=== PATIENT | female | born 1960 | race Caucasian/White ===

== ENCOUNTER 2023-04-13 08:35 | Inpatient (IN) | payer MEDICAID, SELFPAY ==
[2023-04-13] VITALS (19 sets, daily range): BP systolic 112–148; BP diastolic 44–80; PULSE 61–104; RESP 11–19; TEMP 36.6–37.2; O2SAT 96–100; BMI 22.4
--- NOTE | 2023-04-13 | ECHO_ITS ---
Patient Info Name: Patrica Navarrete Age: 63 years : 1960 Gender: Female Ht: 61 in Wt: 128 lbs BSA: 1.59 m2 HR: 105 bpm BP: 130 / 61 mmHg Heart Rhythm: Sinus Rhythm Technical Quality: Fair Exam Date: 04/13/2023 3:52 PM Exam Location: Echo Lab Exam Room: ICU6 Patient Status: Inpatient Admit Date: 04/13/2023 Staff Ordering Physician: Acosta Massey MD Credit Department Manager: Farhana Navarrete RDCS Attending Provider: Reymundo Funes MD Exam Type: CA echo doppler color flow Study Info Indications - ketoacidosis edema hx/o afib covid + Complete two-dimensional, color flow and Doppler transthoracic echocardiogram is performed. Summary 1. Complete two-dimensional, color flow and Doppler transthoracic echocardiogram is performed. 2. Normal left ventricular size and hyperdynamic systolic function visually estimated ejection fraction 80%. 3. Apparent state of increased inotropic stimulation. 4. Grade 1 diastolic noncompliance. 5. No valvular dysfunction. Left Ventricle Left ventricular chamber dimension is normal. Left ventricular systolic function is hyperdynamic, estimated at >70%. The left ventricular diastolic function is grade I diastolic dysfunction. Right Ventricle Right ventricular chamber dimension is normal. Left Atria Left atrial chamber dimension is normal. Right Atria Right atrial chamber dimension is normal. Aortic Valve The aortic valve is normal. Pulmonic Valve The pulmonic valve is not well visualized. Mitral Valve The mitral valve has normal leaflets. Tricuspid Valve The tricuspid valve leaflets are normal. Pericardium/Pleural The pericardium appears normal. Aorta The aortic root size at the sinus of Valsalva is normal. Left Ventricular Outflow Tract Name Value Normal LVOT 2D LVOT Diameter 2.0 cm LVOT Doppler LVOT Peak Gradient 6 mmHg LVOT Mean Gradient 4 mmHg LVOT VTI 24 cm LVOT VTI/AV VTI Ratio 1.0 LVOT Stroke Volume 75 ml LVOT CO 18.0 l/min LVOT CI 11.3 l/min/m2 Pulmonic Valve Name Value Normal PV Doppler PV Peak Gradient 5 mmHg Mitral Valve Name Value Normal MV Doppler MV Decel Wagoner 231 cm/s2 MV PHT 62 ms MV Area (PHT) 3.5 cm2 4.0-5.0 MV Diastolic Function MV E Peak Velocity 50 cm/s MV A Peak Velocity 78 cm/s M
--- NOTE | ~2023-04-13 | XR_ITS ---
EXAMINATION: XR chest 1V portable INDICATION: Weakness TECHNIQUE: Portable AP chest at 0952 hours COMPARISON: None available FINDINGS: The lungs are free of acute opacities. No pleural effusion or pneumothorax. The cardiomedia stinal silhouette is normal. IMPRESSION: 1. No acute cardiopulmonary abnormality. Reviewed, dictated and finalized at location B. [employer]
--- NOTE | 2023-04-13 08:49 | ECG_ITS ---
Measurements Intervals [place] Rate: 64 P: 71 MS: 125 QRS: 59 QRSD: 88 T: 51 QT: 434 QTc: 450 Interpretive Statements SINUS RHYTHM NORMAL ELECTROCARDIOGRAM NO PREVIOUS ECG AVAILABLE FOR COMPARISON Electronically Signed On 04-13-2023 18:19:46 [employer]IXER by Kenny French M.D.
[2023-04-13 09:30] LABS: Glucose Point of Care > 500 mg/dl (65-105)
--- NOTE | 2023-04-13 09:35 | ED.GENADULT ---
HPI - General Adult General Chief complaint: Weakness Stated complaint: weakness History of Present Illness HPI narrative: 63-year-old female with history of type 2 diabetes presented to the emergency department for evaluation of not feeling well since yesterday. Patient reports increased body aches and fatigue and generalized weakness that started yesterday and worsened through to today. Patient denies any falls or injuries. Patient states he does live at home with her son and [id number] and they help take care of her. Patient presented the emergency department by EMS for evaluation of these symptoms. At time of evaluation patient is alert and oriented. Related Data Home Medications Medication Instructions Recorded Confirmed alprazolam 1 mg tablet 1 mg PO QID PRN Anxiety 04/13/23 04/13/23 apixaban 5 mg tablet (Eliquis) 5 mg PO BID 04/13/23 04/13/23 atorvastatin 20 mg tablet 20 mg PO DAILY 04/13/23 04/13/23 estradiol 1 mg tablet 1 mg PO BID 04/13/23 04/13/23 insulin lispro 100 unit/mL 7 unit subcut TIDWM 04/13/23 04/13/23 subcutaneous pen levothyroxine 75 mcg tablet 75 mcg PO DAILY 04/13/23 04/13/23 losartan 50 mg tablet 50 mg PO DAILY 04/13/23 04/13/23 metoprolol tartrate 50 mg tablet 50 mg PO BID 04/13/23 04/13/23 olmesartan 20 mg tablet 20 mg PO DAILY 04/13/23 04/13/23 quetiapine 25 mg tablet 12.5 mg PO HS 04/13/23 04/13/23 trazodone 50 mg tablet 50 mg PO HS 04/13/23 04/13/23 venlafaxine 75 mg capsule,extended 75 mg PO DAILY 04/13/23 04/13/23 release 24 hr Allergies Allergy/AdvReac Type Severity Reaction Status Date / Time cariprazine [From Vraylar] AdvReac Unknown Verified 04/13/23 09:57 metoclopramide [From Reglan] AdvReac Anxiety Verified 04/13/23 09:51 Review of Systems Review of Systems: All systems reviewed & are unremarkable except as noted in HPI and below PMFSH Past Medical History Medical History (Updated 04/13/23 @ 12:07 by Acosta Massey MD) Anxiety Atrial fibrillation CVA (cerebral vascular accident) Diabetes Hypothyroidism Family History Family History (Updated 04/13/23 @ 14:14 by Ian Plasencia RN) Father Acute myocardial infarction Social History Social History (Updated 04/13/23 @ 11:59 by Acosta Massey MD) Social History: Patient denies smoking alcohol use or drug use Smoking status: Never smoker Alcohol intake: never Substance use: never Substance use type: does not use Do You Feel Safe in your Home?: Yes Lack of Transportation: No Lack of Food: Never True Current Housing: I Have Housing Concerned About Future Housing: No Difficulty Paying Gas/Electric Bills: No Difficulty Paying for Meds: No Currently Unemployed: No Education: High School Diploma/GED Difficulty w/ Childcare or Family Care: No Spiritual care concerns: No Exam Narrative: APPEARANCE: Unkempt and ill-appearing HEAD: normocephalic, atraumatic. EYES: PERRLA/EOMI, conjunctivae clear. NOSE: Normal no drainage EARS:TMS clear with good light reflex. THROAT: Pharynx clear, no exudate. NECK: Supple. No adenopathy, no masses. RESPIRATORY: Airway patent, respirations nonlabored. Clear to auscultation bilaterally, no rales, rhonchi, wheezing. CARDIOVASCULAR: Regular rate and rhythm without murmurs rubs or gallops. ABDOMINAL: Soft, nontender, nondistended, normal bowel sounds MUSCULOSKELETAL: Moves all extremities. Strength/ROM intact, No edema, No calf tenderness. NEURO: Alert. Cranial nerves II through XII intact. Grossly intact SKIN: Warm, dry. Normal Color Course Course Emergency Course: Patient was admitted for COVID and DKA Vital Signs Vital signs: Vital Signs Temperature 97.9 F 04/13/23 08:36 Pulse Rate 61 04/13/23 08:36 Respiratory Rate 16 04/13/23 08:36 Blood Pressure 118/55 L 04/13/23 08:36 Pulse Oximetry 100 04/13/23 08:36 Temperature 98 F 04/13/23 16:00 Pulse Rate 85 04/13/23 18:00 Respiratory Rate 18 04/13/23 18:
[2023-04-13 09:47] LABS: Basophils Percent Auto 0.2 % (0.2-1.2); Hemoglobin 13.5 g/dL (12.0-15.0); Immature Granulocyte Absolute 0.05 K/mm3 (0.00-0.031); Immature Granulocyte Percent A 0.8 % (0-0.5); Lymphocytes Absolute Auto 0.74 K/mm3 (0.9-3.2); Lymphocytes Percent Auto 12.3 % (18.3-44.2); Mean Corpuscular HGB Conc 31.4 g/dl (32-36); Mean Corpuscular Hemoglobin 29.9 pg (26-34); Mean Corpuscular Volume 95.1 fl (80-100); Mean Platelet Volume 10.2 fl (7.4-10.4); Monocytes Percent Auto 17.3 % (2.6-8.5); Neutrophils Absolute Auto 4.2 K/mm3 (1.3-6.7); Neutrophils Percent Auto 69.4 % (45.5-73.1); Platelet Count Result 265 k/mm3 (150-375); Red Blood Count 4.52 M/mm3 (4.2-5.4); Red Cell Distribution Width 12.1 % (11.5-14.5)
[2023-04-13 09:51] LABS: Appearance Urine Clear (Clear); Bacteria Urine None Seen /hpf; Bilirubin Urine Negative (Negative); Blood Urine Trace (Negative); Color Urine Yellow (Yellow); Glucose Urine UA 3+ mg/dL (Negative); Ketones Urine 4+ mg/dL (Negative); Leukocyte Esterase Ur Negative LEU/UL (Negative); Nitrate Urine Negative (Negative); Non Pathogenic Casts 0-2; Protein Urine Trace mg/dL (Negative); RBC Urine 0-2 /hpf (0-2); Specific Grav Ur 1.025 (1.001-1.035); Squamous Epithelial Cell Urine None seen /hpf (Few); Urobilinogen Urine 0.2 mg/dL (<2.0); WBC Urine 0-5 /hpf
[2023-04-13 09:53] LABS: Add Urine Microscopic? YES
[2023-04-13 10:01] LABS: Alanine Aminotransferase 18 U/L (6-35); Albumin Level 4.1 g/dL (3.5-5.1); Alkaline Phosphatase 72 U/L (38-126); Anion Gap 22 mmol/L (8-16); Aspartate Amino Transferase 25 U/L (14-36); Bilirubin,Total 0.5 mg/dL (0.2-1.3); Blood Urea Nitrogen 17 mg/dL (7-17); Calcium 9.4 mg/dL (8.4-10.2); Carbon Dioxide 12 mmol/L (22-30); Chloride 96 mmol/L (98-107); Estimated CRCL calculation 35 ml/min; Estimated Glomerular Filt Rate 50; Glucose 479 mg/dL (65-110); Potassium 6.2 mmol/L (3.4-5.0); Sodium 130 mmol/L (137-145)
[2023-04-13 10:26] LABS: Influenza A QL RT-PCR Negative (Negative); Influenza B QL RT-PCR Negative (Negative); RSV RNA, RT-PCR Negative (Negative); SARS-CoV-2 RNA PCR Positive (Negative)
[2023-04-13] MEDS: ALBUTEROL SULFATE NEB 2.5 MG/3 ML INH 10 MG INHALATION (10:36)
[2023-04-13 10:41] LABS: Base Excess ABG -13.8 mEq/l (+/-2.0); Carboxyhemoglobin 1.2 % THb (0-2.0); Fractional Inspired Oxygen 21 %; HCO3 ABG 11.8 mEq/l (22.0-26.0); Methemoglobin ABG 0.2 %THb (0-1.5); Oxygen Content ABG 18.3 %vol (16.0-22.0); Oxygen Saturation ABG 95.6 % (95.0-100.0); Oxyhemoglobin 93.5 % THb (90.0-100.0); PCO2 ABG 27.6 mmHg (35.0-45.0); PO2 ABG 88.7 mmHg (80.0-100.0); PO2 FiO2 Ratio Arterial Blood 4.22 %; Reduced Hemoglobin 5.1 %THb (0-5.0); Total Hemoglobin 13.9 g/dL (12.0-18.0)
[2023-04-13 10:43] LABS: Device ROOM AIR; Modified Allen's Test Pass; Site Drawn RIGHT RADIAL; pH ABG 7.249 (7.350-7.450)
[2023-04-13 10:50] LABS: Beta-Hydroxybutyrate/Acetoacetate 8.03 mmol/L (0.02-0.27)
[2023-04-13] MEDS: SODIUM CHLORIDE 0.9% IV 1,000 ML 999 ML IV CONT ×2 (11:32→11:33)
[2023-04-13] MEDS: FUROSEMIDE INJ 40 MG/4 ML VIAL 20 MG IV PUSH (11:33)
[2023-04-13] MEDS: INSULIN HUMAN REGULAR (*BKC) 100 UNITS/ML 6 UNITS IV PUSH (11:34)
[2023-04-13] MEDS: SODIUM ZIRCONIUM CYCLOSILICATE 10 GM POWD.PACK PO ×2 (11:34→15:21)
[2023-04-13] MEDS: SODIUM BICARBONATE 8.4% 50 MEQ/50 ML SYRINGE IV PUSH (11:34)
--- NOTE | 2023-04-13 11:57 | WPDCNINT ---
Assessment and Plan Assessment and plan (1) DKA (diabetic ketoacidosis): Code(s): E11.10 - Type 2 diabetes mellitus with ketoacidosis without coma Status: Acute Assessment and Plan: 2 L iVF bolus followed by infusion Patient is going to be started on insulin infusion and Q1H glucose monitoring Serial labs will be done Replace electrolytes as needed Will transition to SC insulin once AG is closed (2) COVID: Code(s): U07.1 - COVID-19 Status: Acute Assessment and Plan: Patient tested positive for COVID-19 On room air and chest x-ray clear Isolation Not sure if patient has received COVID-19 vaccine Since patient is at high risk of progression due to her comorbidities I will start patient on remdesivir as per treatment recommendations (3) Acute hyperkalemia: Code(s): E87.5 - Hyperkalemia Status: Acute Assessment and Plan: Secondary to DKA metabolic acidosis and NEHEMIAS Patient is getting insulin bolus IV fluid bolus and bicarb in the ER Recheck BMP in 4 hours (4) Acute kidney injury: Code(s): N17.9 - Acute kidney failure, unspecified Status: Acute Assessment and Plan: Creatinine mildly elevated. Baseline unknown This could be secondary to dehydration from DKA Will treat with IV fluids monitor urine output electrolytes and creatinine If it does not improve with IV fluids will consider further workup Check CK level (5) Metabolic acidosis: Code(s): E87.20 - Acidosis, unspecified Status: Acute Assessment and Plan: Secondary to DKA and NEHEMIAS Patient received 1 amp of bicarb in the ER Treatment with IV fluids Monitor (6) CVA (cerebral vascular accident): Code(s): I63.9 - Cerebral infarction, unspecified Status: Acute Assessment and Plan: Will obtain records as no details known at this time (7) Atrial fibrillation: Code(s): I48.91 - Unspecified atrial fibrillation Status: Acute Assessment and Plan: Patient apparently has history of AFib although it was not confirmed Obtain records Currently in sinus rhythm with controlled ventricular rate (8) Hypothyroidism: Code(s): E03.9 - Hypothyroidism, unspecified Status: Acute Assessment and Plan: Check TSH Resume levothyroxine once confirmed Plan DVT prophylaxis -Lovenox Stress ulcer prophylaxis - Nutrition -npo Code Status - Full Code Total Critical Care Time - 35 minutes Due to a high probability of clinically significant, life threatening deterioration, the patient required my highest level of preparedness to intervene emergently and I personally spent this critical care time directly and personally managing the patient. This critical care time included obtaining a history; examining the patient; pulse oximetry; ordering and review of studies; arranging urgent treatment with development of a management plan; evaluation of patient's response to treatment; frequent reassessment; and discussions with other providers. It was exclusive of separately billable procedures and treating other patients and teaching time. Please see Assessment and Plan section and the rest of the note for further information on patient assessment and treatment [employer] Fleet [employer] Consult Note Consult date: 04/13/23 Reason for consult: DKA HPI: Patrica Navarrete is a 63 year old female with past history of diabetes presented with chief complaint of weakness. Patient is a poor historian and appears that has a history of hypothyroidism CVA anxiety and atrial fibrillation although details unknown at this time. No family is available and nurse tried to call patient's son-in-law and daughter but was unable to speak to anyone. Patient herself does not know details about her medical problems or medications and is able to provide limited history. She states that she has been feeling sick for last few days and feeling very weak and tired and unable to get out of bed. She denies any tanja
[2023-04-13] MEDS: INSULIN HUMAN REGULAR (*BKC) 100 UNITS in SODIUM CHLORIDE 0.9% IV 99 ML 5.5 UNITS IV CONT (12:49)
[2023-04-13 12:56] LABS: Hemoglobin A1C 11.4 % (<5.7)
[2023-04-13 13:03] LABS: Thyroid Stimulating Hormone Reflex 0.253 uIU/mL (0.465-4.68)
[2023-04-13 13:21] LABS: Glucose Point of Care 430 mg/dl (65-105)
[2023-04-13 13:28] LABS: Creatine Kinase 66 U/L (30-135); Magnesium 1.8 mg/dL (1.6-2.3); Phosphorus 5.8 mg/dL (2.5-4.5)
[2023-04-13] MEDS: SODIUM CHLORIDE 0.9% IV 1,000 ML 150 ML IV CONT (14:01)
[2023-04-13 14:05] LABS: Glucose Point of Care 420 mg/dl (65-105)
[2023-04-13] MEDS: REMDESIVIR 200 MG/NS 250 ML 200 MG/250 ML BAG 250 MG IVPB (14:09)
--- NOTE | 2023-04-13 14:21 | ADMGEN ---
This patient, Patrica Navarrete, was admitted to Virtual [facility] ICU-1. Patient/family oriented to hospital policies and general routines including ID bracelet, bed and alarms, visiting hours, pain management, procedures, bathroom and other care routines, personal items, smoking policy, room service/diet, and visiting hours. Information on how to activate the Rapid Response Team has been discussed. Patient/Family are encouraged to report perceived risks to care and to ask questions if they do not understand what they are told or what they should do.
[2023-04-13 14:44] LABS: Free T4 Free Thyroxine Reflex 1.81 ng/dL (0.78-2.19)
--- NOTE | 2023-04-13 15:00 | PC.NURSE ---
Updated patient's son-in-law, Chester Townsend, on plan of care and patient condition.
--- NOTE | 2023-04-13 15:25 | PM.IMHP ---
H&P: HPI History of Present Illness Date/Time: 04/13/23 Chief Complaint: Weakness. Narrative: This is a 63-year-old female with history of type 1 diabetes mellitus, hypothyroidism, stroke, atrial fibrillation, hypertension, and anxiety who presented to the emergency department via EMS from home for evaluation of weakness. The patient provides the following history however some of the following is supplemented via a review of her electronic medical records as she is not a great historian. She has not been feeling well for a couple of days with generalized malaise, fatigue, body aches, dry cough, and subjective fever. She reports that she has been so weak that she could not even get herself out of bed and she had to crawl to the bathroom. Family members found her on the bathroom floor (she denied a fall) and called 911. Preliminary workup in the ED is consistent with diabetic ketoacidosis and she has been admitted to the ICU in this setting for further treatment. She states compliance with her insulin and states that she checks her glucose frequently but I am not certain that is the case. She also tested positive for COVID and reports that she has never been vaccinated for the same. At the time my evaluation she is still not feeling well. She reports ongoing nausea and she has had several episodes of non bloody and non bilious emesis. She denies documented fever, headache, chest pain, pleuritic pain, hematemesis, diarrhea, and dysuria. Review of Systems Review of Systems: Twelve systems were reviewed and are negative except for as per HPI. [facility] Past Medical History Medical History (Updated 04/14/23 @ 00:26 by Marisa Noriega PA-C) Anxiety Cerebrovascular accident Hypothyroidism Paroxysmal atrial fibrillation Type 1 diabetes mellitus Family History Family History Father Acute myocardial infarction Social History Social History (Updated 04/14/23 @ 00:27 by Marisa Noriega PA-C) Social History: Surrogate medical decision maker: Chester Townsend, son-in-law. Code status: Full code. Smoking status: Never smoker Alcohol intake: never Substance use: never Substance use type: does not use Do You Feel Safe in your Home?: Yes Lack of Transportation: No Lack of Food: Never True Current Housing: I Have Housing Concerned About Future Housing: No Difficulty Paying Gas/Electric Bills: No Difficulty Paying for Meds: No Currently Unemployed: No Education: High School Diploma/GED Difficulty w/ Childcare or Family Care: No Spiritual care concerns: No Meds Home Medications and Allergies Home Medications Medication Instructions Recorded Confirmed Type alprazolam 1 mg tablet 1 mg PO QID PRN Anxiety 04/13/23 04/13/23 History apixaban 5 mg tablet (Eliquis) 5 mg PO BID 04/13/23 04/13/23 History atorvastatin 20 mg tablet 20 mg PO DAILY 04/13/23 04/13/23 History estradiol 1 mg tablet 1 mg PO BID 04/13/23 04/13/23 History insulin lispro 100 unit/mL 7 unit subcut TIDWM 04/13/23 04/13/23 History subcutaneous pen levothyroxine 75 mcg tablet 75 mcg PO DAILY 04/13/23 04/13/23 History losartan 50 mg tablet 50 mg PO DAILY 04/13/23 04/13/23 History metoprolol tartrate 50 mg tablet 50 mg PO BID 04/13/23 04/13/23 History olmesartan 20 mg tablet 20 mg PO DAILY 04/13/23 04/13/23 History quetiapine 25 mg tablet 12.5 mg PO HS 04/13/23 04/13/23 History trazodone 50 mg tablet 50 mg PO HS 04/13/23 04/13/23 History venlafaxine 75 mg capsule,extended 75 mg PO DAILY 04/13/23 04/13/23 History release 24 hr Allergies Allergy/AdvReac Type Severity Reaction Status Date / Time cariprazine [From Kamryn] AdvReac Unknown Verified 04/13/23 09:57 metoclopramide [From Reglan] AdvReac Anxiety Verified 04/13/23 09:51 Vital Signs Vital Signs - 24 hr 04/13/23 08:36 04/13/23 10:38 04/13/23 09:01 Temperature 97.9 F Pulse Rate 61 68 65 Respiratory Rate
[2023-04-13 15:26] LABS: Total Triiodothyronine (T3) 0.53 NG/ML (0.97-1.69)
--- NOTE | 2023-04-13 15:50 | PCCDE ---
04/13/23 15:50 contacted pt by phone. Currently tired, and someone in room running test. Retry tomorrow.
[2023-04-13 15:52] LABS: Anion Gap 25 mmol/L (8-16); Blood Urea Nitrogen 15 mg/dL (7-17); Calcium 8.5 mg/dL (8.4-10.2); Carbon Dioxide 12 mmol/L (22-30); Chloride 101 mmol/L (98-107); Estimated CRCL calculation 38 ml/min; Estimated Glomerular Filt Rate 56; Glucose 316 mg/dL (65-110); Potassium 3.7 mmol/L (3.4-5.0); Sodium 138 mmol/L (137-145)
[2023-04-13 16:01] LABS: NT Pro B Type Natriuretic Pept 874 pg/mL (19.9-100)
[2023-04-13 16:22] LABS: Glucose Point of Care 358 mg/dl (65-105)
[2023-04-13 16:22] LABS: Glucose Point of Care 322 mg/dl (65-105)
[2023-04-13 16:51] LABS: MRSA (PCR) NOT DETECTED (NOT DETECTE)
[2023-04-13] MEDS: KCL 20 MEQ/D5/0.45% SOD CHL 1,000 ML 150 ML IV CONT (17:06)
[2023-04-13] MEDS: VENLAFAXINE HCL XR 75 MG CAP.ER.24H PO (17:06)
[2023-04-13 17:11] LABS: Glucose Point of Care 287 mg/dl (65-105)
[2023-04-13 17:59] LABS: Glucose Point of Care 268 mg/dl (65-105)
[2023-04-13 20:10] LABS: Anion Gap 9 mmol/L (8-16); Blood Urea Nitrogen 14 mg/dL (7-17); Calcium 8.4 mg/dL (8.4-10.2); Carbon Dioxide 25 mmol/L (22-30); Chloride 102 mmol/L (98-107); Estimated CRCL calculation 53 ml/min; Estimated Glomerular Filt Rate > 60; Glucose 187 mg/dL (65-110); Potassium 3.5 mmol/L (3.4-5.0); Sodium 136 mmol/L (137-145)
[2023-04-13] MEDS: APIXABAN 5 MG TABLET PO (20:17)
[2023-04-13] MEDS: INSULIN GLARGINE (*BKC) 100 UNITS/ML 22 UNITS SUB-Q (21:02)
[2023-04-13 21:13] LABS: Glucose Point of Care 189 mg/dl (65-105)
[2023-04-13 21:13] LABS: Glucose Point of Care 223 mg/dl (65-105)
[2023-04-13] MEDS: KCL 20MEQ/0.9% SOD CHL 1,000 ML 75 ML IV CONT (22:07)
[2023-04-14] VITALS (11 sets, daily range): BP systolic 113–169; BP diastolic 44–75; PULSE 69–99; RESP 10–20; TEMP 36.5–37.5; O2SAT 93–100; BMI 22.4
[2023-04-14 00:06] LABS: Glucose Point of Care 183 mg/dl (65-105)
[2023-04-14 04:00] LABS: Basophils Percent Auto 0.3 % (0.2-1.2); Hematocrit 41.1 % (37.0-47.0); Hemoglobin 12.7 g/dL (12.0-15.0); Immature Granulocyte Absolute 0.03 K/mm3 (0.00-0.031); Immature Granulocyte Percent A 0.4 % (0-0.5); Lymphocytes Absolute Auto 1.99 K/mm3 (0.9-3.2); Lymphocytes Percent Auto 25.9 % (18.3-44.2); Mean Corpuscular HGB Conc 30.9 g/dl (32-36); Mean Corpuscular Hemoglobin 30.1 pg (26-34); Mean Corpuscular Volume 97.4 fl (80-100); Mean Platelet Volume 9.4 fl (7.4-10.4); Monocytes Absolute Auto 1.2 K/mm3 (0.1-0.6); Monocytes Percent Auto 15.2 % (2.6-8.5); Neutrophils Absolute Auto 4.5 K/mm3 (1.3-6.7); Neutrophils Percent Auto 58.2 % (45.5-73.1); Platelet Count Result 250 k/mm3 (150-375); Red Blood Count 4.22 M/mm3 (4.2-5.4); Red Cell Distribution Width 12.3 % (11.5-14.5); White Blood Count 7.7 K/mm3 (4.5-10.0)
[2023-04-14 04:21] LABS: Alanine Aminotransferase 29 U/L (6-35); Alkaline Phosphatase 51 U/L (38-126); Anion Gap 8 mmol/L (8-16); Aspartate Amino Transferase 58 U/L (14-36); Bilirubin,Total 0.3 mg/dL (0.2-1.3); Blood Urea Nitrogen 15 mg/dL (7-17); Calcium 8.1 mg/dL (8.4-10.2); Carbon Dioxide 19 mmol/L (22-30); Chloride 106 mmol/L (98-107); Estimated CRCL calculation 53 ml/min; Estimated Glomerular Filt Rate > 60; Glucose 100 mg/dL (65-110); Magnesium 1.6 mg/dL (1.6-2.3); Phosphorus 2.8 mg/dL (2.5-4.5); Potassium 3.4 mmol/L (3.4-5.0); Sodium 133 mmol/L (137-145)
[2023-04-14] MEDS: LEVOTHYROXINE SODIUM 75 MCG TABLET PO (05:33)
--- NOTE | 2023-04-14 08:12 | WPDINTPN ---
Progress Note: A&P Assessment and Plan (1) DKA (diabetic ketoacidosis): Code(s): E11.10 - Type 2 diabetes mellitus with ketoacidosis without coma Status: Acute Assessment and Plan: Patient was given 2 L iVF bolus followed by infusion Patient was started on on insulin infusion and Q1H glucose monitoring Serial labs were done Her anion gap has now closed patient will transition to Lantus and sliding scale insulin. Will add pre meal insulin depending on her blood sugars Diabetic diet With DC IV fluids (2) COVID: Code(s): U07.1 - COVID-19 Status: Acute Assessment and Plan: Patient tested positive for COVID-19 On room air and chest x-ray clear Isolation Not sure if patient has received COVID-19 vaccine Since patient is at high risk of progression due to her comorbidities I have started patient on remdesivir as per treatment recommendations (3) Acute hyperkalemia: Code(s): E87.5 - Hyperkalemia Status: Acute Assessment and Plan: Secondary to DKA metabolic acidosis and NEHEMIAS Resolved with IV fluids insulin bicarb. Patient also received Lokelma in the ED (4) Acute kidney injury: Code(s): N17.9 - Acute kidney failure, unspecified Status: Acute Assessment and Plan: Creatinine mildly elevated. Baseline unknown This this is likely secondary to dehydration from DKA Creatinine now has normalized with IV fluids CK was normal monitor urine output electrolytes and creatinine (5) Metabolic acidosis: Code(s): E87.20 - Acidosis, unspecified Status: Acute Assessment and Plan: Secondary to DKA and NEHEMIAS Improved Monitor (6) CVA (cerebral vascular accident): Code(s): I63.9 - Cerebral infarction, unspecified Status: Acute Assessment and Plan: Will obtain records as no details known at this time (7) Atrial fibrillation: Code(s): I48.91 - Unspecified atrial fibrillation Status: Acute Assessment and Plan: Patient apparently has history of AFib although it was not confirmed Obtain records Currently in sinus rhythm with controlled ventricular rate Continue Eliquis, statin Resume metoprolol (8) Hypothyroidism: Code(s): E03.9 - Hypothyroidism, unspecified Status: Acute Assessment and Plan: Continue levothyroxine Plan DVT prophylaxis -Lovenox Stress ulcer prophylaxis - Nutrition -diabetic diet Code Status - Full Code Transfer out of ICU today Subjective Date/time seen: 04/14/23 Overnight events reviewed. Afebrile Blood pressure now slightly elevated Good urine output Her anion gap closed overnight and patient was transitioned to subcutaneous insulin Denies any complaints this morning. Patient denies fever, chest pain, shortness of breath, cough, nausea vomiting, abdominal pain,, diarrhea, headache or constipation. All other systems were reviewed and were negative Other vitals acceptable Review of Systems Review of Systems: All systems reviewed & are unremarkable except as noted in HPI and below (HPI) Exam Narrative: General: Pt is alert awake and in NAD Lungs/Chest: Trachea central Clear BS B/L, No crackles or wheezing. Cardiac: RRR. Normal S1 S2. No murmurs Circulation: Pedal pulses are intact and symmetrical. Abdomen: Normal bowel sounds.. Soft. NT. ND. Extremities: No clubbing, cyanosis Warm. Dry flaky skin on both feet. Small amount of pedal edema bilateral : Hu in place Neurologic: Follows commands. Moves all 4 extremities PERRL AO x3 Skin: No Rash Objective Data Vital Signs Vital Signs: Vital Signs - 24 hr 04/13/23 08:36 04/13/23 10:38 04/13/23 09:01 Temperature 36.6 C Pulse Rate 61 68 65 Respiratory Rate 16 17 16 Blood Pressure 118/55 L 130/56 L Pulse Oximetry 100 100 Oxygen Delivery 04/13/23 09:17 04/13/23 09:31 04/13/23 09:46 Temperature Pulse Rate 63 69 Respiratory Rate 16 14 Blood Pressure 120/80 115/60 117/67 P
[2023-04-14] MEDS: VENLAFAXINE HCL XR 75 MG CAP.ER.24H PO (08:15)
[2023-04-14] MEDS: POTASSIUM CHLORIDE 20 MEQ PACKET (FOR LIQUID) 40 MEQ PO (08:15)
[2023-04-14] MEDS: ATORVASTATIN 20 MG TABLET PO (08:15)
[2023-04-14] MEDS: METOPROLOL TARTRATE 25 MG TABLET PO ×2 (08:15→21:53)
[2023-04-14] MEDS: APIXABAN 5 MG TABLET PO ×2 (08:15→21:53)
[2023-04-14] MEDS: MAGNESIUM SULF 2 GM/WATER 50ML 2 GM/50 ML BAG IVPB (08:16)
[2023-04-14 09:30] LABS: Glucose Point of Care 77 mg/dl (65-105)
[2023-04-14 09:30] LABS: Glucose Point of Care 53 mg/dl (65-105)
[2023-04-14 09:30] LABS: Glucose Point of Care 58 mg/dl (65-105)
[2023-04-14] MEDS: REMDESIVIR 100 MG/NS 250 ML 100 MG/250 ML BAG 250 MG IVPB (10:01)
[2023-04-14] MEDS: KCL 20MEQ/0.9% SOD CHL 1,000 ML 75 ML IV CONT (10:02)
[2023-04-14 10:23] LABS: Glucose Point of Care 151 mg/dl (65-105)
[2023-04-14 12:28] LABS: Glucose Point of Care 141 mg/dl (65-105)
[2023-04-14 16:41] LABS: Glucose Point of Care 136 mg/dl (65-105)
--- NOTE | 2023-04-14 17:38 | PC.NURSE ---
This patient, Patrica Navarrete, was transferred to [[address] [place] [address] ] on 04/14/23 at 1740. Personal belongings sent with patient. Report given to [ Emperatriz]. Appropriate documentation sent with patient.
--- NOTE | 2023-04-14 20:00 | PC.NURSE ---
Pt states that she is going to throw herself on the ground in order to injure herself so that she can bettye the hospital to pay for her medical bills. Pt states this is a serious comment and that she has intent to do this. SHERIN Davis and ABHIJIT Tilley both present when comments were made. Pt bed alarm set to zone 2 and bed rails up at this time. Pt educated on appropriate behavior and hospital safety precautions.
[2023-04-14 20:45] LABS: Glucose Point of Care 106 mg/dl (65-105)
--- NOTE | 2023-04-14 21:45 | PC.NURSE ---
Snack given with evening lantus dose.
[2023-04-14] MEDS: QUEtiapine FUMARATE 12.5 MG TABLET PO (21:53)
[2023-04-14] MEDS: ALPRAZolam (*CRX) 0.5 MG TABLET 1 MG PO (21:56)
[2023-04-14] MEDS: INSULIN GLARGINE (*BKC) 100 UNITS/ML 18 UNITS SUB-Q (21:58)
[2023-04-15] VITALS (11 sets, daily range): BP systolic 148–163; BP diastolic 56–69; PULSE 62–83; RESP 16–18; TEMP 36.4–36.8; O2SAT 95–100
[2023-04-15] MEDS: LEVOTHYROXINE SODIUM 75 MCG TABLET PO (05:58)
[2023-04-15 06:16] LABS: Basophils Percent Auto 0.2 % (0.2-1.2); Eosinophils Percent Auto 0.2 % (0-4.4); Hematocrit 38.7 % (37.0-47.0); Hemoglobin 12.8 g/dL (12.0-15.0); Immature Granulocyte Absolute 0.02 K/mm3 (0.00-0.031); Immature Granulocyte Percent A 0.4 % (0-0.5); Lymphocytes Absolute Auto 2.12 K/mm3 (0.9-3.2); Lymphocytes Percent Auto 42.4 % (18.3-44.2); Mean Corpuscular HGB Conc 33.1 g/dl (32-36); Mean Corpuscular Hemoglobin 30.5 pg (26-34); Mean Corpuscular Volume 92.4 fl (80-100); Mean Platelet Volume 9.8 fl (7.4-10.4); Monocytes Absolute Auto 0.5 K/mm3 (0.1-0.6); Monocytes Percent Auto 10.6 % (2.6-8.5); Neutrophils Absolute Auto 2.3 K/mm3 (1.3-6.7); Neutrophils Percent Auto 46.2 % (45.5-73.1); Platelet Count Result 237 k/mm3 (150-375); Red Blood Count 4.19 M/mm3 (4.2-5.4); Red Cell Distribution Width 12.9 % (11.5-14.5)
[2023-04-15 06:26] LABS: Alanine Aminotransferase 43 U/L (6-35); Albumin Level 2.8 g/dL (3.5-5.1); Alkaline Phosphatase 54 U/L (38-126); Anion Gap 5 mmol/L (8-16); Aspartate Amino Transferase 83 U/L (14-36); Bilirubin,Total 0.2 mg/dL (0.2-1.3); Blood Urea Nitrogen 9 mg/dL (7-17); Calcium 8.3 mg/dL (8.4-10.2); Carbon Dioxide 26 mmol/L (22-30); Chloride 105 mmol/L (98-107); Estimated CRCL calculation 62 ml/min; Estimated Glomerular Filt Rate > 60; Glucose 45 mg/dL (65-110); Magnesium 1.9 mg/dL (1.6-2.3); Phosphorus 2.4 mg/dL (2.5-4.5); Sodium 136 mmol/L (137-145)
[2023-04-15] MEDS: GLUCOSE ORAL GEL 15 GM OF GLUCSE IN 37.5 GM TUBE PO (06:33)
[2023-04-15 06:49] LABS: INR 1.5; Prothrombin Time 18.8 Seconds (11.1-14.7)
[2023-04-15] MEDS: DEXTROSE 50% 25 GM/50 ML SYRINGE IV PUSH (06:54)
[2023-04-15 07:07] LABS: Potassium 3.2 mmol/L (3.4-5.0)
[2023-04-15 07:26] LABS: Glucose Point of Care 56 mg/dl (65-105)
[2023-04-15 07:26] LABS: Glucose Point of Care 64 mg/dl (65-105)
[2023-04-15 07:26] LABS: Glucose Point of Care 194 mg/dl (65-105)
[2023-04-15 08:34] LABS: Glucose Point of Care 207 mg/dl (65-105)
[2023-04-15] MEDS: INSULIN ASPART (*BKC) 100 UNITS/ML SUB-Q ×2 (08:59→18:03)
[2023-04-15] MEDS: APIXABAN 5 MG TABLET PO ×2 (09:02→20:37)
[2023-04-15] MEDS: METOPROLOL TARTRATE 25 MG TABLET PO ×2 (09:02→20:38)
[2023-04-15] MEDS: ATORVASTATIN 20 MG TABLET PO (09:03)
[2023-04-15] MEDS: ALPRAZolam (*CRX) 0.5 MG TABLET 1 MG PO (09:03)
[2023-04-15] MEDS: VENLAFAXINE HCL XR 75 MG CAP.ER.24H PO (09:03)
--- NOTE | 2023-04-15 09:40 | PM.IMPN ---
Progress Note: A&P Assessment and Plan (1) DKA (diabetic ketoacidosis): Code(s): E11.10 - Type 2 diabetes mellitus with ketoacidosis without coma Status: Acute Assessment and Plan: Patient was given 2 L IVF bolus followed by infusion Patient was started on on insulin infusion and Q1H glucose monitoring Serial labs were done Her anion gap has now closed, patient will transition to Lantus and sliding scale insulin. Will add pre meal insulin depending on her blood sugars Diabetic diet DC IV fluids BG reviewed 04/15, trending up, monitor closely, was previously hypoglycemic (2) COVID: Code(s): U07.1 - COVID-19 Status: Acute Assessment and Plan: Patient tested positive for COVID-19 On room air and chest x-ray clear Isolation Not sure if patient has received COVID-19 vaccine Since patient is at high risk of progression due to her comorbidities, started patient on remdesivir 04/14 as per treatment recommendations (3) Acute hyperkalemia: Code(s): E87.5 - Hyperkalemia Status: Acute Assessment and Plan: Secondary to DKA metabolic acidosis and NEHEMIAS Resolved with IV fluids insulin bicarb. Patient also received Lokelma in the ED (4) Acute kidney injury: Code(s): N17.9 - Acute kidney failure, unspecified Status: Acute Assessment and Plan: Creatinine mildly elevated. Baseline unknown This this is likely secondary to dehydration from DKA Creatinine now has normalized with IV fluids CK was normal monitor urine output electrolytes and creatinine (5) Metabolic acidosis: Code(s): E87.20 - Acidosis, unspecified Status: Acute Assessment and Plan: Secondary to DKA and NEHEMIAS Improved Monitor (6) CVA (cerebral vascular accident): Code(s): I63.9 - Cerebral infarction, unspecified Status: Acute Assessment and Plan: Will obtain records as no details known at this time (7) Atrial fibrillation: Code(s): I48.91 - Unspecified atrial fibrillation Status: Acute Assessment and Plan: Patient apparently has history of AFib although it was not confirmed Obtain records Currently in sinus rhythm with controlled ventricular rate Continue Eliquis, statin Resume metoprolol (8) Hypothyroidism: Code(s): E03.9 - Hypothyroidism, unspecified Status: Acute Assessment and Plan: Continue levothyroxine Plan DVT prophylaxis -Lovenox Stress ulcer prophylaxis - Nutrition -diabetic diet Code Status - Full Code Transfer out of ICU 04/14 consider d/c tomorrow after 3 days of remdesevir Subjective Date/time seen: 04/15/23 09:40 Interval history: No overnight events noted. No chest pain or shortness of breath. No nausea, vomiting or diarrhea. No fevers or chills. Review of Systems Review of Systems: 12 point review of systems was assessed and was negative except as noted in the HPI Exam Narrative: General: Pt is alert awake and in NAD Lungs/Chest: Trachea central Clear BS B/L, No crackles or wheezing. Cardiac: RRR. Normal S1 S2. No murmurs Circulation: Pedal pulses are intact and symmetrical. Abdomen: Normal bowel sounds.. Soft. NT. ND. Extremities: No clubbing, cyanosis Warm. Dry flaky skin on both feet. Small amount of pedal edema bilateral : Hu in place Neurologic: Follows commands. Moves all 4 extremities PERRL AO x3 Skin: No Rash Objective Data Vital Signs Vital Signs: Vital Signs - 24 hr 04/14/23 12:00 04/14/23 16:00 04/14/23 16:00 Temperature 98.1 F Pulse Rate 69 76 72 Respiratory Rate 20 Blood Pressure 151/73 H Pulse Oximetry 98 Oxygen Delivery 04/14/23 20:44 04/14/23 21:53 04/14/23 20:00 Temperature 97.7 F Pulse Rate 88 88 77 Respiratory Rate 18 Blood Pressure 169/75 H Pulse Oximetry 99 Oxygen Delivery 04/14/23 21:45 04/15/23 00:00 04/15/23 05:17 Temperature 97.6 F Pulse Rate 65 7
[2023-04-15] MEDS: REMDESIVIR 100 MG/NS 250 ML 100 MG/250 ML BAG 250 MG IVPB (10:20)
[2023-04-15] MEDS: POTASSIUM CHLORIDE INJ 40 MEQ in SODIUM CHLORIDE 0.9% IV 500 ML 130 MEQ IVPB (11:44)
[2023-04-15 12:26] LABS: Glucose Point of Care 175 mg/dl (65-105)
[2023-04-15 16:55] LABS: Glucose Point of Care 226 mg/dl (65-105)
[2023-04-15 20:32] LABS: Glucose Point of Care 137 mg/dl (65-105)
[2023-04-15] MEDS: QUEtiapine FUMARATE 12.5 MG TABLET PO (20:38)
[2023-04-15] MEDS: INSULIN GLARGINE (*BKC) 100 UNITS/ML 15 UNITS SUB-Q (20:38)
[2023-04-15] MEDS: traZODone HCL 50 MG TABLET PO (20:47)
[2023-04-16] VITALS (12 sets, daily range): BP systolic 135–161; BP diastolic 66–85; PULSE 62–86; RESP 17–18; TEMP 36.3–36.7; O2SAT 95–99
[2023-04-16 04:39] LABS: Glucose Point of Care 45 mg/dl (65-105)
[2023-04-16] MEDS: DEXTROSE 50% 25 GM/50 ML SYRINGE IV PUSH (04:45)
[2023-04-16 05:04] LABS: Glucose Point of Care 148 mg/dl (65-105)
[2023-04-16] MEDS: LEVOTHYROXINE SODIUM 75 MCG TABLET PO (05:41)
[2023-04-16 06:09] LABS: Glucose Point of Care 127 mg/dl (65-105)
[2023-04-16 06:10] LABS: Basophils Percent Auto 0.6 % (0.2-1.2); Eosinophils Percent Auto 0.6 % (0-4.4); Hematocrit 38.1 % (37.0-47.0); Hemoglobin 12.7 g/dL (12.0-15.0); Immature Granulocyte Absolute 0.01 K/mm3 (0.00-0.031); Immature Granulocyte Percent A 0.3 % (0-0.5); Lymphocytes Absolute Auto 1.56 K/mm3 (0.9-3.2); Lymphocytes Percent Auto 47.6 % (18.3-44.2); Mean Corpuscular HGB Conc 33.3 g/dl (32-36); Mean Corpuscular Hemoglobin 30.8 pg (26-34); Mean Corpuscular Volume 92.3 fl (80-100); Mean Platelet Volume 9.7 fl (7.4-10.4); Monocytes Absolute Auto 0.4 K/mm3 (0.1-0.6); Monocytes Percent Auto 13.4 % (2.6-8.5); Neutrophils Absolute Auto 1.2 K/mm3 (1.3-6.7); Neutrophils Percent Auto 37.5 % (45.5-73.1); Platelet Count Result 204 k/mm3 (150-375); Red Blood Count 4.13 M/mm3 (4.2-5.4); Red Cell Distribution Width 12.8 % (11.5-14.5); White Blood Count 3.3 K/mm3 (4.5-10.0)
[2023-04-16 06:44] LABS: Alanine Aminotransferase 52 U/L (6-35); Albumin Level 2.8 g/dL (3.5-5.1); Alkaline Phosphatase 56 U/L (38-126); Anion Gap 1 mmol/L (8-16); Aspartate Amino Transferase 81 U/L (14-36); Bilirubin,Total 0.3 mg/dL (0.2-1.3); Blood Urea Nitrogen 9 mg/dL (7-17); Calcium 8.3 mg/dL (8.4-10.2); Carbon Dioxide 33 mmol/L (22-30); Chloride 98 mmol/L (98-107); Estimated CRCL calculation 72 ml/min; Estimated Glomerular Filt Rate > 60; Glucose 137 mg/dL (65-110); Magnesium 1.6 mg/dL (1.6-2.3); Phosphorus 2.4 mg/dL (2.5-4.5); Potassium 3.5 mmol/L (3.4-5.0); Sodium 132 mmol/L (137-145)
[2023-04-16 08:41] LABS: Glucose Point of Care 124 mg/dl (65-105)
[2023-04-16] MEDS: VENLAFAXINE HCL XR 75 MG CAP.ER.24H PO (09:10)
[2023-04-16] MEDS: METOPROLOL TARTRATE 25 MG TABLET PO ×2 (09:10→21:25)
[2023-04-16] MEDS: APIXABAN 5 MG TABLET PO ×2 (09:10→21:25)
[2023-04-16] MEDS: ATORVASTATIN 20 MG TABLET PO (09:10)
[2023-04-16] MEDS: ALPRAZolam (*CRX) 0.5 MG TABLET 1 MG PO ×2 (09:15→21:30)
--- NOTE | 2023-04-16 10:14 | PCCDE ---
04/16/23? 10:00 am Reviewed labs; po intake ? Patient with inconsistent po intake including supplement, has required correction dosing, frequent early am hypoglycemia with basal dose adjustments. Recommend wt based dosing with pp bolus after confirmation of po intake with meals. Start w/~ ? wt based dosing bolus to assess response. Encourage RN to reach out to provider when pt intakes 100% po intake for potential adjustment in dosing. Wt based dosing: (54kg) 11 U long actin.5 U basal TIDw Meals. Discussed with Kajal Cardenas APRN. Recommend: Lantus: 11 U Sub-Q HS Novolog 2 U post prandial (when consumes food/supplement) Thank you, MAURICE
[2023-04-16 12:20] LABS: Glucose Point of Care 263 mg/dl (65-105)
[2023-04-16] MEDS: INSULIN ASPART (*BKC) 100 UNITS/ML SUB-Q ×2 (13:28→17:55)
[2023-04-16] MEDS: ACETAMINOPHEN 325 MG TABLET 650 MG PO (13:28)
--- NOTE | 2023-04-16 16:30 | PM.IMPN ---
Progress Note: A&P Assessment and Plan (1) DKA (diabetic ketoacidosis): Code(s): E11.10 - Type 2 diabetes mellitus with ketoacidosis without coma Status: Resolved Assessment and Plan: hypoglycemic episode overnight 11 units lantus HS mealtime adjusted to be weight based and per meal eaten, insulin to be given after meal instructions given to nurses via written communication in orders (2) COVID: Code(s): U07.1 - COVID-19 Status: Acute Assessment and Plan: Patient tested positive for COVID-19 remdesivir completed today (3) Acute hyperkalemia: Code(s): E87.5 - Hyperkalemia Status: Resolved (4) Acute kidney injury: Code(s): N17.9 - Acute kidney failure, unspecified Status: Acute Assessment and Plan: Creatinine now has normalized with IV fluids CK was normal monitor urine output electrolytes and creatinine (5) Metabolic acidosis: Code(s): E87.20 - Acidosis, unspecified Status: Resolved Assessment and Plan: Secondary to DKA and NEHEMIAS (6) CVA (cerebral vascular accident): Code(s): I63.9 - Cerebral infarction, unspecified Status: Acute Assessment and Plan: Will obtain records as no details known at this time (7) Atrial fibrillation: Code(s): I48.91 - Unspecified atrial fibrillation Status: Acute Assessment and Plan: Patient apparently has history of AFib although it was not confirmed Currently in sinus rhythm with controlled ventricular rate Continue Eliquis, statin Resume metoprolol (8) Hypothyroidism: Code(s): E03.9 - Hypothyroidism, unspecified Status: Chronic Assessment and Plan: Continue levothyroxine Subjective Date/time seen: 04/16/23 16:30 Interval history: Patient states she is feeling okay this am, denies chest pain or shortness of breath. BS dropped into 40's overnight. Discussed with DE, and will make adjustments to insulin regimen and plan to d/c tomorrow if BS remain stable. Review of Systems Review of Systems: All systems reviewed & are unremarkable except as noted in HPI and below (HPI) Exam Narrative: General: well-appearing female, lying in bed. no distress. Lungs/Chest: Lungs sounds clear to auscultation. Cardiac: RRR. Circulation: pulses intact, No edema. Abdomen: Normal bowel sounds. Soft, non tender, non-distended. Extremities: Warm. Dry flaky skin on both feet. Neurologic: A&O x3. no focal deficits. Psych: pleasant and appropriate. Objective Data Vital Signs Vital Signs: Vital Signs - 24 hr 04/15/23 20:33 04/15/23 20:38 04/15/23 20:40 Temperature 98.2 F Pulse Rate 72 77 77 Respiratory Rate 17 17 Blood Pressure 153/69 H Pulse Oximetry 100 100 Oxygen Delivery Room Air 04/15/23 20:04 04/16/23 00:01 04/16/23 04:04 Temperature Pulse Rate 76 62 67 Respiratory Rate Blood Pressure Pulse Oximetry Oxygen Delivery 04/16/23 05:18 04/16/23 09:10 04/16/23 09:10 Temperature 98.0 F Pulse Rate 76 79 Respiratory Rate 17 Blood Pressure 144/73 H Pulse Oximetry 97 Oxygen Delivery Room Air 04/16/23 08:00 04/16/23 12:00 04/16/23 15:20 Temperature 97.6 F Pulse Rate 68 66 78 Respiratory Rate 18 Blood Pressure 135/66 Pulse Oximetry 99 Oxygen Delivery 04/16/23 16:00 Temperature Pulse Rate 75 Respiratory Rate Blood Pressure Pulse Oximetry Oxygen Delivery Intake/Output Intake/Output: Intake & Output 04/13/23 04/14/23 04/15/23 04/16/23 23:59 23:59 23:59 23:59 Intake Total 2820 2970 1402 800 Output Total 900 1050 Balance 1920 1920 1402 800 Meds/Results Medications: Active Medications Generic Name Dose Route Start Last Admin Trade Name Freq PRN Reason Stop Dose Admin Acetaminophen 650 mg 04/16/23 11:31 04/16/23 13:28 Acetaminophen 325 Mg Tablet PO 650 mg Q6H PRN Administration
[2023-04-16 17:10] LABS: Glucose Point of Care 363 mg/dl (65-105)
--- NOTE | 2023-04-16 19:24 | PC.NURSE ---
I reviewed the License Pending RN's documentation and agree with the findings.
[2023-04-16] MEDS: QUEtiapine FUMARATE 12.5 MG TABLET PO (21:24)
[2023-04-16] MEDS: traZODone HCL 50 MG TABLET PO (21:24)
[2023-04-16] MEDS: INSULIN GLARGINE (*BKC) 100 UNITS/ML 11 UNITS SUB-Q (21:26)
[2023-04-16 21:32] LABS: Glucose Point of Care 298 mg/dl (65-105)
[2023-04-17] VITALS (7 sets, daily range): BP systolic 124–153; BP diastolic 54–59; PULSE 62–71; RESP 16–18; TEMP 35.9–36.8; O2SAT 95–98
[2023-04-17 05:18] LABS: Basophils Percent Auto 0.5 % (0.2-1.2); Eosinophils Percent Auto 0.5 % (0-4.4); Hematocrit 40.1 % (37.0-47.0); Hemoglobin 13.1 g/dL (12.0-15.0); Immature Granulocyte Absolute 0.01 K/mm3 (0.00-0.031); Immature Granulocyte Percent A 0.3 % (0-0.5); Lymphocytes Absolute Auto 2.32 K/mm3 (0.9-3.2); Lymphocytes Percent Auto 60.7 % (18.3-44.2); Mean Corpuscular HGB Conc 32.7 g/dl (32-36); Mean Corpuscular Hemoglobin 30.2 pg (26-34); Mean Corpuscular Volume 92.4 fl (80-100); Mean Platelet Volume 9.8 fl (7.4-10.4); Monocytes Absolute Auto 0.4 K/mm3 (0.1-0.6); Monocytes Percent Auto 9.4 % (2.6-8.5); Neutrophils Absolute Auto 1.1 K/mm3 (1.3-6.7); Neutrophils Percent Auto 28.6 % (45.5-73.1); Platelet Count Result 191 k/mm3 (150-375); Red Blood Count 4.34 M/mm3 (4.2-5.4); Red Cell Distribution Width 12.5 % (11.5-14.5); White Blood Count 3.8 K/mm3 (4.5-10.0)
[2023-04-17 05:26] LABS: INR 1.6; Prothrombin Time 19.9 Seconds (11.1-14.7)
[2023-04-17 05:28] LABS: Alanine Aminotransferase 48 U/L (6-35); Albumin Level 2.9 g/dL (3.5-5.1); Alkaline Phosphatase 57 U/L (38-126); Anion Gap 0 mmol/L (8-16); Aspartate Amino Transferase 50 U/L (14-36); Bilirubin,Total 0.5 mg/dL (0.2-1.3); Blood Urea Nitrogen 11 mg/dL (7-17); Calcium 8.5 mg/dL (8.4-10.2); Carbon Dioxide 34 mmol/L (22-30); Chloride 96 mmol/L (98-107); Estimated CRCL calculation 62 ml/min; Estimated Glomerular Filt Rate > 60; Glucose 182 mg/dL (65-110); Magnesium 1.7 mg/dL (1.6-2.3); Phosphorus 3.6 mg/dL (2.5-4.5); Potassium 3.5 mmol/L (3.4-5.0); Sodium 130 mmol/L (137-145)
[2023-04-17 06:20] LABS: Glucose Point of Care 160 mg/dl (65-105)
[2023-04-17] MEDS: LEVOTHYROXINE SODIUM 75 MCG TABLET PO (06:20)
[2023-04-17 08:35] LABS: Glucose Point of Care 149 mg/dl (65-105)
[2023-04-17] MEDS: INSULIN ASPART (*BKC) 100 UNITS/ML SUB-Q ×2 (10:25→13:17)
[2023-04-17] MEDS: APIXABAN 5 MG TABLET PO (10:26)
[2023-04-17] MEDS: VENLAFAXINE HCL XR 75 MG CAP.ER.24H PO (10:26)
[2023-04-17] MEDS: ATORVASTATIN 20 MG TABLET PO (10:26)
[2023-04-17] MEDS: METOPROLOL TARTRATE 25 MG TABLET PO (10:26)
[2023-04-17] MEDS: ALPRAZolam (*CRX) 0.5 MG TABLET 1 MG PO (10:28)
[2023-04-17 11:57] LABS: Glucose Point of Care 181 mg/dl (65-105)
--- NOTE | 2023-04-17 13:14 | PM.DS ---
DS: Admitting Diagnosis Discharge Date 04/17/23 Admitting Diagnosis DKA DS: Discharge Diagnosis Discharge Diagnosis (1) DKA (diabetic ketoacidosis): Code(s): E11.10 - Type 2 diabetes mellitus with ketoacidosis without coma Status: Resolved Assessment and Plan: blood sugars stable overnight on adjusted insulin doses 11 units lantus HS mealtime adjusted to be weight based and per meal eaten, insulin to be given after meal referred to DE follow up outpatient (2) COVID: Code(s): U07.1 - COVID-19 Status: Acute Assessment and Plan: Patient tested positive for COVID-19 s/p remdesivir satting >95% on RA, VS stable (3) Acute hyperkalemia: Code(s): E87.5 - Hyperkalemia Status: Resolved (4) Acute kidney injury: Code(s): N17.9 - Acute kidney failure, unspecified Status: Acute Assessment and Plan: Creatinine now has normalized with IV fluids CK was normal (5) Metabolic acidosis: Code(s): E87.20 - Acidosis, unspecified Status: Resolved Assessment and Plan: Secondary to DKA and NEHEMIAS (6) CVA (cerebral vascular accident): Code(s): I63.9 - Cerebral infarction, unspecified Status: Acute Assessment and Plan: Will obtain records as no details known at this time (7) Atrial fibrillation: Code(s): I48.91 - Unspecified atrial fibrillation Status: Acute Assessment and Plan: Patient apparently has history of AFib although it was not confirmed Currently in sinus rhythm with controlled ventricular rate Continue Eliquis, statin continue metoprolol (8) Hypothyroidism: Code(s): E03.9 - Hypothyroidism, unspecified Status: Chronic Assessment and Plan: Continue levothyroxine DS: Summary Hospital Course Hospital Course: Patient is a 63-year-old female with history of reported type 1 diabetes mellitus, hypothyroidism, stroke, atrial fibrillation, hypertension, and anxiety admitted for evaluation of weakness. Family members found her on the bathroom floor (she denied a fall) and called 911. Preliminary workup in the ED consistent with DKA and she was admitted to the ICU for treatment. She tested positive for COVID on admission. She received 3 days of remdesivir. Patient was given IVF and was started on on insulin infusion and Q1H glucose monitoring. Her anion gap closed and patient was transitioned out of ICU to Lantus and sliding scale insulin. DE saw her and switched to weight based insulin regimen for d/c and referral made for outpatient follow up. Patient BS has been stable overnight on changes and she is stable for d/c home today. Status at Discharge Functional status at discharge: independent ambulation Overall status at discharge: patient is back to baseline Time Spent with Patient Time attestation: Total time spent providing and/or coordinating discharge services: Exam Narrative: General: well-appearing female, lying in bed. no distress. Lungs/Chest: Lungs sounds clear to auscultation. Cardiac: RRR. Circulation: pulses intact, No edema. Abdomen: Normal bowel sounds. Soft, non tender, non-distended. Extremities: Warm. Dry flaky skin on both feet. Neurologic: A&O x3. no focal deficits. Psych: pleasant and appropriate. DS: Data Data Completed and Pending Labs on day of discharge: Labs from last 24 hours 04/17/23 04/17/23 04/17/23 11:52 08:30 06:17 WBC RBC Hgb Hct MCV MCH MCHC RDW Plt Count MPV Immature Gran % (Auto) Neut % (Auto) Lymph % (Auto) [place] % (Auto) Eos % (Auto) Baso % (Auto) Lymph # (Auto) [place] # (Auto) Eos # (Auto) Baso # (Auto) Abs Immat Gran (auto) Absolute Neuts (auto) Absolute Nucleated RBC Nucleated RBC % PT INR Sodium Potassium Chloride Carbon Dioxide Anion Gap BUN Creatinine Estim Creat
== END 2023-04-17 15:40 | disposition home or self-care (01) | DRG 420 ==
LOC: ANHED 11:48 → ANHICU 13:02 → ANH2MED 04-15 11:04 → ANHICU 04-20 11:52
PROVIDERS: Internal Medicine; Admitting Provider General Practice; Emergency Provider Emergency Medicine; Visit Provider Nurse Practitioner
DX: E10.10 Type 1 diabetes mellitus with ketoacidosis without coma (principal); U07.1 COVID-19; E87.5 Hyperkalemia; N17.9 Acute kidney failure, unspecified; E03.9 Hypothyroidism, unspecified; F41.9 Anxiety disorder, unspecified; I10 Essential (primary) hypertension; I48.0 Paroxysmal atrial fibrillation; E86.0 Dehydration; Z86.73 Personal history of transient ischemic attack (TIA), and cerebral infarction without residual deficits
CPT/HCPCS: 36415; 36600; 71045; 80048; 80053; 81001; 82010; 82248; 82375; 82550; 82805; 82948; 83036; 83050; 83735; 83880; 84100; 84439; 84443; 84480; 85025; 85610; 87637; 87641; 93005; 93306; 94640; 96361; 96366; 96367; 96375; 96376; 97161; 97165; 99285; A9270; G0378; J0248; J1815; J1940; J3475; J3480; J7030; J7040

== ENCOUNTER 2023-04-17 19:58 | Emergency (ER) | payer MEDICAID, SELFPAY ==
--- NOTE | ~2023-04-17 | XR_ITS ---
EXAMINATION: XR chest 2V DATE: 04/17/2023 20:28 INDICATION: COVID positive, weakness TECHNIQUE: Frontal and lateral views of the chest are obtained COMPARISON: 04/13/2023 FINDINGS: The lungs are free of acute opacities. No pleural effusion or pneumothorax. The cardiomedia stinal silhouette is normal. The visualized bones and soft tissues are unremarkable. IMPRESSION: 1. No acute cardiopulmonary abnormality. Reviewed, dictated and finalized at location F. UE FINISHER
--- NOTE | 2023-04-17 20:07 | ECG_ITS ---
Measurements Intervals [place] Rate: 83 P: 31 LA: 101 QRS: 61 QRSD: 82 T: 31 QT: 377 QTc: 444 Interpretive Statements SINUS RHYTHM WITH SHORT LA INTERVAL NONSPECIFIC T-WAVE ABNORMALITY- INFERIOR LEADS BASELINE ARTIFACT- I, III, AVR, AVL BORDERLINE ECG COMPARED TO ECG 04/13/2023 09:27:28 T-WAVE ABNORMALITY NOW PRESENT Electronically Signed On 04-18-2023 8:58:27 [employer] by aFhad Ordonez D.O.
[2023-04-17 20:39] VITALS: BP 131/75; PULSE 87; RESP 18; TEMP 37.1; O2SAT 98
[2023-04-17 21:00] LABS: Basophils Percent Auto 0.4 % (0.2-1.2); Eosinophils Percent Auto 0.4 % (0-4.4); Hematocrit 45.4 % (37.0-47.0); Hemoglobin 14.7 g/dL (12.0-15.0); Immature Granulocyte Absolute 0.01 K/mm3 (0.00-0.031); Immature Granulocyte Percent A 0.2 % (0-0.5); Lymphocytes Absolute Auto 2.04 K/mm3 (0.9-3.2); Lymphocytes Percent Auto 38.6 % (18.3-44.2); Mean Corpuscular HGB Conc 32.4 g/dl (32-36); Mean Corpuscular Hemoglobin 30.1 pg (26-34); Mean Corpuscular Volume 92.8 fl (80-100); Monocytes Absolute Auto 0.4 K/mm3 (0.1-0.6); Monocytes Percent Auto 7.8 % (2.6-8.5); Neutrophils Absolute Auto 2.8 K/mm3 (1.3-6.7); Neutrophils Percent Auto 52.6 % (45.5-73.1); Platelet Count Result 202 k/mm3 (150-375); Red Blood Count 4.89 M/mm3 (4.2-5.4); Red Cell Distribution Width 12.4 % (11.5-14.5); White Blood Count 5.3 K/mm3 (4.5-10.0)
[2023-04-17 21:10] LABS: Alanine Aminotransferase 48 U/L (6-35); Albumin Level 3.5 g/dL (3.5-5.1); Alkaline Phosphatase 77 U/L (38-126); Anion Gap 8 mmol/L (8-16); Aspartate Amino Transferase 47 U/L (14-36); Bilirubin,Total 0.7 mg/dL (0.2-1.3); Blood Urea Nitrogen 16 mg/dL (7-17); Calcium 8.9 mg/dL (8.4-10.2); Carbon Dioxide 27 mmol/L (22-30); Chloride 93 mmol/L (98-107); Estimated Glomerular Filt Rate > 60; Glucose 314 mg/dL (65-110); Potassium 4.1 mmol/L (3.4-5.0); Sodium 128 mmol/L (137-145)
[2023-04-17] MEDS: SODIUM CHLORIDE 0.9% IV 1,000 ML 999 ML IV CONT (23:41)
[2023-04-18 00:23] LABS: Appearance Urine Clear (Clear); Bacteria Urine 2+ /hpf; Bilirubin Urine Negative (Negative); Blood Urine Negative (Negative); Color Urine Yellow (Yellow); Glucose Urine UA 3+ mg/dL (Negative); Ketones Urine 2+ mg/dL (Negative); Leukocyte Esterase Ur Negative LEU/UL (Negative); Need Manual Microscopic Reviewed; Nitrate Urine Negative (Negative); Non Pathogenic Casts 0-2; Protein Urine Trace mg/dL (Negative); RBC Urine 0-2 /hpf (0-2); Specific Grav Ur 1.029 (1.001-1.035); Squamous Epithelial Cell Urine Occasional /hpf (Few); WBC Urine 21-50 /hpf
[2023-04-18 00:24] LABS: Add Urine Microscopic? YES
[2023-04-18] MEDS: ACETAMINOPHEN 325 MG TABLET 650 MG PO (00:52)
[2023-04-18] MEDS: SODIUM CHLORIDE 0.9% IV 1,000 ML 999 ML IV CONT (00:52)
[2023-04-18 00:55] VITALS: BP 150/82; PULSE 86; RESP 15; O2SAT 100
--- NOTE | 2023-04-18 00:57 | ED.GENADULT ---
HPI - General Adult General Chief complaint: Weakness Stated complaint: dc'd here today. weakness/covid +/low appetite Time Seen by Provider: 04/17/23 22:50 Source: patient Mode of arrival: ambulatory Limitations: no limitations History of Present Illness HPI narrative: This is a 63-year-old female who presents to the ED with chief complaint of generalized weakness and fatigue for the past week. Reports she was discharged he moved from the hospital today after being admitted for COVID and DKA. Reports today she just had a lot of trouble doing normal activities and felt very down. States she has not ate or drink very well today and has not taken her insulin as normal. Endorses occasional cough but nothing worse since onset of COVID. Denies fevers, chills, nausea, vomiting, chest pain, shortness of breath, back pain, abdominal pain, urinary symptoms. Related Data Home Medications Medication Instructions Recorded Confirmed alprazolam 1 mg tablet 1 mg PO QID PRN Anxiety 04/13/23 04/13/23 apixaban 5 mg tablet (Eliquis) 5 mg PO BID 04/13/23 04/13/23 atorvastatin 20 mg tablet 20 mg PO DAILY 04/13/23 04/13/23 estradiol 1 mg tablet 1 mg PO BID 04/13/23 04/13/23 levothyroxine 75 mcg tablet 75 mcg PO DAILY 04/13/23 04/13/23 losartan 50 mg tablet 50 mg PO DAILY 04/13/23 04/13/23 metoprolol tartrate 50 mg tablet 50 mg PO BID 04/13/23 04/13/23 olmesartan 20 mg tablet 20 mg PO DAILY 04/13/23 04/13/23 quetiapine 25 mg tablet 12.5 mg PO HS 04/13/23 04/13/23 trazodone 50 mg tablet 50 mg PO HS 04/13/23 04/13/23 venlafaxine 75 mg capsule,extended 75 mg PO DAILY 04/13/23 04/13/23 release 24 hr Allergies Allergy/AdvReac Type Severity Reaction Status Date / Time cariprazine [From Vraylar] AdvReac Unknown Verified 04/13/23 09:57 metoclopramide [From Reglan] AdvReac Anxiety Verified 04/13/23 09:51 Review of Systems Review of Systems: All systems as dictated in HPI [facility] Past Medical History Medical History (Updated 04/18/23 @ 03:01 by Ryder Mazariegos PA-C) Anxiety Cerebrovascular accident Hypothyroidism Paroxysmal atrial fibrillation Type 1 diabetes mellitus Family History Family History Father Acute myocardial infarction Social History Social History (Updated 04/14/23 @ 00:27 by Marisa Noriega PA-C) Social History: Surrogate medical decision maker: Chester Townsend, son-in-law. Code status: Full code. Smoking status: Never smoker Alcohol intake: never Substance use: never Substance use type: does not use Do You Feel Safe in your Home?: Yes Lack of Transportation: No Lack of Food: Never True Current Housing: I Have Housing Concerned About Future Housing: No Difficulty Paying Gas/Electric Bills: No Difficulty Paying for Meds: No Currently Unemployed: No Education: High School Diploma/GED Difficulty w/ Childcare or Family Care: No Spiritual care concerns: No Exam Narrative: GENERAL: Well-appearing, well-nourished, and in no acute distress. HEAD: Normocephalic, atraumatic. EYES: PERRLA and EOMI. ENT: Nares clear, no rhinorrhea or epistaxis. Mucous membranes moist. Oropharynx without tonsillar hypertrophy exudate or other lesions. NECK: Supple. No adenopathy or masses. CHEST: No respiratory distress. Clear to auscultation. No wheezes rales or rhonchi HEART: Regular rate and rhythm. No murmur heard. Normal peripheral pulses. ABDOMEN: Soft, nontender, nondistended, normal active bowel sounds. MSK: Normal range of motion. No edema. SKIN: Warm, dry, no rash. NEURO: Alert and oriented x3. No focal deficits. PSYCH: Normal mood and affect. Course Vital Signs Vital signs: Vital Signs Temperature 98.7 F 04/17/23 20:39 Pulse Rate 87 04/17/23 20:39 Respiratory Rate 18 04/17/23 20:39 Blood Pressure 131/75 04/17/23 20:39 Pulse Oximetry 98 04/17/23 20:39 Temperature 98.7 F 04/17/23 20:39 Puls
--- NOTE | 2023-04-18 02:25 | PC.NURSE ---
Walking pulse-ox performed on patient who maintained saturations at 98% and ambulated without assistance.
[2023-04-18] MEDS: INSULIN GLARGINE (*BKC) 100 UNITS/ML 8 UNITS SUB-Q (03:11)
[2023-04-18 03:12] LABS: Glucose Point of Care 261 mg/dl (65-105)
[2023-04-18 03:31] VITALS: BP 148/74; PULSE 79; RESP 16; O2SAT 97
== END 2023-04-18 03:32 | disposition home or self-care (01) ==
PROVIDERS: Emergency Medicine; Emergency Provider Physician Assistant
DX: U07.1 COVID-19 (principal); E03.9 Hypothyroidism, unspecified; E10.9 Type 1 diabetes mellitus without complications; I48.0 Paroxysmal atrial fibrillation; Z86.73 Personal history of transient ischemic attack (TIA), and cerebral infarction without residual deficits; Z79.01 Long term (current) use of anticoagulants; Z79.899 Other long term (current) drug therapy
CPT/HCPCS: 36415; 71046; 80053; 81001; 82948; 85025; 87077; 87086; 87088; 87181; 93005; 96361; 96365; 99284; A9270; J0696; J1815; J7030

== ENCOUNTER 2023-05-04 17:24 | Inpatient (IN) | payer MEDICAID, SELFPAY ==
--- NOTE | ~2023-05-04 | CT_ITS ---
EXAMINATION: CT brain wo con DATE: 05/04/2023 18:49 INDICATION: intermittent slurred speech . TECHNIQUE: Computed tomography (CT) of the head was performed without intravenous contrast. The mA wa s adjusted according to patient size. Iterative reconstruction technique was employed. The dose-lengt h product was 605.33 mGy-cm. COMPARISON: None. FINDINGS: No acute intracranial hemorrhage or extra-axial fluid collection. No hydrocephalus, mass, or herniation. No acute ischemic infarct. Unremarkable dural venous sinus attenuation. No acute osseous abnormality. The aerated spaces are clear. Mild atrophy and chronic white matter change. Atherosclerotic intracranial calcification. Focal encep halomalacia, likely old lacunar infarct in the periventricular white matter adjacent to the right fro ntal lobe. IMPRESSION: No acute intracranial process. Reviewed, dictated and finalized at location K.
--- NOTE | ~2023-05-04 | CT_ITS ---
EXAMINATION: CT brain wo con DATE: 05/07/2023 09:36 INDICATION: Unresponsive episode TECHNIQUE: Computed tomography (CT) of the head was performed without intravenous contrast. Sagittal and coronal reconstructions were performed. The mA was adjusted according to patient size. Iterative reconstruction technique was employed. The dose-length product was 605.33 mGy-cm. COMPARISON: head CT dated 05/04/23 FINDINGS: No interval change in a few small old infarcts including at the right cerebellar hemisphere, at the p eriventricular white matter in the bilateral frontal and left parietal lobes, the left thalamus and b ilaterally in the jatin. No acute intracranial hemorrhage, acute infarction or abnormal extra axial fl uid collection. There is additional mild scattered white matter hypoattenuation consistent with chron ic small vessel ischemic disease. Ventricles are normal and symmetric. No mass/mass effect. The orbit s, paranasal sinuses and mastoid air cells are normal. IMPRESSION: 1. No change in a few scattered small old infarcts in the bilateral cerebral hemispheres, left thalam us, bilateral jatin and right cerebellar hemisphere. No acute intracranial process. Reviewed, dictated and finalized at location A. IMPRESSION: 1. No change in a few scattered small old infarcts in the bilateral cerebral he mispheres, left thalamus, bilateral jatin and right cerebellar hemisphere. No ac jolie intracranial process.
--- NOTE | ~2023-05-04 | XR_ITS ---
EXAMINATION: XR chest 1V portable Exam Date/Time: 05/04/2023 18:05 CDT HISTORY: elevated sugar, generalized weakness Comparison: 04/17/2023. RESULT: Lines, tubes, and devices: None. Lungs and pleura: Clear. Cardiomediastinal silhouette: Stable. Other: No acute osseous or upper abdominal finding. IMPRESSION: No acute cardiopulmonary process. Reviewed, dictated and finalized at location [facility].
--- NOTE | ~2023-05-04 | MR_ITS ---
EXAMINATION: MR brain/brain stem wo con DATE: 05/08/2023 15:35 INDICATION: Altered mental status TECHNIQUE: Magnetic resonance imaging (MRI) of the brain and brainstem was performed without intraven ous contrast. Sequences included sagittal and axial T1-weighted SE, axial diffusion-weighted FS SE, a xial 3D SWAN, axial T2-weighted FLAIR, and axial T2-weighted FSE. Postcontrast axial and coronal T1-w eighted SE was obtained. Apparent diffusion coefficient (ADC) maps were created. COMPARISON: CT dated 05/07/2023 FINDINGS: Small old lacunar infarcts in the right frontal lobe periventricular white matter, at the right side of the jatin and in the right cerebellar hemisphere. There are no areas of restricted diffusion to sug gest acute infarction. No intracranial hemorrhage or abnormal intracranial mass lesion. There are sca ttered areas of nonspecific increased T2-weighted signal intensity in the cerebral and pontine white matter, predominantly involving the deep and periventricular white matter. Small focus of susceptibil ity artifact in the right parieto-occipital periventricular white matter consistent with sequela of c hronic microhemorrhage. There are no intraparenchymal signal abnormalities seen on the other pulse se quences. The ventricles are symmetric and normal in size. There are no abnormal extra-axial fluid col lections. Flow voids are seen in the cerebral arteries on the T2-weighted sequences consistent with t heir expected patency. Visualized orbits and soft tissues are unremarkable. IMPRESSION: 1. Small old lacunar infarcts in the periventricular right frontal lobe, right jatin and right cerebel lar hemisphere. No acute intracranial process. 2. Nonspecific periventricular and pontine white matter T2 hyperintensity consistent with sequela of chronic small vessel ischemic disease. 3. Single tiny focus of susceptibility artifact in the periventricular right parietal occipital regio n consistent with sequela of chronic microhemorrhage. Reviewed, dictated and finalized at location A. IMPRESSION: 1. Small old lacunar infarcts in the periventricular right frontal lobe, right jatin and right cerebellar hemisphere. No acute intracranial process. 2. Nonspecific periventricular and pontine white matter T2 hyperintensity consi stent with sequela of chronic small vessel ischemic disease. 3. Single tiny focus of susceptibility artifact in the periventricular right pa rietal occipital region consistent with sequela of chronic microhemorrhage.
[2023-05-04 17:14] VITALS: BP 116/84; PULSE 69; RESP 22; TEMP 36.4; O2SAT 99
[2023-05-04 17:40] LABS: Glucose Point of Care > 500 mg/dl (65-105)
--- NOTE | 2023-05-04 17:48 | ED.GENADULT ---
HPI - General Adult General Chief complaint: Recheck/Abnormal Lab/Rx <Ryder Mazariegos PA-C - Last Filed: 05/04/23 22:39> Stated complaint: hyperglycemic <Ryder Mazariegos PA-C - Last Filed: 05/04/23 22:39> Time Seen by Provider: 05/04/23 17:46 <Ryder Mazariegos PA-C - Last Filed: 05/04/23 22:39> Source: patient <Ryder Mazariegos PA-C - Last Filed: 05/04/23 22:39> Mode of arrival: ambulatory <Ryder Mazariegos PA-C - Last Filed: 05/04/23 22:39> Limitations: no limitations <Ryder Mazariegos PA-C - Last Filed: 05/04/23 22:39> History of Present Illness HPI narrative: This is a 63-year-old female with history of insulin-dependent diabetes, AFib, CVA who arrives to the ED via EMS after being called by her son-in-law. Her son-in-law was concerned as patient had a very brief episode of slurred speech earlier this morning and has had uncontrolled blood sugars. He is unable to take care for at home and feels that she is not taking very good care of herself with her diabetes. Patient reports that she has just been feeling very generally weak. Reports she does remember the episode slurred speech this morning and feels that it lasted for no more than a few seconds. She states that she has not been able to comply very well with her diabetic medications because she has been ?busy around the house. Denies any other symptoms other than generalized weakness and fatigue. Denies focal numbness or weakness. Denies fevers, chills, nausea, vomiting, abdominal pain, urinary symptoms, cough. Per chart review patient was last seen here by myself in early April for uncontrolled blood sugars. She does have history of DKA in the past. <Ryder Mazariegos PA-C - Last Filed: 05/04/23 22:39> Related Data Home medications: Home Medications Medication Instructions Recorded Confirmed alprazolam 1 mg tablet 1 mg PO BID Anxiety 04/13/23 05/04/23 apixaban 5 mg tablet (Eliquis) 5 mg PO BID 04/13/23 05/04/23 atorvastatin 20 mg tablet 20 mg PO DAILY 04/13/23 05/04/23 estradiol 1 mg tablet 1 mg PO BID 04/13/23 05/04/23 levothyroxine 75 mcg tablet 75 mcg PO DAILY 04/13/23 05/04/23 losartan 50 mg tablet 50 mg PO DAILY 04/13/23 05/04/23 metoprolol tartrate 50 mg tablet 50 mg PO BID 04/13/23 05/04/23 olmesartan 20 mg tablet 20 mg PO DAILY 04/13/23 05/04/23 quetiapine 25 mg tablet 12.5 mg PO HS 04/13/23 05/04/23 trazodone 50 mg tablet 50 mg PO HS 04/13/23 05/04/23 venlafaxine 75 mg capsule,extended 75 mg PO DAILY 04/13/23 05/04/23 release 24 hr <Ryder Mazariegos PA-C - Last Filed: 05/04/23 22:39> Allergies/adverse reactions: Allergies Allergy/AdvReac Type Severity Reaction Status Date / Time cariprazine [From Vraylar] AdvReac Unknown Verified 05/04/23 17:42 metoclopramide [From Reglan] AdvReac Anxiety Verified 05/04/23 17:42 <Ryder Mazariegos PA-C - Last Filed: 05/04/23 22:39> Review of Systems Review of Systems: All systems as dictated in HPI <Ryder Mazariegos PA-C - Last Filed: 05/04/23 22:39> [facility] Past Medical History Medical History: Medical History Anxiety Cerebrovascular accident Hypothyroidism Paroxysmal atrial fibrillation Type 1 diabetes mellitus <Ryder Mazariegos PA-C - Last Filed: 05/04/23 22:39> Surgical History Surgical History: Surgical History History of tubal ligation <Ryder Mazariegos PA-C - Last Filed: 05/04/23 22:39> Family History Family History: Family History Father Acute myocardial infarction <Ryder Mazariegos PA-C - Last Filed: 05/04/23 22:39> Social History Social History: Social History Social History: She used to smoke about half pack of cigarettes per day but quit smoking when her daughter was recently hospitalized in February 2022. She denies significant alcohol u
[2023-05-04 17:58] VITALS: RESP 16; O2SAT 97
--- NOTE | 2023-05-04 17:58 | ECG_ITS ---
Measurements Intervals [place] Rate: 68 P: 144 CT: 117 QRS: 104 QRSD: 88 T: 64 QT: 419 QTc: 447 Interpretive Statements SINUS RHYTHM WITH SHORT CT INTERVAL LIMB LEAD REVERSAL POSSIBLE LEFT ATRIAL ENLARGEMENT BORDERLINE ECG COMPARED TO ECG 04/17/2023 20:54:46 NO SIGNIFICANT CHANGES Electronically Signed On 05-04-2023 19:31:06 CDT by Fahad Ordonez D.O.
--- NOTE | 2023-05-04 18:28 | PC.NURSE ---
Pt ambulated to bathroom with standby assist with steady gait
[2023-05-04 18:33] LABS: Basophils Percent Auto 0.5 % (0.2-1.2); Eosinophils Percent Auto 0.2 % (0-4.4); Hematocrit 32.8 % (37.0-47.0); Hemoglobin 10.6 g/dL (12.0-15.0); Immature Granulocyte Absolute 0.02 K/mm3 (0.00-0.031); Immature Granulocyte Percent A 0.3 % (0-0.5); Lymphocytes Absolute Auto 1.33 K/mm3 (0.9-3.2); Lymphocytes Percent Auto 22.7 % (18.3-44.2); Mean Corpuscular HGB Conc 32.3 g/dl (32-36); Mean Corpuscular Hemoglobin 30.7 pg (26-34); Mean Corpuscular Volume 95.1 fl (80-100); Mean Platelet Volume 10.3 fl (7.4-10.4); Monocytes Absolute Auto 0.7 K/mm3 (0.1-0.6); Monocytes Percent Auto 11.3 % (2.6-8.5); Neutrophils Absolute Auto 3.8 K/mm3 (1.3-6.7); Platelet Count Result 292 k/mm3 (150-375); Red Blood Count 3.45 M/mm3 (4.2-5.4); Red Cell Distribution Width 12.6 % (11.5-14.5); White Blood Count 5.9 K/mm3 (4.5-10.0)
[2023-05-04 18:42] LABS: Appearance Urine Clear (Clear); Bilirubin Urine Negative (Negative); Blood Urine Negative (Negative); Color Urine Yellow (Yellow); Glucose Urine UA 3+ mg/dL (Negative); Ketones Urine 1+ mg/dL (Negative); Leukocyte Esterase Ur Negative LEU/UL (Negative); Nitrate Urine Negative (Negative); Protein Urine Negative (Negative); Specific Grav Ur 1.021 (1.001-1.035); Urobilinogen Urine 0.2 mg/dL (<2.0)
[2023-05-04 18:45] VITALS: BP 103/88; PULSE 68; RESP 16; TEMP 36.6; O2SAT 97
[2023-05-04 18:49] LABS: Add Urine Microscopic? NO
[2023-05-04 18:56] LABS: Magnesium 1.3 mg/dL (1.6-2.3); Phosphorus 3.7 mg/dL (2.5-4.5)
[2023-05-04 18:57] LABS: Alanine Aminotransferase 17 U/L (6-35); Albumin Level 2.9 g/dL (3.5-5.1); Alkaline Phosphatase 53 U/L (38-126); Anion Gap 2 mmol/L (8-16); Aspartate Amino Transferase 31 U/L (14-36); Beta-Hydroxybutyrate/Acetoacetate 2.24 mmol/L (0.02-0.27); Bilirubin,Total 0.4 mg/dL (0.2-1.3); Blood Urea Nitrogen 11 mg/dL (7-17); Calcium 7.8 mg/dL (8.4-10.2); Carbon Dioxide 27 mmol/L (22-30); Chloride 100 mmol/L (98-107); Estimated CRCL calculation 62 ml/min; Estimated Glomerular Filt Rate > 60; Glucose 463 mg/dL (65-110); Sodium 129 mmol/L (137-145)
[2023-05-04 19:08] LABS: Potassium 4.9 mmol/L (3.4-5.0)
[2023-05-04] MEDS: MAGNESIUM SULF 1 GM/D5W 100 ML 1 GM/100 ML BAG IVPB (19:35)
[2023-05-04] MEDS: INSULIN HUMAN REGULAR (*BKC) 100 UNITS/ML 9 UNITS IV PUSH (19:37)
[2023-05-04] MEDS: SODIUM CHLORIDE 0.9% IV 1,000 ML 999 ML IV CONT ×2 (19:38→21:15)
[2023-05-04 19:42] VITALS: BP 146/64; PULSE 84; RESP 15; O2SAT 100
[2023-05-04 20:37] LABS: Hemoglobin A1C 12.2 % (<5.7)
[2023-05-04 21:03] LABS: Glucose Point of Care 273 mg/dl (65-105)
[2023-05-04] MEDS: INSULIN GLARGINE (*BKC) 100 UNITS/ML 11 UNITS SUB-Q (21:15)
[2023-05-04] MEDS: MAGNESIUM SULF 2 GM/WATER 50ML 2 GM/50 ML BAG IVPB (21:15)
[2023-05-04] MEDS: POTASSIUM CHLORIDE 20 MEQ ER TABLET PO (22:28)
[2023-05-04 22:33] LABS: Glucose Point of Care 142 mg/dl (65-105)
[2023-05-04 23:22] VITALS: BMI 24.0
[2023-05-04 23:23] VITALS: BP 144/57; PULSE 82; RESP 18; TEMP 36.5; O2SAT 97
--- NOTE | 2023-05-04 23:33 | PM.IMHP ---
H&P: HPI History of Present Illness Date/Time: 05/04/23 21:50 Chief Complaint: ?Acting strange? Narrative: 63-year-old female with a past medical history of insulin-dependent diabetes mellitus, hypothyroidism, CVA, atrial fibrillation, essential hypertension, noncompliance medication therapy and anxiety who presented to the ER from home via EMS after her son-in-law noticed that the patient was acting strange. The patient reports that her daughter is currently in the hospital for pneumonia and multiple comorbidities. So her and her son-in-law are at home. She states that she was checked her glucoses in the morning and they were supposedly 95. She had planned to work all day cleaning the house doing laundry in changing the sheets. She thought that these activities would keep her busy and keep her sugar down so she did not bother to take her insulin. She states she does not have time to keep up with her diabetes due to staying busy. Her son-in-law was worried because she was having brief episodes of slurred speech earlier in the morning. He felt as if he was unable to care for at home and bring her sugars down. He does not feel that she is taking care of herself or her diabetes. Patient evidently reported feeling weak to the ER staff but time my evaluation she does told me that this is what happens when she lets her sugars go. She does admit that she may have had some slurred speech for a few seconds. She felt that it was due to her being tired. She does have issues with intermittent bladder incontinence but this is unchanged from baseline. She has chronic urinary frequency. She denies having any current wounds. She has not been any fevers or chills. She denies any shortness breath or cough. Patient is disheveled in appearance. Review of Systems Review of Systems: 12 systems were reviewed with pertinent positives and negatives per HPI. Except as documented in the HPI, all other systems were reviewed and are negative. The patient is not a good historian. Review of systems is not reliable. [facility] Past Medical History Medical History (Updated 05/05/23 @ 05:34 by Vanita Barnett DO) Anxiety Cerebrovascular accident Hypothyroidism Paroxysmal atrial fibrillation Type 1 diabetes mellitus Surgical History Surgical History (Updated 05/05/23 @ 05:34 by Vanita Barnett DO) History of tubal ligation Family History Family History Father Acute myocardial infarction Social History Social History (Updated 05/05/23 @ 05:21 by Vanita Barnett DO) Social History: She used to smoke about half pack of cigarettes per day but quit smoking when her daughter was recently hospitalized in February 2022. She denies significant alcohol use history. Surrogate medical decision maker: Chester Townsend, son-in-law. Code status: Full code. (she would not want to be intubated long-term or have a feeding tube) Smoking status: Former smoker Alcohol intake: never Substance use: never Substance use type: does not use Do You Feel Safe in your Home?: No Lack of Transportation: No Lack of Food: Never True Current Housing: I Have Housing Concerned About Future Housing: No Difficulty Paying Gas/Electric Bills: No Difficulty Paying for Meds: No Currently Unemployed: No Education: High School Diploma/GED Difficulty w/ Childcare or Family Care: No Additional living arrangements comments: She lives with her daughter and son-in-law. Spiritual care concerns: No Meds Home Medications and Allergies Home Medications Medication Instructions Recorded Confirmed Type alprazolam 1 mg tablet 1 mg PO BID Anxiety 04/13/23 05/04/23 History apixaban 5 mg tablet (Eliquis) 5 mg PO BID 04/13/23 05/04/23 History atorvastatin 20 mg tablet 20 mg PO DAILY 04/13/23 05/04/23 History estradiol 1 mg tablet 1 mg PO BID 04/13/23 05/04/23 History levothyroxine 75 mcg tabl
--- NOTE | 2023-05-04 23:41 | ADMGEN ---
This patient, Patrica Navarrete, was admitted to [facility] Surg Room 324-01. Patient/family oriented to hospital policies and general routines including ID bracelet, bed and alarms, visiting hours, pain management, procedures, bathroom and other care routines, personal items, smoking policy, room service/diet, and visiting hours. Information on how to activate the Rapid Response Team has been discussed. Patient/Family are encouraged to report perceived risks to care and to ask questions if they do not understand what they are told or what they should do.
[2023-05-04] MEDS: SODIUM CHLORIDE 0.9% IV 1,000 ML 125 ML IV CONT (23:57)
[2023-05-05 00:17] LABS: Glucose Point of Care 100 mg/dl (65-105)
[2023-05-05] MEDS: LEVOTHYROXINE SODIUM 75 MCG TABLET PO (05:49)
[2023-05-05] MEDS: ALPRAZolam (*CRX) 0.5 MG TABLET PO (05:49)
[2023-05-05 06:00] VITALS: BP 155/65; PULSE 75; RESP 18; TEMP 36.4; O2SAT 99
[2023-05-05 06:41] LABS: Hematocrit 30.3 % (37.0-47.0); Mean Corpuscular Hemoglobin 31.3 pg (26-34); Mean Platelet Volume 9.7 fl (7.4-10.4); Platelet Count Result 274 k/mm3 (150-375); Red Blood Count 3.19 M/mm3 (4.2-5.4); Red Cell Distribution Width 12.8 % (11.5-14.5); White Blood Count 4.6 K/mm3 (4.5-10.0)
[2023-05-05 06:54] LABS: Anion Gap -1 mmol/L (8-16); Blood Urea Nitrogen 5 mg/dL (7-17); Calcium 7.6 mg/dL (8.4-10.2); Carbon Dioxide 31 mmol/L (22-30); Chloride 102 mmol/L (98-107); Estimated CRCL calculation 72 ml/min; Estimated Glomerular Filt Rate > 60; Glucose 203 mg/dL (65-110); Magnesium 1.8 mg/dL (1.6-2.3); Potassium 3.8 mmol/L (3.4-5.0); Sodium 132 mmol/L (137-145)
[2023-05-05 06:58] LABS: Immature Reticulocyte Fraction 15.6 % (3.0-15.9); Reticulocyte Hemoglobin Conten 37.2 pg (28.2-36.6); Reticulocyte Percent 1.79 % (0.7-4.3); Reticulocytes Absolute 0.06 10^6/uL (0.02-0.10)
[2023-05-05 07:12] LABS: Iron 51 ug/dL (37-170)
[2023-05-05 07:22] LABS: Percent Iron Saturation 26 % (20-50)
[2023-05-05 07:53] LABS: Glucose Point of Care 183 mg/dl (65-105)
[2023-05-05 08:11] LABS: Folic Acid 5.3 ng/mL (2.76->20)
[2023-05-05] MEDS: SODIUM CHLORIDE 0.9% IV 1,000 ML 125 ML IV CONT (08:54)
[2023-05-05 11:22] VITALS: PULSE 101
[2023-05-05] MEDS: METOPROLOL TARTRATE 50 MG TAB PO ×2 (11:22→20:23)
[2023-05-05] MEDS: ATORVASTATIN 20 MG TABLET PO (11:22)
[2023-05-05] MEDS: APIXABAN 5 MG TABLET PO ×2 (11:22→20:23)
[2023-05-05] MEDS: VENLAFAXINE HCL XR 75 MG CAP.ER.24H PO (11:22)
[2023-05-05] MEDS: LOSARTAN POTASSIUM 50 MG TABLET PO (11:22)
[2023-05-05 11:29] LABS: Glucose Point of Care 171 mg/dl (65-105)
[2023-05-05 14:00] VITALS: BP 151/56; PULSE 73; RESP 16; TEMP 36.3; O2SAT 99
--- NOTE | 2023-05-05 15:09 | P.PNIM_ITS ---
Progress Note: A&P Assessment and Plan (1) Uncontrolled diabetes mellitus: Qualifiers: Diabetes mellitus type: type 1 Glycemic state: with hyperglycemia Qualified Code(s): E10.65 - Type 1 diabetes mellitus with hyperglycemia Status: Acute Assessment and Plan: Patient has severe hyperglycemia. * She did have some ketones in her urine as well as a mildly elevated beta hydroxybutyrate and hyponatremia. * Patient given fluids in the ED due to elevated sugars. * After IV fluids patient's glucose had come down from 463 down to the mid 200s. * Her hemoglobin A1c was confirmed to be over 12.2% which was worse than her value from last month 11%. * agricultural extension educator will be consulted. * Will resume patient's home Lantus. Add sliding scale insulin a.c. HS in mealtime bolus insulin of 3 units with meals. * Hypoglycemic protocol initiated. * Plan for placement into [facility] (2) Acute anemia: Code(s): D64.9 - Anemia, unspecified Status: Acute Assessment and Plan: The patient has acute anemia compared to prior. * She has had a 4 g drop in her hemoglobin since earlier in the month. * Her stool occult blood was negative in the ER on rectal exam. * She is on chronic Eliquis but no signs of acute bleeding. * iron 51, TIBC 195,% saturation 26 and ferritin 122 with a B12 of 821 in Hu of 5.3 * TSH performed during recent hospitalization which demonstrated mildly low TSH but normal free T4. * Monitor AM labs. (3) Hypomagnesemia: Code(s): E83.42 - Hypomagnesemia Status: Acute Assessment and Plan: Magnesium 1.3 in the ED and received 3 g of mag. Repeat mag of 1.8 Subjective Date/time seen: 05/05/23 15:09 Interval history: patient doing well today. The plan is to place patient into custodial. Care coordination consulted. agricultural extension educator consulted for severely controlled diabetes. Once placement is arranged patient can be discharged to custodial. Exam Narrative: GENERAL: Comfortable, no acute distress HENMT: moist mucous membranes EYES: EOM intact b/l NECK: no lymphadenopathy RESPIRATORY: clear to auscultation, no increased respiratory effort CARDIO: Regular rate and rhythm GI: soft, nontender, bowel sounds present SKIN/EXTREMITIES: no rashes, no edema, no redness or tenderness NEURO: PROM intact, answers questions appropriately, A&O x4 Objective Data Vital Signs Vital Signs: Vital Signs - 24 hr 05/04/23 17:14 05/04/23 17:58 05/04/23 18:45 Temperature 97.6 F 97.8 F Pulse Rate 69 68 Respiratory Rate 22 H 16 16 Blood Pressure 116/84 103/88 Pulse Oximetry 99 97 97 Oxygen Delivery Room Air 05/04/23 19:42 05/04/23 23:23 05/05/23 06:00 Temperature 97.7 F 97.5 F L Pulse Rate 84 82 75 Respiratory Rate 15 18 18 Blood Pressure 146/64 H 144/57 H 155/65 H Pulse Oximetry 100 97 99 Oxygen Delivery 05/05/23 08:00 05/05/23 11:22 05/05/23 14:00 Temperature 97.3 F L Pulse Rate 101 H 73 Respiratory Rate 16 Blood Pressure 151/56 H Pulse Oximetry 99 Oxygen Delivery Room Air Intake/Output Intake/Output: Intake & Output 05/02/23 05/03/23 05/04/23 05/05/23 23:59 23:59 23:59 23:59
--- NOTE | 2023-05-05 15:09 | PM.IMPN ---
Progress Note: A&P Assessment and Plan (1) Uncontrolled diabetes mellitus: Qualifiers: Diabetes mellitus type: type 1 Glycemic state: with hyperglycemia Qualified Code(s): E10.65 - Type 1 diabetes mellitus with hyperglycemia Status: Acute Assessment and Plan: Patient has severe hyperglycemia. She did have some ketones in her urine as well as a mildly elevated beta hydroxybutyrate and hyponatremia. Patient given fluids in the ED due to elevated sugars. After IV fluids patient's glucose had come down from 463 down to the mid 200s. Her hemoglobin A1c was confirmed to be over 12.2% which was worse than her value from last month 11%. family educator will be consulted. Will resume patient's home Lantus. Add sliding scale insulin a.c. HS in mealtime bolus insulin of 3 units with meals. Hypoglycemic protocol initiated. Plan for placement into [facility] (2) Acute anemia: Code(s): D64.9 - Anemia, unspecified Status: Acute Assessment and Plan: The patient has acute anemia compared to prior. She has had a 4 g drop in her hemoglobin since earlier in the month. Her stool occult blood was negative in the ER on rectal exam. She is on chronic Eliquis but no signs of acute bleeding. iron 51, TIBC 195,% saturation 26 and ferritin 122 with a B12 of 821 in Hu of 5.3 TSH performed during recent hospitalization which demonstrated mildly low TSH but normal free T4. Monitor AM labs. (3) Hypomagnesemia: Code(s): E83.42 - Hypomagnesemia Status: Acute Assessment and Plan: Magnesium 1.3 in the ED and received 3 g of mag. Repeat mag of 1.8 Subjective Date/time seen: 05/05/23 15:09 Interval history: patient doing well today. The plan is to place patient into long-term. Care coordination consulted. family educator consulted for severely controlled diabetes. Once placement is arranged patient can be discharged to long-term. Exam Narrative: GENERAL: Comfortable, no acute distress HENMT: moist mucous membranes EYES: EOM intact b/l NECK: no lymphadenopathy RESPIRATORY: clear to auscultation, no increased respiratory effort CARDIO: Regular rate and rhythm GI: soft, nontender, bowel sounds present SKIN/EXTREMITIES: no rashes, no edema, no redness or tenderness NEURO: PROM intact, answers questions appropriately, A&O x4 Objective Data Vital Signs Vital Signs: Vital Signs - 24 hr 05/04/23 17:14 05/04/23 17:58 05/04/23 18:45 Temperature 97.6 F 97.8 F Pulse Rate 69 68 Respiratory Rate 22 H 16 16 Blood Pressure 116/84 103/88 Pulse Oximetry 99 97 97 Oxygen Delivery Room Air 05/04/23 19:42 05/04/23 23:23 05/05/23 06:00 Temperature 97.7 F 97.5 F L Pulse Rate 84 82 75 Respiratory Rate 15 18 18 Blood Pressure 146/64 H 144/57 H 155/65 H Pulse Oximetry 100 97 99 Oxygen Delivery 05/05/23 08:00 05/05/23 11:22 05/05/23 14:00 Temperature 97.3 F L Pulse Rate 101 H 73 Respiratory Rate 16 Blood Pressure 151/56 H Pulse Oximetry 99 Oxygen Delivery Room Air Intake/Output Intake/Output: Intake & Output 05/02/23 05/03/23 05/04/23 05/05/23 23:59 23:59 23:59 23:59 Intake Total 2150 1785 Balance 2150 1785 Meds/Results Medications: Active Medications Generic Name Dose Route Start Last Admin Trade Name Freq PRN Reason Stop Dose Admin Alprazolam 0.5 mg 05/05/23 05:14 05/05/23 05:49 Alprazolam (*Crx) 0.5 Mg Tablet PO 0.5 mg TID PRN Administration Anxiety Apixaban 5 mg 05/05/23 09:00 05/05/23 11:22 Apixaban 5 Mg Tablet PO 5 mg Q12HR BRADEN Administration Atorvastatin Calcium 20 mg 05/05/23 09:00 05/05/23 11:22 Atorvastatin 20 Mg Tablet PO 20 mg DAILY BRADEN Administration Dextrose 12.5 gm 05/04/23 19:17 Dextrose 50% 25 Gm/50 Ml Syringe IV PUSH PRN PRN Hypoglycemia Protocol Glucagon 1 mg 05/04/23 19:17 Glucagon For Inj 1 Mg Vial IM
[2023-05-05 16:27] LABS: Glucose Point of Care 215 mg/dl (65-105)
[2023-05-05] MEDS: INSULIN ASPART (*BKC) 100 UNITS/ML SUB-Q (16:58)
[2023-05-05] MEDS: QUEtiapine FUMARATE 12.5 MG TABLET PO (20:24)
[2023-05-05] MEDS: traZODone HCL 50 MG TABLET PO (20:24)
[2023-05-05] MEDS: INSULIN GLARGINE (*BKC) 100 UNITS/ML 11 UNITS SUB-Q (21:21)
[2023-05-05 22:00] VITALS: BP 169/80; PULSE 80; RESP 21; TEMP 36.5; O2SAT 100
[2023-05-06] MEDS: SODIUM CHLORIDE 0.9% IV 1,000 ML 125 ML IV CONT ×2 (05:30→18:13)
[2023-05-06] MEDS: LEVOTHYROXINE SODIUM 75 MCG TABLET PO (05:31)
[2023-05-06 06:00] VITALS: BP 172/78; PULSE 71; RESP 20; TEMP 36.6; O2SAT 99
[2023-05-06 06:45] LABS: Glucose Point of Care 224 mg/dl (65-105)
[2023-05-06 07:03] LABS: Hematocrit 37.9 % (37.0-47.0); Hemoglobin 12.1 g/dL (12.0-15.0); Mean Corpuscular HGB Conc 31.9 g/dl (32-36); Mean Corpuscular Hemoglobin 30.1 pg (26-34); Mean Corpuscular Volume 94.3 fl (80-100); Mean Platelet Volume 9.6 fl (7.4-10.4); Platelet Count Result 344 k/mm3 (150-375); Red Blood Count 4.02 M/mm3 (4.2-5.4); Red Cell Distribution Width 12.6 % (11.5-14.5); White Blood Count 4.2 K/mm3 (4.5-10.0)
[2023-05-06 07:19] LABS: Anion Gap 3 mmol/L (8-16); Calcium 8.8 mg/dL (8.4-10.2); Carbon Dioxide 32 mmol/L (22-30); Chloride 99 mmol/L (98-107); Estimated CRCL calculation 72 ml/min; Estimated Glomerular Filt Rate > 60; Glucose 121 mg/dL (65-110); Potassium 3.3 mmol/L (3.4-5.0); Sodium 134 mmol/L (137-145)
[2023-05-06 07:52] LABS: Glucose Point of Care 128 mg/dl (65-105)
[2023-05-06 08:06] LABS: Blood Urea Nitrogen < 2 mg/dL (7-17)
[2023-05-06 08:20] VITALS: BMI 24.0
[2023-05-06 08:21] LABS: Cholesterol 127 mg/dL (0-200); HDL Direct 58 mg/dL; Magnesium 1.5 mg/dL (1.6-2.3); Triglycerides 101 mg/dL (<150)
[2023-05-06 08:32] LABS: LDL Cholesterol Direct 56 mg/dL
[2023-05-06] MEDS: VENLAFAXINE HCL XR 75 MG CAP.ER.24H PO (09:43)
[2023-05-06] MEDS: POTASSIUM CHLORIDE 20 MEQ ER TABLET 40 MEQ PO (09:44)
[2023-05-06] MEDS: METOPROLOL TARTRATE 50 MG TAB PO ×2 (09:44→21:44)
[2023-05-06] MEDS: APIXABAN 5 MG TABLET PO ×2 (09:44→21:44)
[2023-05-06] MEDS: ATORVASTATIN 20 MG TABLET PO (09:44)
[2023-05-06] MEDS: LOSARTAN POTASSIUM 100 MG TABLET PO (09:44)
[2023-05-06 11:15] LABS: Glucose Point of Care 223 mg/dl (65-105)
[2023-05-06] MEDS: INSULIN ASPART (*BKC) 100 UNITS/ML SUB-Q (12:50)
[2023-05-06] MEDS: MAGNESIUM SULF 2 GM/WATER 50ML 2 GM/50 ML BAG IVPB (12:50)
[2023-05-06 13:39] VITALS: BP 124/87; PULSE 79; RESP 20; TEMP 36.4; O2SAT 100
--- NOTE | 2023-05-06 14:51 | P.PNIM_ITS ---
Progress Note: A&P Assessment and Plan (1) Uncontrolled diabetes mellitus: Qualifiers: Diabetes mellitus type: type 1 Glycemic state: with hyperglycemia Qualified Code(s): E10.65 - Type 1 diabetes mellitus with hyperglycemia Status: Acute Assessment and Plan: * secondary to non-compliance * Patient has severe hyperglycemia POA. * Improved with fluids * Accu-Cheks a.c. HS * sliding scale insulin * resume patient's home long-acting * Hemoglobin A1c * lipid panel * resumed statin * Diabetic diet * consult to dietitian * Watch for hypoglycemia/hypoglycemic protocol ordered (2) Hypomagnesemia: Code(s): E83.42 - Hypomagnesemia Status: Acute Assessment and Plan: * Magnesium 1.3 in the ED and received 3 g of mag. * Repeat mag of 1.8 * 1.5 05/05 * 2g IVP * mag daily (3) Hypothyroidism: Code(s): E03.9 - Hypothyroidism, unspecified Status: Chronic Assessment and Plan: * resume levothyroxine * TSH pending * patient has been non-compliant with medication (4) AMS (altered mental status): Code(s): R41.82 - Altered mental status, unspecified Status: Acute Assessment and Plan: * Previous HX CVA/metabolic encephalopathy from hyperglycemia/early dementia * CT showed old infarcts * Neuro check q.4 hour for the 1st 24 hours. * MRI of the brain without contrast pendiing * PT/OT eval and treat. * Check for LDL and hemoglobin A1c. * Resumed statins 40 mg q.day, aspirin 81 mg g q.day/Plavix (5) Failure to thrive: Status: Acute Assessment and Plan: * Patient has had recent social stressors including the of her daughter, divorce and her other daughter in ICU post cardiac arrest * Poor oral intake at home * report she has not bathed in 10 weeks * non-compliant with medication * PT/OT ordered * Patient will need placement Plan Code status: Full code per patient DVT prophylaxis: eliquis Stress ulcer prophylaxis: Protonix 40 daily PT/OT notes: PT/OT pending Disposition: Patient admitted due to failure to thrive, AMS, hyperglycemia, and generalized weakness. PT/OT pending and patient will need rehab at discharge CC consulted for further assistance will need to talk with son-in-law at this time for assistance. Time Spent With Patient Time with patient: 25 - 35 minutes Subjective Date/time seen: 05/06/23 14:51 Interval history: Medical Record 63-year-old female with a past medical history of insulin-dependent diabetes mellitus, hypothyroidism, CVA, atrial fibrillation, essential hypertension, noncompliance medication therapy and anxiety who presented to the ER from home via EMS after her son-in-law noticed that the patient was acting strange.? The patient reports that her daughter is currently in the hospital for pneumonia and multiple comorbidities.? So her and her son-in-law are at home.? She states that she was checked her glucoses in the morning and they were supposedly 95.? 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 She thought that these activities would keep her busy and keep her sugar down so she did not bother to take her insulin.? She states she does not have time to keep up with her diabetes due to staying busy.? Her son-in-law was worried because she was having brief episodes of slurred speech earlier in the morning.? He felt as if he was unable to care for at home and bring her sugars down.? He does not feel that she is taking care
--- NOTE | 2023-05-06 14:51 | PM.IMPN ---
Progress Note: A&P Assessment and Plan (1) Uncontrolled diabetes mellitus: Qualifiers: Diabetes mellitus type: type 1 Glycemic state: with hyperglycemia Qualified Code(s): E10.65 - Type 1 diabetes mellitus with hyperglycemia Status: Acute Assessment and Plan: secondary to non-compliance Patient has severe hyperglycemia POA. Improved with fluids Accu-Cheks a.c. HS sliding scale insulin resume patient's home long-acting Hemoglobin A1c lipid panel resumed statin Diabetic diet consult to dietitian Watch for hypoglycemia/hypoglycemic protocol ordered (2) Hypomagnesemia: Code(s): E83.42 - Hypomagnesemia Status: Acute Assessment and Plan: Magnesium 1.3 in the ED and received 3 g of mag. Repeat mag of 1.8 1.5 05/05 2g IVP mag daily (3) Hypothyroidism: Code(s): E03.9 - Hypothyroidism, unspecified Status: Chronic Assessment and Plan: resume levothyroxine TSH pending patient has been non-compliant with medication (4) AMS (altered mental status): Code(s): R41.82 - Altered mental status, unspecified Status: Acute Assessment and Plan: Previous HX CVA/metabolic encephalopathy from hyperglycemia/early dementia CT showed old infarcts Neuro check q.4 hour for the 1st 24 hours. MRI of the brain without contrast pendiing PT/OT eval and treat. Check for LDL and hemoglobin A1c. Resumed statins 40 mg q.day, aspirin 81 mg g q.day/Plavix (5) Failure to thrive: Status: Acute Assessment and Plan: Patient has had recent social stressors including the of her daughter, divorce and her other daughter in ICU post cardiac arrest Poor oral intake at home report she has not bathed in 10 weeks non-compliant with medication PT/OT ordered Patient will need placement Plan Code status: Full code per patient DVT prophylaxis: eliquis Stress ulcer prophylaxis: Protonix 40 daily PT/OT notes: PT/OT pending Disposition: Patient admitted due to failure to thrive, AMS, hyperglycemia, and generalized weakness. PT/OT pending and patient will need rehab at discharge CC consulted for further assistance will need to talk with son-in-law at this time for assistance. Time Spent With Patient Time with patient: 25 - 35 minutes Subjective Date/time seen: 05/06/23 14:51 Interval history: Medical Record 63-year-old female with a past medical history of insulin-dependent diabetes mellitus, hypothyroidism, CVA, atrial fibrillation, essential hypertension, noncompliance medication therapy and anxiety who presented to the ER from home via EMS after her son-in-law noticed that the patient was acting strange.? The patient reports that her daughter is currently in the hospital for pneumonia and multiple comorbidities.? So her and her son-in-law are at home.? She states that she was checked her glucoses in the morning and they were supposedly 95.? 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 She thought that these activities would keep her busy and keep her sugar down so she did not bother to take her insulin.? She states she does not have time to keep up with her diabetes due to staying busy.? Her son-in-law was worried because she was having brief episodes of slurred speech earlier in the morning.? He felt as if he was unable to care for at home and bring her sugars down.? He does not feel that she is taking care of herself or her diabetes.? Patient evidently reported feeling weak to the ER staff but time my evaluation she does told me that this is what happens when she lets her sugars go.? She does admit that she may have had some slurred speech for a few seconds.? She felt that it was due to her being tired.? She does have issues with intermittent bladder incontinence but this is unchanged from baseline.? She has chronic urinary frequency.? She denies having
[2023-05-06 16:41] LABS: Glucose Point of Care 161 mg/dl (65-105)
[2023-05-06 20:00] VITALS: PULSE 79; RESP 20; O2SAT 100
[2023-05-06 21:44] VITALS: PULSE 79
[2023-05-06] MEDS: QUEtiapine FUMARATE 12.5 MG TABLET PO (21:44)
[2023-05-06 22:00] VITALS: BP 157/77; PULSE 82; RESP 20; TEMP 36.3; O2SAT 98
[2023-05-06] MEDS: traZODone HCL 50 MG TABLET PO (22:18)
[2023-05-06] MEDS: INSULIN GLARGINE (*BKC) 100 UNITS/ML 11 UNITS SUB-Q (22:21)
[2023-05-07] VITALS (12 sets, daily range): BP systolic 136–177; BP diastolic 68–96; PULSE 72–90; RESP 16–23; TEMP 36.1–38.1; O2SAT 95–100
[2023-05-07 00:33] LABS: Glucose Point of Care 319 mg/dl (65-105)
[2023-05-07] MEDS: LEVOTHYROXINE SODIUM 75 MCG TABLET PO (06:01)
[2023-05-07 06:38] LABS: Hematocrit 38.8 % (37.0-47.0); Hemoglobin 12.5 g/dL (12.0-15.0); Mean Corpuscular HGB Conc 32.2 g/dl (32-36); Mean Corpuscular Hemoglobin 30.2 pg (26-34); Mean Corpuscular Volume 93.7 fl (80-100); Mean Platelet Volume 9.5 fl (7.4-10.4); Platelet Count Result 355 k/mm3 (150-375); Red Blood Count 4.14 M/mm3 (4.2-5.4); Red Cell Distribution Width 12.8 % (11.5-14.5); White Blood Count 6.2 K/mm3 (4.5-10.0)
[2023-05-07 06:50] LABS: Alanine Aminotransferase 14 U/L (6-35); Albumin Level 3.4 g/dL (3.5-5.1); Alkaline Phosphatase 65 U/L (38-126); Anion Gap 2 mmol/L (8-16); Aspartate Amino Transferase 23 U/L (14-36); Bilirubin,Total 0.5 mg/dL (0.2-1.3); Blood Urea Nitrogen 3 mg/dL (7-17); Calcium 9.1 mg/dL (8.4-10.2); Carbon Dioxide 29 mmol/L (22-30); Chloride 98 mmol/L (98-107); Estimated CRCL calculation 62 ml/min; Estimated Glomerular Filt Rate > 60; Glucose 208 mg/dL (65-110); Magnesium 1.8 mg/dL (1.6-2.3); Potassium 4.1 mmol/L (3.4-5.0); Sodium 129 mmol/L (137-145)
[2023-05-07 07:54] LABS: Glucose Point of Care 176 mg/dl (65-105)
--- NOTE | 2023-05-07 08:27 | P.PNIM_ITS ---
Progress Note: A&P Assessment and Plan (1) Uncontrolled diabetes mellitus: Qualifiers: Diabetes mellitus type: type 1 Glycemic state: with hyperglycemia Qualified Code(s): E10.65 - Type 1 diabetes mellitus with hyperglycemia Status: Acute Assessment and Plan: * secondary to non-compliance * Patient has severe hyperglycemia POA. * Improved with fluids * Accu-Cheks a.c. HS * sliding scale insulin * resume patient's home long-acting * Hemoglobin A1c * lipid panel * resumed statin * Diabetic diet * consult to dietitian * Watch for hypoglycemia/hypoglycemic protocol ordered (2) Hypomagnesemia: Code(s): E83.42 - Hypomagnesemia Status: Acute Assessment and Plan: * Magnesium 1.3 in the ED and received 3 g of mag. * Repeat mag of 1.8 * 1.5 05/05 * 2g IVP * mag daily (3) Hypothyroidism: Code(s): E03.9 - Hypothyroidism, unspecified Status: Chronic Assessment and Plan: * resume levothyroxine * TSH pending * patient has been non-compliant with medication (4) AMS (altered mental status): Code(s): R41.82 - Altered mental status, unspecified Status: Acute Assessment and Plan: * Previous HX CVA/metabolic encephalopathy from hyperglycemia/early dementia * CT showed old infarcts * Neuro check q.4 hour for the 1st 24 hours. * MRI of the brain without contrast pendiing * PT/OT eval and treat. * Check for LDL and hemoglobin A1c. * Resumed statins 40 mg q.day, aspirin 81 mg g q.day/Plavix (5) Failure to thrive: Status: Acute Assessment and Plan: * Patient has had recent social stressors including the of her daughter, divorce and her other daughter in ICU post cardiac arrest * Poor oral intake at home * report she has not bathed in 10 weeks * non-compliant with medication * PT/OT ordered * Patient will need placement (6) Seizures: Code(s): R56.9 - Unspecified convulsions Status: Acute Assessment and Plan: * New onset x2 unresponsive * Keppra 1000mg BID * Ativan PRN * Neurology consulted * unknown current cause * MRI ordered * EEG pending * Consulted ICU for at least 24 hour monitoring to ensure patient can protect her airway. (7) Essential hypertension: Code(s): I10 - Essential (primary) hypertension Status: Acute Assessment and Plan: * Hypertensive * was on losartan * can add Hydralazine PRN systolic >160 * BP per unit protocol Plan Code status: Full code per patient DVT prophylaxis: eliquis Stress ulcer prophylaxis: Protonix 40 daily PT/OT notes: PT/OT pending Disposition: Patient admitted due to failure to thrive, AMS, hyperglycemia, and generalized weakness. and transferred to ICU due to new onset seizures PT/OT pending and patient will need rehab at discharge CC consulted for further assistance will need to talk with son-in-law at this time for assistance. Time Spent With Patient Time with patient: 25 - 35 minutes Subjective Date/time seen: 05/07/23 08:27 Interval history: Medical Record 63-year-old female with a past medical history of insulin-dependent diabetes mellitus, hypothyroidism, CVA, atrial fibrillation, essential hypertension, noncompliance medication therapy and anxiety who presented to the ER from home via EMS after her son-in-law noticed that the patient was acting strange.? The patien
--- NOTE | 2023-05-07 08:27 | PM.IMPN ---
Progress Note: A&P Assessment and Plan (1) Uncontrolled diabetes mellitus: Qualifiers: Diabetes mellitus type: type 1 Glycemic state: with hyperglycemia Qualified Code(s): E10.65 - Type 1 diabetes mellitus with hyperglycemia Status: Acute Assessment and Plan: secondary to non-compliance Patient has severe hyperglycemia POA. Improved with fluids Accu-Cheks a.c. HS sliding scale insulin resume patient's home long-acting Hemoglobin A1c lipid panel resumed statin Diabetic diet consult to dietitian Watch for hypoglycemia/hypoglycemic protocol ordered (2) Hypomagnesemia: Code(s): E83.42 - Hypomagnesemia Status: Acute Assessment and Plan: Magnesium 1.3 in the ED and received 3 g of mag. Repeat mag of 1.8 1.5 05/05 2g IVP mag daily (3) Hypothyroidism: Code(s): E03.9 - Hypothyroidism, unspecified Status: Chronic Assessment and Plan: resume levothyroxine TSH pending patient has been non-compliant with medication (4) AMS (altered mental status): Code(s): R41.82 - Altered mental status, unspecified Status: Acute Assessment and Plan: Previous HX CVA/metabolic encephalopathy from hyperglycemia/early dementia CT showed old infarcts Neuro check q.4 hour for the 1st 24 hours. MRI of the brain without contrast pendiing PT/OT eval and treat. Check for LDL and hemoglobin A1c. Resumed statins 40 mg q.day, aspirin 81 mg g q.day/Plavix (5) Failure to thrive: Status: Acute Assessment and Plan: Patient has had recent social stressors including the of her daughter, divorce and her other daughter in ICU post cardiac arrest Poor oral intake at home report she has not bathed in 10 weeks non-compliant with medication PT/OT ordered Patient will need placement (6) Seizures: Code(s): R56.9 - Unspecified convulsions Status: Acute Assessment and Plan: New onset x2 unresponsive Keppra 1000mg BID Ativan PRN Neurology consulted unknown current cause MRI ordered EEG pending Consulted ICU for at least 24 hour monitoring to ensure patient can protect her airway. (7) Essential hypertension: Code(s): I10 - Essential (primary) hypertension Status: Acute Assessment and Plan: Hypertensive was on losartan can add Hydralazine PRN systolic >160 BP per unit protocol Plan Code status: Full code per patient DVT prophylaxis: eliquis Stress ulcer prophylaxis: Protonix 40 daily PT/OT notes: PT/OT pending Disposition: Patient admitted due to failure to thrive, AMS, hyperglycemia, and generalized weakness. and transferred to ICU due to new onset seizures PT/OT pending and patient will need rehab at discharge CC consulted for further assistance will need to talk with son-in-law at this time for assistance. Time Spent With Patient Time with patient: 25 - 35 minutes Subjective Date/time seen: 05/07/23 08:27 Interval history: Medical Record 63-year-old female with a past medical history of insulin-dependent diabetes mellitus, hypothyroidism, CVA, atrial fibrillation, essential hypertension, noncompliance medication therapy and anxiety who presented to the ER from home via EMS after her son-in-law noticed that the patient was acting strange.? The patient reports that her daughter is currently in the hospital for pneumonia and multiple comorbidities.? So her and her son-in-law are at home.? She states that she was checked her glucoses in the morning and they were supposedly 95.? 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 She thought that these activities would keep her busy and keep her sugar down so she did not bother to take her insulin.? She states she does not have time to keep up with her diabetes due to staying busy.? Her son-in-law was worried because she was rebollar
[2023-05-07] MEDS: APIXABAN 5 MG TABLET PO (09:14)
[2023-05-07] MEDS: VENLAFAXINE HCL XR 75 MG CAP.ER.24H PO (09:14)
[2023-05-07] MEDS: METOPROLOL TARTRATE 50 MG TAB PO (09:14)
[2023-05-07] MEDS: LOSARTAN POTASSIUM 100 MG TABLET PO (09:15)
[2023-05-07] MEDS: ATORVASTATIN 20 MG TABLET PO (09:15)
[2023-05-07] MEDS: SODIUM CHLORIDE 0.9% IV 1,000 ML 125 ML IV CONT (09:17)
[2023-05-07 09:33] LABS: Glucose Point of Care 242 mg/dl (65-105)
--- NOTE | 2023-05-07 09:40 | PC.NURSE ---
Patient arrived via stretcher with Director of ICU/IMU and ICU/IMU process development associate at bedside. Patient placed on telemetry, continuous O2 monitoring, head to toe assessment completed, peripheral IV initiated. ICU MD at bedside. Seizure noted, IV Ativan and IVPB Keppra initiated.
[2023-05-07] MEDS: levETIRAcetam 1000MG/NACL100ML 1,000 MG/100 ML BAG 400 MG IVPB ×2 (09:45→20:25)
[2023-05-07] MEDS: LORazepam INJ (*CRX) 2 MG/ML VIAL (09:45)
[2023-05-07] MEDS: SODIUM CHLORIDE 0.9% IV 1,000 ML 100 ML IV CONT (10:04)
--- NOTE | 2023-05-07 10:04 | PC.NURSE ---
Patient transported by wheelchair to [facility] at 0915. Rapid Response called at 0918. Patient noted to have a seizure during transport per patient transport. Upon arrival patient found supine on a stretcher unresponsive. Rapid response team at bedside. Orders to transport patient. Patient belongings brought to ICU-2. Report to ABHIJIT Sosa.
--- NOTE | 2023-05-07 11:07 | WPDCNINT ---
Assessment and Plan Assessment and plan (1) Seizures: Code(s): R56.9 - Unspecified convulsions Status: Acute Assessment and Plan: New onset seizures likely related to possible old infarcts, acute infarcts -05/07/2023: CT scan of the brain: No change in a few scattered small old infarcts in the bilateral cerebral hemispheres, left thalamus, bilateral jatin and right cerebellar hemisphere. No acute intracranial process. -patient was given Ativan 2 mg IV x1, continue Ativan p.r.n. for seizure activity -loaded patient with Keppra 1000 mg IV x1 -continue Keppra 1000 mg IV q.12 hours -appreciate Neurology evaluation, agree with the above -EEG in the morning (2) Encephalopathy: Code(s): G93.40 - Encephalopathy, unspecified Status: Acute Assessment and Plan: Encephalopathy likely postictal, according the records the son-in-law stated that she has been declining mentally and may have early dementia. -will check urine culture and blood cultures -will treat underlying cause at this time which is the seizures, elevated blood sugars (3) Uncontrolled diabetes mellitus: Qualifiers: Diabetes mellitus type: type 1 Glycemic state: with hyperglycemia Qualified Code(s): E10.65 - Type 1 diabetes mellitus with hyperglycemia Status: Acute Assessment and Plan: Continue sliding scale insulin, Accu-Cheks -continue Lantus Hemoglobin A1c this admission was 12.2 (4) Paroxysmal atrial fibrillation: Code(s): I48.0 - Paroxysmal atrial fibrillation Status: Acute Assessment and Plan: Patient with history of proximal AFib on Eliquis at home -currently in sinus rhythm -will continue Eliquis (5) Hypothyroidism: Code(s): E03.9 - Hypothyroidism, unspecified Status: Chronic Assessment and Plan: Continue levothyroxine -TSH levels within normal limits this admission (6) Essential hypertension: Code(s): I10 - Essential (primary) hypertension Status: Acute Assessment and Plan: Continue metoprolol, losartan, -blood pressure is within normal limits (7) Failure to thrive: Status: Acute Assessment and Plan: According the records patient with decreased p.o. intake and possible for you to thrive and disheveled appearance on admission -she may require placement at a alf according the hospitalist's note Plan DVT prophylaxis: On Eliquis Stress ulcer prophylaxis: Not indicated Nutrition: NPO for now he is more awake Code Status: Full code Critical Care Time Spent: 49 minutes Due to a high probability of clinically significant, life threatening deterioration, the patient required my highest level of preparedness to intervene emergently and I personally spent this critical care time directly and personally managing the patient. This critical care time included obtaining a history; examining the patient; pulse oximetry; ordering and review of studies; arranging urgent treatment with development of a management plan; evaluation of patient's response to treatment; frequent reassessment; and discussions with other providers. It was exclusive of separately billable procedures and treating other patients and teaching time. Please see Assessment and Plan section and the rest of the note for further information on patient assessment and treatment This dictation may have been done utilizing a voice recognition system. Attempts have been made to correct errors. However, there may be uncorrected grammatical, spelling, and recognitions errors present. Qa Developer Consult Note Consult date: 05/07/23 Reason for consult: Seizures, altered mental status, hyperglycemia, failure to thrive HPI: Patrica Navarrete is a 63 year old female significant past medical history of anxiety, cerebrovascular accident, hypothyroidism, paroxysmal atrial fibrillation on Eliquis at home, type 1 diabetes on insulin, presented the ED via EMS on 05/04/2023 after Victorino jaramillo
[2023-05-07] MEDS: INSULIN ASPART (*BKC) 100 UNITS/ML SUB-Q (11:27)
--- NOTE | 2023-05-07 11:29 | WPDNEURCNPN ---
Assessment and Plan Assessment and plan (1) Seizures: Code(s): R56.9 - Unspecified convulsions Status: Acute Plan status post generalized seizure transfer from the regular floor to the ICU bed 2 with a history as mentioned above patient has been loaded with the Keppra will re-examine later again Consult date: 05/07/23 HPI: Patrica Navarrete is a 63 year old female admitted to the hospital through the emergency room with ongoing diagnosis of 1. Insulin-dependent diabetes mellitus 2. Atrial fibrillation 3. Cerebrovascular accident and 4. Brief episode of slurred speech earlier in the morning with uncontrolled blood sugar and history of somewhat noncompliance with the anti diabetic treatment, patient has been receiving multiple medications which include alprazolam 1mg 4 times a day p.r.n. apixaban 5mg twice a day, atorvastatin 20mg daily, levothyroxine 75mcg daily, losartan 50mg daily, metoprolol 50mg twice a day, Seroquel 12.5mg at night trazodone 50mg at night in addition to venlafaxine 75mg daily, she has ongoing history of as mentioned before anxiety, hypothyroidism, paroxysmal atrial fibrillation, and type 1 diabetes mellitus. She has never smoked her alcohol intake or initial exam in the emergency room was not significant vital signs were normal, CBC was normal with hemoglobin 10.6 that is low routine lab normal EKG in sinus rhythm with no atrial fibrillation, CT scan with small old infarcts in the bilateral cerebral hemisphere, left thalamus, bilateral jatin and right cerebellar hemisphere. Patient transferred to ICU room 2 on emergency from the floor because of the seizure. [facility] Past Medical History Medical History Anxiety Cerebrovascular accident Hypothyroidism Paroxysmal atrial fibrillation Type 1 diabetes mellitus Surgical History Surgical History History of tubal ligation Family History Family History Father Acute myocardial infarction Social History Social History Social History: She used to smoke about half pack of cigarettes per day but quit smoking when her daughter was recently hospitalized in February 2022. She denies significant alcohol use history. Surrogate medical decision maker: Chester Townsend, son-in-law. Code status: Full code. (she would not want to be intubated long-term or have a feeding tube) Smoking status: Former smoker Alcohol intake: never Substance use: never Substance use type: does not use Do You Feel Safe in your Home?: No Lack of Transportation: No Lack of Food: Never True Current Housing: I Have Housing Concerned About Future Housing: No Difficulty Paying Gas/Electric Bills: No Difficulty Paying for Meds: No Currently Unemployed: No Education: High School Diploma/GED Difficulty w/ Childcare or Family Care: No Additional living arrangements comments: She lives with her daughter and son-in-law. Spiritual care concerns: No Meds Home Medications and Allergies Home Medications Medication Instructions Recorded Confirmed Type alprazolam 1 mg tablet 1 mg PO BID Anxiety 04/13/23 05/04/23 History apixaban 5 mg tablet (Eliquis) 5 mg PO BID 04/13/23 05/04/23 History atorvastatin 20 mg tablet 20 mg PO DAILY 04/13/23 05/04/23 History estradiol 1 mg tablet 1 mg PO BID 04/13/23 05/04/23 History levothyroxine 75 mcg tablet 75 mcg PO DAILY 04/13/23 05/04/23 History losartan 50 mg tablet 50 mg PO DAILY 04/13/23 05/04/23 History metoprolol tartrate 50 mg tablet 50 mg PO BID 04/13/23 05/04/23 History olmesartan 20 mg tablet 20 mg PO DAILY 04/13/23 05/04/23 History quetiapine 25 mg tablet 12.5 mg PO HS 04/13/23 05/04/23 History trazodone 50 mg tablet 50 mg PO HS 04/13/23 05/04/23 History venlafaxine 75 mg capsule,extended 75 mg PO DAILY 04/13/23 05/04/23 History
[2023-05-07 11:51] LABS: Glucose Point of Care 349 mg/dl (65-105)
--- NOTE | 2023-05-07 12:02 | PC.NURSE ---
Attempted to contact patient's next of kin via telephone without success.
[2023-05-07] MEDS: hydrALAZINE HCL 20 MG/ML VIAL 10 MG IV PUSH (13:10)
[2023-05-07 18:07] LABS: Glucose Point of Care 80 mg/dl (65-105)
--- NOTE | 2023-05-07 18:10 | PC.NURSE ---
Dr. Jordan updated on 1800 blood sugar. 0.5 amp D50 IVP ordered
[2023-05-07] MEDS: DEXTROSE 50% 25 GM/50 ML SYRINGE IV PUSH (18:13)
[2023-05-07 19:48] LABS: Glucose Point of Care 196 mg/dl (65-105)
[2023-05-07] MEDS: SODIUM CHLORIDE 0.9% IV 1,000 ML 75 ML IV CONT (23:50)
[2023-05-07 23:59] LABS: Glucose Point of Care 164 mg/dl (65-105)
[2023-05-08] VITALS (12 sets, daily range): BP systolic 130–177; BP diastolic 66–85; PULSE 64–98; RESP 13–23; TEMP 36.9–37.4; O2SAT 95–100
[2023-05-08 04:38] LABS: Basophils Percent Auto 0.4 % (0.2-1.2); Eosinophils Absolute Auto 0.1 K/mm3 (0-0.3); Eosinophils Percent Auto 1.9 % (0-4.4); Hematocrit 40.8 % (37.0-47.0); Hemoglobin 12.8 g/dL (12.0-15.0); Immature Granulocyte Absolute 0.05 K/mm3 (0.00-0.031); Immature Granulocyte Percent A 0.7 % (0-0.5); Mean Corpuscular HGB Conc 31.4 g/dl (32-36); Mean Corpuscular Hemoglobin 30.1 pg (26-34); Mean Platelet Volume 9.3 fl (7.4-10.4); Monocytes Absolute Auto 0.8 K/mm3 (0.1-0.6); Monocytes Percent Auto 11.2 % (2.6-8.5); Neutrophils Absolute Auto 4.1 K/mm3 (1.3-6.7); Neutrophils Percent Auto 56.8 % (45.5-73.1); Platelet Count Result 325 k/mm3 (150-375); Red Blood Count 4.25 M/mm3 (4.2-5.4); Red Cell Distribution Width 12.7 % (11.5-14.5); White Blood Count 7.2 K/mm3 (4.5-10.0)
[2023-05-08 04:47] LABS: Ammonia < 9 umol/L (9-30); Lactic Acid Reflex 0.9 mmol/L (0.7-2.0)
[2023-05-08 04:51] LABS: Alanine Aminotransferase 13 U/L (6-35); Albumin Level 3.4 g/dL (3.5-5.1); Alkaline Phosphatase 64 U/L (38-126); Anion Gap 5 mmol/L (8-16); Aspartate Amino Transferase 21 U/L (14-36); Bilirubin,Total 0.8 mg/dL (0.2-1.3); Blood Urea Nitrogen 3 mg/dL (7-17); Calcium 8.6 mg/dL (8.4-10.2); Carbon Dioxide 25 mmol/L (22-30); Chloride 98 mmol/L (98-107); Estimated CRCL calculation 72 ml/min; Estimated Glomerular Filt Rate > 60; Glucose 166 mg/dL (65-110); Magnesium 1.4 mg/dL (1.6-2.3); Phosphorus 3.3 mg/dL (2.5-4.5); Potassium 3.5 mmol/L (3.4-5.0); Sodium 128 mmol/L (137-145)
[2023-05-08] MEDS: MAGNESIUM SULF 2 GM/WATER 50ML 2 GM/50 ML BAG IVPB (07:36)
--- NOTE | 2023-05-08 08:25 | WPDINTPN ---
Progress Note: A&P Assessment and Plan (1) Seizures: Code(s): R56.9 - Unspecified convulsions Status: Acute Assessment and Plan: New onset seizures likely related to possible old infarcts, acute infarcts -05/07/2023: CT scan of the brain: No change in a few scattered small old infarcts in the bilateral cerebral hemispheres, left thalamus, bilateral jatin and right cerebellar hemisphere. No acute intracranial process. -05/06: patient was given Ativan 2 mg IV x1, continue Ativan p.r.n. for seizure activity -05/06: loaded patient with Keppra 1000 mg IV x1 -continue Keppra 1000 mg IV q.12 hours -appreciate Neurology evaluation, agree with the above -EEG being set up this morning -no seizure activity overnight (2) Encephalopathy: Code(s): G93.40 - Encephalopathy, unspecified Status: Acute Assessment and Plan: Encephalopathy likely postictal, according the records the son-in-law stated that she has been declining mentally and may have early dementia. -05/06: urine culture and blood cultures have been obtained and pending -will treat underlying cause at this time which is the seizures, elevated blood sugars -MRI has been ordered and pending (3) Uncontrolled diabetes mellitus: Qualifiers: Diabetes mellitus type: type 1 Glycemic state: with hyperglycemia Qualified Code(s): E10.65 - Type 1 diabetes mellitus with hyperglycemia Status: Acute Assessment and Plan: Continue sliding scale insulin, Accu-Cheks -continue Lantus Hemoglobin A1c this admission was 12.2 (4) Paroxysmal atrial fibrillation: Code(s): I48.0 - Paroxysmal atrial fibrillation Status: Acute Assessment and Plan: Patient with history of proximal AFib on Eliquis at home -currently in sinus rhythm -will continue Eliquis (5) Hypothyroidism: Code(s): E03.9 - Hypothyroidism, unspecified Status: Chronic Assessment and Plan: Continue levothyroxine -TSH levels within normal limits this admission (6) Essential hypertension: Code(s): I10 - Essential (primary) hypertension Status: Acute Assessment and Plan: Continue metoprolol, losartan, -p.r.n. hydralazine (7) Failure to thrive: Status: Acute Assessment and Plan: According the records patient with decreased p.o. intake and possible for you to thrive and disheveled appearance on admission -she may require placement at a group home according the hospitalist's note -will have dietitian evaluate the patient -patient may require dietary supplement Plan DVT prophylaxis: On Eliquis Stress ulcer prophylaxis: Not indicated Nutrition: Clear liquids Code Status: Full code Critical Care Time Spent: 32 minutes Due to a high probability of clinically significant, life threatening deterioration, the patient required my highest level of preparedness to intervene emergently and I personally spent this critical care time directly and personally managing the patient. This critical care time included obtaining a history; examining the patient; pulse oximetry; ordering and review of studies; arranging urgent treatment with development of a management plan; evaluation of patient's response to treatment; frequent reassessment; and discussions with other providers. It was exclusive of separately billable procedures and treating other patients and teaching time. Please see Assessment and Plan section and the rest of the note for further information on patient assessment and treatment This dictation may have been done utilizing a voice recognition system. Attempts have been made to correct errors. However, there may be uncorrected grammatical, spelling, and recognitions errors present. Subjective Date/time seen: 05/08/23 08:25 Interval history: Reason for consult: Seizures, altered mental status, hyperglycemia, failure to thrive ?63 year old female significant past medical history of anxiety, cerebrovascular ac
[2023-05-08] MEDS: ATORVASTATIN 20 MG TABLET PO (08:45)
[2023-05-08] MEDS: APIXABAN 5 MG TABLET PO ×2 (08:45→20:58)
[2023-05-08] MEDS: METOPROLOL TARTRATE 50 MG TAB PO ×2 (08:45→20:58)
[2023-05-08] MEDS: levETIRAcetam 1000MG/NACL100ML 1,000 MG/100 ML BAG 400 MG IVPB ×2 (08:46→20:57)
[2023-05-08] MEDS: LOSARTAN POTASSIUM 100 MG TABLET PO (08:46)
[2023-05-08] MEDS: VENLAFAXINE HCL XR 75 MG CAP.ER.24H PO (08:46)
[2023-05-08 11:18] LABS: Glucose Point of Care 205 mg/dl (65-105)
[2023-05-08] MEDS: INSULIN ASPART (*BKC) 100 UNITS/ML SUB-Q ×2 (11:50→17:25)
[2023-05-08] MEDS: SODIUM CHLORIDE 0.9% IV 1,000 ML 75 ML IV CONT (11:52)
--- NOTE | 2023-05-08 12:36 | WPDNEUROLOGY ---
Neurology EEG Report General Information Date of Study: 05/08/23 TEST eeg DIAGNOSIS New onset seizures CONDITION OF RECORDING awake drowsy and sleep EEG NUMBER [id number] CLINICAL HISTORY patient was admitted to hospital couple of days ago for slurred speech and uncontrolled sugar along with generalized weakness but day before the EEG she had witnessed generalized seizures x2. EEG DESCRIPTION Basic resting occipital frequency consists of low to medium voltage 8 to 10 hertz per 2nd alpha admixed with low-voltage 15 to 18 hertz Beta. Sinclair collette posterior gradient noted. Low-voltage beta activity seen diffusely admixed with waxing and waning alpha rhythm. Bilateral symmetrical sleep activity seen during sleep. Hyperventilation not done. Photic stimulation not done. Non paroxysmal. Nonfocal. Nonlateralizing. IMPRESSION Only minimally abnormal record due to the absence of the normal background rhythm with poor anterior to posterior gradient but there is no evidence of any trickle seizures throughout the tracing. Clinical correlation recommended.
--- NOTE | 2023-05-08 14:53 | PCOTNOTE ---
Attempted to see pt. for OT reevaluation. Per nursing, wait for MRI results, prior to determination of medical treatment and acute change in medical status
--- NOTE | 2023-05-08 15:55 | PCPTNOTE ---
Attempted to see pt. for PT reevaluation. Per nursing, wait for MRI results, prior to determination of medical treatment and acute change in medical status
[2023-05-08 16:51] LABS: Sodium Urine Random 137 meq/L
--- NOTE | 2023-05-08 17:00 | PC.NURSE ---
Received from ICU/2 via bed.
--- NOTE | 2023-05-08 17:05 | PC.NURSE ---
This patient, Patrica Navarrete, was transferred to [facility] on 05/08/23 at 1655. Personal belongings sent with patient. Report given to Norah LACEY. Appropriate documentation sent with patient.
[2023-05-08 17:18] LABS: Glucose Point of Care 217 mg/dl (65-105)
[2023-05-08] MEDS: traZODone HCL 50 MG TABLET PO (20:58)
[2023-05-08] MEDS: INSULIN GLARGINE (*BKC) 100 UNITS/ML 11 UNITS SUB-Q (20:58)
[2023-05-08] MEDS: QUEtiapine FUMARATE 12.5 MG TABLET PO (20:58)
[2023-05-09] VITALS (14 sets, daily range): BP systolic 138–175; BP diastolic 56–95; PULSE 59–82; RESP 16; TEMP 36–37; O2SAT 96–99
[2023-05-09 00:20] LABS: Glucose Point of Care 90 mg/dl (65-105)
[2023-05-09] MEDS: SODIUM CHLORIDE 0.9% IV 1,000 ML 75 ML IV CONT ×2 (01:49→23:01)
[2023-05-09] MEDS: LEVOTHYROXINE SODIUM 75 MCG TABLET PO (05:39)
[2023-05-09 05:42] LABS: Hematocrit 42.2 % (37.0-47.0); Hemoglobin 13.2 g/dL (12.0-15.0); Mean Corpuscular HGB Conc 31.3 g/dl (32-36); Mean Corpuscular Hemoglobin 30.6 pg (26-34); Mean Corpuscular Volume 97.7 fl (80-100); Mean Platelet Volume 9.3 fl (7.4-10.4); Platelet Count Result 302 k/mm3 (150-375); Red Blood Count 4.32 M/mm3 (4.2-5.4); Red Cell Distribution Width 12.9 % (11.5-14.5); White Blood Count 8.4 K/mm3 (4.5-10.0)
[2023-05-09 05:57] LABS: Alanine Aminotransferase 12 U/L (6-35); Albumin Level 3.4 g/dL (3.5-5.1); Alkaline Phosphatase 61 U/L (38-126); Anion Gap 6 mmol/L (8-16); Aspartate Amino Transferase 21 U/L (14-36); Bilirubin,Total 0.7 mg/dL (0.2-1.3); Blood Urea Nitrogen 3 mg/dL (7-17); Calcium 8.6 mg/dL (8.4-10.2); Carbon Dioxide 25 mmol/L (22-30); Chloride 103 mmol/L (98-107); Estimated CRCL calculation 72 ml/min; Estimated Glomerular Filt Rate > 60; Glucose 100 mg/dL (65-110); Potassium 3.3 mmol/L (3.4-5.0); Sodium 134 mmol/L (137-145)
[2023-05-09 06:15] LABS: Glucose Point of Care 107 mg/dl (65-105)
--- NOTE | 2023-05-09 08:14 | P.PNIM_ITS ---
Progress Note: A&P Assessment and Plan (1) Uncontrolled diabetes mellitus: Qualifiers: Diabetes mellitus type: type 1 Glycemic state: with hyperglycemia Qualified Code(s): E10.65 - Type 1 diabetes mellitus with hyperglycemia Status: Acute Assessment and Plan: * secondary to non-compliance * Patient has severe hyperglycemia POA. * Improved with fluids * Accu-Cheks a.c. HS * sliding scale insulin * resume patient's home long-acting * Hemoglobin A1c * lipid panel * resumed statin * Diabetic diet * consult to dietitian * Watch for hypoglycemia/hypoglycemic protocol ordered (2) Hypomagnesemia: Code(s): E83.42 - Hypomagnesemia Status: Acute Assessment and Plan: * Magnesium 1.3 in the ED and received 3 g of mag. * Repeat mag of 1.8 * 1.5 05/05 * 2g IVP * mag daily (3) Hypothyroidism: Code(s): E03.9 - Hypothyroidism, unspecified Status: Chronic Assessment and Plan: * resume levothyroxine * TSH levels WNL * patient has been non-compliant with medication (4) AMS (altered mental status): Code(s): R41.82 - Altered mental status, unspecified Status: Acute Assessment and Plan: * Previous HX CVA/metabolic encephalopathy from hyperglycemia/early dementia * CT showed old infarcts * Neuro check q.4 hour for the 1st 24 hours. * MRI of the brain without contrast pendiing * PT/OT eval and treat. * Check for LDL and hemoglobin A1c. * Resumed statins 40 mg q.day, aspirin 81 mg g q.day/Plavix (5) Failure to thrive: Status: Acute Assessment and Plan: * Patient has had recent social stressors including the of her daughter, divorce and her other daughter in ICU post cardiac arrest * Poor oral intake at home * report she has not bathed in 10 weeks * non-compliant with medication * PT/OT ordered * Patient will need placement (6) Seizures: Code(s): R56.9 - Unspecified convulsions Status: Acute Assessment and Plan: * New onset x2 unresponsive * Keppra 1000mg BID * Ativan PRN * Neurology consulted * unknown current cause * MRI ordered * EEG pending * Consulted ICU for at least 24 hour monitoring to ensure patient can protect her airway. 05/08: * No further seizure activity * EEG * MRI old infarcts * continue on keppra (7) Essential hypertension: Code(s): I10 - Essential (primary) hypertension Status: Acute Assessment and Plan: * Hypertensive * was on losartan * can add Hydralazine PRN systolic >160 * BP per unit protocol Plan Code status: Full code per patient DVT prophylaxis: eliquis Stress ulcer prophylaxis: Protonix 40 daily PT/OT notes: PT/OT pending Disposition: Patient continues admission for new onset seizures, AMS and failure to thrive. Family is currently making decision on placement options CC assisting. Time Spent With Patient Time with patient: 15 - 25 minutes Subjective Date/time seen: 05/09/23 08:14 Interval history: Medical Record 63-year-old female with a past medical history of insulin-dependent diabetes roseann litus, hypothyroidism, CVA, atrial fibrillation, essential hypertension, noncompliance medication therapy and anxiety who presented to the ER from home via EMS after her son-in-law noticed that the patient was acting strange.? The patient r
--- NOTE | 2023-05-09 08:14 | PM.IMPN ---
Progress Note: A&P Assessment and Plan (1) Uncontrolled diabetes mellitus: Qualifiers: Diabetes mellitus type: type 1 Glycemic state: with hyperglycemia Qualified Code(s): E10.65 - Type 1 diabetes mellitus with hyperglycemia Status: Acute Assessment and Plan: secondary to non-compliance Patient has severe hyperglycemia POA. Improved with fluids Accu-Cheks a.c. HS sliding scale insulin resume patient's home long-acting Hemoglobin A1c lipid panel resumed statin Diabetic diet consult to dietitian Watch for hypoglycemia/hypoglycemic protocol ordered (2) Hypomagnesemia: Code(s): E83.42 - Hypomagnesemia Status: Acute Assessment and Plan: Magnesium 1.3 in the ED and received 3 g of mag. Repeat mag of 1.8 1.5 05/05 2g IVP mag daily (3) Hypothyroidism: Code(s): E03.9 - Hypothyroidism, unspecified Status: Chronic Assessment and Plan: resume levothyroxine TSH levels WNL patient has been non-compliant with medication (4) AMS (altered mental status): Code(s): R41.82 - Altered mental status, unspecified Status: Acute Assessment and Plan: Previous HX CVA/metabolic encephalopathy from hyperglycemia/early dementia CT showed old infarcts Neuro check q.4 hour for the 1st 24 hours. MRI of the brain without contrast pendiing PT/OT eval and treat. Check for LDL and hemoglobin A1c. Resumed statins 40 mg q.day, aspirin 81 mg g q.day/Plavix (5) Failure to thrive: Status: Acute Assessment and Plan: Patient has had recent social stressors including the of her daughter, divorce and her other daughter in ICU post cardiac arrest Poor oral intake at home report she has not bathed in 10 weeks non-compliant with medication PT/OT ordered Patient will need placement (6) Seizures: Code(s): R56.9 - Unspecified convulsions Status: Acute Assessment and Plan: New onset x2 unresponsive Keppra 1000mg BID Ativan PRN Neurology consulted unknown current cause MRI ordered EEG pending Consulted ICU for at least 24 hour monitoring to ensure patient can protect her airway. 05/08: No further seizure activity EEG MRI old infarcts continue on keppra (7) Essential hypertension: Code(s): I10 - Essential (primary) hypertension Status: Acute Assessment and Plan: Hypertensive was on losartan can add Hydralazine PRN systolic >160 BP per unit protocol Plan Code status: Full code per patient DVT prophylaxis: eliquis Stress ulcer prophylaxis: Protonix 40 daily PT/OT notes: PT/OT pending Disposition: Patient continues admission for new onset seizures, AMS and failure to thrive. Family is currently making decision on placement options CC assisting. Time Spent With Patient Time with patient: 15 - 25 minutes Subjective Date/time seen: 05/09/23 08:14 Interval history: Medical Record 63-year-old female with a past medical history of insulin-dependent diabetes mellitus, hypothyroidism, CVA, atrial fibrillation, essential hypertension, noncompliance medication therapy and anxiety who presented to the ER from home via EMS after her son-in-law noticed that the patient was acting strange.? The patient reports that her daughter is currently in the hospital for pneumonia and multiple comorbidities.? So her and her son-in-law are at home.? She states that she was checked her glucoses in the morning and they were supposedly 95.? 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 She thought that these activities would keep her busy and keep her sugar down so she did not bother to take her insulin.? She states she does not have time to keep up with her diabetes due to staying busy.? Her son-in-law was worried because she was having brief episodes of slurred speech earlier
[2023-05-09 08:59] LABS: Magnesium 1.7 mg/dL (1.6-2.3)
[2023-05-09] MEDS: POTASSIUM CHLORIDE INJ 40 MEQ in SODIUM CHLORIDE 0.9% IV 500 ML 130 MEQ IVPB (09:30)
[2023-05-09] MEDS: METOPROLOL TARTRATE 50 MG TAB PO ×2 (09:31→21:36)
[2023-05-09] MEDS: ATORVASTATIN 20 MG TABLET PO (09:31)
[2023-05-09] MEDS: VENLAFAXINE HCL XR 75 MG CAP.ER.24H PO (09:31)
[2023-05-09] MEDS: APIXABAN 5 MG TABLET PO ×2 (09:31→21:36)
[2023-05-09] MEDS: LOSARTAN POTASSIUM 100 MG TABLET PO (09:31)
[2023-05-09] MEDS: levETIRAcetam 1000MG/NACL100ML 1,000 MG/100 ML BAG 400 MG IVPB ×2 (09:39→21:38)
[2023-05-09 12:29] LABS: Glucose Point of Care 176 mg/dl (65-105)
[2023-05-09 18:10] LABS: Glucose Point of Care 420 mg/dl (65-105)
[2023-05-09] MEDS: INSULIN ASPART (*BKC) 100 UNITS/ML SUB-Q ×2 (18:41→21:51)
[2023-05-09] MEDS: QUEtiapine FUMARATE 12.5 MG TABLET PO (21:36)
[2023-05-09] MEDS: traZODone HCL 50 MG TABLET PO (21:37)
[2023-05-09] MEDS: INSULIN GLARGINE (*BKC) 100 UNITS/ML 11 UNITS SUB-Q (21:53)
[2023-05-09 22:24] LABS: Glucose Point of Care 228 mg/dl (65-105)
[2023-05-10] VITALS (8 sets, daily range): BP systolic 134–162; BP diastolic 60–83; PULSE 68–105; RESP 16–18; TEMP 36.3–36.8; O2SAT 96–99
[2023-05-10 00:40] LABS: Glucose Point of Care 144 mg/dl (65-105)
[2023-05-10 06:03] LABS: Hemoglobin 11.2 g/dL (12.0-15.0); Mean Corpuscular HGB Conc 31.1 g/dl (32-36); Mean Corpuscular Hemoglobin 30.6 pg (26-34); Mean Corpuscular Volume 98.4 fl (80-100); Mean Platelet Volume 9.4 fl (7.4-10.4); Platelet Count Result 283 k/mm3 (150-375); Red Blood Count 3.66 M/mm3 (4.2-5.4); Red Cell Distribution Width 13.1 % (11.5-14.5); White Blood Count 8.9 K/mm3 (4.5-10.0)
[2023-05-10 06:27] LABS: Alanine Aminotransferase 10 U/L (6-35); Albumin Level 2.9 g/dL (3.5-5.1); Alkaline Phosphatase 55 U/L (38-126); Anion Gap 4 mmol/L (8-16); Aspartate Amino Transferase 16 U/L (14-36); Bilirubin,Total 0.6 mg/dL (0.2-1.3); Blood Urea Nitrogen 3 mg/dL (7-17); Calcium 8.2 mg/dL (8.4-10.2); Carbon Dioxide 25 mmol/L (22-30); Chloride 105 mmol/L (98-107); Estimated CRCL calculation 72 ml/min; Estimated Glomerular Filt Rate > 60; Glucose 57 mg/dL (65-110); Potassium 2.9 mmol/L (3.4-5.0); Sodium 134 mmol/L (137-145)
[2023-05-10] MEDS: LEVOTHYROXINE SODIUM 75 MCG TABLET PO (06:28)
[2023-05-10 06:38] LABS: Glucose Point of Care 56 mg/dl (65-105)
[2023-05-10] MEDS: GLUCOSE ORAL GEL 15 GM OF GLUCSE IN 37.5 GM TUBE PO (06:55)
[2023-05-10 07:14] LABS: Glucose Point of Care 98 mg/dl (65-105)
--- NOTE | 2023-05-10 07:16 | P.PNIM_ITS ---
Progress Note: A&P Assessment and Plan (1) Uncontrolled diabetes mellitus: Qualifiers: Diabetes mellitus type: type 1 Glycemic state: with hyperglycemia Qualified Code(s): E10.65 - Type 1 diabetes mellitus with hyperglycemia Status: Acute Assessment and Plan: * secondary to non-compliance * Patient has severe hyperglycemia POA. * Improved with fluids * Accu-Cheks a.c. HS * sliding scale insulin * resume patient's home long-acting * Hemoglobin A1c * lipid panel * resumed statin * Diabetic diet * consult to dietitian * Watch for hypoglycemia/hypoglycemic protocol ordered 05/09: * BS 420 1700/56 in the am * switched Insulin from HS to daily (2) Hypomagnesemia: Code(s): E83.42 - Hypomagnesemia Status: Acute Assessment and Plan: * Magnesium 1.3 in the ED and received 3 g of mag. * Repeat mag of 1.8 * 1.5 05/05 * 2g IVP * mag daily (3) Hypothyroidism: Code(s): E03.9 - Hypothyroidism, unspecified Status: Chronic Assessment and Plan: * resume levothyroxine * TSH levels WNL * patient has been non-compliant with medication (4) AMS (altered mental status): Code(s): R41.82 - Altered mental status, unspecified Status: Acute Assessment and Plan: * Previous HX CVA/metabolic encephalopathy from hyperglycemia/early dementia * CT showed old infarcts * Neuro check q.4 hour for the 1st 24 hours. * MRI of the brain without contrast pendiing * PT/OT eval and treat. * Check for LDL and hemoglobin A1c. * Resumed statins 40 mg q.day, aspirin 81 mg g q.day/Plavix (5) Failure to thrive: Status: Acute Assessment and Plan: * Patient has had recent social stressors including the of her daughter, divorce and her other daughter in ICU post cardiac arrest * Poor oral intake at home * report she has not bathed in 10 weeks * non-compliant with medication * PT/OT ordered * Patient will need placement (6) Seizures: Code(s): R56.9 - Unspecified convulsions Status: Acute Assessment and Plan: * New onset x2 unresponsive * Keppra 1000mg BID * Ativan PRN * Neurology consulted * unknown current cause * MRI ordered * EEG pending * Consulted ICU for at least 24 hour monitoring to ensure patient can protect her airway. 05/08: * No further seizure activity * EEG * MRI old infarcts * continue on keppra switch to PO (7) Essential hypertension: Code(s): I10 - Essential (primary) hypertension Status: Acute Assessment and Plan: * Hypertensive * was on losartan * can add Hydralazine PRN systolic >160 * BP per unit protocol (8) Hypokalemia: Code(s): E87.6 - Hypokalemia Status: Acute Assessment and Plan: * 2.9 * replenished * monitor daily * cardiac monitoring 05/09: * 2.6 * replenished Plan Code status: Full code per patient DVT prophylaxis: eliquis Stress ulcer prophylaxis: Protonix 40 daily PT/OT notes: PT/OT pending Disposition: Patient continues admission for new onset seizures, AMS and failure to thrive. Family is currently making decision on placement options CC assisting. Time Spent With Patient Time with patient: 15 - 25 minutes Subjective Date/time seen: 05/10/23 07:16 Interval history:
--- NOTE | 2023-05-10 07:16 | PM.IMPN ---
Progress Note: A&P Assessment and Plan (1) Uncontrolled diabetes mellitus: Qualifiers: Diabetes mellitus type: type 1 Glycemic state: with hyperglycemia Qualified Code(s): E10.65 - Type 1 diabetes mellitus with hyperglycemia Status: Acute Assessment and Plan: secondary to non-compliance Patient has severe hyperglycemia POA. Improved with fluids Accu-Cheks a.c. HS sliding scale insulin resume patient's home long-acting Hemoglobin A1c lipid panel resumed statin Diabetic diet consult to dietitian Watch for hypoglycemia/hypoglycemic protocol ordered 05/09: BS 420 1700/56 in the am switched Insulin from HS to daily (2) Hypomagnesemia: Code(s): E83.42 - Hypomagnesemia Status: Acute Assessment and Plan: Magnesium 1.3 in the ED and received 3 g of mag. Repeat mag of 1.8 1.5 05/05 2g IVP mag daily (3) Hypothyroidism: Code(s): E03.9 - Hypothyroidism, unspecified Status: Chronic Assessment and Plan: resume levothyroxine TSH levels WNL patient has been non-compliant with medication (4) AMS (altered mental status): Code(s): R41.82 - Altered mental status, unspecified Status: Acute Assessment and Plan: Previous HX CVA/metabolic encephalopathy from hyperglycemia/early dementia CT showed old infarcts Neuro check q.4 hour for the 1st 24 hours. MRI of the brain without contrast pendiing PT/OT eval and treat. Check for LDL and hemoglobin A1c. Resumed statins 40 mg q.day, aspirin 81 mg g q.day/Plavix (5) Failure to thrive: Status: Acute Assessment and Plan: Patient has had recent social stressors including the of her daughter, divorce and her other daughter in ICU post cardiac arrest Poor oral intake at home report she has not bathed in 10 weeks non-compliant with medication PT/OT ordered Patient will need placement (6) Seizures: Code(s): R56.9 - Unspecified convulsions Status: Acute Assessment and Plan: New onset x2 unresponsive Keppra 1000mg BID Ativan PRN Neurology consulted unknown current cause MRI ordered EEG pending Consulted ICU for at least 24 hour monitoring to ensure patient can protect her airway. 05/08: No further seizure activity EEG MRI old infarcts continue on keppra switch to PO (7) Essential hypertension: Code(s): I10 - Essential (primary) hypertension Status: Acute Assessment and Plan: Hypertensive was on losartan can add Hydralazine PRN systolic >160 BP per unit protocol (8) Hypokalemia: Code(s): E87.6 - Hypokalemia Status: Acute Assessment and Plan: 2.9 replenished monitor daily cardiac monitoring 05/09: 2.6 replenished Plan Code status: Full code per patient DVT prophylaxis: eliquis Stress ulcer prophylaxis: Protonix 40 daily PT/OT notes: PT/OT pending Disposition: Patient continues admission for new onset seizures, AMS and failure to thrive. Family is currently making decision on placement options CC assisting. Time Spent With Patient Time with patient: 15 - 25 minutes Subjective Date/time seen: 05/10/23 07:16 Interval history: Medical Record 63-year-old female with a past medical history of insulin-dependent diabetes mellitus, hypothyroidism, CVA, atrial fibrillation, essential hypertension, noncompliance medication therapy and anxiety who presented to the ER from home via EMS after her son-in-law noticed that the patient was acting strange.? The patient reports that her daughter is currently in the hospital for pneumonia and multiple comorbidities.? So her and her son-in-law are at home.? She states that she was checked her glucoses in the morning and they were supposedly 95.? 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 She thought that
[2023-05-10] MEDS: levETIRAcetam 1000MG/NACL100ML 1,000 MG/100 ML BAG 400 MG IVPB (08:55)
[2023-05-10] MEDS: POTASSIUM CHLORIDE INJ 40 MEQ in SODIUM CHLORIDE 0.9% IV 500 ML 130 MEQ IVPB (08:55)
[2023-05-10] MEDS: amLODIPine BESYLATE 2.5 MG TABLET PO (08:57)
[2023-05-10] MEDS: LOSARTAN POTASSIUM 100 MG TABLET PO (08:57)
[2023-05-10] MEDS: POTASSIUM CHLORIDE 20 MEQ PACKET (FOR LIQUID) 40 MEQ PO (08:57)
[2023-05-10] MEDS: METOPROLOL TARTRATE 50 MG TAB PO ×2 (08:57→20:18)
[2023-05-10] MEDS: VENLAFAXINE HCL XR 75 MG CAP.ER.24H PO (08:57)
[2023-05-10] MEDS: ATORVASTATIN 20 MG TABLET PO (08:57)
[2023-05-10] MEDS: APIXABAN 5 MG TABLET PO ×2 (08:57→20:18)
[2023-05-10 09:16] LABS: Magnesium 1.4 mg/dL (1.6-2.3)
[2023-05-10 12:22] LABS: Glucose Point of Care 277 mg/dl (65-105)
[2023-05-10] MEDS: MAGNESIUM SULF 2 GM/WATER 50ML 2 GM/50 ML BAG IVPB (12:25)
[2023-05-10] MEDS: INSULIN ASPART (*BKC) 100 UNITS/ML SUB-Q ×3 (12:26→20:20)
[2023-05-10] MEDS: INSULIN GLARGINE (*BKC) 100 UNITS/ML 11 UNITS SUB-Q (12:26)
[2023-05-10] MEDS: SODIUM CHLORIDE 0.9% IV 1,000 ML 75 ML IV CONT (16:37)
[2023-05-10 17:27] LABS: Glucose Point of Care 307 mg/dl (65-105)
[2023-05-10 19:59] LABS: Glucose Point of Care 221 mg/dl (65-105)
[2023-05-10] MEDS: levETIRAcetam 500 MG TABLET PO (20:18)
[2023-05-10] MEDS: traZODone HCL 50 MG TABLET PO (20:18)
[2023-05-10] MEDS: QUEtiapine FUMARATE 12.5 MG TABLET PO (20:18)
[2023-05-11] VITALS (10 sets, daily range): BP systolic 134–183; BP diastolic 59–88; PULSE 65–104; RESP 17–18; TEMP 36.5–36.9; O2SAT 97–100
[2023-05-11 06:03] LABS: Hemoglobin 14.6 g/dL (12.0-15.0); Mean Corpuscular HGB Conc 30.4 g/dl (32-36); Mean Corpuscular Hemoglobin 30.7 pg (26-34); Mean Corpuscular Volume 101.1 fl (80-100); Mean Platelet Volume 9.4 fl (7.4-10.4); Platelet Count Result 265 k/mm3 (150-375); Red Blood Count 4.75 M/mm3 (4.2-5.4); Red Cell Distribution Width 13.2 % (11.5-14.5); White Blood Count 7.7 K/mm3 (4.5-10.0)
[2023-05-11] MEDS: LEVOTHYROXINE SODIUM 75 MCG TABLET PO (06:09)
[2023-05-11] MEDS: SODIUM CHLORIDE 0.9% IV 1,000 ML 75 ML IV CONT ×2 (06:13→20:41)
--- NOTE | 2023-05-11 07:59 | P.PNIM_ITS ---
Progress Note: A&P Assessment and Plan (1) Uncontrolled diabetes mellitus: Qualifiers: Diabetes mellitus type: type 1 Glycemic state: with hyperglycemia Qualified Code(s): E10.65 - Type 1 diabetes mellitus with hyperglycemia Status: Acute Assessment and Plan: * secondary to non-compliance * Patient has severe hyperglycemia POA. * Improved with fluids * Accu-Cheks a.c. HS * sliding scale insulin * resume patient's home long-acting * Hemoglobin A1c * lipid panel * resumed statin * Diabetic diet * consult to dietitian * Watch for hypoglycemia/hypoglycemic protocol ordered 05/09: * BS 420 1700/56 in the am * switched Insulin from HS to daily (2) Hypomagnesemia: Code(s): E83.42 - Hypomagnesemia Status: Acute Assessment and Plan: * Magnesium 1.3 in the ED and received 3 g of mag. * Repeat mag of 1.8 * 1.5 05/05 * 2g IVP * mag daily (3) Hypothyroidism: Code(s): E03.9 - Hypothyroidism, unspecified Status: Chronic Assessment and Plan: * resume levothyroxine * TSH levels WNL * patient has been non-compliant with medication (4) AMS (altered mental status): Code(s): R41.82 - Altered mental status, unspecified Status: Acute Assessment and Plan: * Previous HX CVA/metabolic encephalopathy from hyperglycemia/early dementia * CT showed old infarcts * Neuro check q.4 hour for the 1st 24 hours. * MRI of the brain without contrast pendiing * PT/OT eval and treat. * Check for LDL and hemoglobin A1c. * Resumed statins 40 mg q.day, aspirin 81 mg g q.day/Plavix (5) Failure to thrive: Status: Acute Assessment and Plan: * Patient has had recent social stressors including the of her daughter, divorce and her other daughter in ICU post cardiac arrest * Poor oral intake at home * report she has not bathed in 10 weeks * non-compliant with medication * PT/OT ordered * Patient will need placement (6) Seizures: Code(s): R56.9 - Unspecified convulsions Status: Acute Assessment and Plan: * New onset x2 unresponsive * Keppra 1000mg BID * Ativan PRN * Neurology consulted * unknown current cause * MRI ordered * EEG pending * Consulted ICU for at least 24 hour monitoring to ensure patient can protect her airway. 05/08: * No further seizure activity * EEG * MRI old infarcts * continue on keppra switch to PO (7) Essential hypertension: Code(s): I10 - Essential (primary) hypertension Status: Acute Assessment and Plan: * Hypertensive * was on losartan * can add Hydralazine PRN systolic >160 * BP per unit protocol 05/10: * Hypertensive today systolic >180 * increased her amlodipine (8) Hypokalemia: Code(s): E87.6 - Hypokalemia Status: Acute Assessment and Plan: * 2.9 * replenished * monitor daily * cardiac monitoring 05/09: * 2.6 * replenished Plan Code status: Full code per patient DVT prophylaxis: eliquis Stress ulcer prophylaxis: Protonix 40 daily PT/OT notes: PT/OT Disposition: Patient continues admission for new onset seizures, AMS and failure to thrive. Family requesting SNF at discharge CC assisting in placement. Time Spent With Patient Time with patient: 15 - 25 minutes Subjective Date/time seen:
[2023-05-11 08:24] LABS: Alanine Aminotransferase 13 U/L (6-35); Albumin Level 3.6 g/dL (3.5-5.1); Alkaline Phosphatase 84 U/L (38-126); Anion Gap 10 mmol/L (8-16); Aspartate Amino Transferase 21 U/L (14-36); Bilirubin,Total 0.6 mg/dL (0.2-1.3); Blood Urea Nitrogen 2 mg/dL (7-17); Calcium 9.2 mg/dL (8.4-10.2); Carbon Dioxide 21 mmol/L (22-30); Chloride 103 mmol/L (98-107); Estimated CRCL calculation 88 ml/min; Estimated Glomerular Filt Rate > 60; Glucose 249 mg/dL (65-110); Magnesium 1.7 mg/dL (1.6-2.3); Potassium 3.6 mmol/L (3.4-5.0); Sodium 134 mmol/L (137-145)
[2023-05-11] MEDS: ATORVASTATIN 20 MG TABLET PO (08:39)
[2023-05-11] MEDS: VENLAFAXINE HCL XR 75 MG CAP.ER.24H PO (08:39)
[2023-05-11] MEDS: INSULIN GLARGINE (*BKC) 100 UNITS/ML 11 UNITS SUB-Q (08:39)
[2023-05-11] MEDS: levETIRAcetam 500 MG TABLET PO ×2 (08:39→20:40)
[2023-05-11] MEDS: METOPROLOL TARTRATE 50 MG TAB PO ×2 (08:39→20:40)
[2023-05-11] MEDS: APIXABAN 5 MG TABLET PO ×2 (08:39→20:39)
[2023-05-11] MEDS: LOSARTAN POTASSIUM 100 MG TABLET PO (08:39)
[2023-05-11] MEDS: amLODIPine BESYLATE 2.5 MG TABLET PO (08:40)
[2023-05-11] MEDS: hydrALAZINE HCL 20 MG/ML VIAL 10 MG IV PUSH (08:55)
[2023-05-11] MEDS: INSULIN ASPART (*BKC) 100 UNITS/ML SUB-Q ×2 (08:55→17:11)
[2023-05-11 08:59] LABS: Glucose Point of Care 319 mg/dl (65-105)
--- NOTE | 2023-05-11 09:08 | PCPTNOTE ---
Patient refused treatment this session. Patient did not give reason why. Educated patient on the importance of therapy and working with PT, however patient continued to refuse.
--- NOTE | 2023-05-11 09:29 | PCOTNOTE ---
Attempted to see Patient this A.M. Patient refused to participate and verbalized, leave me alone . Will try back this afternoon.
[2023-05-11] MEDS: amLODIPine BESYLATE 2.5 MG, amLODIPine BESYLATE 5 MG 7.5 MG PO (12:13)
[2023-05-11 12:26] LABS: Glucose Point of Care 148 mg/dl (65-105)
[2023-05-11 17:07] LABS: Glucose Point of Care 376 mg/dl (65-105)
[2023-05-11] MEDS: ALPRAZolam (*CRX) 0.5 MG TABLET PO (17:51)
[2023-05-11 17:53] LABS: Glucose Point of Care 377 mg/dl (65-105)
[2023-05-11] MEDS: QUEtiapine FUMARATE 12.5 MG TABLET PO (20:40)
[2023-05-11] MEDS: traZODone HCL 50 MG TABLET PO (20:40)
[2023-05-11 21:45] LABS: Glucose Point of Care 193 mg/dl (65-105)
[2023-05-12 03:35] VITALS: BP 151/81; PULSE 84; RESP 16; TEMP 36.8; O2SAT 99
[2023-05-12 04:00] VITALS: PULSE 69
[2023-05-12 05:58] LABS: Hematocrit 40.5 % (37.0-47.0); Hemoglobin 12.2 g/dL (12.0-15.0); Mean Corpuscular HGB Conc 30.1 g/dl (32-36); Mean Corpuscular Hemoglobin 30.5 pg (26-34); Mean Corpuscular Volume 101.3 fl (80-100); Mean Platelet Volume 9.4 fl (7.4-10.4); Platelet Count Result 265 k/mm3 (150-375); Red Cell Distribution Width 13.2 % (11.5-14.5); White Blood Count 5.8 K/mm3 (4.5-10.0)
[2023-05-12] MEDS: LEVOTHYROXINE SODIUM 75 MCG TABLET PO (06:05)
[2023-05-12 06:21] LABS: Alanine Aminotransferase 11 U/L (6-35); Albumin Level 3.2 g/dL (3.5-5.1); Alkaline Phosphatase 68 U/L (38-126); Anion Gap 7 mmol/L (8-16); Aspartate Amino Transferase 18 U/L (14-36); Bilirubin,Total 0.6 mg/dL (0.2-1.3); Blood Urea Nitrogen 6 mg/dL (7-17); Calcium 9.2 mg/dL (8.4-10.2); Carbon Dioxide 24 mmol/L (22-30); Chloride 101 mmol/L (98-107); Estimated CRCL calculation 72 ml/min; Estimated Glomerular Filt Rate > 60; Glucose 190 mg/dL (65-110); Magnesium 1.5 mg/dL (1.6-2.3); Potassium 3.8 mmol/L (3.4-5.0); Sodium 132 mmol/L (137-145)
--- NOTE | 2023-05-12 07:25 | PM.IMPN ---
Progress Note: A&P Assessment and Plan (1) Uncontrolled diabetes mellitus: Qualifiers: Diabetes mellitus type: type 1 Glycemic state: with hyperglycemia Qualified Code(s): E10.65 - Type 1 diabetes mellitus with hyperglycemia Status: Acute Assessment and Plan: secondary to non-compliance Patient has severe hyperglycemia POA. Improved with fluids Accu-Cheks a.c. HS sliding scale insulin resume patient's home long-acting Hemoglobin A1c lipid panel resumed statin Diabetic diet consult to dietitian Watch for hypoglycemia/hypoglycemic protocol ordered 05/09: BS 420 1700/56 in the am switched Insulin from HS to daily (2) Hypomagnesemia: Code(s): E83.42 - Hypomagnesemia Status: Acute Assessment and Plan: Magnesium 1.3 in the ED and received 3 g of mag. Repeat mag of 1.8 1.5 05/05 2g IVP mag daily (3) Hypothyroidism: Code(s): E03.9 - Hypothyroidism, unspecified Status: Chronic Assessment and Plan: resume levothyroxine TSH levels WNL patient has been non-compliant with medication (4) AMS (altered mental status): Code(s): R41.82 - Altered mental status, unspecified Status: Acute Assessment and Plan: Previous HX CVA/metabolic encephalopathy from hyperglycemia/early dementia CT showed old infarcts Neuro check q.4 hour for the 1st 24 hours. MRI of the brain without contrast pendiing PT/OT eval and treat. Check for LDL and hemoglobin A1c. Resumed statins 40 mg q.day, aspirin 81 mg g q.day/Plavix (5) Failure to thrive: Status: Acute Assessment and Plan: Patient has had recent social stressors including the of her daughter, divorce and her other daughter in ICU post cardiac arrest Poor oral intake at home report she has not bathed in 10 weeks non-compliant with medication PT/OT ordered Patient will need placement (6) Seizures: Code(s): R56.9 - Unspecified convulsions Status: Acute Assessment and Plan: New onset x2 unresponsive Keppra 1000mg BID Ativan PRN Neurology consulted unknown current cause MRI ordered EEG pending Consulted ICU for at least 24 hour monitoring to ensure patient can protect her airway. 05/08: No further seizure activity EEG MRI old infarcts continue on keppra switch to PO (7) Essential hypertension: Code(s): I10 - Essential (primary) hypertension Status: Acute Assessment and Plan: Hypertensive was on losartan can add Hydralazine PRN systolic >160 BP per unit protocol 05/10: Hypertensive today systolic >180 increased her amlodipine (8) Hypokalemia: Code(s): E87.6 - Hypokalemia Status: Acute Assessment and Plan: 2.9 replenished monitor daily cardiac monitoring 05/09: 2.6 replenished Plan Code status: Full code per patient DVT prophylaxis: eliquis Stress ulcer prophylaxis: Protonix 40 daily PT/OT notes: PT/OT Disposition: Patient continues admission for new onset seizures, AMS and failure to thrive. Family requesting SNF at discharge CC assisting in placement. Subjective Date/time seen: 05/12/23 07:25 Interval history: Medical Record 63-year-old female with a past medical history of insulin-dependent diabetes mellitus, hypothyroidism, CVA, atrial fibrillation, essential hypertension, noncompliance medication therapy and anxiety who presented to the ER from home via EMS after her son-in-law noticed that the patient was acting strange.? The patient reports that her daughter is currently in the hospital for pneumonia and multiple comorbidities.? So her and her son-in-law are at home.? She states that she was checked her glucoses in the morning and they were supposedly 95.? 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 She thought that these activ
[2023-05-12 08:00] VITALS: BP 149/66; PULSE 80; RESP 20; TEMP 36.8; O2SAT 99
[2023-05-12 08:15] LABS: Glucose Point of Care 218 mg/dl (65-105)
[2023-05-12] MEDS: APIXABAN 5 MG TABLET PO (08:38)
[2023-05-12] MEDS: VENLAFAXINE HCL XR 75 MG CAP.ER.24H PO (08:38)
[2023-05-12 08:39] VITALS: PULSE 80
[2023-05-12] MEDS: METOPROLOL TARTRATE 50 MG TAB PO (08:39)
[2023-05-12] MEDS: LOSARTAN POTASSIUM 100 MG TABLET PO (08:39)
[2023-05-12] MEDS: levETIRAcetam 500 MG TABLET PO (08:39)
[2023-05-12] MEDS: amLODIPine BESYLATE 5 MG TABLET 10 MG PO (08:39)
[2023-05-12] MEDS: MAGNESIUM SULF 2 GM/WATER 50ML 2 GM/50 ML BAG IVPB (08:39)
[2023-05-12] MEDS: ATORVASTATIN 20 MG TABLET PO (08:39)
[2023-05-12] MEDS: INSULIN ASPART (*BKC) 100 UNITS/ML SUB-Q ×2 (08:41→12:28)
[2023-05-12] MEDS: INSULIN GLARGINE (*BKC) 100 UNITS/ML 11 UNITS SUB-Q (08:43)
[2023-05-12 08:54] LABS: Osmolality, Urine 544 mOsm/kg (50-1200)
--- NOTE | 2023-05-12 09:18 | PCPTNOTE ---
Attempted to see patient for PT, however patient was working on eating breakfast and ask PT to come back later.
[2023-05-12] MEDS: ALPRAZolam (*CRX) 0.5 MG TABLET PO (09:32)
[2023-05-12 11:16] VITALS: BP 127/65; PULSE 78; RESP 16; TEMP 36.8; O2SAT 99
--- NOTE | 2023-05-12 11:45 | PM.DS ---
DS: Admitting Diagnosis Discharge Date 05/12/2023 Admitting Diagnosis AMS/Hyperglycemia/Failure to thrive DS: Discharge Diagnosis Discharge Diagnosis (1) Uncontrolled diabetes mellitus: Qualifiers: Diabetes mellitus type: type 1 Glycemic state: with hyperglycemia Qualified Code(s): E10.65 - Type 1 diabetes mellitus with hyperglycemia Status: Acute Assessment and Plan: secondary to non-compliance Patient has severe hyperglycemia POA. Improved with fluids Accu-Cheks a.c. HS sliding scale insulin resume patient's home long-acting Hemoglobin A1c lipid panel resumed statin Diabetic diet consult to dietitian Watch for hypoglycemia/hypoglycemic protocol ordered 05/09: BS 420 1700/56 in the am switched Insulin from HS to daily (2) Hypomagnesemia: Code(s): E83.42 - Hypomagnesemia Status: Acute Assessment and Plan: Magnesium 1.3 in the ED and received 3 g of mag. Repeat mag of 1.8 1.5 05/05 2g IVP mag daily (3) Hypothyroidism: Code(s): E03.9 - Hypothyroidism, unspecified Status: Chronic Assessment and Plan: resume levothyroxine TSH levels WNL patient has been non-compliant with medication (4) AMS (altered mental status): Code(s): R41.82 - Altered mental status, unspecified Status: Acute Assessment and Plan: Previous HX CVA/metabolic encephalopathy from hyperglycemia/early dementia CT showed old infarcts Neuro check q.4 hour for the 1st 24 hours. MRI of the brain without contrast pendiing PT/OT eval and treat. Check for LDL and hemoglobin A1c. Resumed statins 40 mg q.day, aspirin 81 mg g q.day/Plavix (5) Failure to thrive: Status: Acute Assessment and Plan: Patient has had recent social stressors including the of her daughter, divorce and her other daughter in ICU post cardiac arrest Poor oral intake at home report she has not bathed in 10 weeks non-compliant with medication PT/OT ordered Patient will need placement (6) Seizures: Code(s): R56.9 - Unspecified convulsions Status: Acute Assessment and Plan: New onset x2 unresponsive Keppra 1000mg BID Ativan PRN Neurology consulted unknown current cause MRI ordered EEG pending Consulted ICU for at least 24 hour monitoring to ensure patient can protect her airway. 05/08: No further seizure activity EEG MRI old infarcts continue on keppra switch to PO (7) Essential hypertension: Code(s): I10 - Essential (primary) hypertension Status: Acute Assessment and Plan: Hypertensive was on losartan can add Hydralazine PRN systolic >160 BP per unit protocol 05/10: Hypertensive today systolic >180 increased her amlodipine (8) Hypokalemia: Code(s): E87.6 - Hypokalemia Status: Acute Assessment and Plan: 2.9 replenished monitor daily cardiac monitoring 05/09: 2.6 replenished Plan Code status: Full code per patient DVT prophylaxis: eliquis PT/OT notes: PT/OT Disposition: Discharged to SNF DS: Summary Hospital Course Reason for hospitalization: AMS/Hyperglycemia/Failure to thrive/New onset seizures Hospital Course: Admission: Medical Record 63-year-old female with a past medical history of insulin-dependent diabetes mellitus, hypothyroidism, CVA, atrial fibrillation, essential hypertension, noncompliance medication therapy and anxiety who presented to the ER from home via EMS after her son-in-law noticed that the patient was acting strange.? The patient reports that her daughter is currently in the hospital for pneumonia and multiple comorbidities.? So her and her son-in-law are at home.? She states that she was checked her glucoses in the morning and they were supposedly 95.? 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
--- NOTE | 2023-05-12 11:45 | P.DS_ITS ---
DS: Admitting Diagnosis Discharge Date 05/12/2023 Admitting Diagnosis AMS/Hyperglycemia/Failure to thrive DS: Discharge Diagnosis Discharge Diagnosis (1) Uncontrolled diabetes mellitus: Qualifiers: Diabetes mellitus type: type 1 Glycemic state: with hyperglycemia Qualified Code(s): E10.65 - Type 1 diabetes mellitus with hyperglycemia Status: Acute Assessment and Plan: * secondary to non-compliance * Patient has severe hyperglycemia POA. * Improved with fluids * Accu-Cheks a.c. HS * sliding scale insulin * resume patient's home long-acting * Hemoglobin A1c * lipid panel * resumed statin * Diabetic diet * consult to dietitian * Watch for hypoglycemia/hypoglycemic protocol ordered 05/09: * BS 420 1700/56 in the am * switched Insulin from HS to daily (2) Hypomagnesemia: Code(s): E83.42 - Hypomagnesemia Status: Acute Assessment and Plan: * Magnesium 1.3 in the ED and received 3 g of mag. * Repeat mag of 1.8 * 1.5 05/05 * 2g IVP * mag daily (3) Hypothyroidism: Code(s): E03.9 - Hypothyroidism, unspecified Status: Chronic Assessment and Plan: * resume levothyroxine * TSH levels WNL * patient has been non-compliant with medication (4) AMS (altered mental status): Code(s): R41.82 - Altered mental status, unspecified Status: Acute Assessment and Plan: * Previous HX CVA/metabolic encephalopathy from hyperglycemia/early dementia * CT showed old infarcts * Neuro check q.4 hour for the 1st 24 hours. * MRI of the brain without contrast pendiing * PT/OT eval and treat. * Check for LDL and hemoglobin A1c. * Resumed statins 40 mg q.day, aspirin 81 mg g q.day/Plavix (5) Failure to thrive: Status: Acute Assessment and Plan: * Patient has had recent social stressors including the of her daughter, divorce and her other daughter in ICU post cardiac arrest * Poor oral intake at home * report she has not bathed in 10 weeks * non-compliant with medication * PT/OT ordered * Patient will need placement (6) Seizures: Code(s): R56.9 - Unspecified convulsions Status: Acute Assessment and Plan: * New onset x2 unresponsive * Keppra 1000mg BID * Ativan PRN * Neurology consulted * unknown current cause * MRI ordered * EEG pending * Consulted ICU for at least 24 hour monitoring to ensure patient can protect her airway. 05/08: * No further seizure activity * EEG * MRI old infarcts * continue on keppra switch to PO (7) Essential hypertension: Code(s): I10 - Essential (primary) hypertension Status: Acute Assessment and Plan: * Hypertensive * was on losartan * can add Hydralazine PRN systolic >160 * BP per unit protocol 05/10: * Hypertensive today systolic >180 * increased her amlodipine (8) Hypokalemia: Code(s): E87.6 - Hypokalemia Status: Acute Assessment and Plan: * 2.9 * replenished * monitor daily * cardiac monitoring 05/09: * 2.6 * replenished Plan Code status: Full code per patient DVT prophylaxis: eliquis PT/OT notes: PT/OT Disposition: Discharged to SNF DS: Summary Hospital Course Reason for hospitalization: AMS/Hyperglycemia/Failure to thrive/New onset seizures
[2023-05-12 12:20] LABS: Glucose Point of Care 206 mg/dl (65-105)
[2023-05-12 13:20] LABS: SARS-CoV-2 RNA PCR Positive (Negative)
== END 2023-05-12 14:50 | DRG 420 ==
LOC: ANHED 22:39 → ANH3MEDSUR 22:58 → ANHICU 05-07 09:46 → ANH2MED 05-08 17:01
PROVIDERS: General Practice; Internal Medicine; Internal Medicine Critical Care Medicine; Admitting Provider Internal Medicine; Emergency Provider Physician Assistant; Visit Provider Nurse Practitioner Family
DX: E10.65 Type 1 diabetes mellitus with hyperglycemia (principal); E83.42 Hypomagnesemia; E03.9 Hypothyroidism, unspecified; E87.1 Hypo-osmolality and hyponatremia; G93.41 Metabolic encephalopathy; F03.90 Unspecified dementia, unspecified severity, without behavioral disturbance, psychotic disturbance, mood disturbance, and anxiety; R56.9 Unspecified convulsions; I10 Essential (primary) hypertension; E87.6 Hypokalemia; D64.9 Anemia, unspecified; I48.0 Paroxysmal atrial fibrillation; R62.7 Adult failure to thrive; Z68.23 Body mass index [BMI] 23.0-23.9, adult; Z91.148 Patient's other noncompliance with medication regimen for other reason; Z86.73 Personal history of transient ischemic attack (TIA), and cerebral infarction without residual deficits; Z87.891 Personal history of nicotine dependence
CPT/HCPCS: 36415; 70450; 70551; 71045; 80048; 80053; 80061; 82010; 82140; 82607; 82728; 82746; 82948; 83036; 83540; 83550; 83605; 83735; 83930; 83935; 84100; 84132; 84300; 84443; 85025; 85027; 85046; 87040; 87086; 87635; 93005; 95816; 96360; 96361; 96365; 96366; 96367; 96374; 96375; 96376; 97110; 97161; 97165; 97530; 97535; 99285; A9270; G0378; J0360; J1815; J1953; J2060; J3475; J3480; J7030; J7040

== ENCOUNTER 2023-05-28 21:43 | Inpatient (IN) | payer MEDICAID, SELFPAY ==
--- NOTE | ~2023-05-28 | US_ITS ---
EXAMINATION: US abdomen limited DATE: 05/29/2023 08:31 INDICATION: Pancreatitis. Assess for gallstones. TECHNIQUE: Multiple grayscale and Doppler ultrasound images of the abdomen were obtained. COMPARISON: CT dated 05/29/2023 FINDINGS: The pancreatic head and body are normal in appearance. The pancreatic tail is not visualized. The vi sualized proximal to mid aorta measuring 2.1 cm in AP diameter proximally and tapering to 1.6 cm in t he mid to distal aorta. Liver has normal echogenicity and contour, with a smooth surface. No liver le chuck identified. No intrahepatic biliary duct dilation suspected. Portal venous flow was seen in the hepatopetal, normal direction and has normal Doppler waveform. The proximal to mid inferior vena cava is normal. The gallbladder is normal in appearance. There is no cholelithiasis. The common bile tad t measures 3 mm, which is normal. Sonographic Yates sign was reported as negative by the insole beveler . IMPRESSION: 1. Normal right upper quadrant ultrasound. Reviewed, dictated and finalized at location B.
--- NOTE | ~2023-05-28 | XR_ITS ---
EXAMINATION: XR chest 1V portable 05/28/2023 22:52 INDICATION: Altered mental status PROCEDURE: AP portable chest COMPARISON: 05/04/2023 FINDINGS: The lungs are clear. The cardiomediastinal silhouette is within normal limits. There are no pleural effusions. There is no pneumothorax suspected. IMPRESSION: 1: NO ACUTE CARDIOPULMONARY DISEASE. Reviewed, dictated and finalized at location A.
--- NOTE | ~2023-05-28 | CT_ITS ---
EXAMINATION: CT BRAIN W/O DATE: 05/28/2023 23:01 INDICATION: Altered mental status TECHNIQUE: Computed tomography (CT) of the head was performed without intravenous contrast. The dose- length product was 605.33 mGy-cm. COMPARISON: MRI dated 05/08/[address] dated 05/07/2023 FINDINGS: Chronic right frontal lobe infarction, periventricular white matter. Chronic right cerebell ar infarction. There are scattered mild periventricular and subcortical white matter changes, most li sandra related to small vessel ischemic disease (microangiopathy). No ventriculomegaly or midline shift. Midline sagittal images demonstrate a normal corpus callosum, c raniovertebral junction and sella turcica. Basilar cisterns are patent. Paranasal sinuses and mastoids are pneumatized. No depressed skull fractures. IMPRESSION: 1. No acute intracranial abnormality. No significant interval change. Reviewed, dictated and finalized at location A.
--- NOTE | ~2023-05-28 | CT_ITS ---
EXAMINATION: CT abdomen pelvis w con DATE: 05/29/2023 01:45 INDICATION: Pancreatitis. Altered mental status. TECHNIQUE: Computed tomography (CT) of the abdomen and pelvis was performed with 100 mL Omnipaque 350 intravenous contrast. Automated exposure control and iterative reconstruction technique were employe d. The dose-length product was 412.36 mGy-cm. COMPARISON: None. FINDINGS: The visualized portions of the lung bases demonstrate mild atelectasis. No pleural effusion . The heart size is normal. No pericardial effusion. The liver, gallbladder, spleen, adrenal glands, and kidneys are normal. Left kidney are normal. There is a 12 mm mass of fat in right kidney, consist ent with an angiomyolipoma. There is fat stranding around the pancreas, consistent with acute interst itial pancreatitis. Aortic atherosclerosis is noted. There are no dilated loops of bowel. The appendi x is not visualized. There are no pathologically enlarged lymph nodes. There is no free intraperitone al fluid. There is a right inguinal hernia containing fat. The bladder is distended. There is levocur vature of lumbar spine. IMPRESSION: 1. Acute interstitial pancreatitis. Reviewed, dictated and finalized at location A.
[2023-05-28 21:42] VITALS: BP 104/81; PULSE 84; RESP 20; TEMP 36.1; O2SAT 99
--- NOTE | 2023-05-28 21:56 | ECG_ITS ---
SEE SCANNED COPY FOR CONFIRMED REPORT MTDD
[2023-05-28 22:00] VITALS: PULSE 85; O2SAT 98
[2023-05-28 22:01] VITALS: BP 118/60; PULSE 83; RESP 18; O2SAT 98
[2023-05-28 22:01] LABS: Glucose Point of Care 331 mg/dl (65-105)
[2023-05-28 22:22] LABS: Appearance Urine Clear (Clear); Basophils Percent Auto 0.2 % (0.2-1.2); Bilirubin Urine Negative (Negative); Blood Urine Negative (Negative); Color Urine Yellow (Yellow); Glucose Urine UA 3+ mg/dL (Negative); Hematocrit 29.3 % (37.0-47.0); Hemoglobin 9.9 g/dL (12.0-15.0); Immature Granulocyte Absolute 0.08 K/mm3 (0.00-0.031); Immature Granulocyte Percent A 0.7 % (0-0.5); Ketones Urine 2+ mg/dL (Negative); Leukocyte Esterase Ur Negative LEU/UL (Negative); Lymphocytes Absolute Auto 1.33 K/mm3 (0.9-3.2); Lymphocytes Percent Auto 12.3 % (18.3-44.2); Mean Corpuscular HGB Conc 33.8 g/dl (32-36); Mean Corpuscular Hemoglobin 31.6 pg (26-34); Mean Corpuscular Volume 93.6 fl (80-100); Mean Platelet Volume 9.6 fl (7.4-10.4); Monocytes Percent Auto 9.4 % (2.6-8.5); Neutrophils Absolute Auto 8.4 K/mm3 (1.3-6.7); Neutrophils Percent Auto 77.4 % (45.5-73.1); Nitrate Urine Negative (Negative); Platelet Count Result 353 k/mm3 (150-375); Protein Urine Negative (Negative); Red Blood Count 3.13 M/mm3 (4.2-5.4); Red Cell Distribution Width 13.4 % (11.5-14.5); Specific Grav Ur 1.019 (1.001-1.035); Urobilinogen Urine 0.2 mg/dL (<2.0); White Blood Count 10.8 K/mm3 (4.5-10.0)
[2023-05-28 22:25] LABS: Add Urine Microscopic? NO
[2023-05-28 22:31] LABS: Alanine Aminotransferase 15 U/L (6-35); Albumin Level 3.7 g/dL (3.5-5.1); Alkaline Phosphatase 77 U/L (38-126); Anion Gap 7 mmol/L (4-12); Aspartate Amino Transferase 17 U/L (14-36); Bilirubin,Total 0.4 mg/dL (0.2-1.3); Blood Urea Nitrogen 17 mg/dL (7-17); Calcium 9.3 mg/dL (8.4-10.2); Carbon Dioxide 24 mmol/L (22-30); Chloride 94 mmol/L (98-107); Estimated CRCL calculation 59 ml/min; Estimated Glomerular Filt Rate > 60; Glucose 306 mg/dL (65-110); INR 1.4; Potassium 4.8 mmol/L (3.4-5.0); Prothrombin Time 17.7 Seconds (11.1-14.7); Sodium 125 mmol/L (137-145)
[2023-05-28 23:10] LABS: Ethanol < 10 mg/dL (<10)
[2023-05-28 23:26] LABS: Troponin I < 0.012 ng/mL (0.000-0.034)
[2023-05-28 23:57] LABS: Lipase 3392 U/L (23-300)
[2023-05-28 23:57] LABS: Influenza A QL RT-PCR Negative (Negative); Influenza B QL RT-PCR Negative (Negative); RSV RNA, RT-PCR Negative (Negative); SARS-CoV-2 RNA PCR Negative (Negative)
[2023-05-29] VITALS (13 sets, daily range): BP systolic 96–130; BP diastolic 51–62; PULSE 75–90; RESP 12–27; TEMP 36.5–36.9; O2SAT 96–98; BMI 24.0; BMI 23.3
[2023-05-29 00:27] LABS: Amphetamine Screen Urine Negative (Negative); Barbiturate Screen Urine Negative (Negative); Benzodiazepines Screen Urine Negative (Negative); Cannabinoid Screen Urine Negative (Negative); Cocaine Screen Urine Negative (Negative); Methadone Screen Urine Negative (Negative); Opiate Screen Urine Negative (Negative); Phencyclidine Screen Urine Negative (Negative)
[2023-05-29 00:28] LABS: Lactic Acid Reflex 1.8 mmol/L (0.7-2.0)
[2023-05-29] MEDS: SODIUM CHLORIDE 0.9% IV 2,000 ML 999 ML IV CONT (00:36)
--- NOTE | 2023-05-29 00:45 | ED.GENADULT ---
HPI - General Adult General Chief complaint: Altered Mental Status Stated complaint: AMS, HI BLOOD GLUCOSE Time Seen by Provider: 05/28/23 21:59 History of Present Illness HPI narrative: This is a 63-year-old female with history of hypertension and diabetes paroxysmal AFib CVA hypothyroid presenting for altered mental status. The patient herself can provide no information. She can tell me her name and her date of . She denies pain anywhere. Denies other complaints. We called the snf for more information and they said that the patient kept removing her pants and going into the dining room. They also said she was not as talkative as usual. patient is A&O x2 at baseline. Related Data Home Medications Medication Instructions Recorded Confirmed alprazolam 1 mg tablet 1 mg PO BID Anxiety 04/13/23 05/29/23 apixaban 5 mg tablet (Eliquis) 5 mg PO BID 04/13/23 05/29/23 atorvastatin 20 mg tablet 20 mg PO DAILY 04/13/23 05/29/23 estradiol 1 mg tablet 1 mg PO BID 04/13/23 05/29/23 levothyroxine 75 mcg tablet 75 mcg PO DAILY 04/13/23 05/29/23 metoprolol tartrate 50 mg tablet 50 mg PO BID 04/13/23 05/29/23 olmesartan 20 mg tablet 20 mg PO DAILY 04/13/23 05/29/23 quetiapine 25 mg tablet 12.5 mg PO HS 04/13/23 05/29/23 trazodone 50 mg tablet 50 mg PO HS 04/13/23 05/29/23 venlafaxine 75 mg capsule,extended 75 mg PO DAILY 04/13/23 05/29/23 release 24 hr Allergies Allergy/AdvReac Type Severity Reaction Status Date / Time cariprazine [From Vraylar] AdvReac Unknown Verified 05/29/23 04:11 metoclopramide [From Reglan] AdvReac Anxiety Verified 05/29/23 04:11 [facility] Past Medical History Medical History Anxiety Cerebrovascular accident Hypothyroidism Paroxysmal atrial fibrillation Type 1 diabetes mellitus Surgical History Surgical History History of tubal ligation Family History Family History Father Acute myocardial infarction Social History Social History Social History: She used to smoke about half pack of cigarettes per day but quit smoking when her daughter was recently hospitalized in February 2022. She denies significant alcohol use history. Surrogate medical decision maker: Chester Townsend, son-in-law. Code status: Full code. (she would not want to be intubated long-term or have a feeding tube) Smoking status: Former smoker Alcohol intake: never Substance use: never Substance use type: does not use Do You Feel Safe in your Home?: No Lack of Transportation: No Lack of Food: Never True Current Housing: I Have Housing Concerned About Future Housing: No Difficulty Paying Gas/Electric Bills: No Difficulty Paying for Meds: No Currently Unemployed: No Education: High School Diploma/GED Difficulty w/ Childcare or Family Care: No Additional living arrangements comments: She lives with her daughter and son-in-law. Spiritual care concerns: No Exam Narrative: APPEARANCE: patient is laying on her side curled into a ball, she responds to most questions with her date. Head: atraumatic. EYES: EOMI, NOSE: Atraumatic NECK: Trachea midline RESPIRATORY: No increased rate of breathing CTAB CARDIOVASCULAR: RRR, no peripheral edema ABDOMINAL: grimaces on palpation of the abdomen MUSCULOSKELETAl: No obvious deformities NEURO: Alert. Moving 4/4 extremities SKIN:: Warm, dry. Normal color PSYCHIATRIC: Normal affect Course Vital Signs Vital signs: Vital Signs Temperature 97 F L 05/28/23 21:42 Pulse Rate 84 05/28/23 21:42 Respiratory Rate 20 05/28/23 21:42 Blood Pressure 104/81 05/28/23 21:42 Pulse Oximetry 99 05/28/23 21:42 Oxygen Delivery Room Air 05/28/23 21:42 Temperature 97 F L 05/28/23 21:42 Pulse Rate 82 0
[2023-05-29 01:06] LABS: Thyroid Stimulating Hormone Reflex 0.114 uIU/mL (0.465-4.68)
[2023-05-29 02:28] LABS: Free T4 Free Thyroxine Reflex 1.47 ng/dL (0.78-2.19)
[2023-05-29 03:32] LABS: Total Triiodothyronine (T3) 0.75 NG/ML (0.97-1.69)
--- NOTE | 2023-05-29 07:28 | PM.IMHP ---
H&P: HPI History of Present Illness Date/Time: 05/29/23 07:28 Chief Complaint: altered mental status Narrative: This is a 63-year-old female with a past medical history of AFib, type 2 diabetes on insulin, hypothyroidism, CVA, hyperlipidemia and hypertension that presented to the ED on 05/28/2023 from [facility] due to altered mental status. According to prison she is typically alert and oriented x4. Patient had been taking off her pants and walking into the dining as well as pain less talkative that prompted the prison to have her evaluated in the ED. Patient states that she had been having vomiting after each meal. She does not endorse fever, abdominal pain, alcohol intake or tobacco use. At the time of my interview patient is alert and oriented x4. In the ED she was found have an elevated white count of 10.8, hemoglobin 9.9 which is lower than baseline, sodium of 125, chloride 94 and elevated sugar of 306. Troponin negative x2, elevated lipase of 3392, TSH 0.114, normal T4 and T3 0.75. [facility] Past Medical History Medical History Anxiety Cerebrovascular accident Essential hypertension Hypothyroidism Paroxysmal atrial fibrillation Seizures Type 1 diabetes mellitus Surgical History Surgical History History of tubal ligation Family History Family History Father Acute myocardial infarction Social History Social History Social History: She used to smoke about half pack of cigarettes per day but quit smoking when her daughter was recently hospitalized in February 2022. She denies significant alcohol use history. Surrogate medical decision maker: Chester Townsend, son-in-law. Code status: Full code. (she would not want to be intubated long-term or have a feeding tube) Smoking status: Unknown if ever smoked Alcohol intake: unknown Substance use: unknown Substance use type: does not use Do You Feel Safe in your Home?: No Lack of Transportation: No Lack of Food: Never True Current Housing: I Have Housing Concerned About Future Housing: No Difficulty Paying Gas/Electric Bills: No Difficulty Paying for Meds: No Currently Unemployed: No Education: High School Diploma/GED Difficulty w/ Childcare or Family Care: No Additional living arrangements comments: She lives with her daughter and son-in-law. Spiritual care concerns: No (patient confused unable to answer questions appropriately) Meds Home Medications and Allergies Home Medications Medication Instructions Recorded Confirmed Type alprazolam 1 mg tablet 1 mg PO BID Anxiety 04/13/23 05/29/23 History apixaban 5 mg tablet (Eliquis) 5 mg PO BID 04/13/23 05/29/23 History atorvastatin 20 mg tablet 20 mg PO DAILY 04/13/23 05/29/23 History estradiol 1 mg tablet 1 mg PO BID 04/13/23 05/29/23 History levothyroxine 75 mcg tablet 75 mcg PO DAILY 04/13/23 05/29/23 History metoprolol tartrate 50 mg tablet 50 mg PO BID 04/13/23 05/29/23 History olmesartan 20 mg tablet 20 mg PO DAILY 04/13/23 05/29/23 History quetiapine 25 mg tablet 12.5 mg PO HS 04/13/23 05/29/23 History trazodone 50 mg tablet 50 mg PO HS 04/13/23 05/29/23 History venlafaxine 75 mg capsule,extended 75 mg PO DAILY 04/13/23 05/29/23 History release 24 hr insulin lispro 100 unit/mL 3 unit (0.03 mL) subcut TIDWM #1 mL 04/17/23 05/29/23 Rx subcutaneous pen amlodipine 5 mg tablet (Norvasc) 10 mg PO QAM #30 tabs 05/12/23 05/29/23 Rx insulin glargine 100 unit/mL 11 unit (0.11 mL) subcut DAILY #3 05/12/23 05/29/23 Rx subcutaneous solution (Lantus mL U-100 Insulin) levetiracetam 500 mg tablet 500 mg PO Q12HR #60 tabs 05/12/23 05/29/23 Rx (Keppra) losartan 100 mg tablet 100 mg PO DAILY #30 tabs 05/12/23 05/29/23 Rx
[2023-05-29 07:34] LABS: Troponin I < 0.012 ng/mL (0.000-0.034)
[2023-05-29 08:46] LABS: Glucose Point of Care 50 mg/dl (65-105)
[2023-05-29 09:10] LABS: Glucose Point of Care 71 mg/dl (65-105)
[2023-05-29] MEDS: VENLAFAXINE HCL XR 75 MG CAP.ER.24H PO (10:26)
[2023-05-29] MEDS: levETIRAcetam 500 MG TABLET PO ×2 (10:26→21:10)
[2023-05-29] MEDS: OLMESARTAN MEDOXOMIL 20 MG TABLET PO (10:26)
[2023-05-29] MEDS: APIXABAN 5 MG TABLET PO ×2 (10:26→16:55)
[2023-05-29 10:31] LABS: Anion Gap 6 mmol/L (4-12); Blood Urea Nitrogen 8 mg/dL (7-17); Calcium 8.6 mg/dL (8.4-10.2); Carbon Dioxide 25 mmol/L (22-30); Chloride 100 mmol/L (98-107); Estimated CRCL calculation 72 ml/min; Estimated Glomerular Filt Rate > 60; Glucose 108 mg/dL (65-110); Lipase 1704 U/L (23-300); Sodium 131 mmol/L (137-145)
[2023-05-29] MEDS: LOSARTAN POTASSIUM 100 MG TABLET PO (10:34)
[2023-05-29] MEDS: METOPROLOL TARTRATE 50 MG TAB PO ×2 (10:34→16:53)
[2023-05-29] MEDS: amLODIPine BESYLATE 5 MG TABLET 10 MG PO (10:36)
[2023-05-29 11:29] LABS: Glucose Point of Care 113 mg/dl (65-105)
[2023-05-29 16:34] LABS: Glucose Point of Care 254 mg/dl (65-105)
[2023-05-29] MEDS: INSULIN ASPART (*BKC) 100 UNITS/ML SUB-Q ×2 (16:53→21:09)
[2023-05-29] MEDS: SODIUM CHLORIDE 0.9% IV 1,000 ML 100 ML IV CONT (18:34)
[2023-05-29 20:36] LABS: Glucose Point of Care 274 mg/dl (65-105)
[2023-05-29] MEDS: INSULIN GLARGINE (*BKC) 100 UNITS/ML 11 UNITS SUB-Q (21:09)
[2023-05-29] MEDS: traZODone HCL 50 MG TABLET PO (21:10)
[2023-05-29] MEDS: ALPRAZolam (*CRX) 0.5 MG TABLET 1 MG PO (21:10)
[2023-05-29] MEDS: QUEtiapine FUMARATE 25 MG TABLET 12.5 MG PO (21:10)
[2023-05-30 05:25] VITALS: BP 103/53; PULSE 76; RESP 16; TEMP 36.3; O2SAT 100
[2023-05-30] MEDS: SODIUM CHLORIDE 0.9% IV 1,000 ML 100 ML IV CONT (05:57)
[2023-05-30] MEDS: LEVOTHYROXINE SODIUM 50 MCG TABLET PO (05:58)
[2023-05-30 06:30] LABS: Hematocrit 31.2 % (37.0-47.0); Hemoglobin 10.1 g/dL (12.0-15.0); Mean Corpuscular HGB Conc 32.4 g/dl (32-36); Mean Corpuscular Hemoglobin 31.3 pg (26-34); Mean Corpuscular Volume 96.6 fl (80-100); Mean Platelet Volume 9.4 fl (7.4-10.4); Platelet Count Result 335 k/mm3 (150-375); Red Blood Count 3.23 M/mm3 (4.2-5.4); Red Cell Distribution Width 13.9 % (11.5-14.5); White Blood Count 5.9 K/mm3 (4.5-10.0)
[2023-05-30 06:47] LABS: Alanine Aminotransferase 14 U/L (6-35); Albumin Level 3.1 g/dL (3.5-5.1); Alkaline Phosphatase 65 U/L (38-126); Anion Gap 2 mmol/L (4-12); Aspartate Amino Transferase 20 U/L (14-36); Bilirubin,Total 0.3 mg/dL (0.2-1.3); Blood Urea Nitrogen 8 mg/dL (7-17); Calcium 8.6 mg/dL (8.4-10.2); Carbon Dioxide 27 mmol/L (22-30); Chloride 105 mmol/L (98-107); Estimated CRCL calculation 72 ml/min; Estimated Glomerular Filt Rate > 60; Glucose 151 mg/dL (65-110); Lipase 1000 U/L (23-300); Potassium 3.6 mmol/L (3.4-5.0); Sodium 134 mmol/L (137-145)
[2023-05-30 06:54] LABS: Hemoglobin A1C 11.1 % (<5.7)
[2023-05-30] MEDS: VENLAFAXINE HCL XR 75 MG CAP.ER.24H PO (08:10)
[2023-05-30 08:11] VITALS: PULSE 83
[2023-05-30] MEDS: METOPROLOL TARTRATE 50 MG TAB PO ×2 (08:11→16:05)
[2023-05-30] MEDS: ALPRAZolam (*CRX) 0.5 MG TABLET PO (08:11)
[2023-05-30] MEDS: amLODIPine BESYLATE 5 MG TABLET 10 MG PO (08:12)
[2023-05-30] MEDS: LOSARTAN POTASSIUM 100 MG TABLET PO (08:12)
[2023-05-30] MEDS: APIXABAN 5 MG TABLET PO ×2 (08:12→16:04)
[2023-05-30] MEDS: OLMESARTAN MEDOXOMIL 20 MG TABLET PO (08:12)
[2023-05-30] MEDS: levETIRAcetam 500 MG TABLET PO (08:12)
[2023-05-30 08:28] LABS: Glucose Point of Care 138 mg/dl (65-105)
[2023-05-30 09:06] VITALS: O2SAT 93
[2023-05-30 11:38] LABS: SARS-CoV-2 RNA PCR Negative (Negative)
--- NOTE | 2023-05-30 12:04 | PM.DS ---
DS: Admitting Diagnosis Discharge Date 05/30/23 Admitting Diagnosis Acute pancreatitis DS: Discharge Diagnosis Discharge Diagnosis (1) Acute pancreatitis: Code(s): K85.90 - Acute pancreatitis without necrosis or infection, unspecified Status: Acute (2) AMS (altered mental status): Code(s): R41.82 - Altered mental status, unspecified Status: Acute (3) Hypothyroidism: Code(s): E03.9 - Hypothyroidism, unspecified Status: Chronic (4) Hyponatremia: Code(s): E87.1 - Hypo-osmolality and hyponatremia Status: Acute (5) Essential hypertension: Code(s): I10 - Essential (primary) hypertension Status: Acute (6) Uncontrolled diabetes mellitus: Qualifiers: Diabetes mellitus type: type 1 Glycemic state: with hyperglycemia Qualified Code(s): E10.65 - Type 1 diabetes mellitus with hyperglycemia Status: Acute (7) Paroxysmal atrial fibrillation: Code(s): I48.0 - Paroxysmal atrial fibrillation Status: Acute DS: Summary Hospital Course Hospital Course: This is a 63-year-old female with a past medical history of AFib, type 2 diabetes on insulin, hypothyroidism, CVA, hyperlipidemia and hypertension that presented to the ED on 05/28/2023 from [facility] due to altered mental status.? According to care home she is typically alert and oriented x4.? Patient had been taking off her pants and walking into the dining as well as pain less talkative that prompted the care home to have her evaluated in the ED. Patient states that she had been having vomiting after each meal.? She does not endorse fever, abdominal pain, alcohol intake or tobacco use.? At the time of my interview patient is alert and oriented x4. In the ED she was found have an elevated white count of 10.8, hemoglobin 9.9 which is lower than baseline, sodium of 125, chloride 94 and elevated sugar of 306.? Troponin negative x2, elevated lipase of 3392, TSH 0.114, normal T4 and T3 0.75. CT abdomen pelvis showed acute interstitial pancreatitis. Patient was started on IV fluids in pain control. Patient's mental status improved in the hospital. She was able to tolerate diet. Patient's lipase trended down. Will discharge back home. Time Spent with Patient Time attestation: Total time spent providing and/or coordinating discharge services: Exam Narrative: GENERAL: Comfortable, no acute distress HENMT: moist mucous membranes EYES: EOM intact b/l NECK: no lymphadenopathy RESPIRATORY: clear to auscultation, no increased respiratory effort CARDIO: Regular rate and rhythm GI: soft, nontender, bowel sounds present SKIN/EXTREMITIES: no rashes, no edema, no redness or tenderness NEURO: PROM intact, answers questions appropriately, A&O x4 DS: Data Data Completed and Pending Labs on day of discharge: Labs from last 24 hours 05/30/23 05/30/23 05/30/23 10:51 08:13 06:11 WBC 5.9 RBC 3.23 L Hgb 10.1 L Hct 31.2 L MCV 96.6 MCH 31.3 MCHC 32.4 RDW 13.9 Plt Count 335 MPV 9.4 Sodium 134 L Potassium 3.6 Chloride 105 Carbon Dioxide 27 Anion Gap 2 L BUN 8 Creatinine 0.50 L Estim Creat Clear Calc 72 Estimated GFR > 60 Glucose 151 H POC Capillary Glucose 138 H Hemoglobin A1c 11.1 H Calcium 8.6 Total Bilirubin 0.3 AST 20 ALT 14 Alkaline Phosphatase 65 Total Protein 5.0 L Albumin 3.1 L Lipase 1000 H SARS-CoV-2 RNA (RT-PCR) Negative 05/29/23 05/29/23 20:07 16:30 WBC RBC Hgb Hct MCV MCH MCHC RDW Plt Count MPV Sodium Potassium Chloride Carbon Dioxide Anion Gap BUN Creatinine Estim Creat Clear Calc Estimated GFR Glucose POC Capillary Glucose 274 H 254 H Hemoglobin A1c Calcium Total Bilirubin AST ALT Alkaline Phosphatase Total Protein Albumin Lipase SARS-CoV-2 RNA (RT-PCR) Prelimina
[2023-05-30 12:12] LABS: Glucose Point of Care 251 mg/dl (65-105)
[2023-05-30] MEDS: INSULIN ASPART (*BKC) 100 UNITS/ML SUB-Q ×2 (12:15→17:19)
--- NOTE | 2023-05-30 13:31 | PC.NURSE ---
report called to Lisbeth LACEY at [facility]. IV will be removed closer to d/c time, going by ambulance. papers faxed to [phone]
[2023-05-30 14:00] VITALS: BP 101/52; PULSE 86; RESP 16; TEMP 36.6; O2SAT 100
[2023-05-30 16:05] VITALS: PULSE 84
[2023-05-30 17:15] LABS: Glucose Point of Care 262 mg/dl (65-105)
== END 2023-05-30 18:55 | DRG 282 ==
LOC: ANHED 05-29 04:23 → ANH3MEDSUR 05-30 07:22
PROVIDERS: Internal Medicine Critical Care Medicine; Admitting Provider Internal Medicine; Emergency Provider Emergency Medicine; PCP Internal Medicine; Visit Provider General Practice
DX: K85.80 Other acute pancreatitis without necrosis or infection (principal); E03.9 Hypothyroidism, unspecified; E87.1 Hypo-osmolality and hyponatremia; I10 Essential (primary) hypertension; E10.65 Type 1 diabetes mellitus with hyperglycemia; I48.0 Paroxysmal atrial fibrillation; E78.5 Hyperlipidemia, unspecified; F41.9 Anxiety disorder, unspecified; Z20.822 Contact with and (suspected) exposure to COVID-19; Z86.73 Personal history of transient ischemic attack (TIA), and cerebral infarction without residual deficits; Z87.891 Personal history of nicotine dependence
CPT/HCPCS: 36415; 70450; 71045; 74177; 76705; 80048; 80053; 80307; 81003; 82948; 83036; 83605; 83690; 84439; 84443; 84480; 84484; 85025; 85027; 85610; 85730; 87040; 87635; 87637; 93005; 96360; 99285; A9270; J1815; J7030; Q9967

== ENCOUNTER 2024-03-26 04:10 | Observation (INO) | payer OTHER, SELFPAY ==
[2024-03-26] VITALS (23 sets, daily range): BP systolic 132–175; BP diastolic 58–101; PULSE 60–87; RESP 11–20; TEMP 36.4–37; O2SAT 98–100; BMI 24.5
--- NOTE | ~2024-03-26 | XR_ITS ---
EXAMINATION: XR chest 1V portable DATE: 03/26/2024 04:29 INDICATION: Dizziness. TECHNIQUE: A single frontal view of the chest was obtained. COMPARISON: Chest single view 05/28/2023, CT abdomen and pelvis 05/29/2023 FINDINGS: There is no pneumonia, pleural effusion, or pneumothorax. The heart size is normal. IMPRESSION: 1. No acute cardiopulmonary disease. Reviewed, dictated and finalized at location A. SANDER
--- NOTE | ~2024-03-26 | CT_ITS ---
EXAMINATION: CT brain wo con DATE: 03/26/2024 07:46 INDICATION: Vertigo. TECHNIQUE: Computed tomography (CT) of the head was performed without intravenous contrast. The mA wa s adjusted according to patient size. Iterative reconstruction technique was employed. The dose-lengt h product was 605.33 mGy-cm. COMPARISON: Head CT 05/28/2023, brain MRI 05/08/2023 FINDINGS: There are small old infarcts in the right cerebellum, jatin, and right thalamus. There are s cattered areas of low attenuation in the cerebral white matter. There is no intracranial hemorrhage, acute infarction, or abnormal intracranial mass lesion. The ventricles are normal in size. The orbits are normal. The paranasal sinuses are clear. The mastoid air cells are normal. IMPRESSION: 1. Old infarcts in the right cerebellum, jatin, and right thalamus. 2. Stable moderate nonspecific cerebral white matter disease, which likely represents chronic small v essel ischemic disease. Reviewed, dictated and finalized at location A. TIC PANEL INSTALLER IMPRESSION: 1. Old infarcts in the right cerebellum, jatin, and right thalamus. 2. Stable moderate nonspecific cerebral white matter disease, which likely repr esents chronic small vessel ischemic disease.
--- NOTE | ~2024-03-26 | MR_ITS ---
EXAMINATION: MR brain/brain stem wo/w con DATE: 03/26/2024 15:08 INDICATION: vertigo TECHNIQUE: Magnetic resonance imaging (MRI) of the brain and brainstem was performed with 12 mL Multi Claudia intravenous contrast. Sequences included sagittal and axial T1-weighted SE, axial diffusion-norman ghted FS EPI ASSET, axial T2*-weighted GRE, axial T2-weighted FLAIR Propeller, and axial T2-weighted Propeller. Postcontrast axial and coronal T1-weighted SE was obtained. Apparent diffusion coefficient (ADC) maps were created. COMPARISON: 05/08/2023; CT brain, same date. FINDINGS: No abnormal restricted diffusion to suggest acute ischemic infarct. Old focal right cerebellar, ponti ne, right periventricular white matter, and right thalamic lacunar infarcts. No MRI evidence of hemor rhage or extra-axial collection. No suspicious foci of susceptibility to suggest prior intraparenchym al hemorrhage. Scattered foci of white matter hyperintensity, likely representing mild small vessel i schemic disease. Mild generalized parenchymal volume loss. The basilar cisterns are patent. Flow void s are preserved. Paranasal sinuses are within normal limits. Globes and orbital contents are within n ormal limits. IMPRESSION: No acute intracranial process detected. Reviewed, dictated and finalized at location K. N MERCHANDISER
--- NOTE | 2024-03-26 04:19 | ECG_ITS ---
Test Date: 2024-03-26 04:16:12 Measurements Intervals [place] Rate: 62 P: 76 TX: 109 QRS: 63 QRSD: 87 T: 66 QT: 420 QTc: 429 Interpretive Statements SINUS RHYTHM WITH SHORT TX INTERVAL POSSIBLE LEFT ATRIAL ENLARGEMENT BORDERLINE ECG No previous ECG available for comparison Electronically Signed On 03-26-2024 06:36:07 STUDENT ASSISTANT by Fahad Ordonez D.O.
--- NOTE | 2024-03-26 04:23 | PC.NURSE ---
patient refused to stand during orthostatic blood pressure due to feeling too dizzy right now . this rn explained the benefits of having full set of orthostats. pt declined wanting to stand at this time.
[2024-03-26 04:27] LABS: Basophils Percent Auto 0.4 % (0.2-1.2); Eosinophils Absolute Auto 0.1 K/mm3 (0-0.3); Eosinophils Percent Auto 1.4 % (0-4.4); Hematocrit 36.9 % (37.0-47.0); Hemoglobin 12.4 g/dL (12.0-15.0); Immature Granulocyte Absolute 0.02 K/mm3 (0.00-0.031); Immature Granulocyte Percent A 0.3 % (0-0.5); Lymphocytes Percent Auto 35.4 % (18.3-44.2); Mean Corpuscular HGB Conc 33.6 g/dl (32-36); Mean Corpuscular Hemoglobin 31.2 pg (26-34); Mean Corpuscular Volume 92.9 fl (80-100); Monocytes Absolute Auto 0.7 K/mm3 (0.1-0.6); Monocytes Percent Auto 9.9 % (2.6-8.5); Neutrophils Absolute Auto 3.7 K/mm3 (1.3-6.7); Neutrophils Percent Auto 52.6 % (45.5-73.1); Platelet Count Result 354 k/mm3 (150-375); Red Blood Count 3.97 M/mm3 (4.2-5.4); Red Cell Distribution Width 11.6 % (11.5-14.5); White Blood Count 7.1 K/mm3 (4.5-10.0)
[2024-03-26 04:37] LABS: Alanine Aminotransferase 13 U/L (6-35); Albumin Level 3.8 g/dL (3.5-5.1); Alkaline Phosphatase 54 U/L (38-126); Anion Gap 8 mmol/L (4-12); Aspartate Amino Transferase 16 U/L (14-36); Bilirubin,Total 0.5 mg/dL (0.2-1.3); Blood Urea Nitrogen 15 mg/dL (7-17); Carbon Dioxide 28 mmol/L (22-30); Chloride 95 mmol/L (98-107); Estimated CRCL calculation 59 ml/min; Estimated Glomerular Filt Rate > 60; Glucose 263 mg/dL (65-110); Potassium 3.6 mmol/L (3.4-5.0); Sodium 131 mmol/L (137-145)
--- NOTE | 2024-03-26 07:17 | ED_ITS ---
HPI - General Adult General Chief complaint: Dizziness Stated complaint: dizziness Time Seen by Provider: 03/26/24 06:55 History of Present Illness HPI narrative: 64 old female presenting to the emergency department for evaluation for onset of vertigo. Patient reports symptoms started last night while she was standing at her dresser. Patient denies any falls or injury. Patient denies any bending over. Patient does report sinus congestion and seasonal allergies. Patient also does have a prior history of vertigo and does use meclizine. Patient denies any you will focal numbness or weakness. Related Data Home Medications ?Medication ?Instructions ?Recorded ?Confirmed ?Last Taken ?Type alprazolam 1 mg tablet 1 mg PO BID Anxiety 04/13/23 03/26/24 03/25/24 History apixaban 5 mg tablet (Eliquis) 5 mg PO BID 04/13/23 03/26/24 03/25/24 History atorvastatin 20 mg tablet 20 mg PO DAILY 04/13/23 03/26/24 03/25/24 History estradiol 1 mg tablet 1 mg PO BID 04/13/23 03/26/24 03/25/24 History metoprolol tartrate 50 mg tablet 50 mg PO BID 04/13/23 03/26/24 03/25/24 History olmesartan 20 mg tablet 20 mg PO DAILY 04/13/23 03/26/24 03/25/24 History quetiapine 25 mg tablet 12.5 mg PO HS 04/13/23 03/26/24 03/25/24 History trazodone 50 mg tablet 50 mg PO HS 04/13/23 03/26/24 03/25/24 History venlafaxine 75 mg capsule,extended 75 mg PO DAILY 04/13/23 03/26/24 03/25/24 History release 24 hr Allergies Allergy/AdvReac Type Severity Reaction Status Date / Time cariprazine (From Vraylar) AdvReac Unknown Verified 03/26/24 08:01 metoclopramide (From Reglan) AdvReac Anxiety Verified 03/26/24 08:01 Review of Systems 2 Review of Systems: All systems reviewed & are unremarkable except as noted in HPI and below PMFSH Past Medical History Medical History (Updated 03/26/24 @ 16:22 by Kerrie Cruz RN) Essential hypertension Seizures Type 1 diabetes mellitus Cerebrovascular accident Paroxysmal atrial fibrillation Anxiety Hypothyroidism Surgical History Surgical History History of tubal ligation Family History Family History Father Acute myocardial infarction Social History Social History Social History: She used to smoke about half pack of cigarettes per day but quit smoking when her daughter was recently hospitalized in February 2022. She denies significant alcohol use history. Surrogate medical decision maker: Chester Townsend, son-in-law. Code status: Full code. (she would not want to be intubated long-term or have a feeding tube) Smoking status: Former smoker Alcohol intake: never Substance use: never Substance use type: does not use Do You Feel Safe in your Home?: Yes Lack of Transportation: No Lack of Food: Sometimes True Current Housing: I Have Housing Concerned About Future Housing: No Difficulty Paying Gas/Electric Bills: No Difficulty Paying for Meds: No Currently Unemployed: No Education: Decline to Answer Difficulty w/ Childcare or Family Care: No Additional living arrangements comments: She lives with her daughter and son-in-law. Spiritual care concerns: No Exam 2 Narrative: APPEARANCE: Well appearing, no pain, no distress, well-nourished. HEAD: normocephalic, atraumatic. EYES: PERRLA/EOMI, conjunctivae clear. NOSE: Normal no drainage EARS:TMS clear with good light reflex. THROAT: Pharynx clear, no exudate. NECK: Supple. No adenopathy, no masses. RESPIRATORY: Airway patent, respirations nonlabored. Clear to auscultation bilaterally, no rales, rhonchi, wheezing. CARDIOVASCULAR: Regular rate and rhythm without murmurs rubs or gallops. ABDOMINAL: Soft, nontender, nondistended, normal bowel sounds MUSCULOSKELETAL: Moves all extremities. Strength/ROM intact, No edema, No calf tenderness. NEURO: Alert. Cranial nerves II through XII intact. Worsening vertigo when sitting up, vertigo improved when lying down. Otherwise normal neuro exam SKIN: Warm, dry. Normal Color Course Vital Signs Vital signs: Vital Signs Temperature 97.6 F 03/26/24 04:15 Pulse Rate 61 02/08/25 04:15 Respiratory Rate 18 03/26/24 04:15 Blood Pressure 175/72 H 03/26/24 04:15 Pulse Oximetry 100 03/26/24 04:15 Temperature 97.6 F 03/26/24 04:15 Pulse Rate 85 03/26/24 10:05 Respiratory Rate 14 03/26/24 09:46 Blood Pressure 149/67 H 03/26/24 11:01 Pulse Oximetry 100 03/26/24 11:01 Medical Decision Making MDM Narrative Medical decision making narrative: [age] old female presenting to the emergency department for evaluation for vertigo. Patient states he does have a prior history of vertigo. Patient did try meclizine at home with no significant improvement. Patient was treated with additional meclizine the emergency department along with p.o. Valium. While patient was being re-evaluated bed she states she did feel improved but patient was unable to ambulate due to gait instability. Patient is currently afebrile with no leukocytosis and hemoglobin of 12.4. Patient has no acute significant abnormalities on her CMP, sodium is 131. Glucose was 263. CTA did show evidence of old infarcts but no acute infarcts. Case was discussed with hospitalist patient was accepted for admission for further evaluation including MRI. Patient was updated the results of the workup and plan for admission. All questions concerns were addressed. Differential Diagnosis Differential Diagnosis: CVA, TIA, central vertigo, peripheral vertigo Vital Signs Vital Signs: Vital Signs Temperature 97.6 F 03/26/24 04:15 Pulse Rate 61 03/26/24 04:15 Respiratory Rate 18 03/26/24 04:15 Blood Pressure 175/72 H 03/26/24 04:15 Pulse Oximetry 100 03/26/24 04:15 Temperature 97.6 F 03/26/24 04:15 Pulse Rate 85 03/26/24 10:05 Respiratory Rate 14 03/26/24 09:46 Blood Pressure 149/67 H 03/26/24 11:01 Pulse Oximetry 100 03/26/24 11:01 Lab Data Lab results reviewed: Yes I reviewed the patient's lab results. 03/26/24 04:20 03/26/24 04:20 Labs: Lab Results 03/26/24 Range/Units 04:20 WBC 7.1 (4.5-10.0) K/mm3 RBC 3.97 L (4.2-5.4) M/mm3 Hgb 12.4 (12.0-15.0) g/dL Hct 36.9 L (37.0-47.0) % MCV 92.9 (80-100) fl MCH 31.2 (26-34) pg MCHC 33.6 (32-36) g/dl RDW 11.6 (11.5-14.5) % Plt Count 354 (150-375) k/mm3 MPV 9.0 (7.4-10.4) fl Immature Gran % (Auto) 0.3 (0-0.5) % Neut % (Auto) 52.6 (45.5-73.1) % Lymph % (Auto) 35.4 (18.3-44.2) % [place] % (Auto) 9.9 H (2.6-8.5) % Eos % (Auto) 1.4 (0-4.4) % Baso % (Auto) 0.4 (0.2-1.2) % Lymph # (Auto) 2.50 (0.9-3.2) K/mm3 [place] # (Auto) 0.7 H (0.1-0.6) K/mm3 Eos # (Auto) 0.1 (0-0.3) K/mm3 Baso # (Auto) 0.0 (0.0-0.1) K/mm3 Abs Immat Gran (auto) 0.02 (0.00-0.031) K/mm3 Absolute Neuts (auto) 3.7 (1.3-6.7) K/mm3 Absolute Nucleated RBC 0.000 (0.0-0.012) K/mm3 Nucleated RBC % 0.0 (0.0-0.2) % Sodium 131 L (137-145) mmol/L Potassium 3.6 (3.4-5.0) mmol/L Chloride 95 L (98-107) mmol/L Carbon Dioxide 28 (22-30) mmol/L Anion Gap 8 (4-12) mmol/L BUN 15 D (7-17) mg/dL Creatinine 0.62 L (0.7-1.0) mg/dL Estim Creat Clear Calc 59 ml/min Estimated GFR > 60 (59 - ) Glucose 263 H (65-110) mg/dL Calcium 9.0 (8.4-10.2) mg/dL Total Bilirubin 0.5 (0.2-1.3) mg/dL AST 16 (14-36) U/L ALT 13 (6-35) U/L Alkaline Phosphatase 54 (38-126) U/L Total Protein 6.0 L (6.3-8.2) g/dL Albumin 3.8 (3.5-5.1) g/dL Imaging Data Radiologist's impression: Impressions Chest X-Ray 03/26/24 05:55 IMPRESSION: 1. No acute cardiopulmonary disease. Head CT 03/26/24 07:56 IMPRESSION: 1. Old infarcts in the right cerebellum, jatin, and right thalamus. 2. Stable moderate nonspecific cerebral white matter disease, which likely represents chronic small vessel ischemic disease. Discharge Plan Discharge Clinical Impression: Vertigo Patient Disposition: Still a Patient Condition: Stable
--- OUTSIDE RECORDS SUMMARY | 2024-03-26 07:19 | XMS_ITS | Continuity of Care Document ---
Author Organization [facility] Address [address] [place] [address] Phone Care Team Providers Care Datastage Consultant Name Role Phone Elsie Onofre MD Unavailable Unavailable Allergies, Adverse Reactions, Alerts Substance Reaction Status Criticality METOCLOPRAMIDE HCL Other Active No Inform ation Medications Medication Instructions Dosage Effective Dates (start - stop) Status Comments CYMBALTA 30MG CAPS 1 BID - Active ESTRADIOL 1MG TABS 1 BID - Active XANAX 0.5MG TABS 1 TID - No Longer Active Advance Directives Directive Yes / No Effective Date File Name No Information Encounters Encounter Description Practice Location Reason(s) For Visit Diagnoses Date Provider Providers Copied on Encounter [facility], [address], [place], [place], [address] , tel: [phone] Conversion Department No Information 1 Jemima Zimmerman. [address], [address], [place], [place], [id number], . [phone] [facility], [address], [place], [place], [address] , tel: [phone] Conversion Department SCREEN MAL NEOP-CERVIXROUTIN E BACK DIGGER OPERATOR EXAMINATIONPANIC DIS W/O AGORPHOBIAMALAISE AND FATIGUE NEC 7200 7 Conversion Doctor. [facility] [place], [address], [place]. [facility], [address], [place], [place], [address] , tel: [phone] Conversion Department LONG-TERM USE MEDS NEC 200 7 Conversion Doctor. [facility], [address], . [facility], [address], [place], [place], [address] , [place] tel: [phone] Conversion Department SCREEN-CARDIOVASC NEC Conversion Doctor. [address] [place], [address], . [facility], [address], [place], [place], [address] , tel: [phone] Conversion Department No Information Jemima Zimmerman. [address], [address], [place], [place], [address], [place]. [phone] [facility], [address], [place], [place], [address] , tel: [phone] Conversion Department ASYMPT POSTMENO STATUSESOPHAGEAL REFLUX Conversion Doctor. [address] [facility], [place], [address], . Family History Family Member Type Diagnosis Age At Onset No Information Payers Payer name Insurance type Covered libertarian ID Authoriza tion(s) No Information Social History Type Description Quantity Date Captured Comments Sex Female Smoking Status No Information Chief Complaint And Reason For Visit No Information Reason For Referral Reason For Referral No Information History Of Present Illness Encounter Date Complaint History Of Prese nt Illness No Information Functional Status Date Functional Assessmen t No Information Instructions Date Instruction Additional Infor mation No Information Assessments Type Assessment Date No Information Patient Care Teams Name Effective Dates (start - stop) Status Members No Information
--- NOTE | 2024-03-26 07:21 | PC.NURSE ---
This RN took over care of patient. Patient resting at this time and requested lights to be turned off. Call light in reach.
--- NOTE | 2024-03-26 07:37 | PC.NURSE ---
Pharmacy called for dose of valium due to not having it stocked in out pyxis.
[2024-03-26] MEDS: diazePAM (*CRX) 2.5 MG TABLET PO (08:02)
[2024-03-26] MEDS: MECLIZINE HCL 25 MG TABLET 50 MG PO (08:02)
--- NOTE | 2024-03-26 09:10 | PC.NURSE ---
Patient able to sit on the edge of bed without dizziness, but was unable to ambulate.
--- NOTE | 2024-03-26 12:41 | P.HP_ITS ---
H&P: HPI History of Present Illness Date/Time: 03/26/24 12:41 Chief Complaint: Dizziness Narrative: This is a 64-year-old female who presents to the ED with started all of sudden yesterday. She described it as room spinning sensation. Worsens with sitting up. Does report some sinus congestion and seasonal allergies. She has history of Meniere's disease and had had similar episodes in the past. No focal we akness or numbness or tingling sensation. No headaches associated. No fever. She denied having any falls or injury. Due to ongoing dizziness came to the ER at night for evaluation. In the ER her vitals were stable next mild elevated blood pressure. Laboratory workup showed normal WBC at 7.1 hemoglobin of 12.4 Chem panel was unremarkable except for mild hyponatremia at 1:31 a.m.. LFTs were normal. Blood glucose 263. EKG showed normal sinus rhythm. CT head with old infarcts in the right cerebellum jatin and right thalamus. Stable moderate nonspecific cerebral white matter disease which likely represents chronic small vessel ischemic disease. Chest x-ray with no acute active cardiopulmonary disease. She received meclizine and diazepam which helps some. Due to ongoing dizziness she is admitted for further treatment and observation. Review of Systems Review of Systems: - CONSTITUTIONAL: Denies weight loss, fe corey and chills. - HEENT: Denies changes in vision and he aring - RESPIRATORY: Denies SOB and cough. - CV: Denies palpitations and CP. - GI: Denies abdominal pain, nausea, vom iting and diarrhea. - : Denies dysuria and urinary frequen cy. - MSK: Denies myalgia and joint pain. - SKIN: Denies rash and pruritus. - NEUROLOGICAL: Denies headache and sync ope. See HPI - PSYCHIATRIC: Denies recent changes in mood. Denies anxiety and depression. [facility] Past Medical History Medical History Anxiety Cerebrovascular accident Essential hypertension Hypothyroidism Paroxysmal atrial fibrillation Seizures Type 1 diabetes mellitus Surgical History Surgical History History of tubal ligation Family History Family History Father Acute myocardial infarction Social History Social History Social History: She used to smoke about half pack of cigarettes per day but quit smoking when her daughter was recently hospitalized in February 2022. She denies significant alcohol use history. Surrogate medical decision maker: Chester Townsend, son-in-law. Code status: Full code. (she would not want to be intubated long-term or have a feeding tube) Smoking status: Unknown if ever smoked Alcohol intake: unknown Substance use: unknown Substance use type: does not use Do You Feel Safe in your Home?: No Lack of Transportation: No Lack of Food: Never True Current Housing: I Have Housing Concerned About Future Housing: No Difficulty Paying Gas/Electric Bills: No Difficulty Paying for Meds: No Currently Unemployed: No Education: High School Diploma/GED Difficulty w/ Childcare or Family Care: No Additional living arrangements comments: She lives with her daughter and son-in-law. Spiritual care concerns: No (patient confused unable to answer questions appropriately) Meds Home Medications and Allergies Home Medications ?Medication ?Instructions ?Recorded ?Confirmed ?Type alprazolam 1 mg tablet 1 mg PO BID Anxiety 04/13/23 05/29/23 History apixaban 5 mg tablet (Eliquis) 5 mg PO BID 04/13/23 05/29/23 History atorvastatin 20 mg tablet 20 mg PO DAILY 04/13/23 05/29/23 History estradiol 1 mg tablet 1 mg PO BID 04/13/23 05/29/23 History metoprolol tartrate 50 mg tablet 50 mg PO BID 04/13/23 05/29/23 History olmesartan 20 mg tablet 20 mg PO DAILY 04/13/23 05/29/23 History quetiapine 25 mg tablet 12.5 mg PO HS 04/13/23 05/29/23 History trazodone 50 mg tablet 50 mg PO HS 04/13/23 05/29/23 History venlafaxine 75 mg capsule,extended 75 mg PO DAILY 04/13/23 05/29/23 History release 24 hr insulin lispro 100 unit/mL 3 unit (0.03 mL) subcut TIDWM #1 mL 04/17/23 05/29/23 Rx subcutaneous pen amlodipine 5 mg tablet (Norvasc) 10 mg (2 x 5 mg) PO QAM #30 tabs 05/12/23 05/29/23 Rx insulin glargine 100 unit/mL 11 unit (0.11 mL) subcut DAILY #3 05/12/23 05/29/23 Rx subcutaneous solution (Lantus mL U-100 Insulin) levetiracetam 500 mg tablet 500 mg PO Q12HR #60 tabs 05/12/23 05/29/23 Rx (Keppra) losartan 100 mg tablet 100 mg PO DAILY #30 tabs 05/12/23 05/29/23 Rx levothyroxine 50 mcg tablet 50 mcg PO DAILY@0630 #30 tabs 05/30/23 Rx (Synthroid) Allergies Allergy/AdvReac Type Severity Reaction Status Date / Time cariprazine (From [facility]field[facility]) AdvReac Unknown Verified 03/26/24 08:01 metoclopramide (From Reglan) AdvReac Anxiety Verified 03/26/24 08:01 Vital Signs Vital Signs - 24 hr 03/26/24 04:15 03/26/24 04:15 03/26/24 04:20 Temperature 97.6 F Pulse Rate 61 66 62 Respiratory Rate 18 Blood Pressure 175/72 H 159/77 H Pulse Oximetry 100 03/26/24 04:21 03/26/24 04:21 03/26/24 04:23 Temperature Pulse Rate 70 61 64 Respiratory Rate 11 L 13 Blood Pressure 168/78 H 159/77 H 168/101 H Pulse Oximetry 100 100 03/26/24 04:24 03/26/24 05:16 03/26/24 07:16 Temperature Pulse Rate 70 60 67 Respiratory Rate 19 11 L 17 Blood Pressure 166/78 H 160/75 H 154/68 H Pulse Oximetry 100 99 98 03/26/24 07:45 03/26/24 08:01 03/26/24 08:31 Temperature Pulse Rate 63 70 60 Respiratory Rate 13 15 12 Blood Pressure 140/65 141/68 H 132/65 Pulse Oximetry 99 100 99 03/26/24 09:16 03/26/24 09:45 03/26/24 09:46 Temperature Pulse Rate 62 71 67 Respiratory Rate 13 20 14 Blood Pressure 162/71 H 141/68 H Pulse Oximetry 100 100 100 03/26/24 10:01 03/26/24 10:03 03/26/24 10:05 Temperature Pulse Rate 71 82 85 Respiratory Rate Blood Pressure 154/67 H 168/77 H 153/78 H Pulse Oximetry 03/26/24 10:46 03/26/24 11:00 03/26/24 11:01 Temperature Pulse Rate Respiratory Rate Blood Pressure 142/58 H 149/67 H Pulse Oximetry 100 99 100 Exam Narrative: APPEARANCE: Well appearing, no pain, no distress, well-nourished. HEAD: normocephalic, atraumatic. EYES: PERRLA/EOMI, conjunctivae clear. NOSE: Normal no drainage EARS:TMS clear with good light reflex. THROAT: Pharynx clear, no exudate. NECK: Supple. No adenopathy, no masses. RESPIRATORY: Airway patent, respirations nonlabored. Clear to auscultation bilaterally, no rales, rhonchi, wheezing. CARDIOVASCULAR: Regular rate and rhythm without murmurs rubs or gallops. ABDOMINAL: Soft, nontender, nondistended, normal bowel sounds MUSCULOSKELETAL: Moves all extremities. Strength/ROM intact, No edema, No calf tenderness. NEURO: Alert. Cranial nerves II through XII intact. No nystagmus SKIN: Warm, dry. Normal Color H&P: Results Labs Labs: Short CBC 03/26/24 Range/Units 04:20 WBC 7.1 (4.5-10.0) K/mm3 Hgb 12.4 (12.0-15.0) g/dL Hct 36.9 L (37.0-47.0) % Plt Count 354 (150-375) k/mm3 BMP 03/26/24 04:20 Sodium 131 L Potassium 3.6 Chloride 95 L Carbon Dioxide 28 BUN 15 D Creatinine 0.62 L Glucose 263 H Calcium 9.0 Liver Function 03/26/24 Range/Units 04:20 Total Bilirubin 0.5 (0.2-1.3) mg/dL AST 16 (14-36) U/L ALT 13 (6-35) U/L Alkaline Phosphatase 54 (38-126) U/L Albumin 3.8 (3.5-5.1) g/dL Assessment and Plan Assessment and plan (1) Vertigo: Code(s): R42 - Dizziness and giddiness Status: Acute (2) Atrial fibrillation: Code(s): I48.91 - Unspecified atrial fibrillation Status: Acute (3) Essential hypertension: Code(s): I10 - Essential (primary) hypertension Status: Acute (4) Hyponatremia: Code(s): E87.1 - Hypo-osmolality and hyponatremia Status: Acute (5) Hypothyroidism: Code(s): E03.9 - Hypothyroidism, unspecified Status: Chronic (6) CVA (cerebral vascular accident): Code(s): I63.9 - Cerebral infarction, unspecified Status: Acute Plan This is a 64-year-old female who presents to the ED with started all of sudden yesterday. She described it as room spinning sensation. Worsens with sitting up. Does report some sinus congestion and seasonal allergies. She has history of Meniere's disease and had had similar episodes in the past. No focal weakness or numbness or tingling sensation. No headaches associated. No fever. She denied having any falls or injury. Due to ongoing dizziness came to the ER at night for evaluation. In the ER her vitals were stable next mild elevated blood pressure. Laboratory workup showed normal WBC at 7.1 hemoglobin of 12.4 Chem panel was unremarkable except for mild hyponatremia at 1:31 a.m.. LFTs were normal. Blood glucose 263. EKG showed normal sinus rhythm. CT head with old infarcts in the right cerebellum jatin and right thalamus. Stable moderate nonspecific cerebral white matter disease which likely represents chronic small vessel ischemic disease. Chest x-ray with no acute active cardiopulmonary disease. She received meclizine and diazepam which helps some. Due to ongoing dizziness she is admitted for further treatment and observation. Will further evaluate with MRI brain to rule out stroke Add meclizine p.r.n. hypertension Hyperlipidemia next ablation diabetes seizure disorder Keppra hypothyroidism levothyroxine History of stroke in the past Anxiety/depression DVT prophylaxis on Eliquis Code status full code Hospitalist MIPS Advance Care Plan I have confirmed that the patient's Advanced Care Plan is present, code status is documented, or surrogate decision maker is listed in patient medical record.: Yes Medication Reconciliation I have utilized all available resources to obtain, update and review the patients current medications (includes all prescriptions, OTC, herbals, cannabis, and nutritional supplements).: Yes
--- NOTE | 2024-03-26 13:05 | PC.NURSE ---
This patient, Patrica Navarrete, was admitted to [facility] Room 317-01. Patient/family oriented to hospital policies and general routines including ID bracelet, bed and alarms, visiting hours, pain management, procedures, bathroom and other care routines, personal items, smoking policy, room service/diet, and visiting hours. Information on how to activate the Rapid Response Team has been discussed. Patient/Family are encouraged to report perceived risks to care and to ask questions if they do not understand what they are told or what they should do.
[2024-03-26 16:30] LABS: Glucose Point of Care 163 mg/dl (65-105)
[2024-03-26] MEDS: ALPRAZolam (*CRX) 0.5 MG TABLET 1 MG PO (19:26)
[2024-03-26] MEDS: MECLIZINE HCL 25 MG TABLET PO ×2 (19:26→21:04)
[2024-03-26] MEDS: estradioL 1 MG TABLET PO (19:27)
[2024-03-26] MEDS: INSULIN GLARGINE (*BKC) 100 UNITS/ML 11 UNITS SUB-Q (19:27)
[2024-03-26] MEDS: INSULIN ASPART (*BKC) 100 UNITS/ML SUB-Q (19:29)
[2024-03-26 20:37] LABS: Glucose Point of Care 372 mg/dl (65-105)
[2024-03-26] MEDS: ATORVASTATIN 20 MG TABLET PO (21:04)
[2024-03-26] MEDS: QUEtiapine FUMARATE 12.5 MG TABLET PO (21:04)
[2024-03-26] MEDS: traZODone HCL 50 MG TABLET PO (21:04)
[2024-03-26] MEDS: APIXABAN 5 MG TABLET PO (21:04)
[2024-03-26] MEDS: METOPROLOL TARTRATE 50 MG TAB PO (21:04)
[2024-03-27] VITALS (10 sets, daily range): BP systolic 102–114; BP diastolic 53–60; PULSE 61–77; RESP 16–18; TEMP 36.4–36.8; O2SAT 96–100
[2024-03-27] MEDS: LEVOTHYROXINE SODIUM 50 MCG TABLET PO (05:32)
[2024-03-27 05:55] LABS: Glucose Point of Care 196 mg/dl (65-105)
[2024-03-27 06:34] LABS: Basophils Percent Auto 0.8 % (0.2-1.2); Eosinophils Absolute Auto 0.1 K/mm3 (0-0.3); Eosinophils Percent Auto 1.3 % (0-4.4); Hemoglobin 13.3 g/dL (12.0-15.0); Immature Granulocyte Absolute 0.02 K/mm3 (0.00-0.031); Immature Granulocyte Percent A 0.4 % (0-0.5); Lymphocytes Absolute Auto 1.84 K/mm3 (0.9-3.2); Lymphocytes Percent Auto 34.8 % (18.3-44.2); Mean Corpuscular HGB Conc 32.4 g/dl (32-36); Mean Corpuscular Hemoglobin 30.8 pg (26-34); Mean Corpuscular Volume 94.9 fl (80-100); Mean Platelet Volume 9.2 fl (7.4-10.4); Monocytes Absolute Auto 0.5 K/mm3 (0.1-0.6); Monocytes Percent Auto 9.8 % (2.6-8.5); Neutrophils Absolute Auto 2.8 K/mm3 (1.3-6.7); Neutrophils Percent Auto 52.9 % (45.5-73.1); Platelet Count Result 377 k/mm3 (150-375); Red Blood Count 4.32 M/mm3 (4.2-5.4); Red Cell Distribution Width 11.7 % (11.5-14.5); White Blood Count 5.3 K/mm3 (4.5-10.0)
[2024-03-27 06:44] LABS: Alanine Aminotransferase 14 U/L (6-35); Albumin Level 3.9 g/dL (3.5-5.1); Alkaline Phosphatase 52 U/L (38-126); Anion Gap 6 mmol/L (4-12); Aspartate Amino Transferase 22 U/L (14-36); Bilirubin,Total 0.6 mg/dL (0.2-1.3); Blood Urea Nitrogen 15 mg/dL (7-17); Calcium 9.1 mg/dL (8.4-10.2); Carbon Dioxide 32 mmol/L (22-30); Chloride 97 mmol/L (98-107); Estimated CRCL calculation 54 ml/min; Estimated Glomerular Filt Rate > 60; Glucose 205 mg/dL (65-110); Magnesium 1.8 mg/dL (1.6-2.3); Potassium 4.3 mmol/L (3.4-5.0); Sodium 135 mmol/L (137-145)
[2024-03-27 07:56] LABS: Glucose Point of Care 217 mg/dl (65-105)
[2024-03-27] MEDS: INSULIN ASPART (*BKC) 100 UNITS/ML SUB-Q ×3 (08:42→17:26)
[2024-03-27] MEDS: MECLIZINE HCL 25 MG TABLET PO ×4 (08:43→21:01)
[2024-03-27] MEDS: estradioL 1 MG TABLET PO ×2 (08:43→17:25)
[2024-03-27] MEDS: METOPROLOL TARTRATE 50 MG TAB PO ×2 (08:44→21:01)
[2024-03-27] MEDS: ALPRAZolam (*CRX) 0.5 MG TABLET 1 MG PO ×2 (08:44→17:25)
[2024-03-27] MEDS: VENLAFAXINE HCL XR 75 MG CAP.ER.24H PO (08:44)
[2024-03-27] MEDS: APIXABAN 5 MG TABLET PO ×2 (08:44→21:01)
[2024-03-27] MEDS: amLODIPine BESYLATE 10 MG TABLET PO (08:44)
[2024-03-27 11:18] LABS: Glucose Point of Care 287 mg/dl (65-105)
--- NOTE | 2024-03-27 12:31 | P.PNIM_ITS ---
Progress Note: A&P Assessment and Plan (1) Vertigo: Code(s): R42 - Dizziness and giddiness Status: Acute (2) Atrial fibrillation: Code(s): I48.91 - Unspecified atrial fibrillation Status: Acute (3) Essential hypertension: Code(s): I10 - Essential (primary) hypertension Status: Acute (4) Hyponatremia: Code(s): E87.1 - Hypo-osmolality and hyponatremia Status: Acute (5) Hypothyroidism: Code(s): E03.9 - Hypothyroidism, unspecified Status: Chronic (6) CVA (cerebral vascular accident): Code(s): I63.9 - Cerebral infarction, unspecified Status: Acute Plan This is a 64-year-old female who presents to the ED with started all of sudden yesterday. She described it as room spinning sensation. Worsens with sitting up. Does report some sinus congestion and seasonal allergies. She has history of Meniere's disease and had had similar episodes in the past. No focal weakness or numbness or tingling sensation. No headaches associated. No fever. She denied having any falls or injury. Due to ongoing dizziness came to the ER at night for evaluation. In the ER her vitals were stable next mild elevated blood pressure. Laboratory workup showed normal WBC at 7.1 hemoglobin of 12.4 Chem panel was unr emarkable except for mild hyponatremia at 1:31 a.m.. LFTs were normal. Blood glucose 263. EKG showed normal sinus rhythm. CT head with old infarcts in the right cerebellum jatin and right thalamus. Stable moderate nonspecific cerebral white matter disease which likely represents chronic small vessel ischemic disease. Chest x-ray with no acute active cardiopulmonary disease. She received meclizine and diazepam which helps some. Due to ongoing dizziness she is admitted for further treatment and observation. MRI brain ruled out stroke. PT OT to see related Add meclizine scheduled hypertension Hyperlipidemia next ablation diabetes seizure disorder Keppra hypothyroidism levothyroxine History of stroke in the past Anxiety/depression DVT prophylaxis on Eliquis Code status full code Subjective Date/time seen: 03/27/24 12:32 Interval history: No overnight events. Dizziness has improved however she has not gotten out of bed yet. Review of Systems Review of Systems: All systems reviewed & are unremarkable except as noted in HPI and below Exam Narrative: APPEARANCE: Well appearing, no pain, no distress, well-nourished. HEAD: normocephalic, atraumatic. EYES: PERRLA/EOMI, conjunctivae clear. NOSE: Normal no drainage EARS:TMS clear with good light reflex. THROAT: Pharynx clear, no exudate. NECK: Supple. No adenopathy, no masses. RESPIRATORY: Airway patent, respirations nonlabored. Clear to auscultation bilaterally, no rales, rhonchi, wheezing. CARDIOVASCULAR: Regular rate and rhythm without murmurs rubs or gallops. ABDOMINAL: Soft, nontender, nondistended, normal bowel sounds MUSCULOSKELETAL: Moves all extremities. Strength/ROM intact, No edema, No calf tenderness. NEURO: Alert. Cranial nerves II through XII intact. No nystagmus SKIN: Warm, dry. Normal Color Objective Data Vital Signs Vital Signs: Vital Signs - 24 hr 03/26/24 13:40 03/26/24 16:00 03/26/24 20:00 Temperature Pulse Rate 81 Respiratory Rate Blood Pressure Pulse Oximetry Oxygen Delivery Room Air Room Air 03/26/24 20:00 03/26/24 21:04 03/26/24 21:32 Temperature 98.6 F Pulse Rate 87 80 85 Respiratory Rate 18 Blood Pressure 141/63 H Pulse Oximetry 98 Oxygen Delivery 03/27/24 04:00 03/27/24 04:00 03/27/24 05:59 Temperature 98.0 F Pulse Rate 73 73 61 Respiratory Rate 16 Blood Pressure 114/60 Pulse Oximetry 100 Oxygen Delivery 03/27/24 08:00 03/27/24 08:03 03/27/24 08:44 Temperature Pulse Rate 77 62 Respiratory Rate Blood Pressure Pulse Oximetry Oxygen Delivery Room Air Intake/Output Intake/Output: Intake & Output 03/24/24 03/25/24 03/26/24 03/27/24 23:59 23:59 23:59 23:59 Intake Total 270 490 Balance 270 490 Meds/Results Medications: Active Medications Generic Name Dose Route Start Last Admin Trade Name Freq PRN Reason Stop Dose Admin Alprazolam 1 mg 03/26/24 17:00 03/27/24 08:44 Alprazolam (*Crx) 0.5 Mg Tablet PO 1 mg BID BRADEN Administration Amlodipine Besylate 10 mg 03/27/24 09:00 03/27/24 08:44 Amlodipine Besylate 10 Mg Tablet PO 10 mg DAILY BRADEN Administration Apixaban 5 mg 03/26/24 21:00 03/27/24 08:44 Apixaban 5 Mg Tablet PO 5 mg Q12HR BRADEN Administration Atorvastatin Calcium 20 mg 03/26/24 21:00 03/26/24 21:04 Atorvastatin 20 Mg Tablet PO 20 mg HS BRADEN Administration Estradiol 1 mg 03/26/24 17:00 03/27/24 08:43 Estradiol 1 Mg Tablet PO 1 mg BID BRADEN Administration Insulin Aspart 3 units 03/26/24 17:00 03/27/24 11:47 Insulin Aspart (*Bkc) 100 Units/Ml 0.05 units/kg (3 units) 3 units SUB-Q Administration TIDWM BRADEN Insulin Glargine 11 units 03/26/24 21:00 03/26/24 19:27 Insulin Glargine (*Bkc) 100 Units/Ml SUB-Q 11 units HS BRADEN Administration Levothyroxine Sodium 50 mcg 03/27/24 06:30 03/27/24 05:32 Levothyroxine Sodium 50 Mcg Tablet PO 50 mcg DAILY@0630 BRADEN Administration Meclizine HCl 25 mg 03/26/24 17:00 03/27/24 08:43 Meclizine Hcl 25 Mg Tablet PO 25 mg QID BRADEN Administration Metoprolol Tartrate 50 mg 03/26/24 21:00 03/27/24 08:44 Metoprolol Tartrate 50 Mg Tab PO 50 mg Q12HR BRADEN Administration Quetiapine Fumarate 12.5 mg 03/26/24 21:00 03/26/24 21:04 Quetiapine Fumarate 12.5 Mg Tablet PO 12.5 mg HS [facility] Administration Trazodone HCl 50 mg 03/26/24 21:00 03/26/24 21:04 Trazodone Hcl 50 Mg Tablet PO 50 mg HS [facility] Administration Venlafaxine HCl 75 mg 03/27/24 08:00 03/27/24 08:44 Venlafaxine Hcl Xr 75 Mg Cap.Er.24h PO 75 mg DAILY@0800 BRADEN Administration Radiology Results: ITS Impressions Chest X-Ray 03/26/24 05:55 IMPRESSION: 1. No acute cardiopulmonary disease. Head CT 03/26/24 07:56 IMPRESSION: 1. Old infarcts in the right cerebellum, jaitn, and right thalamus. 2. Stable moderate nonspecific cerebral white matter disease, which likely represents chronic small vessel ischemic disease. Brain MRI 03/26/24 15:31 IMPRESSION: No acute intracranial process detected. Labs Labs: Laboratory Results - last 24 hr 03/26/24 03/26/24 03/27/24 16:27 19:26 05:51 WBC RBC Hgb Hct MCV MCH MCHC RDW Plt Count MPV Immature Gran % (Auto) Neut % (Auto) Lymph % (Auto) Evangeline % (Auto) Eos % (Auto) Baso % (Auto) Lymph # (Auto) Evangeline # (Auto) Eos # (Auto) Baso # (Auto) Abs Immat Gran (auto) Absolute Neuts (auto) Absolute Nucleated RBC Nucleated RBC % Sodium Potassium Chloride Carbon Dioxide Anion Gap BUN Creatinine Estim Creat Clear Calc Estimated GFR Glucose POC Capillary Glucose 163 H 372 H 196 H Calcium Magnesium Total Bilirubin AST ALT Alkaline Phosphatase Total Protein Albumin 03/27/24 03/27/24 03/27/24 05:55 07:41 11:10 WBC 5.3 RBC 4.32 Hgb 13.3 Hct 41.0 MCV 94.9 MCH 30.8 MCHC 32.4 RDW 11.7 Plt Count 377 H MPV 9.2 Immature Gran % (Auto) 0.4 Neut % (Auto) 52.9 Lymph % (Auto) 34.8 Evangeline % (Auto) 9.8 H Eos % (Auto) 1.3 Baso % (Auto) 0.8 Lymph # (Auto) 1.84 Evangeline # (Auto) 0.5 Eos # (Auto) 0.1 Baso # (Auto) 0.0 Abs Immat Gran (auto) 0.02 Absolute Neuts (auto) 2.8 Absolute Nucleated RBC 0.000 Nucleated RBC % 0.0 Sodium 135 L Potassium 4.3 Chloride 97 L Carbon Dioxide 32 H Anion Gap 6 BUN 15 Creatinine 0.68 L Estim Creat Clear Calc 54 Estimated GFR > 60 Glucose 205 H POC Capillary Glucose 217 H 287 H Calcium 9.1 Magnesium 1.8 Total Bilirubin 0.6 AST 22 ALT 14 Alkaline Phosphatase 52 Total Protein 6.0 L Albumin 3.9
--- NOTE | 2024-03-27 12:58 | P.CONNEU_ITS ---
Assessment and Plan Assessment and plan (1) Depression: Code(s): F32.A - Depression, unspecified Status: Acute (2) Diabetes mellitus: Code(s): E11.9 - Type 2 diabetes mellitus without complications Status: Acute Plan 1. Vertigo with EKG without any atrial fibrillation 2. Abnormal CT scans with the old infarct involving right cerebellum jatin and right thalamus but MRI confirming old focal right cerebellar pontine and right periventricular white matter and right thalamic lacunar infarcts. 3. Old neurological deficit on the left side particularly involving the left lower extremity 4. Patient is on apixaban needs to be sorted out when was started by Alonso taking 5. Insulin- dependent diabetes mellitus with obviously related to diabetic neuropathy and autonomic dysfunction resulting in dizziness 6. Ongoing depression with anxietyfor which patient receiving trazodone 50mg at night, Seroquel 2012.5mg at night, and alprazolam 1mg b.i.d. Consult date: 03/27/24 HPI: Patrica Navarrete is a 64 year old female has been admitted to the hospital through the emergency room for the complaints of vertigo since the night before while she was standing at her dresser but with no history of fall or injury or bending over. Patient did complain of sinus congestion and also she mentioned that she has prior history of vertigo and has been using meclizine every now and then. Her medications particularly included alprazolam 1mg p.o. b.i.d., apixaban 5mg b.i.d., atorvastatin 20mg daily, metoprolol 50mg twice a day, Seroquel 12.5mg at HS, trazodone 50mg HS, and venlafaxine 75mg daily. She is documented to being allergic to radial or 8minutes she has been tried on that medication as well she has ongoing history of 1. Hypertension, 2. Seizure disorder. 3. Diabetes mellitus type 1. 4. His stroke in the past. 5. Paroxysmal atrial fibrillation. And 6. Hypothyroidism. She is a former smoker, and her initial examination in the emergency room was documented fairly unremarkable. Evaluation up until now reveals the CBC normal with platelet count of 377, BMP with mild hyponatremia and glucose of 263. UA negative. X-ray chest negative. MRI with the whole focal right cerebellar pontine and right periventricular white matter and right thalamic lacunar infarcts without evidence of any bleed PMFSH Past Medical History Medical History Essential hypertension Seizures Type 1 diabetes mellitus Cerebrovascular accident Paroxysmal atrial fibrillation Anxiety Hypothyroidism Surgical History Surgical History History of tubal ligation Family History Family History Father Acute myocardial infarction Social History Social History Social History: She used to smoke about half pack of cigarettes per day but quit smoking when her daughter was recently hospitalized in February 2022. She denies significant alcohol use history. Surrogate medical decision maker: Chester Townsend, son-in-law. Code status: Full code. (she would not want to be intubated long-term or have a feeding tube) Smoking status: Former smoker Alcohol intake: never Substance use: never Substance use type: does not use Do You Feel Safe in your Home?: Yes Lack of Transportation: No Lack of Food: Sometimes True Current Housing: I Have Housing Concerned About Future Housing: No Difficulty Paying Gas/Electric Bills: No Difficulty Paying for Meds: No Currently Unemployed: No Education: Decline to Answer Difficulty w/ Childcare or Family Care: No Additional living arrangements comments: She lives with her daughter and son-in-law. Spiritual care concerns: No Meds Home Medications and Allergies Home Medications ?Medication ?Instructions ?Recorded ?Confirmed ?Type alprazolam 1 mg tablet 1 mg PO BID Anxiety 04/13/23 03/26/24 History apixaban 5 mg tablet (Eliquis) 5 mg PO BID 04/13/23 03/26/24 History atorvastatin 20 mg tablet 20 mg PO DAILY 04/13/23 03/26/24 History estradiol 1 mg tablet 1 mg PO BID 04/13/23 03/26/24 History metoprolol tartrate 50 mg tablet 50 mg PO BID 04/13/23 03/26/24 History olmesartan 20 mg tablet 20 mg PO DAILY 04/13/23 03/26/24 History quetiapine 25 mg tablet 12.5 mg PO HS 04/13/23 03/26/24 History trazodone 50 mg tablet 50 mg PO HS 04/13/23 03/26/24 History venlafaxine 75 mg capsule,extended 75 mg PO DAILY 04/13/23 03/26/24 History release 24 hr insulin lispro 100 unit/mL 3 unit (0.03 mL) subcut TIDWM #1 mL 04/17/23 03/26/24 Rx subcutaneous pen amlodipine 5 mg tablet (Norvasc) 10 mg (2 x 5 mg) PO QAM #30 tabs 05/12/23 03/26/24 Rx insulin glargine 100 unit/mL 11 unit (0.11 mL) subcut DAILY #3 05/12/23 03/26/24 Rx subcutaneous solution (Lantus mL U-100 Insulin) losartan 100 mg tablet 100 mg PO DAILY #30 tabs 05/12/23 03/26/24 Rx levothyroxine 50 mcg tablet 50 mcg PO DAILY@0630 #30 tabs 05/30/23 03/26/24 Rx (Synthroid) Allergies Allergy/AdvReac Type Severity Reaction Status Date / Time cariprazine (From Vraylar) AdvReac Unknown Verified 03/26/24 08:01 metoclopramide (From Reglan) AdvReac Anxiety Verified 03/26/24 08:01 Vital Signs Vital Signs - 24 hr 03/26/24 13:40 03/26/24 16:00 03/26/24 20:00 Temperature Pulse Rate 81 Respiratory Rate Blood Pressure Pulse Oximetry Oxygen Delivery Room Air Room Air 03/26/24 20:00 03/26/24 21:04 03/26/24 21:32 Temperature 37.0 C Pulse Rate 87 80 85 Respiratory Rate 18 Blood Pressure 141/63 H Pulse Oximetry 98 Oxygen Delivery 03/27/24 04:00 03/27/24 04:00 03/27/24 05:59 Temperature 36.7 C Pulse Rate 73 73 61 Respiratory Rate 16 Blood Pressure 114/60 Pulse Oximetry 100 Oxygen Delivery 03/27/24 08:00 03/27/24 08:03 03/27/24 08:44 Temperature Pulse Rate 77 62 Respiratory Rate Blood Pressure Pulse Oximetry Oxygen Delivery Room Air 03/27/24 12:02 Temperature Pulse Rate 62 Respiratory Rate Blood Pressure Pulse Oximetry Oxygen Delivery Exam 2 Narrative: exam today reveals her to be awake alert cooperative in no obvious acute distress, his speech not dysphasic not dysarthric not dysphonic, head normocephalic with no bruit, ear nose throat examination normal, neck supple with no cervical bruit no thyromegaly no lymphadenopathy, heart regular with no murmur, lungs clear to auscultation with no rhonchi or crepitations, abdomen is soft with no organomegaly, neurologically she is awake alert oriented being in the hospital with normal through speech without evidence of dysphagia dysarthria or dysphonia she is oriented in right and left his speech not dysphasic not dysarthric not dysphonic, pupils round regular kilpatrick of vision full in all 4 quadrants extraocular movements full with no nystagmus, facial sensation intact face symmetrical, tongue in the midline with no fasciculation line the midline, motor examination revealed her to have neurological deficit on the left lower extremity with positive Babinski to turn inward and down and also hyperreflexia. She had no difficulties performing [id number]-finger. Results Labs 03/27/24 05:55 03/27/24 05:55 Labs: Short CBC 03/27/24 Range/Units 05:55 WBC 5.3 (4.5-10.0) K/mm3 Hgb 13.3 (12.0-15.0) g/dL Hct 41.0 (37.0-47.0) % Plt Count 377 H (150-375) k/mm3 BMP 03/27/24 05:55 Sodium 135 L Potassium 4.3 Chloride 97 L Carbon Dioxide 32 H BUN 15 Creatinine 0.68 L Glucose 205 H Calcium 9.1 Liver Function 03/27/24 Range/Units 05:55 Total Bilirubin 0.6 (0.2-1.3) mg/dL AST 22 (14-36) U/L ALT 14 (6-35) U/L Alkaline Phosphatase 52 (38-126) U/L Albumin 3.9 (3.5-5.1) g/dL
[2024-03-27 17:01] LABS: Glucose Point of Care 320 mg/dl (65-105)
[2024-03-27] MEDS: traZODone HCL 50 MG TABLET PO (21:01)
[2024-03-27] MEDS: QUEtiapine FUMARATE 12.5 MG TABLET PO (21:01)
[2024-03-27] MEDS: ATORVASTATIN 20 MG TABLET PO (21:01)
[2024-03-27] MEDS: INSULIN GLARGINE (*BKC) 100 UNITS/ML 11 UNITS SUB-Q (21:02)
[2024-03-27] MEDS: INSULIN ASPART (*BKC) 100 UNITS/ML 8 UNITS SUB-Q (21:02)
[2024-03-27 22:42] LABS: Glucose Point of Care 420 mg/dl (65-105)
[2024-03-28] VITALS (11 sets, daily range): BP systolic 98–115; BP diastolic 42–62; PULSE 56–75; RESP 14–18; TEMP 36.2–36.7; O2SAT 97–100
[2024-03-28] MEDS: LEVOTHYROXINE SODIUM 50 MCG TABLET PO (05:34)
[2024-03-28 05:39] LABS: Glucose Point of Care 115 mg/dl (65-105)
[2024-03-28 07:57] LABS: Glucose Point of Care 141 mg/dl (65-105)
[2024-03-28] MEDS: INSULIN ASPART (*BKC) 100 UNITS/ML SUB-Q ×6 (08:35→20:10)
[2024-03-28] MEDS: ALPRAZolam (*CRX) 0.5 MG TABLET 1 MG PO ×2 (08:36→17:16)
[2024-03-28] MEDS: METOPROLOL TARTRATE 50 MG TAB PO ×2 (08:36→20:10)
[2024-03-28] MEDS: estradioL 1 MG TABLET PO ×2 (08:36→17:16)
[2024-03-28] MEDS: VENLAFAXINE HCL XR 75 MG CAP.ER.24H PO (08:36)
[2024-03-28] MEDS: MECLIZINE HCL 25 MG TABLET PO ×4 (08:36→20:09)
[2024-03-28] MEDS: APIXABAN 5 MG TABLET PO ×2 (08:36→20:10)
--- NOTE | 2024-03-28 10:47 | PC.NURSE ---
Dr Ventura notified of holding am norvasc due to decreased bp.
[2024-03-28 11:43] LABS: Glucose Point of Care 210 mg/dl (65-105)
--- NOTE | 2024-03-28 16:21 | PM.IMPN ---
Progress Note: A&P Assessment and Plan (1) Vertigo: Code(s): R42 - Dizziness and giddiness Status: Acute (2) Atrial fibrillation: Code(s): I48.91 - Unspecified atrial fibrillation Status: Acute (3) Essential hypertension: Code(s): I10 - Essential (primary) hypertension Status: Acute (4) Hyponatremia: Code(s): E87.1 - Hypo-osmolality and hyponatremia Status: Acute (5) Hypothyroidism: Code(s): E03.9 - Hypothyroidism, unspecified Status: Chronic (6) CVA (cerebral vascular accident): Code(s): I63.9 - Cerebral infarction, unspecified Status: Acute Plan This is a 64-year-old female who presents to the ED with started all of sudden yesterday. She described it as room spinning sensation. Worsens with sitting up. Does report some sinus congestion and seasonal allergies. She has history of Meniere's disease and had had similar episodes in the past. No focal weakness or numbness or tingling sensation. No headaches associated. No fever. She denied having any falls or injury. Due to ongoing dizziness came to the ER at night for evaluation. In the ER her vitals were stable next mild elevated blood pressure. Laboratory workup showed normal WBC at 7.1 hemoglobin of 12.4 Chem panel was unremarkable except for mild hyponatremia at 1:31 a.m.. LFTs were normal. Blood glucose 263. EKG showed normal sinus rhythm. CT head with old infarcts in the right cerebellum jatin and right thalamus. Stable moderate nonspecific cerebral white matter disease which likely represents chronic small vessel ischemic disease. Chest x-ray with no acute active cardiopulmonary disease. She received meclizine and diazepam which helps some. Due to ongoing dizziness she is admitted for further treatment and observation. MRI brain ruled out stroke. PT OT to see. Continue therapy. Slowly improving Add meclizine scheduled hypertension Hyperlipidemia next ablation diabetes seizure disorder Keppra hypothyroidism levothyroxine History of stroke in the past Anxiety/depression DVT prophylaxis on Eliquis Code status full code Subjective Date/time seen: 03/28/24 16:21 Interval history: Worked with therapy. Still feels wobbly. No vertigo anymore. Review of Systems Review of Systems: All systems reviewed & are unremarkable except as noted in HPI and below Exam Narrative: APPEARANCE: Well appearing, no pain, no distress, well-nourished. HEAD: normocephalic, atraumatic. EYES: PERRLA/EOMI, conjunctivae clear. NOSE: Normal no drainage EARS:TMS clear with good light reflex. THROAT: Pharynx clear, no exudate. NECK: Supple. No adenopathy, no masses. RESPIRATORY: Airway patent, respirations nonlabored. Clear to auscultation bilaterally, no rales, rhonchi, wheezing. CARDIOVASCULAR: Regular rate and rhythm without murmurs rubs or gallops. ABDOMINAL: Soft, nontender, nondistended, normal bowel sounds MUSCULOSKELETAL: Moves all extremities. Strength/ROM intact, No edema, No calf tenderness. NEURO: Alert. Cranial nerves II through XII intact. No nystagmus SKIN: Warm, dry. Normal Color Objective Data Vital Signs Vital Signs: Vital Signs - 24 hr 03/27/24 20:00 03/27/24 20:00 03/27/24 21:01 Temperature Pulse Rate 63 72 Respiratory Rate Blood Pressure Pulse Oximetry Oxygen Delivery Room Air 03/27/24 22:00 03/28/24 00:00 03/28/24 04:00 Temperature 98.2 F Pulse Rate 67 56 L 62 Respiratory Rate 18 Blood Pressure 107/53 L Pulse Oximetry 96 Oxygen Delivery 03/28/24 06:00 03/28/24 08:00 03/28/24 08:36 Temperature 97.1 F L Pulse Rate 60 66 68 Respiratory Rate 14 Blood Pressure 102/56 L Pulse Oximetry 97 Oxygen Delivery 03/28/24 08:41 03/28/24 12:00 03/28/24 14:00 Temperature 97.7 F Pulse Rate 73 66 Respiratory Rate 14 Blood Pressure 115/55 L 98/42 L Pulse Oximetry 100 Oxygen Delivery 03/28/24 14:25 03/28/24 14:45 Temperature Pulse Rate Respiratory Rate Blood Pressure Pulse Oximetry Oxygen Delivery Room Air Room Air Intake/Output Intake/Output: Intake & Output 03/25/24 03/26/24 03/27/24 03/28/24 23:59 23:59 23:59 23:59 Intake Total 270 970 490 Balance 270 970 490 Meds/Results Medications: Active Medications Generic Name Dose Route Start Last Admin Trade Name Freq PRN Reason Stop Dose Admin Alprazolam 1 mg 03/26/24 17:00 03/28/24 08:36 Alprazolam (*Crx) 0.5 Mg Tablet PO 1 mg BID BRADEN Administration Amlodipine Besylate 10 mg 03/27/24 09:00 03/28/24 10:47 Amlodipine Besylate 10 Mg Tablet PO Not Given DAILY BRADEN Apixaban 5 mg 03/26/24 21:00 03/28/24 08:36 Apixaban 5 Mg Tablet PO 5 mg Q12HR BRADEN Administration Atorvastatin Calcium 20 mg 03/26/24 21:00 03/27/24 21:01 Atorvastatin 20 Mg Tablet PO 20 mg HS BRADEN Administration Dextrose 12.5 gm 03/27/24 20:49 Dextrose 50% 25 Gm/50 Ml Syringe IV PUSH PRN PRN Hypoglycemia Protocol Estradiol 1 mg 03/26/24 17:00 03/28/24 08:36 Estradiol 1 Mg Tablet PO 1 mg BID BRADEN Administration Glucagon 1 mg 03/27/24 20:49 Glucagon For Inj 1 Mg Vial IM PRN PRN Hypoglycemia Protocol Glucose 15 gm 03/27/24 20:49 Glucose Oral Gel 15 Gm Of Glucse In 37.5 Gm Tube PO PRN PRN Hypoglycemia Protocol Dextrose 1,000 mls @ 100 mls/hr 03/27/24 20:49 Dextrose 5% 1,000 Ml IVPB PRN PRN Hypoglycemia Protocol Insulin Aspart 3 units 03/26/24 17:00 03/28/24 12:17 Insulin Aspart (*Bkc) 100 Units/Ml 0.05 units/kg (3 units) 3 units SUB-Q Administration TIDWM [facility] Insulin Aspart 3 - 6 units 03/28/24 08:00 03/28/24 12:17 Insulin Aspart (*Bkc) 100 Units/Ml SUB-Q 3 units TIDWM BRADEN Administration Protocol Insulin Aspart 1 - 3 units 03/27/24 21:00 03/27/24 21:02 Insulin Aspart (*Bkc) 100 Units/Ml SUB-Q Not Given HS [facility] Protocol Insulin Glargine 11 units 03/26/24 21:00 03/27/24 21:02 Insulin Glargine (*Bkc) 100 Units/Ml SUB-Q 11 units HS BRADEN Administration Levothyroxine Sodium 50 mcg 03/27/24 06:30 03/28/24 05:34 Levothyroxine Sodium 50 Mcg Tablet PO 50 mcg DAILY@0630 BRADEN Administration Meclizine HCl 25 mg 03/26/24 17:00 03/28/24 12:19 Meclizine Hcl 25 Mg Tablet PO 25 mg QID BRADEN Administration Metoprolol Tartrate 50 mg 03/26/24 21:00 03/28/24 08:36 Metoprolol Tartrate 50 Mg Tab PO 50 mg Q12HR BRADEN Administration Quetiapine Fumarate 12.5 mg 03/26/24 21:00 03/27/24 21:01 Quetiapine Fumarate 12.5 Mg Tablet PO 12.5 mg HS BRADEN Administration Trazodone HCl 50 mg 03/26/24 21:00 03/27/24 21:01 Trazodone Hcl 50 Mg Tablet PO 50 mg HS BRADEN Administration Venlafaxine HCl 75 mg 03/27/24 08:00 03/28/24 08:36 Venlafaxine Hcl Xr 75 Mg Cap.Er.24h PO 75 mg DAILY@0800 BRADEN Administration Radiology Results: ITS Impressions Chest X-Ray 03/26/24 05:55 IMPRESSION: 1. No acute cardiopulmonary disease. Head CT 03/26/24 07:56 IMPRESSION: 1. Old infarcts in the right cerebellum, jatin, and right thalamus. 2. Stable moderate nonspecific cerebral white matter disease, which likely represents chronic small vessel ischemic disease. Brain MRI 03/26/24 15:31 IMPRESSION: No acute intracranial process detected. Labs Labs: Laboratory Results - last 24 hr 03/27/24 03/27/24 03/28/24 16:58 20:43 05:32 POC Capillary Glucose 320 H 420 H 115 H 03/28/24 03/28/24 07:51 11:41 POC Capillary Glucose 141 H 210 H
[2024-03-28 16:51] LABS: Glucose Point of Care 239 mg/dl (65-105)
[2024-03-28] MEDS: traZODone HCL 50 MG TABLET PO (20:09)
[2024-03-28] MEDS: INSULIN GLARGINE (*BKC) 100 UNITS/ML 11 UNITS SUB-Q (20:10)
[2024-03-28] MEDS: QUEtiapine FUMARATE 12.5 MG TABLET PO (20:10)
[2024-03-28] MEDS: ATORVASTATIN 20 MG TABLET PO (20:10)
[2024-03-28 20:35] LABS: Glucose Point of Care 300 mg/dl (65-105)
[2024-03-29] VITALS: PULSE 52
[2024-03-29 04:00] VITALS: PULSE 55
[2024-03-29 04:14] VITALS: BP 99/51; PULSE 56; RESP 16; TEMP 36.7; O2SAT 97
[2024-03-29] MEDS: LEVOTHYROXINE SODIUM 50 MCG TABLET PO (05:42)
[2024-03-29 08:00] VITALS: PULSE 71; O2SAT 97
[2024-03-29] MEDS: INSULIN ASPART (*BKC) 100 UNITS/ML SUB-Q (08:24)
[2024-03-29] MEDS: MECLIZINE HCL 25 MG TABLET PO (08:28)
[2024-03-29] MEDS: VENLAFAXINE HCL XR 75 MG CAP.ER.24H PO (08:28)
[2024-03-29] MEDS: ALPRAZolam (*CRX) 0.5 MG TABLET 1 MG PO (08:28)
[2024-03-29] MEDS: estradioL 1 MG TABLET PO (08:28)
[2024-03-29] MEDS: APIXABAN 5 MG TABLET PO (08:28)
[2024-03-29 08:31] VITALS: PULSE 72
[2024-03-29] MEDS: METOPROLOL TARTRATE 50 MG TAB PO (08:31)
[2024-03-29 08:32] VITALS: BP 115/60
[2024-03-29 08:36] LABS: Glucose Point of Care 192 mg/dl (65-105)
--- NOTE | 2024-03-29 10:03 | P.DS_ITS ---
DS: Admitting Diagnosis Discharge Date 03/29/2024 Admitting Diagnosis vertigo DS: Discharge Diagnosis Discharge Diagnosis (1) Vertigo: Code(s): R42 - Dizziness and giddiness Status: Acute (2) Atrial fibrillation: Code(s): I48.91 - Unspecified atrial fibrillation Status: Acute (3) Essential hypertension: Code(s): I10 - Essential (primary) hypertension Status: Acute (4) Hyponatremia: Code(s): E87.1 - Hypo-osmolality and hyponatremia Status: Acute (5) Hypothyroidism: Code(s): E03.9 - Hypothyroidism, unspecified Status: Chronic (6) CVA (cerebral vascular accident): Code(s): I63.9 - Cerebral infarction, unspecified Status: Acute DS: Summary Hospital Course Hospital Course: This is a 64-year-old female who presents to the ED with started all of sudden yesterday. She described it as room spinning sensation. Worsens with sitting up. Does report some sinus congestion and seasonal allergies. She has history of Meniere's disease and had had similar episodes in the past. No focal weakness or numbness or tingling sensation. No headaches associated. No fever. She denied having any falls or injury. Due to ongoing dizziness came to the ER at night for evaluation. In the ER her vitals were stable next mild elevated blood pressure. Laboratory workup showed normal WBC at 7.1 hemoglobin of 12.4 Chem panel was unremarkable except for mild hyponatremia at 1:31 a.m.. LFTs were normal. Blood glucose 263. EKG showed normal sinus rhythm. CT head with old infarcts in the right cerebellum jatin and right thalamus. Stable moderate nonspecific cerebral white matter disease which likely represents chronic small vessel ischemic disease. Chest x-ray with no acute active cardiopulmonary disease. She received meclizine and diazepam which helps some. Due to ongoing dizziness she is admitted for further treatment and observation. MRI brain ruled out stroke. PT OT to see. Continue therapy. Slowly improving Add meclizine scheduled which will be continued. hypertension Hyperlipidemia next ablation diabetes seizure disorder Keppra hypothyroidism levothyroxine History of stroke in the past Anxiety/depression DVT prophylaxis on Eliquis Code status full code Time Spent with Patient Time attestation: Total time spent providing and/or coordinating discharge services: 35 minutes Exam Narrative: APPEARANCE: Well appearing, no pain, no distress, well-nourished. HEAD: normocephalic, atraumatic. EYES: PERRLA/EOMI, conjunctivae clear. NOSE: Normal no drainage EARS:TMS clear with good light reflex. THROAT: Pharynx clear, no exudate. NECK: Supple. No adenopathy, no masses. RESPIRATORY: Airway patent, respirations nonlabored. Clear to auscultation bilaterally, no rales, rhonchi, wheezing. CARDIOVASCULAR: Regular rate and rhythm without murmurs rubs or gallops. ABDOMINAL: Soft, nontender, nondistended, normal bowel sounds MUSCULOSKELETAL: Moves all extremities. Strength/ROM intact, No edema, No calf tenderness. NEURO: Alert. Cranial nerves II through XII intact. No nystagmus SKIN: Warm, dry. Normal Color DS: Data Data Completed and Pending Labs on day of discharge: Labs from last 24 hours 03/29/24 03/28/24 03/28/24 08:21 19:34 16:44 POC Capillary Glucose 192 H 300 H 239 H 03/28/24 11:41 POC Capillary Glucose 210 H Imaging Radiologist's impression: ITS Impressions Chest X-Ray 03/26/24 05:55 IMPRESSION: 1. No acute cardiopulmonary disease. Head CT 03/26/24 07:56 IMPRESSION: 1. Old infarcts in the right cerebellum, jatin, and right thalamus. 2. Stable moderate nonspecific cerebral white matter disease, which likely represents chronic small vessel ischemic disease. Brain MRI 03/26/24 15:31 IMPRESSION: No acute intracranial process detected. Discharge Plan Discharge Attending physician on discharge: Reymundo Funes Consulting providers: Jam Young Discharging Clinician: Reymundo Funes Anticipated Discharge Date/Time: 03/29/24 10:18 Patient Disposition: Home Health Service Activity: as tolerated Diet: heart healthy Patient Instructions: Antibiotic Form Patient Language: Estonian Stand Alone Forms: General Discharge Information Follow-up/Referrals: Luis,MD Memo [Primary Care Provider] - 1 Week Discharge Medications: New meclizine 25 mg Tablet 25 mg PO QID PRN (Reason: vertigo) Qty: 30 0RF Continued atorvastatin 20 mg tablet 20 mg PO DAILY alprazolam 1 mg tablet 1 mg PO BID Rx Instructions: 0.5 mg Qam, 1 mg HS estradiol 1 mg tablet 1 mg PO BID metoprolol tartrate 50 mg tablet 50 mg PO BID Eliquis 5 mg tablet 5 mg PO BID quetiapine 25 mg tablet 12.5 mg PO HS venlafaxine 75 mg capsule,extended release 24hr 75 mg PO DAILY trazodone 50 mg tablet 50 mg PO HS insulin lispro 100 unit/mL insulin pen 3 unit SUBCUT TIDWM Qty: 1 0RF levothyroxine [Synthroid] 50 mcg Tablet 50 mcg PO DAILY@0630 Qty: 30 0RF amlodipine [Norvasc] 5 mg Tablet 10 mg PO QAM Qty: 30 0RF losartan 100 mg Tablet 100 mg PO DAILY Qty: 30 0RF insulin glargine [Lantus U-100 Insulin] 100 unit/mL Solution 11 unit subcut DAILY Qty: 3 0RF Discontinued olmesartan 20 mg tablet 20 mg PO DAILY Date of admission: 03/26/24 11:21 Primary Care Provider: JaniceMemo Admitting Provider: Reymundo Funes Attending physician on admission: Reymundo Funes Condition: Stable
[2024-03-29 11:49] LABS: Glucose Point of Care 266 mg/dl (65-105)
== END 2024-03-29 11:42 | disposition home health service (06) ==
LOC: ANHED 11:23 → ANH3MEDSUR 12:29
PROVIDERS: Emergency Medicine; Admitting Provider Internal Medicine; Emergency Provider Emergency Medicine; PCP Internal Medicine; Visit Provider Internal Medicine
DX: R42 Dizziness and giddiness (principal); I48.0 Paroxysmal atrial fibrillation; I10 Essential (primary) hypertension; E87.1 Hypo-osmolality and hyponatremia; E03.9 Hypothyroidism, unspecified; E78.5 Hyperlipidemia, unspecified; G40.909 Epilepsy, unspecified, not intractable, without status epilepticus; E10.9 Type 1 diabetes mellitus without complications; F41.9 Anxiety disorder, unspecified; F32.A Depression, unspecified; J30.2 Other seasonal allergic rhinitis; Z86.69 Personal history of other diseases of the nervous system and sense organs; Z86.73 Personal history of transient ischemic attack (TIA), and cerebral infarction without residual deficits; Z79.01 Long term (current) use of anticoagulants; Z79.4 Long term (current) use of insulin; Z79.899 Other long term (current) drug therapy; Z87.891 Personal history of nicotine dependence
CPT/HCPCS: 36415; 70450; 70553; 71045; 80053; 82948; 83735; 85025; 93005; 96374; 97161; 97165; 99285; A9270; A9577; G0378; G0379; J1815

== ENCOUNTER 2024-05-18 09:19 | Emergency (ER) | payer OTHER, SELFPAY ==
[2024-05-18] VITALS (12 sets, daily range): BP systolic 102–141; BP diastolic 48–98; PULSE 70–88; RESP 12–18; TEMP 36.5–36.6; O2SAT 95–100
--- NOTE | ~2024-05-18 | CT_ITS ---
CT head without contrast Indication: Dizziness COMPARISON: 03/26/2024 Technique: Serial scans were obtained through the brain without the administration of contrast. Dose reduction technique was used on this scan by utilizing automated exposure control and iterative recon struction technique. The dose-length product (DLP) was 605.33 mGy-cm. Findings: There is no evidence of intracranial hemorrhage, mass lesion, or acute infarct. The ventri cles and subarachnoid spaces are dilated, consistent with mild atrophy. Low attenuation regions are seen within the periventricular white matter bilaterally, likely representing changes from chronic mi crovascular ischemic disease. There is no evidence of edema, mass effect or midline shift. The visu alized paranasal sinuses and mastoid air cells are clear. Impression: No intracranial hemorrhage, mass, or acute infarct. Atrophy and chronic white matter changes, as above. Reviewed, dictated and finalized at location . Impression: No intracranial hemorrhage, mass, or acute infarct. Atrophy and chronic white matter changes, as above.
[2024-05-18 09:32] LABS: Glucose Point of Care 213 mg/dl (65-105)
[2024-05-18] MEDS: MECLIZINE HCL 25 MG TABLET PO (10:31)
[2024-05-18 10:45] LABS: Basophils Percent Auto 0.6 % (0.2-1.2); Eosinophils Absolute Auto 0.1 K/mm3 (0-0.3); Eosinophils Percent Auto 1.1 % (0-4.4); Hemoglobin 12.3 g/dL (12.0-15.0); Immature Granulocyte Absolute 0.02 K/mm3 (0.00-0.031); Immature Granulocyte Percent A 0.3 % (0-0.5); Lymphocytes Absolute Auto 1.56 K/mm3 (0.9-3.2); Lymphocytes Percent Auto 23.7 % (18.3-44.2); Mean Corpuscular HGB Conc 33.2 g/dl (32-36); Mean Corpuscular Hemoglobin 31.5 pg (26-34); Mean Corpuscular Volume 94.9 fl (80-100); Mean Platelet Volume 8.9 fl (7.4-10.4); Monocytes Absolute Auto 0.5 K/mm3 (0.1-0.6); Monocytes Percent Auto 7.5 % (2.6-8.5); Neutrophils Absolute Auto 4.4 K/mm3 (1.3-6.7); Neutrophils Percent Auto 66.8 % (45.5-73.1); Platelet Count Result 309 k/mm3 (150-375); Red Cell Distribution Width 11.9 % (11.5-14.5); White Blood Count 6.6 K/mm3 (4.5-10.0)
[2024-05-18 10:55] LABS: Alanine Aminotransferase 13 U/L (6-35); Albumin Level 3.9 g/dL (3.5-5.1); Alkaline Phosphatase 54 U/L (38-126); Anion Gap 5 mmol/L (4-12); Aspartate Amino Transferase 18 U/L (14-36); Bilirubin,Total 0.4 mg/dL (0.2-1.3); Blood Urea Nitrogen 9 mg/dL (7-17); Calcium 9.1 mg/dL (8.4-10.2); Carbon Dioxide 31 mmol/L (22-30); Chloride 98 mmol/L (98-107); Estimated Glomerular Filt Rate > 60; Glucose 210 mg/dL (65-110); Potassium 4.6 mmol/L (3.4-5.0); Sodium 134 mmol/L (137-145)
--- OUTSIDE RECORDS SUMMARY | 2024-05-18 11:11 | XMS_ITS | Continuity of Care Document ---
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 [address], [address], [place], [place], [address], . [phone] [facility], [address], [place], [place], [address] , tel: [phone] Conversion Department SCREEN MAL NEOP-CERVIXROUTIN E PATIENT SERVICE TECHNICIAN PST EXAMINATIONPANIC DIS W/O AGORPHOBIAMALAISE AND FATIGUE NEC 7200 7 Conversion Doctor. [facility] [place], [address], [place]. [facility], [address], [place], [place], [address] , tel: [phone] Conversion Department LONG-TERM USE MEDS NEC 7 Conversion Doctor. [facility] [place], [address], . [employer] [facility], [address], [place], [place], [address] , [place] tel: [phone] Conversion Department SCREEN-CARDIOVASC NEC Conversion Doctor. [address] [place], [address], . [employer] [facility], [address], [place], [place], [address] , tel: [phone] Conversion Department No Information Jemima Zimmerman. [address], [address], [place], [place], [id number], [place]. [phone] [facility], [address], [place], [place], [address] , tel: [phone] Conversion Department ASYMPT POSTMENO STATUSESOPHAGEAL REFLUX Conversion Doctor. [address] [facility], [place], [address], . Family History Family Member Type Diagnosis Age At Onset No Information Payers Payer name Insurance type Covered republican ID Authoriza tion(s) No Information Social History [...]
--- NOTE | 2024-05-18 12:12 | ED_ITS ---
HPI - General Adult General Chief complaint: Dizziness Stated complaint: dizzy Time Seen by Provider: 05/18/24 09:55 History of Present Illness HPI narrative: [age] old female presents to the emergency department for evaluation for acute onset of dizziness. Patient had onset of dizziness at approximately 5:00 a.m.. Patient denies any associated numbness or weakness. Patient denies any recent falls or injuries. Patient denies any coughs colds fever sinus pressure nasal congestion. Patient states dizziness was worsened with ambulation. Patient states that improved with rest. Related Data Home Medications ?Medication ?Instructions ?Recorded ?Confirmed ?Last Taken ?Type alprazolam 1 mg tablet 1 mg PO BID Anxiety 04/13/23 03/26/24 03/25/24 History apixaban 5 mg tablet (Eliquis) 5 mg PO BID 04/13/23 03/26/24 03/25/24 History atorvastatin 20 mg tablet 20 mg PO DAILY 04/13/23 03/26/24 03/25/24 History estradiol 1 mg tablet 1 mg PO BID 04/13/23 03/26/24 03/25/24 History metoprolol tartrate 50 mg tablet 50 mg PO BID 04/13/23 03/26/24 03/25/24 History quetiapine 25 mg tablet 12.5 mg PO HS 04/13/23 03/26/24 03/25/24 History trazodone 50 mg tablet 50 mg PO HS 04/13/23 03/26/24 03/25/24 History venlafaxine 75 mg capsule,extended 75 mg PO DAILY 04/13/23 03/26/24 03/25/24 History release 24 hr Allergies Allergy/AdvReac Type Severity Reaction Status Date / Time cariprazine (From Vraylar) AdvReac Unknown Verified 03/26/24 08:01 metoclopramide (From Reglan) AdvReac Anxiety Verified 03/26/24 08:01 Review of Systems 2 Review of Systems: All systems reviewed & are unremarkable except as noted in HPI and below PMFSH Past Medical History Medical History Essential hypertension Seizures Type 1 diabetes mellitus Cerebrovascular accident Paroxysmal atrial fibrillation Anxiety Hypothyroidism Surgical History Surgical History History of tubal ligation Family History Family History Father Acute myocardial infarction Social History Social History Social History: She used to smoke about half pack of cigarettes per day but quit smoking when her daughter was recently hospitalized in February 2022. She denies significant alcohol use history. Surrogate medical decision maker: Chester Townsend, son-in-law. Code status: Full code. (she would not want to be intubated long-term or have a feeding tube) Smoking status: Former smoker Alcohol intake: never Substance use: never Substance use type: does not use Do You Feel Safe in your Home?: Yes Lack of Transportation: No Lack of Food: Sometimes True Current Housing: I Have Housing Concerned About Future Housing: No Difficulty Paying Gas/Electric Bills: No Difficulty Paying for Meds: No Currently Unemployed: No Education: Decline to Answer Difficulty w/ Childcare or Family Care: No Additional living arrangements comments: She lives with her daughter and son-in-law. Spiritual care concerns: No Exam 2 Narrative: APPEARANCE: Well appearing, no pain, no distress, well-nourished. HEAD: normocephalic, atraumatic. EYES: PERRLA/EOMI, conjunctivae clear. NOSE: Normal no drainage EARS:TMS clear with good light reflex. THROAT: Pharynx clear, no exudate. NECK: Supple. No adenopathy, no masses. RESPIRATORY: Airway patent, respirations nonlabored. Clear to auscultation bilaterally, no rales, rhonchi, wheezing. CARDIOVASCULAR: Regular rate and rhythm without murmurs rubs or gallops. ABDOMINAL: Soft, nontender, nondistended, normal bowel sounds MUSCULOSKELETAL: Moves all extremities. Strength/ROM intact, No edema, No calf tenderness. NEURO: Alert. Cranial nerves II through XII intact. Good gait. Good coordination SKIN: Warm, dry. Normal Color Course Vital Signs Vital signs: Vital Signs Temperature 97.7 F 05/18/24 09:18 Pulse Rate 82 05/18/24 09:18 Respiratory Rate 12 05/18/24 09:18 Blood Pressure 129/60 05/18/24 09:18 Pulse Oximetry 100 05/18/24 09:18 Temperature 97.7 F 05/18/24 16:00 Pulse Rate 84 05/18/24 16:00 Respiratory Rate 14 05/18/24 16:00 Blood Pressure 108/68 05/18/24 16:00 Pulse Oximetry 98 05/18/24 16:00 Medical Decision Making [facility] Narrative Medical decision making narrative: [age] old female presents to the emergency department for evaluation for onset of dizziness. Patient did feel improved with treatment meclizine but still felt unstable with ambulation.. Patient is currently afebrile with no leukocytosis and hemoglobin of 12.3, patient has no significant acute abnormalities on her CMP. Head CT was negative for acute abnormalities. Patient initially was requesting to be admitted due to gait instability. Hospitalist did evaluate the patient and did perform Marely maneuvers. Patient was also treated with IV Valium and on re-evaluation patient states that she now prefers to be discharged home. Patient was neurologically intact able to ambulate with steady gait. Patient was provided p.o. meclizine for home Differential Diagnosis Differential Diagnosis: Positional vertigo, central vertigo, dehydration, sinusitis, influenza, COVID, RSV, UTI Vital Signs Vital Signs: Vital Signs Temperature 97.7 F 05/18/24 09:18 Pulse Rate 82 05/18/24 09:18 Respiratory Rate 12 05/18/24 09:18 Blood Pressure 129/60 05/18/24 09:18 Pulse Oximetry 100 05/18/24 09:18 Temperature 97.7 F 05/18/24 16:00 Pulse Rate 84 05/18/24 16:00 Respiratory Rate 14 05/18/24 16:00 Blood Pressure 108/68 05/18/24 16:00 Pulse Oximetry 98 05/18/24 16:00 Lab Data Lab results reviewed: Yes I reviewed the patient's lab results. 05/18/24 10:39 05/18/24 10:39 Labs: Lab Results 05/18/24 05/18/24 Range/Units 09:29 10:39 WBC 6.6 (4.5-10.0) K/mm3 RBC 3.90 L (4.2-5.4) M/mm3 Hgb 12.3 (12.0-15.0) g/dL Hct 37.0 (37.0-47.0) % MCV 94.9 (80-100) fl MCH 31.5 (26-34) pg MCHC 33.2 (32-36) g/dl RDW 11.9 (11.5-14.5) % Plt Count 309 (150-375) k/mm3 MPV 8.9 (7.4-10.4) fl Immature Gran % (Auto) 0.3 (0-0.5) % Neut % (Auto) 66.8 (45.5-73.1) % Lymph % (Auto) 23.7 (18.3-44.2) % [place] % (Auto) 7.5 (2.6-8.5) % Eos % (Auto) 1.1 (0-4.4) % Baso % (Auto) 0.6 (0.2-1.2) % Lymph # (Auto) 1.56 (0.9-3.2) K/mm3 [place] # (Auto) 0.5 (0.1-0.6) K/mm3 Eos # (Auto) 0.1 (0-0.3) K/mm3 Baso # (Auto) 0.0 (0.0-0.1) K/mm3 Abs Immat Gran (auto) 0.02 (0.00-0.031) K/mm3 Absolute Neuts (auto) 4.4 (1.3-6.7) K/mm3 Absolute Nucleated RBC 0.000 (0.0-0.012) K/mm3 Nucleated RBC % 0.0 (0.0-0.2) % Sodium 134 L (137-145) mmol/L Potassium 4.6 (3.4-5.0) mmol/L Chloride 98 (98-107) mmol/L Carbon Dioxide 31 H (22-30) mmol/L Anion Gap 5 (4-12) mmol/L BUN 9 D (7-17) mg/dL Creatinine 0.62 L (0.7-1.0) mg/dL Estim Creat Clear Calc Not Reportable Estimated GFR > 60 (59 - ) Glucose 210 H (65-110) mg/dL POC Capillary Glucose 213 H (65-105) mg/dl Calcium 9.1 (8.4-10.2) mg/dL Total Bilirubin 0.4 (0.2-1.3) mg/dL AST 18 (14-36) U/L ALT 13 (6-35) U/L Alkaline Phosphatase 54 (38-126) U/L Total Protein 6.0 L (6.3-8.2) g/dL Albumin 3.9 (3.5-5.1) g/dL Imaging Data Radiologist's impression: Impressions Head CT 05/18/24 11:04 Impression: No intracranial hemorrhage, mass, or acute infarct. Atrophy and chronic white matter changes, as above. Discharge Plan Discharge Clinical Impression: Vertigo Patient Disposition: Home, Self-Care Condition: Stable Instructions: Antibiotic Form, Benign Paroxysmal Positional Vertigo (ED) Additional Instructions: Meclizine as needed for vertigo control. Have close follow-up with your primary care physician. If you have any worsening symptoms please call or return to the emergency department. Patient Language: [place]i Prescriptions: New meclizine 25 mg tablet 25 mg PO BID PRN (Reason: dizziness) 7 Days Qty: 14 0RF No Action atorvastatin 20 mg tablet 20 mg PO DAILY alprazolam 1 mg tablet 1 mg PO BID Rx Instructions: 0.5 mg Qam, 1 mg HS estradiol 1 mg tablet 1 mg PO BID metoprolol tartrate 50 mg tablet 50 mg PO BID Eliquis 5 mg tablet 5 mg PO BID quetiapine 25 mg tablet 12.5 mg PO HS venlafaxine 75 mg capsule,extended release 24hr 75 mg PO DAILY trazodone 50 mg tablet 50 mg PO HS insulin lispro 100 unit/mL insulin pen 3 unit SUBCUT TIDWM Qty: 1 0RF levothyroxine [Synthroid] 50 mcg Tablet 50 mcg PO DAILY@0630 Qty: 30 0RF meclizine 25 mg Tablet 25 mg PO QID PRN (Reason: vertigo) Qty: 30 0RF amlodipine [Norvasc] 5 mg Tablet 10 mg PO QAM Qty: 30 0RF losartan 100 mg Tablet 100 mg PO DAILY Qty: 30 0RF insulin glargine [Lantus U-100 Insulin] 100 unit/mL Solution 11 unit subcut DAILY Qty: 3 0RF Follow-up/Referrals: Luis,MD Memo [Primary Care Provider] -
[2024-05-18] MEDS: diazePAM INJ (*CRX) 10 MG/2 ML SYRINGE 2.5 MG IV PUSH (14:39)
== END 2024-05-18 16:12 | disposition home or self-care (01) ==
PROVIDERS: Emergency Provider Emergency Medicine; PCP Internal Medicine
DX: R42 Dizziness and giddiness (principal); I10 Essential (primary) hypertension; E10.9 Type 1 diabetes mellitus without complications; Z86.73 Personal history of transient ischemic attack (TIA), and cerebral infarction without residual deficits; I48.91 Unspecified atrial fibrillation; F41.9 Anxiety disorder, unspecified; E03.9 Hypothyroidism, unspecified; Z79.01 Long term (current) use of anticoagulants
CPT/HCPCS: 36415; 70450; 80053; 82948; 85025; 96374; 96375; 99284; A9270; J3360

== ENCOUNTER 2024-07-11 08:57 | Observation (INO) | payer OTHER, SELFPAY ==
[2024-07-11] VITALS (9 sets, daily range): BP systolic 91–148; BP diastolic 45–60; PULSE 61–87; RESP 12–18; TEMP 36.5–36.6; O2SAT 95–100; BMI 23.2
--- NOTE | ~2024-07-11 | CT_ITS ---
CTA brain carotid Ordering provider: Kalpana Callaway PA-C History: . vertigo . Comparison: May 18, 2024 Technique: CT angiogram head and neck was performed following timed intravenous injection of contrast . Thin slice axial images and reformatted coronal images were obtained. Three dimensional reformatted images of the brain were also obtained using a [employer] workstation. Radiation reduction technique ut ilized. The dose-length product was 681 mGy-cm. 100 mL Omnipaque 350 was given IV. The neck Radiation reduction technique utilized. The dose-length product was 992.3 mGy-cm. FINDINGS: HEAD: --ANTERIOR AND MIDDLE CEREBRAL ARTERIES AND BRANCHES: Normal caliber and contour. --INTERNAL CAROTID ARTERIES: Mild atheromatous disease but no significant stenosis. No occlusion. --BASILAR ARTERY AND BRANCHES: Normal caliber and contour. No atheromatous disease. --POSTERIOR CEREBRAL ARTERIES: Normal caliber and contour --POSTERIOR COMMUNICATING ARTERIES: Not visualized which is probably related to congenital absence or small size. --ANEURYSM: None visualized. --BRAIN: Deep white matter ischemic changes with mild brain atrophy. Old infarct in the right anterio r limb of the internal capsule. Old lacunar infarct in the jatin. --BONES AND SUPERFICIAL SOFT TISSUES: Normal. --PARANASAL SINUSES AND MASTOIDS: Normal. The left transverse dural sinuses small in caliber. NECK: --RIGHT CERVICAL CAROTID SYSTEM: Mild atheromatous disease of the carotid bulb and proximal internal carotid artery without significant stenosis. Percent stenosis per NASCET criteria is 35%. No carotid dissection. Otherwise, no significant atheromatous disease or stenosis of the cervical carotid syste m. --LEFT CERVICAL CAROTID SYSTEM: Mild atheromatous disease of the carotid bulb and proximal internal c arotid artery without significant stenosis. Percent stenosis per NASCET criteria is 65% No carotid d issection. Otherwise, no significant atheromatous disease or stenosis of the cervical carotid system. --VERTEBRAL ARTERIES: Normal caliber and contour. --VISUALIZED AORTIC ARCH AND BRANCHING VESSELS: Normal. --SOFT TISSUES: Normal. --CERVICAL SPINE: Normal. IMPRESSION: 1. CTA head and neck. Percent stenosis per NASCET criteria is 65% on the left side and 35% on the r ight side. 2. No acute intracranial process. Reviewed, dictated and finalized at location A. IMPRESSION: 1. CTA head and neck. Percent stenosis per NASCET criteria is 65% on the left side and 35% on the right side. 2. No acute intracranial process.
--- NOTE | ~2024-07-11 | XR_ITS ---
CHEST RADIOGRAPH, PA AND LATERAL CLINICAL HISTORY: cough, congestion, sob . COMPARISON: 03/26/2024 TECHNIQUE: PA and lateral views of the chest. FINDINGS The cardiomediastinal silhouette is unremarkable. The lungs are clear. Visualized osseous structures and soft tissues are unremarkable. IMPRESSION: No focal infiltrate or effusion. Reviewed, dictated and finalized at location A.
--- OUTSIDE RECORDS SUMMARY | 2024-07-11 09:01 | XMS_ITS | Continuity of Care Document ---
Author Organization [facility] Address [address] [place] [address] Phone Care Team Providers Care Tube Test Technician Name Role Phone Elsie Onofre MD Unavailable [...] Diagnoses Date Provider Providers Copied on Encounter [employer], [address], [place], [place], [address] , tel: [phone] Conversion Department No Information 1 Jemima Zimmerman. [address], [address], [place], [place], [address], . [phone] [employer], [address], [place], [place], [address] , tel: [phone] Conversion Department SCREEN MAL NEOP-CERVIXROUTIN E CLIENT SERVICES ASSISTANT EXAMINATIONPANIC DIS W/O AGORPHOBIAMALAISE AND FATIGUE NEC 7200 7 Conversion Doctor. [facility] [place], [address], [place]. [employer], [address], [place], [place], [address] , tel: [phone] Conversion Department LONG-TERM USE MEDS NEC 200 7 Conversion Doctor. [facility] [place], [address], . [employer], [address], [place], [place], [address] , [place] tel: [phone] Conversion Department SCREEN-CARDIOVASC NEC Conversion Doctor. [address] [place], [address], . [employer], [address], [place], [place], [address] , tel: [phone] Conversion Department No Information Jemima Zimmerman. [address], [address], [place], [place], [address], [place]. [phone] [employer], [address], [place], [place], [address] , tel: [phone] Conversion Department ASYMPT POSTMENO STATUSESOPHAGEAL REFLUX Conversion Doctor. [address] [facility], [place], [address], . Family History Family Member Type Diagnosis Age At Onset No Information Payers Payer name Insurance type Covered democrat ID Authoriza tion(s) No Information Social History [...]
[2024-07-11] MEDS: SODIUM CHLORIDE 0.9% IV 1,000 ML 999 ML IV CONT ×2 (09:10→11:30)
--- OUTSIDE RECORDS SUMMARY | 2024-07-11 10:23 | XMS_ITS | Continuity of Care Document ---
Author Organization [facility] Address [address] [place] [address] Phone Care Team Providers Care Environmental Protection Officer Name Role Phone Elsie Onofre MD Unavailable [...] Diagnoses Date Provider Providers Copied on Encounter [employer], [address], [place], [place], [address] , tel: [phone] Conversion Department No Information 1 Jemima Zimmerman. [address], [address], [place], [place], [address], . [phone] [employer], [address], [place], [place], [address] , tel: [phone] Conversion Department SCREEN MAL NEOP-CERVIXROUTIN E SITE LEASING AGENT EXAMINATIONPANIC DIS W/O AGORPHOBIAMALAISE AND FATIGUE NEC 7200 7 Conversion Doctor. [facility] [place], [address], [place]. [employer], [address], [place], [place], [address] , tel: [phone] Conversion Department LONG-TERM USE MEDS NEC 200 7 Conversion Doctor. [facility] [place], [address], . [employer], [address], [place], [place], [address] , [place] tel: [phone] Conversion Department SCREEN-CARDIOVASC NEC Conversion Doctor. [address] [place], [address], . [employer], [address], [place], [place], [address] , tel: [phone] Conversion Department No Information Jemima Zimmerman. [address], [address], [place], [place], [address], [place]. [phone] [employer], [address], [place], [place], [address] , tel: [phone] Conversion Department ASYMPT POSTMENO STATUSESOPHAGEAL REFLUX Conversion Doctor. [address] [facility], [place], [address], . Family History Family Member Type Diagnosis [...]
[2024-07-11 10:45] LABS: Influenza A QL RT-PCR Negative (Negative); Influenza B QL RT-PCR Negative (Negative); RSV RNA, RT-PCR Negative (Negative); SARS-CoV-2 RNA PCR Negative (Negative)
--- NOTE | 2024-07-11 10:59 | ECG_ITS ---
Test Date: 2024-07-11 11:22:22 Measurements Intervals [place] Rate: 59 P: 62 SD: 108 QRS: 41 QRSD: 81 T: 41 QT: 402 QTc: 399 Interpretive Statements SINUS BRADYCARDIA WITH SHORT SD INTERVAL Compared to ECG 03/26/2024 04:16:12 Sinus rhythm no longer present Electronically Signed On 07-11-2024 15:04:31 CDT by Rehan Pratt M.D.
--- NOTE | 2024-07-11 11:01 | ED_ITS ---
HPI - URI/Sore Throat General Chief Complaint: Upper Respiratory Infection <Kalpana Callaway PA-C - Last Filed: 07/11/24 18:47> Stated Complaint: dizzy, cough, head congestion <Kalpana Callaway PA-C - Last Filed: 07/11/24 18:47> Time Seen by Provider: 07/11/24 10:17 <Kalpana Callaway PA-C - Last Filed: 07/11/24 18:47> History of Present Illness HPI Narrative: 64-year-old female with history of hypertension, AFib on Eliquis, CAD, vertigo, and Meniere's disease presents to the emergency department via EMS from home for sinus congestion, rhinorrhea, sore throat, nonproductive cough for the past week. States she woke up this morning with dizziness which prompted her to come to the ED. She describes the has better when she is sitting still and worse with movement of her head. She has history of vertigo and states this feels similar. She took meclizine prior to arrival with improvement. Upon my evaluation she is not currently having any dizziness. She does endorse intermittent tinnitus which is unchanged from baseline, denies otalgia. States she has been eating and drinking well. Denies N/V/D, dysuria, hematuria, chest pain, shortness of breath, palpitations, vision changes, focal numbness or weakness. <Kalpana Callaway PA-C - Last Filed: 07/11/24 18:47> Related Data Home Medications: Home Medications ?Medication ?Instructions ?Recorded ?Confirmed ?Last Taken ?Type alprazolam 1 mg tablet 1 mg PO BID Anxiety 04/13/23 03/26/24 03/25/24 History apixaban 5 mg tablet (Eliquis) 5 mg PO BID 04/13/23 03/26/24 03/25/24 History atorvastatin 20 mg tablet 20 mg PO DAILY 04/13/23 03/26/24 03/25/24 History estradiol 1 mg tablet 1 mg PO BID 04/13/23 03/26/24 03/25/24 History metoprolol tartrate 50 mg tablet 50 mg PO BID 04/13/23 03/26/24 03/25/24 History quetiapine 25 mg tablet 12.5 mg PO HS 04/13/23 03/26/24 03/25/24 History trazodone 50 mg tablet 50 mg PO HS 04/13/23 03/26/24 03/25/24 History venlafaxine 75 mg capsule,extended 75 mg PO DAILY 04/13/23 03/26/24 03/25/24 History release 24 hr <Kalpana Callaway PA-C - Last Filed: 07/11/24 18:47> Allergies/Adverse Reactions: Allergies Allergy/AdvReac Type Severity Reaction Status Date / Time cariprazine (From Vraylar) AdvReac Unknown Verified 03/26/24 08:01 metoclopramide (From Reglan) AdvReac Anxiety Verified 03/26/24 08:01 <Kalpana Callaway PA-C - Last Filed: 07/11/24 18:47> Review of Systems 2 Review of Systems: All systems reviewed & are unremarkable except as noted in HPI and below <Kalpana Callaway PA-C - Last Filed: 07/11/24 18:47> [facility] Past Medical History Medical History: Medical History Essential hypertension Seizures Type 1 diabetes mellitus Cerebrovascular accident Paroxysmal atrial fibrillation Anxiety Hypothyroidism <Kalpana Callaway PA-C - Last Filed: 07/11/24 18:47> Surgical History Surgical History: Surgical History History of tubal ligation <Kalpana Callaway PA-C - Last Filed: 07/11/24 18:47> Family History Family History: Family History Father Acute myocardial infarction <Kalpana Callaway PA-C - Last Filed: 07/11/24 18:47> Social History Social History: Social History Social History: She used to smoke about half pack of cigarettes per day but quit smoking when her daughter was recently hospitalized in February 2022. She denies significant alcohol use history. Surrogate medical decision maker: Chester Townsend, son-in-law. Code status: Full code. (she would not want to be intubated long-term or have a feeding tube) Smoking status: Former smoker Alcohol intake: never Substance use: never Substance use type: does not use Do You Feel Safe in your Home?: Yes Lack of Transportation: No Lack of Food: Sometimes True Current Housing: I Have Housing Concerned About Future Housing: No Difficulty Paying Gas/Electric Bills: No Difficulty Paying for Meds: No Currently Unemployed: No Education: Decline to Answer Difficulty w/ Childcare or Family Care: No Additional living arrangements comments: She lives with her daughter and son-in-law. Spiritual care concerns: No <Kalpana Callaway PA-C - Last Filed: 07/11/24 18:47> Exam 2 Narrative: GENERAL: Well-appearing, well-nourished, and in no acute distress. HEAD: Normocephalic, atraumatic. EYES: PERRLA and EOMI. Horizontal nystagmus ENT: Nares clear, no rhinorrhea or epistaxis. Mucous membranes moist. Bilateral TMs are hernandes nonbulging with normal canals. Posterior pharynx without erythema or edema, no tonsillar hypertrophy or exudates. NECK: Supple. CHEST: Clear to auscultation. No respiratory distress. HEART: Regular rate and rhythm. No murmur heard. Normal peripheral pulses. ABDOMEN: Soft, nontender, nondistended, normal active bowel sounds. EXTREMITIES: Normal range of motion. SKIN: Warm, dry, no rash. NEURO: No focal deficits. Alert and oriented x4. Cranial nerves 2-12 intact. Strength 5/5 in BUE and BLE. Sensation intact throughout. Normal [id number]. No pronator drift. <Kalpana Callaway PA-C - Last Filed: 07/11/24 18:47> Course PHYSICIAN SCIENTIST/PA Physician Supervision For this patient encounter, I reviewed the PHYSICIAN SCIENTIST or PA documentation, treatment plan, and medical decision making; and I had [id number] time with this patient. <Kenneth Gonzalez MD - Last Filed: 07/11/24 18:10> Vital Signs Vital signs: Vital Signs Temperature 97.9 F 07/11/24 09:03 Pulse Rate 70 07/11/24 09:03 Respiratory Rate 15 07/11/24 09:03 Blood Pressure 91/45 L 07/11/24 09:03 Pulse Oximetry 97 07/11/24 09:03 Oxygen Delivery Room Air 07/11/24 09:03 Temperature 97.9 F 07/11/24 09:03 Pulse Rate 66 07/11/24 16:39 Respiratory Rate 14 07/11/24 16:39 Blood Pressure 111/55 L 07/11/24 16:39 Pulse Oximetry 95 07/11/24 16:39 Oxygen Delivery Room Air 07/11/24 10:09 <Kalpana Callaway PA-C - Last Filed: 07/11/24 18:47> Vital Signs Temperature 97.9 F 07/11/24 09:03 Pulse Rate 70 07/11/24 09:03 Respiratory Rate 15 07/11/24 09:03 Blood Pressure 91/45 L 07/11/24 09:03 Pulse Oximetry 97 07/11/24 09:03 Oxygen Delivery Room Air 07/11/24 09:03 Temperature 97.9 F 07/11/24 09:03 Pulse Rate 66 07/11/24 16:39 Respiratory Rate 14 07/11/24 16:39 Blood Pressure 111/55 L 07/11/24 16:39 Pulse Oximetry 95 07/11/24 16:39 Oxygen Delivery Room Air 07/11/24 10:09 <Kenneth Gonzalez MD - Last Filed: 07/11/24 18:10> MDM - URI/Sore Throat MDM Narrative Medical decision making narrative: 64-year-old female history of diabetes, AFib on Eliquis, CVA, hypertension, vertigo presents ED for 1 week of URI symptoms and dizziness that started this morning. See HPI for further history. Upon arrival to the ED patient's vital signs with soft blood pressure 91/45. She is otherwise afebrile and resting comfortably in exam bed, nontoxic appearing. She is neurologically intact without focal deficits. She does have horizontal nystagmus on exam. CBC without leukocytosis, hemoglobin your baseline. Chemistries with hyperglycemia, normal bicarb and anion gap. UA with trace ketones, no UTI. Viral swabs and strep were negative. Chest x-ray shows no acute cardiopulmonary findings. EKG sinus bradycardia with a rate of 59 ppm, short MT interval of 108 unchanged from prior, normal QRS duration and QTC, ischemic changes. Troponin within normal limits. Orthostatic vital signs normal. Patient received fluids, meclizine and Valium with improvement. She was ambulatory around the ED but unfortunately could only ambulate with a walker. Normally she ambulates without a walker. Will attempt scopolamine and re- evaluate. Patient given scopolamine, however attempted ambulation and still remains dizzy. Will add on CTA brain carotid to evaluate for central cause of vertigo. CTA brain/carotid impression: IMPRESSION: 1. CTA head and neck. Percent stenosis per NASCET criteria is 65% on the left side and 35% on the right side. 2. No acute intracranial process. Pt re-evaluated resting comfortably in exam bed. We did attempt to ambulate her again, unfortunately patient continues to have a unsteady gait and vertigo. Plan to admit to the hospitalist for further evaluation of vertigo an MRI. Discussed with neurologist, Dr. South, who agrees to consult and MRI. Discussed with hospitalist Larisa AVILA, who advises Marely maneuver. Marely performed without improvement. Marisa agrees to admission. Advises med/tele. <Kalpana Callaway PA-C - Last Filed: 07/11/24 18:47> Lab Data Result diagrams: 07/11/24 11:32 07/11/24 11:32 <Kalpana Callaway PA-C - Last Filed: 07/11/24 18:47> Labs: Lab Results 07/11/24 07/11/24 07/11/24 Range/Units 10:05 11:32 11:54 WBC 9.6 (4.5-10.0) K/mm3 RBC 3.53 L (4.2-5.4) M/mm3 Hgb 11.3 L (12.0-15.0) g/dL Hct 34.1 L (37.0-47.0) % MCV 96.6 (80-100) fl MCH 32.0 (26-34) pg MCHC 33.1 (32-36) g/dl RDW 11.8 (11.5-14.5) % Plt Count 270 (150-375) k/mm3 MPV 9.4 (7.4-10.4) fl Immature Gran % (Auto) 0.3 (0-0.5) % Neut % (Auto) 70.4 (45.5-73.1) % Lymph % (Auto) 18.6 (18.3-44.2) % [place] % (Auto) 9.5 H (2.6-8.5) % Eos % (Auto) 0.7 (0-4.4) % Baso % (Auto) 0.5 (0.2-1.2) % Lymph # (Auto) 1.79 (0.9-3.2) K/mm3 [place] # (Auto) 0.9 H (0.1-0.6) K/mm3 Eos # (Auto) 0.1 (0-0.3) K/mm3 Baso # (Auto) 0.1 (0.0-0.1) K/mm3 Abs Immat Gran (auto) 0.03 (0.00-0.031) K/mm3 Absolute Neuts (auto) 6.8 H (1.3-6.7) K/mm3 Absolute Nucleated RBC 0.000 (0.0-0.012) K/mm3 Nucleated RBC % 0.0 (0.0-0.2) % PT 14.1 (11.1-14.7) Seconds INR 1.1 Sodium 134 L (137-145) mmol/L Potassium 4.6 (3.4-5.0) mmol/L Chloride 100 (98-107) mmol/L Carbon Dioxide 30 (22-30) mmol/L Anion Gap 4 (4-12) mmol/L BUN 14 D (7-17) mg/dL Creatinine 0.68 L (0.7-1.0) mg/dL Estim Creat Clear Calc 52 ml/min Estimated GFR > 60 (59 - ) Glucose 270 H (65-110) mg/dL POC Capillary Glucose (65-105) mg/dl Calcium 8.4 (8.4-10.2) mg/dL Total Bilirubin 0.4 (0.2-1.3) mg/dL AST 17 (14-36) U/L ALT 10 (6-35) U/L Alkaline Phosphatase 48 (38-126) U/L Troponin I 0.012 (0.000-0.034) ng/mL Total Protein 6.0 L (6.3-8.2) g/dL Albumin 3.6 (3.5-5.1) g/dL Urine Color Yellow (Yellow) Urine Appearance Clear (Clear) Urine pH 5.5 (5.0-9.0) Ur Specific [place] 1.029 (1.001-1.035) Urine Protein Negative (Negative) mg/dL Urine Glucose (UA) 3+ H (Negative) mg/dL Urine Ketones Trace H (Negative) mg/dL Ur Blood (Man) Negative (Negative) Urine Nitrate Negative (Negative) Urine Bilirubin Negative (Negative) Urine Urobilinogen 0.2 (<2.0) mg/dL Leukocyte Esterase Rfl Negative (Negative) PAPA/UL Influenza A (RT-PCR) Negative (Negative) Influenza B (RT-PCR) Negative (Negative) RSV (RT-PCR) Negative (Negative) SARS-CoV-2 RNA (RT-PCR) Negative (Negative) Group A Strep (PCR) Not detected (Negative) 07/11/24 Range/Units 16:38 WBC (4.5-10.0) K/mm3 RBC (4.2-5.4) M/mm3 Hgb (12.0-15.0) g/dL Hct (37.0-47.0) % MCV (80-100) fl MCH (26-34) pg MCHC (32-36) g/dl RDW (11.5-14.5) % Plt Count (150-375) k/mm3 MPV (7.4-10.4) fl Immature Gran % (Auto) (0-0.5) % Neut % (Auto) (45.5-73.1) % Lymph % (Auto) (18.3-44.2) % [place] % (Auto) (2.6-8.5) % Eos % (Auto) (0-4.4) % Baso % (Auto) (0.2-1.2) % Lymph # (Auto) (0.9-3.2) K/mm3 [place] # (Auto) (0.1-0.6) K/mm3 Eos # (Auto) (0-0.3) K/mm3 Baso # (Auto) (0.0-0.1) K/mm3 Abs Immat Gran (auto) (0.00-0.031) K/mm3 Absolute Neuts (auto) (1.3-6.7) K/mm3 Absolute Nucleated RBC (0.0-0.012) K/mm3 Nucleated RBC % (0.0-0.2) % PT (11.1-14.7) Seconds INR Sodium (137-145) mmol/L Potassium (3.4-5.0) mmol/L Chloride (98-107) mmol/L Carbon Dioxide (22-30) mmol/L Anion Gap (4-12) mmol/L BUN (7-17) mg/dL Creatinine (0.7-1.0) mg/dL Estim Creat Clear Calc ml/min Estimated GFR (59 - ) Glucose (65-110) mg/dL POC Capillary Glucose 177 H (65-105) mg/dl Calcium (8.4-10.2) mg/dL Total Bilirubin (0.2-1.3) mg/dL AST (14-36) U/L ALT (6-35) U/L Alkaline Phosphatase (38-126) U/L Troponin I (0.000-0.034) ng/mL Total Protein (6.3-8.2) g/dL Albumin (3.5-5.1) g/dL Urine Color (Yellow) Urine Appearance (Clear) Urine pH (5.0-9.0) Ur Specific [place] (1.001-1.035) Urine Protein (Negative) mg/dL Urine Glucose (UA) (Negative) mg/dL Urine Ketones (Negative) mg/dL Ur Blood (Man) (Negative) Urine Nitrate (Negative) Urine Bilirubin (Negative) Urine Urobilinogen (<2.0) mg/dL Leukocyte Esterase Rfl (Negative) PAPA/UL Influenza A (RT-PCR) (Negative) Influenza B (RT-PCR) (Negative) RSV (RT-PCR) (Negative) SARS-CoV-2 RNA (RT-PCR) (Negative) Group A Strep (PCR) (Negative) <Kalpana Callaway PA-C - Last Filed: 07/11/24 18:47> Lab Results 07/11/24 07/11/24 07/11/24 Range/Units 10:05 11:32 11:54 WBC 9.6 (4.5-10.0) K/mm3 RBC 3.53 L (4.2-5.4) M/mm3 Hgb 11.3 L (12.0-15.0) g/dL Hct 34.1 L (37.0-47.0) % MCV 96.6 (80-100) fl MCH 32.0 (26-34) pg MCHC 33.1 (32-36) g/dl RDW 11.8 (11.5-14.5) % Plt Count 270 (150-375) k/mm3 MPV 9.4 (7.4-10.4) fl Immature Gran % (Auto) 0.3 (0-0.5) % Neut % (Auto) 70.4 (45.5-73.1) % Lymph % (Auto) 18.6 (18.3-44.2) % [place] % (Auto) 9.5 H (2.6-8.5) % Eos % (Auto) 0.7 (0-4.4) % Baso % (Auto) 0.5 (0.2-1.2) % Lymph # (Auto) 1.79 (0.9-3.2) K/mm3 [place] # (Auto) 0.9 H (0.1-0.6) K/mm3 Eos # (Auto) 0.1 (0-0.3) K/mm3 Baso # (Auto) 0.1 (0.0-0.1) K/mm3 Abs Immat Gran (auto) 0.03 (0.00-0.031) K/mm3 Absolute Neuts (auto) 6.8 H (1.3-6.7) K/mm3 Absolute Nucleated RBC 0.000 (0.0-0.012) K/mm3 Nucleated RBC % 0.0 (0.0-0.2) % PT 14.1 (11.1-14.7) Seconds INR 1.1 Sodium 134 L (137-145) mmol/L Potassium 4.6 (3.4-5.0) mmol/L Chloride 100 (98-107) mmol/L Carbon Dioxide 30 (22-30) mmol/L Anion Gap 4 (4-12) mmol/L BUN 14 D (7-17) mg/dL Creatinine 0.68 L (0.7-1.0) mg/dL Estim Creat Clear Calc 52 ml/min Estimated GFR > 60 (59 - ) Glucose 270 H (65-110) mg/dL POC Capillary Glucose (65-105) mg/dl Calcium 8.4 (8.4-10.2) mg/dL Total Bilirubin 0.4 (0.2-1.3) mg/dL AST 17 (14-36) U/L ALT 10 (6-35) U/L Alkaline Phosphatase 48 (38-126) U/L Troponin I 0.012 (0.000-0.034) ng/mL Total Protein 6.0 L (6.3-8.2) g/dL Albumin 3.6 (3.5-5.1) g/dL Urine Color Yellow (Yellow) Urine Appearance Clear (Clear) Urine pH 5.5 (5.0-9.0) Ur Specific [place] 1.029 (1.001-1.035) Urine Protein Negative (Negative) mg/dL Urine Glucose (UA) 3+ H (Negative) mg/dL Urine Ketones Trace H (Negative) mg/dL Ur Blood (Man) Negative (Negative) Urine Nitrate Negative (Negative) Urine Bilirubin Negative (Negative) Urine Urobilinogen 0.2 (<2.0) mg/dL Leukocyte Esterase Rfl Negative (Negative) PAPA/UL Influenza A (RT-PCR) Negative (Negative) Influenza B (RT-PCR) Negative (Negative) RSV (RT-PCR) Negative (Negative) SARS-CoV-2 RNA (RT-PCR) Negative (Negative) Group A Strep (PCR) Not detected (Negative) 07/11/24 Range/Units 16:38 WBC (4.5-10.0) K/mm3 RBC (4.2-5.4) M/mm3 Hgb (12.0-15.0) g/dL Hct (37.0-47.0) % MCV (80-100) fl MCH (26-34) pg MCHC (32-36) g/dl RDW (11.5-14.5) % Plt Count (150-375) k/mm3 MPV (7.4-10.4) fl Immature Gran % (Auto) (0-0.5) % Neut % (Auto) (45.5-73.1) % Lymph % (Auto) (18.3-44.2) % [place] % (Auto) (2.6-8.5) % Eos % (Auto) (0-4.4) % Baso % (Auto) (0.2-1.2) % Lymph # (Auto) (0.9-3.2) K/mm3 [place] # (Auto) (0.1-0.6) K/mm3 Eos # (Auto) (0-0.3) K/mm3 Baso # (Auto) (0.0-0.1) K/mm3 Abs Immat Gran (auto) (0.00-0.031) K/mm3 Absolute Neuts (auto) (1.3-6.7) K/mm3 Absolute Nucleated RBC (0.0-0.012) K/mm3 Nucleated RBC % (0.0-0.2) % PT (11.1-14.7) Seconds INR Sodium (137-145) mmol/L Potassium (3.4-5.0) mmol/L Chloride (98-107) mmol/L Carbon Dioxide (22-30) mmol/L Anion Gap (4-12) mmol/L BUN (7-17) mg/dL Creatinine (0.7-1.0) mg/dL Estim Creat Clear Calc ml/min Estimated GFR (59 - ) Glucose (65-110) mg/dL POC Capillary Glucose 177 H (65-105) mg/dl Calcium (8.4-10.2) mg/dL Total Bilirubin (0.2-1.3) mg/dL AST (14-36) U/L ALT (6-35) U/L Alkaline Phosphatase (38-126) U/L Troponin I (0.000-0.034) ng/mL Total Protein (6.3-8.2) g/dL Albumin (3.5-5.1) g/dL Urine Color (Yellow) Urine Appearance (Clear) Urine pH (5.0-9.0) Ur Specific [place] (1.001-1.035) Urine Protein (Negative) mg/dL Urine Glucose (UA) (Negative) mg/dL Urine Ketones (Negative) mg/dL Ur Blood (Man) (Negative) Urine Nitrate (Negative) Urine Bilirubin (Negative) Urine Urobilinogen (<2.0) mg/dL Leukocyte Esterase Rfl (Negative) PAPA/UL Influenza A (RT-PCR) (Negative) Influenza B (RT-PCR) (Negative) RSV (RT-PCR) (Negative) SARS-CoV-2 RNA (RT-PCR) (Negative) Group A Strep (PCR) (Negative) <Kenneth Gonzalez MD - Last Filed: 07/11/24 18:10> Discharge Plan Discharge Clinical Impression: Vertigo URI (upper respiratory infection) Qualifiers: URI type: unspecified viral URI Qualified Code(s): J06.9 - Acute upper respiratory infection, unspecified <Kalpana Callaway PA-C - Last Filed: 07/11/24 18:47> Patient Disposition: Still a Patient <Kalpana Callaway PA-C - Last Filed: 07/11/24 18:47> Condition: Stable <REAL Reyna Last Filed: 07/11/24 18:47> Patient Language: Japanese <Kalpana Callaway PA-C - Last Filed: 07/11/24 18:47> Prescriptions: No Action atorvastatin 20 mg tablet 20 mg PO DAILY alprazolam 1 mg tablet 1 mg PO BID Rx Instructions: 0.5 mg Qam, 1 mg HS estradiol 1 mg tablet 1 mg PO BID metoprolol tartrate 50 mg tablet 50 mg PO BID Eliquis 5 mg tablet 5 mg PO BID quetiapine 25 mg tablet 12.5 mg PO HS venlafaxine 75 mg capsule,extended release 24hr 75 mg PO DAILY trazodone 50 mg tablet 50 mg PO HS insulin lispro 100 unit/mL insulin pen 3 unit SUBCUT TIDWM Qty: 1 0RF levothyroxine [Synthroid] 50 mcg Tablet 50 mcg PO DAILY@0630 Qty: 30 0RF meclizine 25 mg Tablet 25 mg PO QID PRN (Reason: vertigo) Qty: 30 0RF amlodipine [Norvasc] 5 mg Tablet 10 mg PO QAM Qty: 30 0RF losartan 100 mg Tablet 100 mg PO DAILY Qty: 30 0RF insulin glargine [Lantus U-100 Insulin] 100 unit/mL Solution 11 unit subcut DAILY Qty: 3 0RF meclizine 25 mg tablet 25 mg PO BID PRN (Reason: dizziness) 7 Days Qty: 14 0RF <Kalpana Callaway PA-C - Last Filed: 07/11/24 18:47> Follow-up/Referrals: Luis,MD Memo [Primary Care Provider] - <Kalpana Callaway PA-C - Last Filed: 07/11/24 18:47>
[2024-07-11 11:37] LABS: Basophils Absolute Auto 0.1 K/mm3 (0.0-0.1); Basophils Percent Auto 0.5 % (0.2-1.2); Eosinophils Absolute Auto 0.1 K/mm3 (0-0.3); Eosinophils Percent Auto 0.7 % (0-4.4); Hematocrit 34.1 % (37.0-47.0); Hemoglobin 11.3 g/dL (12.0-15.0); Immature Granulocyte Absolute 0.03 K/mm3 (0.00-0.031); Immature Granulocyte Percent A 0.3 % (0-0.5); Lymphocytes Absolute Auto 1.79 K/mm3 (0.9-3.2); Lymphocytes Percent Auto 18.6 % (18.3-44.2); Mean Corpuscular HGB Conc 33.1 g/dl (32-36); Mean Corpuscular Volume 96.6 fl (80-100); Mean Platelet Volume 9.4 fl (7.4-10.4); Monocytes Absolute Auto 0.9 K/mm3 (0.1-0.6); Monocytes Percent Auto 9.5 % (2.6-8.5); Neutrophils Absolute Auto 6.8 K/mm3 (1.3-6.7); Neutrophils Percent Auto 70.4 % (45.5-73.1); Platelet Count Result 270 k/mm3 (150-375); Red Blood Count 3.53 M/mm3 (4.2-5.4); Red Cell Distribution Width 11.8 % (11.5-14.5); White Blood Count 9.6 K/mm3 (4.5-10.0)
[2024-07-11 11:50] LABS: INR 1.1; Prothrombin Time 14.1 Seconds (11.1-14.7)
[2024-07-11 11:53] LABS: Alanine Aminotransferase 10 U/L (6-35); Albumin Level 3.6 g/dL (3.5-5.1); Alkaline Phosphatase 48 U/L (38-126); Anion Gap 4 mmol/L (4-12); Aspartate Amino Transferase 17 U/L (14-36); Bilirubin,Total 0.4 mg/dL (0.2-1.3); Blood Urea Nitrogen 14 mg/dL (7-17); Carbon Dioxide 30 mmol/L (22-30); Chloride 100 mmol/L (98-107); Estimated CRCL calculation 52 ml/min; Estimated Glomerular Filt Rate > 60; Potassium 4.6 mmol/L (3.4-5.0); Sodium 134 mmol/L (137-145)
[2024-07-11 11:59] LABS: Calcium 8.4 mg/dL (8.4-10.2); Glucose 270 mg/dL (65-110)
[2024-07-11 12:00] LABS: Add Urine Microscopic? NO; Appearance Urine Clear (Clear); Bilirubin Urine Negative (Negative); Blood Urine Negative (Negative); Color Urine Yellow (Yellow); Glucose Urine UA 3+ mg/dL (Negative); Ketones Urine Trace mg/dL (Negative); Leukocyte Esterase Ur Negative LEU/UL (Negative); Nitrate Urine Negative (Negative); Protein Urine Negative (Negative); Specific Grav Ur 1.029 (1.001-1.035); Urobilinogen Urine 0.2 mg/dL (<2.0); pH Urine 5.5 (5.0-9.0)
[2024-07-11 12:02] LABS: Troponin I 0.012 ng/mL (0.000-0.034)
[2024-07-11 12:03] LABS: Strep Group A RT-PCR NOT DETECTED (Negative)
[2024-07-11] MEDS: MECLIZINE HCL 25 MG TABLET PO ×2 (13:14→21:51)
[2024-07-11] MEDS: diazePAM INJ (*CRX) 10 MG/2 ML SYRINGE 5 MG IV PUSH (13:14)
--- NOTE | 2024-07-11 14:03 | PC.NURSE ---
Pt ambulated with walker, tolerated well. Reports she sometimes uses a walker at home and feels good using walker. EDP made aware.
[2024-07-11] MEDS: SCOPOLAMINE 1 MG PATCH 1 PATCH TRANSDERM (14:34)
--- NOTE | 2024-07-11 14:55 | PC.NURSE ---
Attempted to ambulate pt without walker, per EDP. Pt reports still feeling dizzy, a sense of spinning, needing to hold onto something. Pt repositioned comfortably in bed. EDP made aware.
[2024-07-11 16:40] LABS: Glucose Point of Care 177 mg/dl (65-105)
--- NOTE | 2024-07-11 18:03 | PC.NURSE ---
Attempted to ambulate pt again per EDP, reports reports feeling unsteady d/t persistent dizziness. Pt repositioned back in bed.
--- NOTE | 2024-07-11 20:20 | ADMGEN ---
This patient, Patrica Navarrete, was admitted to [facility] Surg Room 314-02. Patient/family oriented to hospital policies and general routines including ID bracelet, bed and alarms, visiting hours, pain management, procedures, bathroom and other care routines, personal items, smoking policy, room service/diet, and visiting hours. Information on how to activate the Rapid Response Team has been discussed. Patient/Family are encouraged to report perceived risks to care and to ask questions if they do not understand what they are told or what they should do.
[2024-07-11 20:57] LABS: Glucose Point of Care 344 mg/dl (65-105)
--- NOTE | 2024-07-11 21:16 | PM.IMHP ---
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 She endorses a history of Meniere's disease which she had not endorsed on prior admissions but does have tinnitus intermittently. She reports that she was diagnosed in her 40s. She is having increased symptoms that usually happens when she also has a nonproductive cough and congestion and sinus pressure she does now. On further questioning a her symptoms actually are not true vertigo but the instead she endorses more if since of lightheadedness and pressure in her head. Although she denies any pain in her sinuses with direct palpation. She has been having increased rhinorrhea. She reports that her daughter who lives with her and has a tracheostomy has been ill with similar symptoms. She denies any fevers or chills. She denies any ear pain or sore throat. She reports that she does check her sugars numerous times a day but she has no bruising or evidence of Accu-Cheks on her fingers. She does have a history of noncompliance with medication regimen. She reports that when she is doing her good her glucoses are in the 120s. He states that ever since she has been sick for the last week her glucoses have been higher. Her A1c is chronically elevated with the last value in our system being 11.1% last year. She cannot recall her most recent outpatient A1c. She denies any urinary frequency, urgency or dysuria. She denies any neuropathy although she has been diagnosed with this in the past. She denies any localized weakness but did have some left lower extremity weakness during prior admission consistent with her areas of prior stroke. CTA of the head and neck performed in the ER demonstrated 65% stenosis of the left in 35% stenosis of the right carotid. Patient was hyperglycemic with glucoses of 270 that climbed to 340 by the time she arrived to the medical floor. She had associated hyponatremia. She has a chronically low serum protein and her UA demonstrated trace ketones. She received meclizine 25 mg and IV diazepam 5 mg x 1 as well as scopolamine patch. She reported that this in addition to IV fluids has seemed to help her symptoms but they have not resolved. Given persistent symptoms she was admitted for observation and further monitoring. Orthostatic vital signs were obtained once patient arrived to the medical floor were negative. Patient was able to move freely about the bed and sit up rapidly in swing her legs over the side of the bed without inducing frankly vertiginous symptoms. EMS reported that the patient's home smelled strongly of ammonia. The patient reports that they have ?a lot of cats?. Review of Systems Review of Systems: 12 systems were reviewed with pertinent positives and negatives per HPI. Except as documented in the HPI, all other systems were reviewed and are negative. [facility] Past Medical History Medical History (Updated 07/12/24 @ 01:20 by Vanita Barnett DO) Menieres disease Anemia Oddly enough the patient had completely B12, folic acid, ferritin, TIBC panel and TSH April 2023 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; MRI his demonstrated old focal right cerebellar, pontine and right periventricular white matter and right thalamic lacunar infarcts with scattered foci of white matter hyperdensities presenting small-vessel ischemic disease with mild generalized parenchymal loss Depression Essential hypertension Seizures According to documentation there were new onset April 2019 Type 1 diabetes mellitus With A1c last documented May 2023 11.1% Paroxysmal atrial fibrillation On chronic anticoagulation with Eliquis Anxiety Hypothyroidism Surgical History Surgical History History of tubal ligation Family History Family History Father Acute myocardial infarction Social History Social History (Updated 07/12/24 @ 01:13 by Vanita Barnett DO) Social History: She lives with her daughter and son-in-law. 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 She used to smoke about half pack of cigarettes per day but quit smoking when her daughter was hospitalized in February 2022. She denies significant alcohol use history. Healthcare power of computer forensic specialist: Bandar Townsend (son-in-law) or Danielle Townsend (daughter) Code status: DNR/DNI Smoking packs per day: 0.5 Smoking cigarettes per day: 10.0 Years smoked: 40 Smoking pack-years: 20.00 Smoking status: Former smoker Alcohol intake: never Substance use: never Substance use type: does not use Do You Feel Safe in your Home?: Yes Lack of Transportation: No Lack of Food: Sometimes True Current Housing: I Have Housing Concerned About Future Housing: No Difficulty Paying Gas/Electric Bills: No Difficulty Paying for Meds: No Currently Unemployed: No Education: Decline to Answer Difficulty w/ Childcare or Family Care: No Additional living arrangements comments: She lives with her daughter and son-in-law. Spiritual care concerns: No Meds Home Medications and Allergies Home Medications ?Medication ?Instructions ?Recorded ?Confirmed ?Type alprazolam 1 mg tablet 1 mg PO BID Anxiety 04/13/23 07/11/24 History apixaban 5 mg tablet (Eliquis) 5 mg PO BID 04/13/23 07/11/24 History atorvastatin 20 mg tablet 20 mg PO DAILY 04/13/23 07/11/24 History estradiol 1 mg tablet 1 mg PO BID 04/13/23 07/11/24 History metoprolol tartrate 50 mg tablet 50 mg PO BID 04/13/23 07/11/24 History quetiapine 25 mg tablet 12.5 mg PO HS 04/13/23 07/11/24 History trazodone 50 mg tablet 50 mg PO HS 04/13/23 07/11/24 History venlafaxine 75 mg capsule,extended 75 mg PO DAILY 04/13/23 07/11/24 History release 24 hr insulin lispro 100 unit/mL 3 unit (0.03 mL) subcut TIDWM #1 mL 04/17/23 07/11/24 Rx subcutaneous pen amlodipine 5 mg tablet (Norvasc) 10 mg (2 x 5 mg) PO QAM #30 tabs 05/12/23 07/11/24 Rx insulin glargine 100 unit/mL 11 unit (0.11 mL) subcut DAILY #3 05/12/23 07/11/24 Rx subcutaneous solution (Lantus mL U-100 Insulin) losartan 100 mg tablet 100 mg PO DAILY #30 tabs 05/12/23 07/11/24 Rx levothyroxine 50 mcg tablet 50 mcg PO DAILY@0630 #30 tabs 05/30/23 07/11/24 Rx (Synthroid) meclizine 25 mg tablet 25 mg PO QID PRN vertigo #30 tabs 03/29/24 07/11/24 Rx Allergies Allergy/AdvReac Type Severity Reaction Status Date / Time cariprazine (From Vraylar) AdvReac Unknown Verified 03/26/24 08:01 metoclopramide (From Reglan) AdvReac Anxiety Verified 03/26/24 08:01 Vital Signs Vital Signs - 24 hr 07/11/24 09:03 07/11/24 10:02 07/11/24 10:09 Temperature 97.9 F Pulse Rate 70 65 Respiratory Rate 15 15 Blood Pressure 91/45 L 101/51 L Pulse Oximetry 97 98 Oxygen Delivery Room Air Room Air 07/11/24 11:26 07/11/24 11:26 07/11/24 11:26 Temperature Pulse Rate 65 66 70 Respiratory Rate Blood Pressure 104/52 L 110/54 L 111/49 L Pulse Oximetry Oxygen Delivery 07/11/24 11:34 07/11/24 13:14 07/11/24 14:36 Temperature Pulse Rate 61 66 67 Respiratory Rate 18 13 12 Blood Pressure 108/54 L 104/51 L 106/55 L Pulse Oximetry 99 97 97 Oxygen Delivery 07/11/24 16:39 07/11/24 20:11 Temperature 97.7 F Pulse Rate 66 86 Respiratory Rate 14 16 Blood Pressure 111/55 L 118/52 L Pulse Oximetry 95 100 Oxygen Delivery Exam Narrative: Weight 54 kg BMI 23.3 Const: Other: No acute distress, well-developed well-nourished, appears older than stated age HENMT: Other: Mucous membranes are tacky, no oral pharyngeal erythema, head is normocephalic atraumatic, tongue is midline, erythema the mucous membranes of the nares bilateral, small amount of fluid behind the left tympanic membrane, right tympanic membrane was difficult to assess due to placement of a small piece of cerumen that I could not moved from a visual field given the equipments I had but her seemed to be poor light reflex Eyes: Other: Pupils are equal and reactive, no scleral icterus, no conjunctival pallor, extraocular movements intact, patient wears eyeglasses Neck: Other: No JVD, no lymphadenopathy Resp: Other: Clear to auscultation bilaterally, no increased work of breathing Cardio: Other: Regular rate, regular rhythm, 2+ bilateral radial pedal pulses, no murmur, no JVD GI: Other: Soft, nontender, nondistended, positive bowel sounds Skin: Other: Pallor, non jaundice Neuro: Other: Alert oriented, speech is clear, no facial asymmetry, cranial nerves 2-12 appear to be grossly intact, speech is clear and fluent, no dysmetria noted on finger-nose or [id number], no localizing neurologic deficits noted, gait not evaluated patient was able to sit up in bed unassisted in moved freely about her space. Extrem: Other: No clubbing, cyanosis or edema, 5/5 chief clerk shelter strength bilateral Psych: Other: Extremely pleasant, cooperative, judgment and insight intact H&P: Results Labs Labs: Laboratory Tests 07/11/24 11:32 07/11/24 11:32 07/11/24 07/11/24 07/11/24 10:05 11:32 11:54 WBC 9.6 RBC 3.53 L Hgb 11.3 L Hct 34.1 L MCV 96.6 MCH 32.0 MCHC 33.1 RDW 11.8 Plt Count 270 MPV 9.4 Immature Gran % (Auto) 0.3 Neut % (Auto) 70.4 Lymph % (Auto) 18.6 [place] % (Auto) 9.5 H Eos % (Auto) 0.7 Baso % (Auto) 0.5 Lymph # (Auto) 1.79 [place] # (Auto) 0.9 H Eos # (Auto) 0.1 Baso # (Auto) 0.1 Abs Immat Gran (auto) 0.03 Absolute Neuts (auto) 6.8 H Absolute Nucleated RBC 0.000 Nucleated RBC % 0.0 PT 14.1 INR 1.1 Sodium 134 L Potassium 4.6 Chloride 100 Carbon Dioxide 30 Anion Gap 4 BUN 14 D Creatinine 0.68 L Estim Creat Clear Calc 52 Estimated GFR > 60 Glucose 270 H POC Capillary Glucose Calcium 8.4 Total Bilirubin 0.4 AST 17 ALT 10 Alkaline Phosphatase 48 Troponin I 0.012 Total Protein 6.0 L Albumin 3.6 Urine Color Yellow Urine Appearance Clear Urine pH 5.5 Ur Specific [place] 1.029 Urine Protein Negative Urine Glucose (UA) 3+ H Urine Ketones Trace H Ur Blood (Man) Negative Urine Nitrate Negative Urine Bilirubin Negative Urine Urobilinogen 0.2 Leukocyte Esterase Rfl Negative Influenza A (RT-PCR) Negative Influenza B (RT-PCR) Negative RSV (RT-PCR) Negative SARS-CoV-2 RNA (RT-PCR) Negative Group A Strep (PCR) Not detected 07/11/24 07/11/24 16:38 20:45 WBC RBC Hgb Hct MCV MCH MCHC RDW Plt Count MPV Immature Gran % (Auto) Neut % (Auto) Lymph % (Auto) [place] % (Auto) Eos % (Auto) Baso % (Auto) Lymph # (Auto) [place] # (Auto) Eos # (Auto) Baso # (Auto) Abs Immat Gran (auto) Absolute Neuts (auto) Absolute Nucleated RBC Nucleated RBC % PT INR Sodium Potassium Chloride Carbon Dioxide Anion Gap BUN Creatinine Estim Creat Clear Calc Estimated GFR Glucose POC Capillary Glucose 177 H 344 H Calcium Total Bilirubin AST ALT Alkaline Phosphatase Troponin I Total Protein Albumin Urine Color Urine Appearance Urine pH Ur Specific [place] Urine Protein Urine Glucose (UA) Urine Ketones Ur Blood (Man) Urine Nitrate Urine Bilirubin Urine Urobilinogen Leukocyte Esterase Rfl Influenza A (RT-PCR) Influenza B (RT-PCR) RSV (RT-PCR) SARS-CoV-2 RNA (RT-PCR) Group A Strep (PCR) Impressions Chest X-Ray 07/11/24 10:19 IMPRESSION: No focal infiltrate or effusion. Head/Neck CTA 07/11/24 17:24 IMPRESSION: 1. CTA head and neck. Percent stenosis per NASCET criteria is 65% on the left side and 35% on the right side. 2. No acute intracranial process. 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 Assessment and Plan Assessment and plan (1) Positional lightheadedness: Code(s): R42 - Dizziness and giddiness Status: Acute (2) Menieres disease: Qualifiers: Laterality: unspecified laterality Qualified Code(s): H81.09 - Meniere's disease, unspecified ear Code(s): H81.09 - Meniere's disease, unspecified ear Status: Acute (3) Acute dysfunction of eustachian tube: Qualifiers: Laterality: bilateral Qualified Code(s): H69.93 - Unspecified Eustachian tube disorder, bilateral Code(s): H69.90 - Unspecified Eustachian tube disorder, unspecified ear Status: Acute (4) URI (upper respiratory infection): Qualifiers: URI type: unspecified viral URI Qualified Code(s): J06.9 - Acute upper respiratory infection, unspecified Code(s): J06.9 - Acute upper respiratory infection, unspecified Status: Acute (5) Uncontrolled diabetes mellitus: Qualifiers: Diabetes mellitus type: type 1 Glycemic state: with hyperglycemia Qualified Code(s): E10.65 - Type 1 diabetes mellitus with hyperglycemia Status: Acute (6) Chronic anticoagulation: Code(s): Z79.01 - program manager transportation (current) use of anticoagulants Status: Acute (7) Essential hypertension: Code(s): I10 - Essential (primary) hypertension Status: Acute Plan Patient has intractable symptoms of lightheadedness and sinus pressure with position changes somewhat improved but still present. Patient did have findings on physical exam concerning for eustachian tube dysfunction for which I performed osteopathis maneuver to open patient's eustachian tubes. This is likely caused by ER at least irritated by her other upper respiratory symptoms that may be due to URI. She had multiple admissions for the same symptoms over the years. She received IV fluids, meclizine and diazepam in the ER with some improvement in symptoms. These symptoms are likely exacerbating her underlying Meniere's disease, and not helped by likely underlying peripheral neuropathy. Will continue meclizine but will schedule meclizine q.6 hours for the short term. Will continue scopolamine patch. The patient does not appear to be acutely vertiginous at the time of my evaluation and was able to sit up rapidly in bed in swing her feet over the side the bed without inducing symptoms. Acute CVA seems less likely given coinciding URI symptoms. Neurology has been consulted for recommendations given her intractable symptoms. Will also consult PT and OT for evaluation to further evaluate gait. Patient's UA did demonstrate some ketones in she is hyperglycemic but her anion gap is normal. This seems more consistent with acute dehydration and uncontrolled diabetes. Will continue patient's home Lantus. Will add mealtime bolus insulin of 3 units of NovoLog with meals and will have moderate sliding scale insulin with Accu-Cheks a.c. HS assault hypoglycemic protocol as needed.. Will give the patient an additional L of IV fluids at 100 mL an hour and then re-evaluate. Will continue patient's home medications for essential hypertension, seizure disorder, Eliquis for stroke prophylaxis, and home psychiatric medications. Patient has been admitted as observation status. Quality VTE Prophylaxis VTE prophylaxis: pharmacologic ordered (Continue home Eliquis) Hospitalist [facility] Advance Care Plan I have confirmed that the patient's Advanced Care Plan is present, code status is documented, or surrogate decision maker is listed in patient medical record.: Yes Medication Reconciliation I have utilized all available resources to obtain, update and review the patients current medications (includes all prescriptions, OTC, herbals, cannabis, and nutritional supplements).: Yes
[2024-07-11] MEDS: INSULIN ASPART (*BKC) 100 UNITS/ML 6 UNITS SUB-Q (21:50)
[2024-07-11 23:36] LABS: Glucose Point of Care 243 mg/dl (65-105)
[2024-07-12] VITALS (7 sets, daily range): BP systolic 105–108; BP diastolic 50; PULSE 66–80; RESP 14–16; TEMP 36.9; O2SAT 93
[2024-07-12] MEDS: traZODone HCL 50 MG TABLET PO (01:41)
[2024-07-12] MEDS: SODIUM CHLORIDE 0.9% IV 1,000 ML 100 ML IV CONT (01:41)
[2024-07-12] MEDS: QUEtiapine FUMARATE 12.5 MG TABLET PO (01:42)
[2024-07-12] MEDS: LEVOTHYROXINE SODIUM 50 MCG TABLET PO (06:07)
[2024-07-12 06:18] LABS: Hematocrit 33.1 % (37.0-47.0); Hemoglobin 10.6 g/dL (12.0-15.0); Mean Corpuscular Hemoglobin 31.1 pg (26-34); Mean Corpuscular Volume 97.1 fl (80-100); Mean Platelet Volume 9.6 fl (7.4-10.4); Platelet Count Result 262 k/mm3 (150-375); Red Blood Count 3.41 M/mm3 (4.2-5.4); Red Cell Distribution Width 11.6 % (11.5-14.5); White Blood Count 8.3 K/mm3 (4.5-10.0)
[2024-07-12 06:42] LABS: Anion Gap 4 mmol/L (4-12); Blood Urea Nitrogen 7 mg/dL (7-17); Calcium 8.3 mg/dL (8.4-10.2); Carbon Dioxide 29 mmol/L (22-30); Chloride 101 mmol/L (98-107); Estimated CRCL calculation 63 ml/min; Estimated Glomerular Filt Rate > 60; Glucose 221 mg/dL (65-110); Magnesium 1.7 mg/dL (1.6-2.3); Potassium 4.3 mmol/L (3.4-5.0); Sodium 134 mmol/L (137-145)
[2024-07-12 07:14] LABS: Hemoglobin A1C 11.1 % (<5.7)
[2024-07-12 07:50] LABS: Glucose Point of Care 206 mg/dl (65-105)
[2024-07-12] MEDS: INSULIN ASPART (*BKC) 100 UNITS/ML SUB-Q ×4 (08:45→12:50)
[2024-07-12] MEDS: VENLAFAXINE HCL XR 75 MG CAP.ER.24H PO (08:46)
[2024-07-12] MEDS: ALPRAZolam (*CRX) 0.5 MG TABLET PO (08:46)
[2024-07-12] MEDS: INSULIN GLARGINE (*BKC) 100 UNITS/ML 11 UNITS SUB-Q (08:46)
[2024-07-12] MEDS: ATORVASTATIN 20 MG TABLET PO (08:46)
[2024-07-12] MEDS: amLODIPine BESYLATE 10 MG TABLET PO (08:47)
[2024-07-12] MEDS: APIXABAN 5 MG TABLET PO (08:47)
[2024-07-12] MEDS: LOSARTAN POTASSIUM 100 MG TABLET PO (08:47)
[2024-07-12] MEDS: METOPROLOL TARTRATE 50 MG TAB PO (08:47)
[2024-07-12] MEDS: MECLIZINE HCL 25 MG TABLET PO ×2 (08:47→12:48)
--- NOTE | 2024-07-12 10:58 | WPDNEURCNPN ---
Consult date: 07/12/24 HPI: Patrica Navarrete is a 64 year old female Admitted to the hospital through the emergency room for the complaints of sinus congestion with rhinorrhea sore throat and nonproductive cough of 1 week duration followed by complaints of dizziness on the day of visit to the ER. As per the information available a dizziness was better as long as she was still but worse with movements of her head and in the past she has history of vertigo and she made the statement it is almost the same she has been drinking and eating fairly well. She has been taking alprazolam 1mg twice a day, apixaban 5mg twice a day, atorvastatin 20mg daily metoprolol 50mg twice a day, Seroquel 12.5mg at night, trazodone 50mg at night, and venlafaxine 75mg daily. She is reportedly allergic to vraylar and metoclopramide. She does have ongoing history of seizure disorder, type 1 diabetes mellitus, previous stroke, paroxysmal atrial fibrillation, and anxiety also hypothyroidism. He used to smoke about half a pack of cigarettes per day but not anymore. On initial examination in the emergency room she was found to have no neurological deficit. Her vital signs were normal though her blood pressure was somewhat low, CBC was normal BMP with blood sugar of 270, otherwise she was negative for the mast scan and also all the viral routine infections. At present she is being treated for the positional dizziness with history of Meniere's disease, but considering the persistence of the symptomatology of dizziness neuro consultation has been obtained. 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; MRI his demonstrated old focal right cerebellar, pontine and right periventricular white matter and right thalamic lacunar infarcts with scattered foci of white matter hyperdensities presenting small-vessel ischemic disease with mild generalized parenchymal loss Depression Essential hypertension Seizures According to documentation there were new onset April 2019 Type 1 diabetes mellitus With A1c last documented May 2023 11.1% Paroxysmal atrial fibrillation On chronic anticoagulation with Eliquis Anxiety Hypothyroidism Surgical History Surgical History History of tubal ligation Family History Family History Father Acute myocardial infarction Social History Social History (Updated 07/12/24 @ 01:13 by Vanita Barnett DO) Social History: She lives with her daughter and son-in-law. 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 She used to smoke about half pack of cigarettes per day but quit smoking when her daughter was hospitalized in February 2022. She denies significant alcohol use history. Healthcare power of tattoo and body artist: Bandar Townsend (son-in-law) or Danielle Townsend (daughter) Code status: DNR/DNI Smoking packs per day: 0.5 Smoking cigarettes per day: 10.0 Years smoked: 40 Smoking pack-years: 20.00 Smoking status: Former smoker Alcohol intake: never Substance use: never Substance use type: does not use Do You Feel Safe in your Home?: Yes Lack of Transportation: No Lack of Food: Sometimes True Current Housing: I Have Housing Concerned About Future Housing: No Difficulty Paying Gas/Electric Bills: No Difficulty Paying for Meds: No Currently Unemployed: No Education: Decline to Answer Difficulty w/ Childcare or Family Care: No Additional living arrangements comments: She lives with her daughter and son-in-law. Spiritual care concerns: No Meds Home Medications and Allergies Home Medications ?Medication ?Instructions ?Recorded ?Confirmed ?Type alprazolam 1 mg tablet 1 mg PO BID Anxiety 04/13/23 07/11/24 History apixaban 5 mg tablet (Eliquis) 5 mg PO BID 04/13/23 07/11/24 History atorvastatin 20 mg tablet 20 mg PO DAILY 04/13/23 07/11/24 History estradiol 1 mg tablet 1 mg PO BID 04/13/23 07/11/24 History metoprolol tartrate 50 mg tablet 50 mg PO BID 04/13/23 07/11/24 History quetiapine 25 mg tablet 12.5 mg PO HS 04/13/23 07/11/24 History trazodone 50 mg tablet 50 mg PO HS 04/13/23 07/11/24 History venlafaxine 75 mg capsule,extended 75 mg PO DAILY 04/13/23 07/11/24 History release 24 hr insulin lispro 100 unit/mL 3 unit (0.03 mL) subcut TIDWM #1 mL 04/17/23 07/11/24 Rx subcutaneous pen amlodipine 5 mg tablet (Norvasc) 10 mg (2 x 5 mg) PO QAM #30 tabs 05/12/23 07/11/24 Rx insulin glargine 100 unit/mL 11 unit (0.11 mL) subcut DAILY #3 05/12/23 07/11/24 Rx subcutaneous solution (Lantus mL U-100 Insulin) losartan 100 mg tablet 100 mg PO DAILY #30 tabs 05/12/23 07/11/24 Rx levothyroxine 50 mcg tablet 50 mcg PO DAILY@0630 #30 tabs 05/30/23 07/11/24 Rx (Synthroid) meclizine 25 mg tablet 25 mg PO QID PRN vertigo #30 tabs 03/29/24 07/11/24 Rx Allergies Allergy/AdvReac Type Severity Reaction Status Date / Time cariprazine (From Vraylar) AdvReac Unknown Verified 03/26/24 08:01 metoclopramide (From Reglan) AdvReac Anxiety Verified 03/26/24 08:01 Vital Signs Vital Signs - 24 hr 07/11/24 11:26 07/11/24 11:26 07/11/24 11:26 Temperature Pulse Rate 65 66 70 Respiratory Rate Blood Pressure 104/52 L 110/54 L 111/49 L Pulse Oximetry 07/11/24 11:34 07/11/24 13:14 07/11/24 14:36 Temperature Pulse Rate 61 66 67 Respiratory Rate 18 13 12 Blood Pressure 108/54 L 104/51 L 106/55 L Pulse Oximetry 99 97 97 07/11/24 16:39 07/11/24 20:11 07/11/24 21:09 Temperature 36.5 C 36.6 C Pulse Rate 66 86 82 Respiratory Rate 14 16 16 Blood Pressure 111/55 L 118/52 L 121/52 L Pulse Oximetry 95 100 96 07/11/24 21:09 07/11/24 21:09 07/12/24 00:00 Temperature 36.6 C 36.6 C Pulse Rate 85 87 76 Respiratory Rate 16 16 Blood Pressure 148/56 H 127/60 Pulse Oximetry 96 97 07/12/24 04:00 07/12/24 05:10 07/12/24 08:00 Temperature 36.9 C Pulse Rate 77 79 78 Respiratory Rate 14 Blood Pressure 108/50 L Pulse Oximetry 93 07/12/24 08:47 Temperature Pulse Rate 80 Respiratory Rate Blood Pressure Pulse Oximetry Results Labs 07/12/24 05:40 07/12/24 05:40 Labs: Short CBC 07/11/24 07/12/24 Range/Units 11:32 05:40 WBC 9.6 8.3 (4.5-10.0) K/mm3 Hgb 11.3 L 10.6 L (12.0-15.0) g/dL Hct 34.1 L 33.1 L (37.0-47.0) % Plt Count 270 262 (150-375) k/mm3 BMP 07/11/24 07/12/24 11:32 05:40 Sodium 134 L 134 L Potassium 4.6 4.3 Chloride 100 101 Carbon Dioxide 30 29 BUN 14 D 7 D Creatinine 0.68 L 0.55 L Glucose 270 H 221 H Calcium 8.4 8.3 L Cardiac Enzymes 07/11/24 Range/Units 11:32 Troponin I 0.012 (0.000-0.034) ng/mL Liver Function 07/11/24 Range/Units 11:32 Total Bilirubin 0.4 (0.2-1.3) mg/dL AST 17 (14-36) U/L ALT 10 (6-35) U/L Alkaline Phosphatase 48 (38-126) U/L Albumin 3.6 (3.5-5.1) g/dL Urine 07/11/24 Range/Units 11:54 Urine Color Yellow (Yellow) Urine Appearance Clear (Clear) Urine pH 5.5 (5.0-9.0) Ur Specific [place] 1.029 (1.001-1.035) Urine Protein Negative (Negative) mg/dL Urine Glucose (UA) 3+ H (Negative) mg/dL
[2024-07-12 11:53] LABS: Glucose Point of Care 265 mg/dl (65-105)
--- NOTE | 2024-07-12 13:20 | P.DS_ITS ---
DS: Admitting Diagnosis Discharge Date 07/12/2024 Admitting Diagnosis Vertigo/Dizziness DS: Discharge Diagnosis Discharge Diagnosis (1) Positional lightheadedness: Code(s): R42 - Dizziness and giddiness Status: Acute (2) Menieres disease: Qualifiers: Laterality: unspecified laterality Qualified Code(s): H81.09 - Meniere's disease, unspecified ear Code(s): H81.09 - Meniere's disease, unspecified ear Status: Acute (3) Acute dysfunction of eustachian tube: Qualifiers: Laterality: bilateral Qualified Code(s): H69.93 - Unspecified Eustachian tube disorder, bilateral Code(s): H69.90 - Unspecified Eustachian tube disorder, unspecified ear Status: Acute (4) URI (upper respiratory infection): Qualifiers: URI type: unspecified viral URI Qualified Code(s): J06.9 - Acute upper respiratory infection, unspecified Code(s): J06.9 - Acute upper respiratory infection, unspecified Status: Acute (5) Uncontrolled diabetes mellitus: Qualifiers: Diabetes mellitus type: type 1 Glycemic state: with hyperglycemia Qualified Code(s): E10.65 - Type 1 diabetes mellitus with hyperglycemia Status: Acute (6) Chronic anticoagulation: Code(s): Z79.01 - jail (current) use of anticoagulants Status: Acute (7) Essential hypertension: Code(s): I10 - Essential (primary) hypertension Status: Acute Plan Disposition: Discharged to home DS: Summary Hospital Course Reason for hospitalization: Vertigo/Dizziness Hospital Course: Patient was a 64-year-old female with a complicated past medical history including, but not limited to, uncontrolled insulin-dependent diabetes mellitus with peripheral neuropathy, autonomic dysfunction, CVA in the right frontal lobe, right jatin, right cerebellar hemisphere with residual of high weakness and essential hypertension who presented to the ER from home due to dizziness and head congestion. She endorses a history of Meniere's disease which she had not endorsed on prior admissions but does have tinnitus intermittently. Patient had reported she also has a nonproductive cough and congestion with sinus pressure and increased rhinorrhea. She does have a history of noncompliance with medication regimen. She reports that when she is doing her good her glucoses are in the 120s. He states that ever since she has been sick for the last week her glucoses have been higher. Her A1c is chronically elevated with the last value in our system being 11.1% last year. She denies any localized weakness but did have some left lower extremity weakness during prior admission consistent with her areas of prior stroke. CTA of the head and neck performed in the ER demonstrated 65% stenosis of the left in 35% stenosis of the right carotid. She received meclizine 25 mg and IV diazepam 5 mg x 1 as well as scopolamine patch. She reported that this in addition to IV fluids has seemed to help her symptoms but they have not resolved. Hospital Course: Given persistent symptoms she was admitted for observation and further monitoring. Orthostatic vital signs were negative. She received IV fluids and continued observation overnight with PRN medications and consult to neurology for any further recommendations. Patient was also seen by PT/OT with vestibular therapy. Patient had improvement to symptoms overall with medication and IV fluids back to her baseline denied any N/V and was tolerating oral intake. Neurology consult included 2. Insulin-dep diabetes mellitus raising the possibility of diabetic autonomic neuropathy 3. Ongoing anxiety with depression for which patient receiving multiple Medication. 4 Bilateral carotid disease right more than left but is still not surgical. No further workup at this time and also recommended have ongoing multiple medications which can be aggravating or complicating factors. She will benefit from the ongoing counseling about the multiple medications she is uses and they may be aggravating factors. Patient family did report some difficulty caring for her at home I recommended follow-up with their primary to assess and possible SNF placement. PT/OT reported minimal assistance and stable with assistive devices walker/cane. Patient did have soft BP which could be contributing to her dizziness so I did decrease her Losartan and recommended BP monitoring and follow up with PCP. Patient discharged to home with family. Status at Discharge Functional status at discharge: uses cane/walker Time Spent with Patient Time attestation: Total time spent providing and/or coordinating discharge services: Time spent: Greater than 30 minutes Exam Const: General: comfortable and no acute distress HENMT: Face/Nose/Sinus: Normal nares present Mouth: Yes moist mucous membranes Eyes: General: appearance normal, both eyes and all related structures Neck: Neck: supple and no JVD Resp: Effort & Inspection: normal respiratory effort Auscultation: clear to auscultation bilaterally Cardio: Rate: regular rate Rhythm: regular rhythm GI: GI Palp: Yes Soft to palpation Auscultation: normal bowel sounds Skin: General skin exam: normal color and no rashes or lesions noted Wounds: no wounds Neuro: General: gait normal Motor exam (neuro): 5/5 motor strength present throughout Sensory Exam: normal sensation Extrem: General: normal to inspection Psych: Mental Status: mental status grossly normal Affect: normal affect DS: Data Data Completed and Pending Labs on day of discharge: Labs from last 24 hours 07/12/24 07/12/24 07/12/24 11:46 07:48 05:40 WBC 8.3 RBC 3.41 L Hgb 10.6 L Hct 33.1 L MCV 97.1 MCH 31.1 MCHC 32.0 RDW 11.6 Plt Count 262 MPV 9.6 Sodium 134 L Potassium 4.3 Chloride 101 Carbon Dioxide 29 Anion Gap 4 BUN 7 D Creatinine 0.55 L Estim Creat Clear Calc 63 Estimated GFR > 60 Glucose 221 H POC Capillary Glucose 265 H 206 H Hemoglobin A1c 11.1 H Calcium 8.3 L Magnesium 1.7 07/11/24 07/11/24 07/11/24 23:33 20:45 16:38 WBC RBC Hgb Hct MCV MCH MCHC RDW Plt Count MPV Sodium Potassium Chloride Carbon Dioxide Anion Gap BUN Creatinine Estim Creat Clear Calc Estimated GFR Glucose POC Capillary Glucose 243 H 344 H 177 H Hemoglobin A1c Calcium Magnesium Discharge Plan Discharge Attending physician on discharge: Desirae Alberts Consulting providers: America Luna; Jam Young; Kenneth Gonzalez; Vanita Barnett; Rehan Pratt; Rogers Hahn; Henny Knutson Discharging Clinician: America Luna Anticipated Discharge Date/Time: 07/12/24 13:07 Patient Disposition: Home Activity: may shower and as tolerated Diet: diabetic Discharge Instructions: 1). Vertigo: * Continue with current home medication I have also prescribed meclizine QID and Valium prn for severe episodes * You may wear the scopolamine patch for 2 more days then remove this can cause dry mouth encourage to increase water intake How can you care for yourself at home? ? Keep track of any new symptoms or changes in your symptoms. ? Rest until you feel better. ? Be safe with medicines. Take your medicines exactly as prescribed. Call your doctor if you think you are having a problem with your medicine. ? Do not drive after taking a prescription pain medicine. ? Ensure to follow-up with primary care physician as indicated and provide updated medication list provided to you at discharge. When should you call for help? Call 911 anytime you think you may need emergency care. For example, call if: ? You passed out (lost consciousness). Call your doctor now or seek immediate medical care if: ? You have new symptoms like fever, difficulty breathing, Chest pain, vomiting, or rash. ? You have new or different pain. ? You are confused and are having trouble thinking clearly. ? Your symptoms are getting worse. Watch closely for changes in your health, and be sure to contact your doctor if: ? You do not get better as expected. Patient Instructions: Antibiotic Form, Apixaban (By mouth), Meniere Disease (DC), Vertigo (DC) Patient Language: [place] Stand Alone Forms: General Discharge Information Follow-up/Referrals: Luis,MD Memo [Primary Care Provider] - 2 Weeks Discharge Medications: New losartan 50 mg tablet 50 mg PO DAILY Qty: 30 0RF diazepam [Valium] 5 mg tablet 5 mg PO BID PRN (Reason: vertigo) Qty: 14 0RF Rx Instructions: Use when no relief with other medications. Use for severe Vertigo symptoms Continued atorvastatin 20 mg tablet 20 mg PO DAILY alprazolam 1 mg tablet 1 mg PO BID Rx Instructions: 0.5 mg Qam, 1 mg HS estradiol 1 mg tablet 1 mg PO BID metoprolol tartrate 50 mg tablet 50 mg PO BID Eliquis 5 mg tablet 5 mg PO BID quetiapine 25 mg tablet 12.5 mg PO HS venlafaxine 75 mg capsule,extended release 24hr 75 mg PO DAILY trazodone 50 mg tablet 50 mg PO HS insulin lispro 100 unit/mL insulin pen 3 unit SUBCUT TIDWM Qty: 1 0RF levothyroxine [Synthroid] 50 mcg Tablet 50 mcg PO DAILY@0630 Qty: 30 0RF insulin glargine [Lantus U-100 Insulin] 100 unit/mL Solution 11 unit subcut DAILY Qty: 3 0RF meclizine 25 mg Tablet 25 mg PO QID PRN (Reason: vertigo) Qty: 30 0RF Discontinued amlodipine [Norvasc] 5 mg Tablet 10 mg PO QAM Qty: 30 0RF losartan 100 mg Tablet 100 mg PO DAILY Qty: 30 0RF Date of admission: 07/11/24 18:45 Primary Care Provider: JaniceMemo Admitting Provider: Desirae Alberts Attending physician on admission: Desirae Alberts Condition: Stable Quality VTE Prophylaxis VTE prophylaxis: pharmacologic ordered (Continue home Eliquis) Hospitalist MIPS Heart Failure (Exclusion) Patient has history of Heart Transplant or Left Ventricular Assistive Device?: No IF YES, STOP HERE Heart Failure (Qualifier) Patient has current or prior documentation of LVEF less than or equal to 40%, or mod/servere depressed LVSF?: No IF NO, STOP HERE
--- NOTE | 2024-07-12 13:54 | WPDNEURCNPN ---
Assessment and Plan Assessment and plan (1) Dizziness: Code(s): R42 - Dizziness and giddiness Status: Acute (2) Diabetic peripheral neuropathy: Code(s): E11.42 - Type 2 diabetes mellitus with diabetic polyneuropathy Status: Acute (3) Carotid disease, bilateral: Code(s): I77.9 - Disorder of arteries and arterioles, unspecified Status: Acute Plan 1. dizziness mainly with the movements of the head and neck and documented abnormal MRI in the past involving the old infarct in the right cerebellum jatin and right ventricular white matter along with the thalamic lacunar infarct 2. Insulin-dep diabetes mellitus raising the possibility of diabetic autonomic neuropathy 3. Ongoing anxiety with depression for which patient receiving multiple Medication. 4 Bilateral carotid disease right more than left but is still not surgical. Patient is receiving atorvastatin 20mg daily along with the apixaban 5mg twice and also treatment for the insulin dependent diabetes mellitus but she does have ongoing multiple medications which can be aggravating or complicating factors. She will benefit from the ongoing counseling about the multiple medications he uses and aggravating factors. I did thoroughly discussed with her, she does not need any surgical intervention at this stage and her MRI is unchanged. If any further question arises please do not hesitate to contact me. Consult date: 07/12/24 HPI: Patrica Navarrete is a 64 year old female Admitted to the hospital through the emergency room for the complaints of sinus congestion with rhinorrhea and sore throat along with a nonproductive cough for 1 week duration followed by complaints of dizziness on the day of visit to the ER free as per the information available dizziness was better as long as she was still but worse with movements of her head . In the past she has the history of vertigo and also she made the statement is almost the same as she has been eating and drinking fairly well. She has been taking alprazolam 1mg twice a day, apixaban 5mg twice a day, atorvastatin 20mg daily, metoprolol 50mg twice a day and Seroquel 12.5mg at night in addition to trazodone 50mg at night and venlafaxine 75mg daily. She is reportedly allergic to vraylar and metoclopramide. she used to smoke about half a pack of cigarettes per day but not anymore. On initial examination in the emergency room she was found to have no neurological deficit. Her vital signs were normal though her blood pressure was somewhat low. Subsequently CBC was normal BMP with blood sugar of 270 otherwise negative and the and a comprehensive metabolic panel was normal her routine viral studies was in for routine infections were negative at present she being treated for the positional dizziness with history of Meniere's disease in the past but considering the persistent symptomatology of dizziness neuro consultation has been obtained. 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; MRI his demonstrated old focal right cerebellar, pontine and right periventricular white matter and right thalamic lacunar infarcts with scattered foci of white matter hyperdensities presenting small-vessel ischemic disease with mild generalized parenchymal loss Depression Essential hypertension Seizures According to documentation there were new onset April 2019 Type 1 diabetes mellitus With A1c last documented May 2023 11.1% Paroxysmal atrial fibrillation On chronic anticoagulation with Eliquis Anxiety Hypothyroidism Surgical History Surgical History History of tubal ligation Family History Family History Father Acute myocardial infarction Social History Social History Social History: She lives with her daughter and son-in-law. 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 She used to smoke about half pack of cigarettes per day but quit smoking when her daughter was hospitalized in February 2022. She denies significant alcohol use history. Healthcare power of securities attorney: Bandar Townsend (son-in-law) or Danielle Townsend (daughter) Code status: DNR/DNI Smoking packs per day: 0.5 Smoking cigarettes per day: 10.0 Years smoked: 40 Smoking pack-years: 20.00 Smoking status: Former smoker Alcohol intake: never Substance use: never Substance use type: does not use Do You Feel Safe in your Home?: Yes Lack of Transportation: No Lack of Food: Sometimes True Current Housing: I Have Housing Concerned About Future Housing: No Difficulty Paying Gas/Electric Bills: No Difficulty Paying for Meds: No Currently Unemployed: No Education: Decline to Answer Difficulty w/ Childcare or Family Care: No Additional living arrangements comments: She lives with her daughter and son-in-law. Spiritual care concerns: No Meds Home Medications and Allergies Home Medications ?Medication ?Instructions ?Recorded ?Confirmed ?Type alprazolam 1 mg tablet 1 mg PO BID Anxiety 04/13/23 07/11/24 History apixaban 5 mg tablet (Eliquis) 5 mg PO BID 04/13/23 07/11/24 History atorvastatin 20 mg tablet 20 mg PO DAILY 04/13/23 07/11/24 History estradiol 1 mg tablet 1 mg PO BID 04/13/23 07/11/24 History metoprolol tartrate 50 mg tablet 50 mg PO BID 04/13/23 07/11/24 History quetiapine 25 mg tablet 12.5 mg PO HS 04/13/23 07/11/24 History trazodone 50 mg tablet 50 mg PO HS 04/13/23 07/11/24 History venlafaxine 75 mg capsule,extended 75 mg PO DAILY 04/13/23 07/11/24 History release 24 hr insulin lispro 100 unit/mL 3 unit (0.03 mL) subcut TIDWM #1 mL 04/17/23 07/11/24 Rx subcutaneous pen amlodipine 5 mg tablet (Norvasc) 10 mg (2 x 5 mg) PO QAM #30 tabs 05/12/23 07/11/24 Rx insulin glargine 100 unit/mL 11 unit (0.11 mL) subcut DAILY #3 05/12/23 07/11/24 Rx subcutaneous solution (Lantus mL U-100 Insulin) losartan 100 mg tablet 100 mg PO DAILY #30 tabs 05/12/23 07/11/24 Rx levothyroxine 50 mcg tablet 50 mcg PO DAILY@0630 #30 tabs 05/30/23 07/11/24 Rx (Synthroid) diazepam 5 mg tablet (Valium) 5 mg PO BID PRN vertigo #14 tabs 07/12/24 Rx losartan 50 mg tablet 50 mg PO DAILY #30 tabs 07/12/24 Rx meclizine 25 mg tablet 25 mg PO QID PRN vertigo #30 tabs 07/12/24 Rx Allergies Allergy/AdvReac Type Severity Reaction Status Date / Time cariprazine (From Vraylar) AdvReac Unknown Verified 03/26/24 08:01 metoclopramide (From Reglan) AdvReac Anxiety Verified 03/26/24 08:01 Vital Signs Vital Signs - 24 hr 07/11/24 14:36 07/11/24 16:39 07/11/24 20:11 Temperature 36.5 C Pulse Rate 67 66 86 Respiratory Rate 12 14 16 Blood Pressure 106/55 L 111/55 L 118/52 L Pulse Oximetry 97 95 100 Oxygen Delivery 07/11/24 21:09 07/11/24 21:09 07/11/24 21:09 Temperature 36.6 C 36.6 C 36.6 C Pulse Rate 82 85 87 Respiratory Rate 16 16 16 Blood Pressure 121/52 L 148/56 H 127/60 Pulse Oximetry 96 96 97 Oxygen Delivery 07/12/24 00:00 07/12/24 04:00 07/12/24 05:10 Temperature 36.9 C Pulse Rate 76 77 79 Respiratory Rate 14 Blood Pressure 108/50 L Pulse Oximetry 93 Oxygen Delivery 07/12/24 08:00 07/12/24 08:47 07/12/24 11:25 Temperature Pulse Rate 78 80 Respiratory Rate Blood Pressure Pulse Oximetry Oxygen Delivery Room Air Exam Narrative: Exam today revealed her to be awake alert cooperative in no obvious acute distress. Head normocephalic with no cranial bruit. Extraocular movements normal with no nystagmus. Neck supple with no cervical bruit no thyromegaly no lymphadenopathy. Heart regular with no murmur. Lungs clear to auscultation with no rhonchi or crepitations. Abdomen is soft with no organomegaly. Neurologically she is awake alert oriented x3, his speech not dysphasic not dysarthric not dysphonic, pupils round regular feels the vision full extraocular movements full facial sensation intact face symmetrical and tongue midline motor examination revealed her to have no drift of 1 or other side with normal tone in upper and lower extremities decreased sensation in the lower extremities distally with deep tendon reflexes being symmetrical in the upper extremities and at the knees ankle jerks are plus-minus plantar responses are downgoing. Results Labs 07/12/24 05:40 07/12/24 05:40 Labs: Short CBC 07/12/24 Range/Units 05:40 WBC 8.3 (4.5-10.0) K/mm3 Hgb 10.6 L (12.0-15.0) g/dL Hct 33.1 L (37.0-47.0) % Plt Count 262 (150-375) k/mm3 [facility] 07/12/24 05:40 Sodium 134 L Potassium 4.3 Chloride 101 Carbon Dioxide 29 BUN 7 D Creatinine 0.55 L Glucose 221 H Calcium 8.3 L
[2024-07-12 16:51] LABS: Glucose Point of Care 163 mg/dl (65-105)
== END 2024-07-12 18:10 | disposition home or self-care (01) ==
LOC: ANHED 18:05 → ANH3MEDSUR 19:50
PROVIDERS: Emergency Medicine; Internal Medicine; Admitting Provider Family Medicine; Emergency Provider Physician Assistant; PCP Internal Medicine; Visit Provider Family Medicine
DX: R42 Dizziness and giddiness (principal); I10 Essential (primary) hypertension; H81.09 Meniere's disease, unspecified ear; H69.93 Unspecified Eustachian tube disorder, bilateral; J06.9 Acute upper respiratory infection, unspecified; E10.65 Type 1 diabetes mellitus with hyperglycemia; E10.42 Type 1 diabetes mellitus with diabetic polyneuropathy; I77.9 Disorder of arteries and arterioles, unspecified; F41.8 Other specified anxiety disorders; E03.9 Hypothyroidism, unspecified; F45.8 Other somatoform disorders; I48.0 Paroxysmal atrial fibrillation; I69.354 Hemiplegia and hemiparesis following cerebral infarction affecting left non-dominant side; Z20.822 Contact with and (suspected) exposure to COVID-19; Z66 Do not resuscitate; Z79.01 Long term (current) use of anticoagulants; Z79.4 Long term (current) use of insulin; Z79.899 Other long term (current) drug therapy; Z87.891 Personal history of nicotine dependence; Z91.148 Patient's other noncompliance with medication regimen for other reason; Z98.51 Tubal ligation status
CPT/HCPCS: 36415; 70496; 70498; 71046; 80048; 80053; 81003; 82948; 83036; 83735; 84484; 85025; 85027; 85610; 87637; 87651; 93005; 96361; 96374; 97161; 97165; 99285; A9270; G0378; G0379; J1815; J3360; J7030; Q9967

== ENCOUNTER 2024-07-22 18:03 | Emergency (ER) | payer OTHER, SELFPAY ==
[2024-07-22 18:04] VITALS: BP 107/51; PULSE 75; RESP 16; TEMP 36.4; O2SAT 98
--- OUTSIDE RECORDS SUMMARY | 2024-07-22 18:05 | XMS_ITS | Continuity of Care Document ---
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 [address], [address], [place], [place], [id number], . [phone] [employer], [address], [place], [place], [address] , tel: [phone] Conversion Department SCREEN MAL NEOP-CERVIXROUTIN E VAT OVERHAULER EXAMINATIONPANIC DIS W/O AGORPHOBIAMALAISE AND FATIGUE NEC 7200 7 Conversion Doctor. [facility] [place], [address], [place]. [facility], [address], [place], [place], [address] , tel: [phone] Conversion Department LONG-TERM USE MEDS NEC 7 Conversion Doctor. [place], [address], . [employer], [address], [place], [place], [address] , [place] tel: [phone] Conversion Department SCREEN-CARDIOVASC NEC Conversion Doctor. [address] [place], [address], . [employer], [address], [place], [place], [address] , tel: [phone] Conversion Department No Information Jemima Zimmerman. [address], [address], [place], [place], [address], [place]. [phone] [employer], [address], [place], [place], [address] , tel: [phone] Conversion Department ASYMPT POSTMENO STATUSESOPHAGEAL REFLUX Conversion Doctor. [address] [facility], [place], [address], . Family History Family Member Type Diagnosis Age At Onset No Information Payers Payer name Insurance type Covered constitution party ID Authoriza tion(s) No Information Social History [...]
--- NOTE | 2024-07-22 18:12 | ED_ITS ---
HPI - Nausea/Vomiting/Diarrhea General Chief complaint: Nausea/Vomiting/Diarrhea <Marissa Suresh APRN - Last Filed: 07/22/24 18:16> Stated complaint: n/d, hematuria x 3 days <Marissa Suresh APRN - Last Filed: 07/22/24 18:16> Time Seen by Provider: 07/22/24 18:10 <Marissa Suresh APRN - Last Filed: 07/22/24 18:16> Focused HPI: Patient is a 64-year-old female who presents to the ER with a 3 day history of nausea, hematuria, and diarrhea. She reports she is a type 1 diabetic and her blood sugars have been running high recently. EMS reports in the ambulance her blood sugar was 360. Patient reports she took her insulin this morning. She endorses a history of multiple strokes. Patient denies any abdominal pain, chest pain, shortness of breath or urinary symptoms. GENERAL: Well-appearing, well-nourished, and in no acute distress. HEAD: Normocephalic, atraumatic. CHEST: Clear to auscultation. ?No respiratory distress. HEART: Regular rate and rhythm.? NEURO: ?Alert and oriented x3. Patient screened in triage and initial orders placed.? ?Additional care and disposition to be based upon?diagnostic testing and treatment. <Marissa Suresh APRN - Last Filed: 07/22/24 18:16> History of Present Illness HPI Narrative: Agree with the HPI above. Patient states she has not adjusted any of her insulin medications recently and has not missed any dosages. Is aware that her sugars are uncontrolled and has to follow-up with her doctor about this. < Alfredo Koenig MD - Last Filed: 07/23/24 06:57> Related Data Home medications: Home Medications ?Medication ?Instructions ?Recorded ?Confirmed ?Last Taken ?Type alprazolam 1 mg tablet 1 mg PO BID Anxiety 04/13/23 07/11/24 07/11/24 09:00 History apixaban 5 mg tablet (Eliquis) 5 mg PO BID 04/13/23 07/11/24 07/10/24 21:00 History atorvastatin 20 mg tablet 20 mg PO DAILY 04/13/23 07/11/24 07/11/24 09:00 History estradiol 1 mg tablet 1 mg PO BID 04/13/23 07/11/24 07/10/24 21:00 History metoprolol tartrate 50 mg tablet 50 mg PO BID 04/13/23 07/11/24 07/11/24 09:00 History quetiapine 25 mg tablet 12.5 mg PO HS 04/13/23 07/11/24 07/10/24 21:00 History trazodone 50 mg tablet 50 mg PO HS 04/13/23 07/11/24 07/10/24 21:00 History venlafaxine 75 mg capsule,extended 75 mg PO DAILY 04/13/23 07/11/24 07/11/24 09:00 History release 24 hr <Marissa Suresh APRN - Last Filed: 07/22/24 18:16> Allergies/Adverse reactions: Allergies Allergy/AdvReac Type Severity Reaction Status Date / Time cariprazine (From Vraylar) AdvReac Unknown Verified 03/26/24 08:01 metoclopramide (From Reglan) AdvReac Anxiety Verified 03/26/24 08:01 <Marissa Suresh APRN - Last Filed: 07/22/24 18:16> Review of Systems 2 Review of Systems: Agree with the HPI above <Alfredo Koenig MD - Last Filed: 07/23/24 06:57> [facility] Past Medical History Medical History: Medical History Menieres disease Anemia Oddly enough the patient had completely B12, folic acid, ferritin, TIBC panel and TSH April 2023 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; MRI his demonstrated old focal right cerebellar, pontine and right periventricular white matter and right thalamic lacunar infarcts with scattered foci of white matter hyperdensities presenting small-vessel ischemic disease with mild generalized parenchymal loss Depression Essential hypertension Seizures According to documentation there were new onset April 2019 Type 1 diabetes mellitus With A1c last documented May 2023 11.1% Paroxysmal atrial fibrillation On chronic anticoagulation with Eliquis Anxiety Hypothyroidism <Marissa Suresh APRN - Last Filed: 07/22/24 18:16> Surgical History Surgical History: Surgical History History of tubal ligation <Marissa Suresh COURTROOM CLERK - Last Filed: 07/22/24 18:16> Family History Family History: Family History Father Acute myocardial infarction <Marissa Suresh, COURTROOM CLERK - Last Filed: 07/22/24 18:16> Social History Social History: Social History Social History: She lives with her daughter and son-in-law. 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 She used to smoke about half pack of cigarettes per day but quit smoking when her daughter was hospitalized in February 2022. She denies significant alcohol use history. Healthcare power of assistant city attorney: Bandar Townsend (son-in-law) or Danielle Townsend (daughter) Code status: DNR/DNI Smoking packs per day: 0.5 Smoking cigarettes per day: 10.0 Years smoked: 40 Smoking pack-years: 20.00 Smoking status: Former smoker Alcohol intake: never Substance use: never Substance use type: does not use Do You Feel Safe in your Home?: Yes Lack of Transportation: No Lack of Food: Sometimes True Current Housing: I Have Housing Concerned About Future Housing: No Difficulty Paying Gas/Electric Bills: No Difficulty Paying for Meds: No Currently Unemployed: No Education: Decline to Answer Difficulty w/ Childcare or Family Care: No Additional living arrangements comments: She lives with her daughter and son-in-law. Spiritual care concerns: No <Marissa Suresh, COURTROOM CLERK - Last Filed: 07/22/24 18:16> Exam 2 Narrative: GENERAL: [Well-appearing, well-nourished, and in no acute distress.] HEAD: [Normocephalic, atraumatic.] EYES: [PERRLA and EOMI.] ENT: Nares clear, no rhinorrhea or epistaxis. Mucous membranes dry. NECK: Supple. CHEST: [Clear to auscultation. No respiratory distress.] HEART: [Regular rate and rhythm]. No murmur heard. [Normal peripheral pulses.] ABDOMEN: [Soft, nondistended], [nontender], [No rigidity or guarding] EXTREMITIES: Normal range of motion. [No edema.] SKIN: Warm, dry, no rash. NEURO: [No focal deficits]. Alert and oriented [x3.] PSYCH: [Normal mood and affect.] <Alfredo Koenig MD - Last Filed: 07/23/24 06:57> Course Vital Signs Vital signs: Vital Signs Temperature 36.4 C L 07/22/24 18:04 Pulse Rate 75 07/22/24 18:04 Respiratory Rate 16 07/22/24 18:04 Blood Pressure 107/51 L 07/22/24 18:04 Pulse Oximetry 98 07/22/24 18:04 Temperature 36.4 C 07/22/24 21:55 Pulse Rate 77 07/23/24 00:14 Respiratory Rate 16 07/23/24 00:14 Blood Pressure 133/55 L 07/23/24 00:14 Pulse Oximetry 98 07/23/24 00:14 <Marissa Suresh APRN - Last Filed: 07/22/24 18:16> Vital Signs Temperature 36.4 C L 07/22/24 18:04 Pulse Rate 75 07/22/24 18:04 Respiratory Rate 16 07/22/24 18:04 Blood Pressure 107/51 L 07/22/24 18:04 Pulse Oximetry 98 07/22/24 18:04 Temperature 36.4 C 07/22/24 21:55 Pulse Rate 77 07/23/24 00:14 Respiratory Rate 16 07/23/24 00:14 Blood Pressure 133/55 L 07/23/24 00:14 Pulse Oximetry 98 07/23/24 00:14 <Alfredo Koenig MD - Last Filed: 07/23/24 06:57> MDM - Nausea/Vomiting/Diarrhea MDM Narrative Medical decision making narrative: 64-year-old female with history of insulin-dependent type 1 diabetes presenting to the emergency department with high blood sugars and stating that she has noted some pink tinge to her urine and concerned about hematuria. She is not any acute distress, has had elevated blood sugar readings in the 300 region per EMS and has a history of uncontrolled diabetes. She is afebrile, not any acute distress but slightly dehydrated appearance. Patient could have a component of dehydration, low suspicion diabetic ketoacidosis, possible diabetic ketosis, electrolyte derangements, urinary tract infection, kidney stone. Patient has no abdominal pain and soft nontender abdomen. Laboratory studies were obtained including CBC, CMP, beta hydroxybutyrate, VBG, urinalysis. She was given 2 L of fluid for hydration. Patient's laboratory studies are reassuring but do show some evidence of hemoconcentration on CBC. No significant leukocytosis or signs of infection. No anemia. VBG shows normal pH, normal pCO2. Normal bicarb. Electrolytes show some dehydration but normal anion gap, no acidosis. Elevated BUN but normal creatinine indicative of prerenal dehydration. Glucose of 364. Beta hydroxybutyrate is mildly elevated but no signs of ketoacidosis which is reassuring. Her urinalysis shows no hematuria or blood and does show 3+ glucose and 1+ ketones consistent with her clinical exam and findings. Patient was re- evaluated and doing better after fluids. We discussed her laboratory assessments and urinalysis and plan of care. She was given weight based insulin and fluids and will be discharged with return precautions and follow-up instructions with primary care provider. Patient is comfortable this plan and will will contact her doctor for management of her diabetic medications. < Alfredo Koenig MD - Last Filed: 07/23/24 06:57> Medical Records Attestation: I reviewed the patient's medical records. <Alfredo Koenig MD - Last Filed: 07/23/24 06:57> Lab Data Attestation: I reviewed the patient's lab results. <Alfredo Koenig MD - Last Filed: 07/23/24 06:57> Result diagrams: 07/22/24 20:05 07/22/24 20:05 <Marissa Suresh APRN - Last Filed: 07/22/24 18:16> Labs: Lab Results 07/22/24 07/22/24 07/22/24 Range/Units 20:05 22:25 22:33 WBC 10.1 H (4.5-10.0) K/mm3 RBC 4.02 L (4.2-5.4) M/mm3 Hgb 12.7 (12.0-15.0) g/dL Hct 38.4 (37.0-47.0) % MCV 95.5 (80-100) fl MCH 31.6 (26-34) pg MCHC 33.1 (32-36) g/dl RDW 11.4 L (11.5-14.5) % Plt Count 425 H D (150-375) k/mm3 MPV 8.8 (7.4-10.4) fl Immature Gran % (Auto) 0.3 (0-0.5) % Neut % (Auto) 63.7 (45.5-73.1) % Lymph % (Auto) 28.5 (18.3-44.2) % [place] % (Auto) 5.8 (2.6-8.5) % Eos % (Auto) 0.9 (0-4.4) % Baso % (Auto) 0.8 (0.2-1.2) % Lymph # (Auto) 2.89 (0.9-3.2) K/mm3 [place] # (Auto) 0.6 (0.1-0.6) K/mm3 Eos # (Auto) 0.1 (0-0.3) K/mm3 Baso # (Auto) 0.1 (0.0-0.1) K/mm3 Abs Immat Gran (auto) 0.03 (0.00-0.031) K/mm3 Absolute Neuts (auto) 6.5 (1.3-6.7) K/mm3 Absolute Nucleated RBC 0.000 (0.0-0.012) K/mm3 Nucleated RBC % 0.0 (0.0-0.2) % Sodium 128 L (137-145) mmol/L Potassium 5.1 H (3.4-5.0) mmol/L Chloride 95 L (98-107) mmol/L Carbon Dioxide 26 (22-30) mmol/L Anion Gap 7 (4-12) mmol/L BUN 18 H D (7-17) mg/dL Creatinine 0.77 (0.7-1.0) mg/dL Estim Creat Clear Calc 58 ml/min Estimated GFR > 60 (59 - ) Glucose 364 H (65-110) mg/dL POC Capillary Glucose 353 H (65-105) mg/dl Calcium 9.4 (8.4-10.2) mg/dL Total Bilirubin 0.6 (0.2-1.3) mg/dL AST 32 (14-36) U/L ALT 14 (6-35) U/L Alkaline Phosphatase 47 (38-126) U/L Total Protein 6.9 (6.3-8.2) g/dL Albumin 4.2 (3.5-5.1) g/dL Beta-Hydroxybutyrate/Acetoacetate 0.88 H (0.02-0.27) mmol/L Urine Color Yellow (Yellow) Urine Appearance Clear (Clear) Urine pH 5.5 (5.0-9.0) Ur Specific [place] 1.027 (1.001-1.035) Urine Protein Negative (Negative) mg/dL Urine Glucose (UA) 3+ H (Negative) mg/dL Urine Ketones 1+ H (Negative) mg/dL Ur Blood (Man) Negative (Negative) Urine Nitrate Negative (Negative) Urine Bilirubin Negative (Negative) Urine Urobilinogen 0.2 (<2.0) mg/dL Leukocyte Esterase Rfl Negative (Negative) PAPA/UL 07/22/24 07/23/24 Range/Units 23:58 00:54 WBC (4.5-10.0) K/mm3 RBC (4.2-5.4) M/mm3 Hgb (12.0-15.0) g/dL Hct (37.0-47.0) % MCV (80-100) fl MCH (26-34) pg MCHC (32-36) g/dl RDW (11.5-14.5) % Plt Count (150-375) k/mm3 MPV (7.4-10.4) fl Immature Gran % (Auto) (0-0.5) % Neut % (Auto) (45.5-73.1) % Lymph % (Auto) (18.3-44.2) % [place] % (Auto) (2.6-8.5) % Eos % (Auto) (0-4.4) % Baso % (Auto) (0.2-1.2) % Lymph # (Auto) (0.9-3.2) K/mm3 [place] # (Auto) (0.1-0.6) K/mm3 Eos # (Auto) (0-0.3) K/mm3 Baso # (Auto) (0.0-0.1) K/mm3 Abs Immat Gran (auto) (0.00-0.031) K/mm3 Absolute Neuts (auto) (1.3-6.7) K/mm3 Absolute Nucleated RBC (0.0-0.012) K/mm3 Nucleated RBC % (0.0-0.2) % Sodium (137-145) mmol/L Potassium (3.4-5.0) mmol/L Chloride (98-107) mmol/L Carbon Dioxide (22-30) mmol/L Anion Gap (4-12) mmol/L BUN (7-17) mg/dL Creatinine (0.7-1.0) mg/dL Estim Creat Clear Calc ml/min Estimated GFR (59 - ) Glucose (65-110) mg/dL POC Capillary Glucose 272 H 263 H (65-105) mg/dl Calcium (8.4-10.2) mg/dL Total Bilirubin (0.2-1.3) mg/dL AST (14-36) U/L ALT (6-35) U/L Alkaline Phosphatase (38-126) U/L Total Protein (6.3-8.2) g/dL Albumin (3.5-5.1) g/dL Beta-Hydroxybutyrate/Acetoacetate (0.02-0.27) mmol/L Urine Color (Yellow) Urine Appearance (Clear) Urine pH (5.0-9.0) Ur Specific [place] (1.001-1.035) Urine Protein (Negative) mg/dL Urine Glucose (UA) (Negative) mg/dL Urine Ketones (Negative) mg/dL Ur Blood (Man) (Negative) Urine Nitrate (Negative) Urine Bilirubin (Negative) Urine Urobilinogen (<2.0) mg/dL Leukocyte Esterase Rfl (Negative) PAPA/UL <Marissa Suresh, COURTROOM CLERK - Last Filed: 07/22/24 18:16> Lab Results 07/22/24 07/22/24 07/22/24 Range/Units 20:05 22:25 22:33 WBC 10.1 H (4.5-10.0) K/mm3 RBC 4.02 L (4.2-5.4) M/mm3 Hgb 12.7 (12.0-15.0) g/dL Hct 38.4 (37.0-47.0) % MCV 95.5 (80-100) fl MCH 31.6 (26-34) pg MCHC 33.1 (32-36) g/dl RDW 11.4 L (11.5-14.5) % Plt Count 425 H D (150-375) k/mm3 MPV 8.8 (7.4-10.4) fl Immature Gran % (Auto) 0.3 (0-0.5) % Neut % (Auto) 63.7 (45.5-73.1) % Lymph % (Auto) 28.5 (18.3-44.2) % [place] % (Auto) 5.8 (2.6-8.5) % Eos % (Auto) 0.9 (0-4.4) % Baso % (Auto) 0.8 (0.2-1.2) % Lymph # (Auto) 2.89 (0.9-3.2) K/mm3 [place] # (Auto) 0.6 (0.1-0.6) K/mm3 Eos # (Auto) 0.1 (0-0.3) K/mm3 Baso # (Auto) 0.1 (0.0-0.1) K/mm3 Abs Immat Gran (auto) 0.03 (0.00-0.031) K/mm3 Absolute Neuts (auto) 6.5 (1.3-6.7) K/mm3 Absolute Nucleated RBC 0.000 (0.0-0.012) K/mm3 Nucleated RBC % 0.0 (0.0-0.2) % Sodium 128 L (137-145) mmol/L Potassium 5.1 H (3.4-5.0) mmol/L Chloride 95 L (98-107) mmol/L Carbon Dioxide 26 (22-30) mmol/L Anion Gap 7 (4-12) mmol/L BUN 18 H D (7-17) mg/dL Creatinine 0.77 (0.7-1.0) mg/dL Estim Creat Clear Calc 58 ml/min Estimated GFR > 60 (59 - ) Glucose 364 H (65-110) mg/dL POC Capillary Glucose 353 H (65-105) mg/dl Calcium 9.4 (8.4-10.2) mg/dL Total Bilirubin 0.6 (0.2-1.3) mg/dL AST 32 (14-36) U/L ALT 14 (6-35) U/L Alkaline Phosphatase 47 (38-126) U/L Total Protein 6.9 (6.3-8.2) g/dL Albumin 4.2 (3.5-5.1) g/dL Beta-Hydroxybutyrate/Acetoacetate 0.88 H (0.02-0.27) mmol/L Urine Color Yellow (Yellow) Urine Appearance Clear (Clear) Urine pH 5.5 (5.0-9.0) Ur Specific [place] 1.027 (1.001-1.035) Urine Protein Negative (Negative) mg/dL Urine Glucose (UA) 3+ H (Negative) mg/dL Urine Ketones 1+ H (Negative) mg/dL Ur Blood (Man) Negative (Negative) Urine Nitrate Negative (Negative) Urine Bilirubin Negative (Negative) Urine Urobilinogen 0.2 (<2.0) mg/dL Leukocyte Esterase Rfl Negative (Negative) PAPA/UL 07/22/24 07/23/24 Range/Units 23:58 00:54 WBC (4.5-10.0) K/mm3 RBC (4.2-5.4) M/mm3 Hgb (12.0-15.0) g/dL Hct (37.0-47.0) % MCV (80-100) fl MCH (26-34) pg MCHC (32-36) g/dl RDW (11.5-14.5) % Plt Count (150-375) k/mm3 MPV (7.4-10.4) fl Immature Gran % (Auto) (0-0.5) % Neut % (Auto) (45.5-73.1) % Lymph % (Auto) (18.3-44.2) % [place] % (Auto) (2.6-8.5) % Eos % (Auto) (0-4.4) % Baso % (Auto) (0.2-1.2) % Lymph # (Auto) (0.9-3.2) K/mm3 [place] # (Auto) (0.1-0.6) K/mm3 Eos # (Auto) (0-0.3) K/mm3 Baso # (Auto) (0.0-0.1) K/mm3 Abs Immat Gran (auto) (0.00-0.031) K/mm3 Absolute Neuts (auto) (1.3-6.7) K/mm3 Absolute Nucleated RBC (0.0-0.012) K/mm3 Nucleated RBC % (0.0-0.2) % Sodium (137-145) mmol/L Potassium (3.4-5.0) mmol/L Chloride (98-107) mmol/L Carbon Dioxide (22-30) mmol/L Anion Gap (4-12) mmol/L BUN (7-17) mg/dL Creatinine (0.7-1.0) mg/dL Estim Creat Clear Calc ml/min Estimated GFR (59 - ) Glucose (65-110) mg/dL POC Capillary Glucose 272 H 263 H (65-105) mg/dl Calcium (8.4-10.2) mg/dL Total Bilirubin (0.2-1.3) mg/dL AST (14-36) U/L ALT (6-35) U/L Alkaline Phosphatase (38-126) U/L Total Protein (6.3-8.2) g/dL Albumin (3.5-5.1) g/dL Beta-Hydroxybutyrate/Acetoacetate (0.02-0.27) mmol/L Urine Color (Yellow) Urine Appearance (Clear) Urine pH (5.0-9.0) Ur Specific [place] (1.001-1.035) Urine Protein (Negative) mg/dL Urine Glucose (UA) (Negative) mg/dL Urine Ketones (Negative) mg/dL Ur Blood (Man) (Negative) Urine Nitrate (Negative) Urine Bilirubin (Negative) Urine Urobilinogen (<2.0) mg/dL Leukocyte Esterase Rfl (Negative) PAPA/UL <Alfredo Koenig MD - Last Filed: 07/23/24 06:57> ABG Data ABG results: 07/22/24 20:05 VBG pH 7.387 VBG pCO2 45.6 VBG pO2 46.6 H VBG HCO3 26.8 O2 Delivery Device Not Reportable O2 Liters/Min Not Reportable FiO2 21 <Marissa Suresh APRN - Last Filed: 07/22/24 18:16> 07/22/24 20:05 VBG pH 7.387 VBG pCO2 45.6 VBG pO2 46.6 H VBG HCO3 26.8 O2 Delivery Device Not Reportable O2 Liters/Min Not Reportable FiO2 21 <Alfredo Koenig MD - Last Filed: 07/23/24 06:57> Attestation: I personally reviewed and interpreted this ABG as follows: <Alfredo Koenig MD - Last Filed: 07/23/24 06:57> Interpretation: Normal pH, normal bicarb and CO2 <Alfredo Koenig MD - Last Filed: 07/23/24 06:57> Discharge Plan Discharge Clinical Impression: Uncontrolled type 1 diabetes mellitus, Acute dehydration <Marissa Suresh APRN - Last Filed: 07/22/24 18:16> Patient Disposition: Home <Marissa Suresh APRN - Last Filed: 07/22/24 18:16> Condition: Stable <Marissa Suresh APRN - Last Filed: 07/22/24 18:16> Instructions: Antibiotic Form, Dehydration (ED), Acute Nausea and Vomiting (ED), Diabetes Type 1: Management (ED) <Marissa Suresh APRN - Last Filed: 07/22/24 18:16> Additional Instructions: Your laboratory studies showed dehydration and uncontrolled sugars which are likely causing her symptoms. No signs of any blood in the urine or any urinary infection. No signs of any diabetic emergencies. We gave you some insulin fluids here to help replenish you but you need to talk your regular doctor about better management of your diabetes. Return with any recurrent concerns, dehydration that is worsening, not able tolerate oral intake, abdominal pain, difficulty in breathing or any other concerns. Follow-up with your doctors otherwise. <Marissa Suresh APRN - Last Filed: 07/22/24 18:16> Patient Language: Cymro <Marissa Suresh APRN - Last Filed: 07/22/24 18:16> Prescriptions: No Action atorvastatin 20 mg tablet 20 mg PO DAILY alprazolam 1 mg tablet 1 mg PO BID Rx Instructions: 0.5 mg Qam, 1 mg HS estradiol 1 mg tablet 1 mg PO BID metoprolol tartrate 50 mg tablet 50 mg PO BID Eliquis 5 mg tablet 5 mg PO BID quetiapine 25 mg tablet 12.5 mg PO HS venlafaxine 75 mg capsule,extended release 24hr 75 mg PO DAILY trazodone 50 mg tablet 50 mg PO HS insulin lispro 100 unit/mL insulin pen 3 unit SUBCUT TIDWM Qty: 1 0RF levothyroxine [Synthroid] 50 mcg Tablet 50 mcg PO DAILY@30 Qty: 30 0RF insulin glargine [Lantus U-100 Insulin] 100 unit/mL Solution 11 unit subcut DAILY Qty: 3 0RF losartan 50 mg tablet 50 mg PO DAILY Qty: 30 0RF diazepam [Valium] 5 mg tablet 5 mg PO BID PRN (Reason: vertigo) Qty: 14 0RF Rx Instructions: Use when no relief with other medications. Use for severe Vertigo symptoms meclizine 25 mg Tablet 25 mg PO QID PRN (Reason: vertigo) Qty: 30 0RF <Marissa Suresh APRN - Last Filed: 07/22/24 18:16> Follow-up/Referrals: Ampadu,MD Memo [Primary Care Provider] - <Marissa Suresh APRN - Last Filed: 07/22/24 18:16> Time of Disposition: 23:31 <Marissa Suresh APRN - Last Filed: 07/22/24 18:16> 23:31 <Alfredo Koenig MD - Last Filed: 07/23/24 06:57>
[2024-07-22 20:12] LABS: Basophils Absolute Auto 0.1 K/mm3 (0.0-0.1); Basophils Percent Auto 0.8 % (0.2-1.2); Eosinophils Absolute Auto 0.1 K/mm3 (0-0.3); Eosinophils Percent Auto 0.9 % (0-4.4); Hematocrit 38.4 % (37.0-47.0); Hemoglobin 12.7 g/dL (12.0-15.0); Immature Granulocyte Absolute 0.03 K/mm3 (0.00-0.031); Immature Granulocyte Percent A 0.3 % (0-0.5); Lymphocytes Absolute Auto 2.89 K/mm3 (0.9-3.2); Lymphocytes Percent Auto 28.5 % (18.3-44.2); Mean Corpuscular HGB Conc 33.1 g/dl (32-36); Mean Corpuscular Hemoglobin 31.6 pg (26-34); Mean Corpuscular Volume 95.5 fl (80-100); Mean Platelet Volume 8.8 fl (7.4-10.4); Monocytes Absolute Auto 0.6 K/mm3 (0.1-0.6); Monocytes Percent Auto 5.8 % (2.6-8.5); Neutrophils Absolute Auto 6.5 K/mm3 (1.3-6.7); Neutrophils Percent Auto 63.7 % (45.5-73.1); Platelet Count Result 425 k/mm3 (150-375); Red Blood Count 4.02 M/mm3 (4.2-5.4); Red Cell Distribution Width 11.4 % (11.5-14.5); White Blood Count 10.1 K/mm3 (4.5-10.0)
[2024-07-22 20:17] LABS: Fractional Inspired Oxygen 21 %; HCO3 VBG 26.8 mEq/l (24.0-30.0); PCO2 VBG 45.6 mmHg (42.0-48.0); PO2 VBG 46.6 mmHg (35.0-45.0); pH VBG 7.387 (7.300-7.400)
[2024-07-22 20:27] LABS: Alanine Aminotransferase 14 U/L (6-35); Albumin Level 4.2 g/dL (3.5-5.1); Alkaline Phosphatase 47 U/L (38-126); Anion Gap 7 mmol/L (4-12); Aspartate Amino Transferase 32 U/L (14-36); Bilirubin,Total 0.6 mg/dL (0.2-1.3); Blood Urea Nitrogen 18 mg/dL (7-17); Calcium 9.4 mg/dL (8.4-10.2); Carbon Dioxide 26 mmol/L (22-30); Chloride 95 mmol/L (98-107); Estimated CRCL calculation 58 ml/min; Estimated Glomerular Filt Rate > 60; Glucose 364 mg/dL (65-110); Potassium 5.1 mmol/L (3.4-5.0); Sodium 128 mmol/L (137-145); Total Protein 6.9 g/dL (6.3-8.2)
[2024-07-22 20:30] LABS: Beta-Hydroxybutyrate/Acetoacetate 0.88 mmol/L (0.02-0.27)
[2024-07-22 21:55] VITALS: BP 112/55; PULSE 64; RESP 20; TEMP 36.4; O2SAT 98
[2024-07-22 22:36] LABS: Glucose Point of Care 353 mg/dl (65-105)
--- OUTSIDE RECORDS SUMMARY | 2024-07-22 22:37 | XMS_ITS | Continuity of Care Document ---
Author Organization [facility] Address [address] [place] [address] Phone Care Team Providers Care Batch Unit Treater Name Role Phone Elsie Onofre MD Unavailable [...] Diagnoses Date Provider Providers Copied on Encounter [employer], [address], [place], [place], [id number] , tel: [phone] Conversion Department No Information 1 Jemima Zimmerman. [address], [address], [place], [place], [id number], . [phone] [employer], [address], [place], [place], [address] , tel: [phone] Conversion Department SCREEN MAL NEOP-CERVIXROUTIN E COLOR TECHNICIAN EXAMINATIONPANIC DIS W/O AGORPHOBIAMALAISE AND FATIGUE NEC 7200 7 Conversion Doctor. [facility] [place], [address], [place]. [employer] [facility], [address], [place], [place], [address] , tel: [phone] Conversion Department LONG-TERM USE MEDS NEC 7 Conversion Doctor. [facility] [place], [address], . [employer], [address], [place], [place], [id number] , [place] tel: [phone] Conversion Department SCREEN-CARDIOVASC NEC Conversion Doctor. [address] [place], [address], . [employer], [address], [place], [place], [address] , tel: [phone] Conversion Department No Information Jemima Zimmerman. [address], [address], [place], [place], [id number], [place]. [phone] [employer], [address], [place], [place], [address] , tel: [phone] Conversion Department ASYMPT POSTMENO STATUSESOPHAGEAL REFLUX Conversion Doctor. [address] [facility], [place], [address], . Family History Family Member Type Diagnosis [...]
[2024-07-22 22:41] LABS: Add Urine Microscopic? NO; Appearance Urine Clear (Clear); Bilirubin Urine Negative (Negative); Blood Urine Negative (Negative); Color Urine Yellow (Yellow); Glucose Urine UA 3+ mg/dL (Negative); Ketones Urine 1+ mg/dL (Negative); Leukocyte Esterase Ur Negative LEU/UL (Negative); Nitrate Urine Negative (Negative); Protein Urine Negative (Negative); Specific Grav Ur 1.027 (1.001-1.035); Urobilinogen Urine 0.2 mg/dL (<2.0); pH Urine 5.5 (5.0-9.0)
[2024-07-22] MEDS: LACTATED RINGERS 1,000 ML 999 ML IV CONT ×2 (22:48→23:06)
[2024-07-23] LABS: Glucose Point of Care 272 mg/dl (65-105)
[2024-07-23] MEDS: INSULIN ASPART (*BKC) 100 UNITS/ML 7 UNITS SUB-Q (00:12)
[2024-07-23 00:14] VITALS: BP 133/55; PULSE 77; RESP 16; O2SAT 98
[2024-07-23 00:58] LABS: Glucose Point of Care 263 mg/dl (65-105)
== END 2024-07-23 01:39 | disposition home or self-care (01) ==
PROVIDERS: Registered Nurse; Emergency Provider Student in an Organized Health Care Education/Training Program; PCP Internal Medicine
DX: E10.65 Type 1 diabetes mellitus with hyperglycemia (principal); E86.0 Dehydration; I10 Essential (primary) hypertension; I69.954 Hemiplegia and hemiparesis following unspecified cerebrovascular disease affecting left non-dominant side; I48.0 Paroxysmal atrial fibrillation; E03.9 Hypothyroidism, unspecified; H81.09 Meniere's disease, unspecified ear; F32.A Depression, unspecified; F41.9 Anxiety disorder, unspecified; Z66 Do not resuscitate; Z87.891 Personal history of nicotine dependence; Z79.899 Other long term (current) drug therapy; Z79.01 Long term (current) use of anticoagulants; Z79.4 Long term (current) use of insulin
CPT/HCPCS: 36415; 80053; 81003; 82010; 82803; 82948; 85025; 96360; 99283; J1815; J7120